=== PATIENT | male | born 1985 | race Caucasian/White ===

== ENCOUNTER 2018-08-20 17:31 | Emergency (ER) | payer SELFPAY ==
[2018-08-20 17:33] VITALS: BP 114/75; PULSE 94; RESP 16; TEMP 36.8; O2SAT 97; BMI 22.4
--- NOTE | 2018-08-20 17:41 | ED.DCSUM_ITS ---
- ER Visit Summary Date of Service: 08/20/18 Chief Complaint: Diarrhea History of Present Illness: The patient is a 32 M presents to the emergency department diarrhea. It is since resolved. The patient states this morning, he woke up and had 6 episodes of loose watery diarrhea. He states he took Imodium and Pepto. He states it is since resolved. He had to call off work and needs an excuse that he is allowed to return tomorrow. He is otherwise healthy. Is no history of inflammatory bowel disease. Physical Examination: Vital signs reviewed General: Well-nourished, well-developed Head: Normocephalic, atraumatic Eyes: Pupils equal and reactive, extraocular muscles intact Neck, supple, no lymphadenopathy Heart: Regular rate and rhythm Respiratory: No distress, clear bilaterally Abdomen: Soft, nontender, nondistended, no peritoneal signs Back: Nontender Extremities: Nontender, no edema, no cords Skin: Normal color no rash Neuro: Alert and oriented, no focal or lateralizing deficits Test Results: [] Emergency Department Course and Treatment: The patient's abdomen is soft and nontender. He has normal vitals. His symptoms have resolved. I do not feel further workup is necessary. Patient was counseled on supportive care. He will be discharged home. Treatment Plan: [] Disposition: Discharge Impression: 1. Diarrhea-resolved This note was generated with [employer] dictation software. It may contain incorrect words, spelling, and punctuation that were not noted in review of the chart prior to signing ED Disposition - Plan for ED Patient: Instructions: ED Diarrhea Viral Referrals: Care Physician,No Primary [Primary Care Provider] -
== END 2018-08-20 18:05 | disposition home or self-care (01) ==
LOC: ED 18:03
PROVIDERS: Emergency Provider Emergency Medicine
DX: R19.7 Diarrhea, unspecified (principal); Z72.0 Tobacco use
CPT/HCPCS: 99282

== ENCOUNTER 2019-11-15 11:56 | Emergency (ER) | payer SELFPAY ==
[2019-11-15 11:58] VITALS: BP 126/91; PULSE 89; RESP 22; TEMP 36.9; O2SAT 97; BMI 22.6
--- NOTE | 2019-11-15 12:19 | CT_ITS ---
STUDY: CT BRAIN WITHOUT CONTRAST REASON FOR EXAM: Male, 34 years old. 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 Individualized dose optimization techniques were used for this CT. COMPARISON: No relevant priors. FINDINGS: Normal soft tissue structures. Normal calvarium. Normal size ventricles and extra-axial spaces for the patient''s age. Normal white matter tracts of the cerebral hemispheres. Normal basal ganglia and thalami. Normal brainstem. Normal cerebellum. There is no intracranial hemorrhage. There are no findings of an acute ischemic infarction. Normal visualized paranasal sinuses. CT/Brain/Head without Contrast IMPRESSION: Normal unenhanced CT scan of the brain. Electronically Signed: Davis Cortes, at 12:41 EDT , Service support ,
[2019-11-15] MEDS: Acetaminophen 500 MG Tablet 1000 MG PO (12:39)
--- NOTE | 2019-11-15 12:58 | ED.DCSUM_ITS ---
- ER Visit Summary Date of Service: 11/15/19 Chief Complaint: Headache History of Present Illness: The patient is a 34 M with no primary care physician. Patient reports he had abrupt onset of an occipital headache approximately 1 hour ago. Is a throbbing pain is 910 at worst and 5-10 currently. Is worsened by nothing relieved by nothing. He denies any nausea or vomiting. Reports he does have blurred vision. States he is never had a headache like this before. He does have a history of migraines, but has not had one since he was 14 years old. Patient denies any fever. No recent injury to his head. Physical Examination: Vitals: Stable. Afebrile. General: Well-nourished and well-developed. Head: Normocephalic atraumatic. Neck: Supple, no lymphadenopathy. No JVD. Nontender. Cardiovascular: Regular rate and rhythm. No murmurs. Respiratory: No respiratory distress. Clear to auscultation bilaterally. Abdominal: Soft, nontender, nondistended, normal bowel sounds. No guarding, rebound, or peritoneal signs. Back: Nontender. Extremities: Nontender, no edema. Skin: Normal color, no rash. Neurologic: Alert and oriented ?3. Cranial nerves II through XII are intact. Normal strength and sensation. Psych: Normal affect. Test Results: Clinical Impression(s) from Imaging Studies Brain CT 11/15/19 12:19 IMPRESSION: Normal unenhanced CT scan of the brain. Electronically Signed: Davis Sophia, at 12:41 EDT , Service support , Emergency Department Course and Treatment: Patient was given a dose of Tylenol. He is resting comfortably. Treatment Plan: Patient will be discharged symptomatic care. Push fluids. Use Tylenol and/or ibuprofen for pain. Follow-up his primary care physician 1 to 2 days if not improving. Return to the emergency department for any worsening symptoms. Disposition: To home in improved and stable condition. Impression: 1. Cephalgia, acute. This note was generated with [employer] software. It may contain incorrect words, spelling, and punctuation that were not noted in review of the chart prior to signing ED Disposition - Plan for ED Patient: Disposition: Home or Assisted Living Instructions: ED Headache Unspecified Referrals: Kanwal Denise [NON-STAFF] - 1-2 Days if not improving
[2019-11-15 13:08] VITALS: BP 111/71; PULSE 91; RESP 17; O2SAT 98
--- NOTE | 2019-11-15 13:09 | ED.RN ---
DISCHARGE INSTRUCTIONS GIVEN TO AND REVIEWED WITH PATIENT, PATIENT DENIES QUESTIONS OR CONCERNS AND VOICES UNDERSTANDING OF DISCHARGE INSTRUCTIONS. PT AMBULATES OUT OF ROOM WITHOUT DIFFICULTY.
== END 2019-11-15 13:10 | disposition home or self-care (01) ==
LOC: ED 12:39
PROVIDERS: Emergency Provider Emergency Medicine
DX: R51 Headache (principal); Z72.0 Tobacco use
CPT/HCPCS: 70450; 99283

== ENCOUNTER 2020-01-08 11:51 | Emergency (ER) | payer MEDICAID, SELFPAY ==
[2020-01-08 11:52] VITALS: BP 135/84; PULSE 88; RESP 17; TEMP 36.4; O2SAT 99; BMI 21.9
--- NOTE | 2020-01-08 12:10 | ED.VIS.GEN ---
History of Present Illness Informant: Patient Onset: Weeks - 1 week Context: Gradual Onset Timing: Continuous Quality: swelling Location: right groin Current Severity: Severe Maximum Severity: Severe Worsened by: palpation and movement Relieved by: nothing Associated Symptoms: denies Narrative: 34-year-old male heroin abuse states he only snorts heroin presents with an abscess on his right groin that is been getting worse for a week he has had some mild spontaneous drainage but it continues to worsen. No fevers. No vomiting or diarrhea. No abdominal pain. No pain or swelling in his scrotum and he has been urinating normally. Prior similar symptoms: No Recent Illness/Hospitalization: No <Nino Casarez - Last Filed: 01/08/20 13:01> <Yanique Pearson - Last Filed: 01/08/20 22:56> Chief Complaint: Abscess Past Medical History Prior records reviewed: Yes Past Medical History: - - Heroin abuse Surgical History: no surgical history Lives: Alone Smoking Status: Current every day smoker Alcohol: Occasional Drugs: Heroin <Nino Casarez - Last Filed: 01/08/20 13:01> <Yanique Pearson - Last Filed: 01/08/20 22:56> - Allergies and Home Meds Allergies/Adverse Reactions: Allergies acetaminophen [From [place]] Adverse Reaction (Verified 01/08/20 11:52) Upset Stomach hydrocodone bitartrate [From [place]] Adverse Reaction (Verified 01/08/20 11:52) Upset Stomach Primary Care Physician: Daniel Jay MD [STAFF PHYSICIAN] - 3-5 Days Review of Systems All systems negative except as indicated General: Denies: Chills, Fever, Sweats Eyes: Denies: Visual changes - bilaterally, Diplopia ENT: Denies: Rhinorrhea, Sore throat Cardiovascular: Denies: Chest pain, Palpitations Respiratory: Denies: Dyspnea, Cough, Dyspnea on exertion Gastrointestinal: Denies: Abdominal pain, Nausea, Vomiting, Diarrhea, Melena, Hematochezia Genitourinary: Denies: Dysuria, Hematuria, Frequency Musculoskeletal: Denies: Back pain, Extremity Pain Skin: Reports: Abscess. Denies: Rash, Wounds Neurological: Denies: Headache, Weakness, Numbness <Nino Casarez - Last Filed: 01/08/20 13:01> Physical Exam Vital Signs/Narrative: Vital Signs Temp Pulse Resp BP Pulse Ox 01/08/20 11:52 97.6 F L 88 17 135/84 H 99 General: Well nourished, Well developed, No Acute Distress Head: Normocephalic, Atraumatic Eyes: Perrl, EOMI ENT: Moist mucous membranes, No rhinorrhea Neck: Supple, Nontender Cardiovascular: Regular rate, Regular rhythm, No murmurs Respiratory: No distress, CTA bilaterally, Chest nontender Abdomen: Soft, Nontender, Nondistended, Normal bowel sounds Back: Nontender, Normal Inspection Extremities: Nontender, No edema Skin: No rash, - - Patient has an abscess in his right lower quadrant of his abdomen it is superficial it is indurated and fluctuant Neurological: Alert, Oriented x3, Cranial nerves II-XII grossly intact, Normal Strength, Normal Sensation Psychological: Normal affect, Normal Mood <Nino Casarez - Last Filed: 01/08/20 13:01> Diagnostic/Tx/Re-eval - Medical Decision Making Patient has a superficial abscess in the right lower quadrant of his abdomen. Under sterile conditions with Betadine prep lidocaine with epinephrine was used locally for anesthesia. It was anesthetized and then opened with a single straight incision with an 11 blade scalpel. Copious purulent drainage was returned. It was irrigated and deloculated. Prescribed him Bactrim and Keflex and Naprosyn I discussed with him I would not prescribe narcotics due to his heroin abuse patient tolerated with difficulty. A packing was placed. I he was advised to follow-up in 2 to 3 days for wound check or return for worsening symptoms. Doses of antibiotics given in the emergency department. <Nino Casarez - Last Filed: 01/08/20 13:01> - Medical Decision Making I have personally performed a [id number] assessment of the patient and have reviewed the PA note. My montemayor findings include: 34-year-old male presenting with right groin abscess. Vital signs are stable. He has a fluctuant abscess to the right groin. I&D was performed. He was started on antibiotics. Advised to follow-up with primary care physician. Advised return to ED for worsening complaints. <Yanique Pearson - Last Filed: 01/08/20 22:56> ED Disposition <Nino Casarez - Last Filed: 01/08/20 13:01> <Yanique Pearson Last Filed: 01/08/20 22:56> - Plan for ED Patient: Disposition: Home or Assisted Living Diagnosis: Abscess, Heroin abuse Instructions: ED Abscess Incision And Drainage Prescriptions: Smz/Tmp Ds [Bactrim Ds] 1 tab PO BID #14 tab Transmission Status: Received by [facility] Cephalexin [Keflex] 500 mg PO Q6 #40 cap Transmission Status: Received by [facility] Naproxen [Naprosyn] 500 mg PO BID #20 tab Transmission Status: Received by [facility] Referrals: Daniel Jay MD [STAFF PHYSICIAN] - 3-5 Days
[2020-01-08] MEDS: Ketorolac 60 MG/2 ML Vial IM (12:40)
[2020-01-08] MEDS: Cephalexin 250 MG Capsule 500 MG PO (12:46)
[2020-01-08] MEDS: Smz/Tmp Ds Tablet 1 TABLET PO (12:47)
[2020-01-08 13:21] VITALS: RESP 16
== END 2020-01-08 13:22 | disposition home or self-care (01) ==
PROVIDERS: Emergency Provider Physician Assistant Medical
DX: L02.214 Cutaneous abscess of groin (principal); F11.10 Opioid abuse, uncomplicated; F17.200 Nicotine dependence, unspecified, uncomplicated
CPT/HCPCS: 10060; 96372; 99283

== ENCOUNTER 2020-02-20 04:41 | Emergency (ER) | payer MEDICAID, SELFPAY ==
[2020-02-20 04:42] VITALS: BP 124/71; PULSE 60; RESP 14; TEMP 36.4; O2SAT 95; BMI 23.1
[2020-02-20 04:45] VITALS: BP 124/73; PULSE 60; RESP 14; TEMP 36.6; O2SAT 98
--- NOTE | 2020-02-20 05:02 | ED.DCSUM_ITS ---
- ER Visit Summary Date of Service: 02/20/20 Chief Complaint: Facial abscess History of Present Illness: The patient is a 34 M with no primary care physician. He reports he has an abscess to the right side of his chin that began 3 days ago. States it began as a pimple that he squeezed too hard. He denies any dental pain. He reports he has a sharp, aching pain there that is 10 out of 10 in severity. Is worsened by closing his mouth and turning his head. He is taken ibuprofen without relief. He denies any constitutional symptoms. No fever, chills, nausea, or vomiting. Patient does have a history of heroin use. He states that he snorts this. He denies any IV drug abuse. His last use was at 4:00 yesterday. Reports that he is in the process of getting on Suboxone at 180. However, he states that he spoke with them tonight and they told him to get this under control prior to starting Suboxone. Physical Examination: Vitals: Stable. Afebrile. General: Well-nourished and well-developed. Head: Normocephalic atraumatic. HEENT: No pain with percussion of his teeth. He does have an approximate 2 cm indurated area to the right side of his lower lip with central fluctuance. There is mild soft tissue swelling to his mandible. There is no evidence of José Miguel angina. He has no edema to the floor of his mouth. Neck: Supple, no lymphadenopathy. No JVD. Nontender. Cardiovascular: Regular rate and rhythm. No murmurs. Respiratory: No respiratory distress. Clear to auscultation bilaterally. Abdominal: Soft, nontender, nondistended, normal bowel sounds. No guarding, rebound, or peritoneal signs. Back: Nontender. Extremities: Nontender, no edema. Skin: Normal color, no rash. Neurologic: Alert and oriented ?3. Cranial nerves II through XII are intact. Normal strength and sensation. Psych: Normal affect. Emergency Department Course and Treatment: I had a prolonged discussion with patient about treatment options for this. He does not want an incision and drainage performed here. We also discussed the use of opiate-based medications and there effect on his sobriety. He reports that he did does not have a problem with pills. The patient has objective evidence of a facial abscess that is clearly going to be painful. He was treated with oxycodone, Bactrim and Keflex. Treatment Plan: Patient will be discharged instructions to follow-up the vitals*clinic in 2 days for repeat exam. He will be discharged with 10 Percocet, Bactrim, and Keflex. He does understand if this is not improving that it will require an incision and drainage. Return to the emergency department for any worsening symptoms. Disposition: To home in improved and stable condition. Impression: 1. Facial abscess. 2. Opiate addiction. This note was generated with [employer] dictation software. It may contain incorrect words, spelling, and punctuation that were not noted in review of the chart prior to signing ED Disposition - Plan for ED Patient: Disposition: Home or Assisted Living Instructions: ED Abscess Antibiotic Treatment Only Prescriptions: Smz/Tmp Ds [Bactrim Ds] 1 tab PO BID #14 tab Prescription Printed Cephalexin [Keflex] 500 mg PO Q6 #28 cap Prescription Printed Oxycodone HCl/Acetaminophen [Percocet 5/325] 1 tab PO Q6H PRN PRN 3 Days #10 tab PRN Reason: Pain Prescription Printed Referrals: Kanwal Denise [NON-STAFF] - 2 Days for wound check
[2020-02-20] MEDS: Smz/Tmp Ds Tablet 1 TABLET PO (05:11)
[2020-02-20] MEDS: Cephalexin 250 MG Capsule 500 MG PO (05:11)
[2020-02-20] MEDS: oxyCODONE 5 MG Tablet 10 MG PO (05:11)
[2020-02-20 05:12] VITALS: RESP 16
== END 2020-02-20 05:16 | disposition home or self-care (01) ==
LOC: ED 05:04
PROVIDERS: Emergency Provider Emergency Medicine
DX: L02.01 Cutaneous abscess of face (principal); F11.20 Opioid dependence, uncomplicated; Z72.0 Tobacco use
CPT/HCPCS: 99283

== ENCOUNTER 2020-04-23 08:59 | Inpatient (IN) | payer MEDICAID, SELFPAY ==
[2020-04-23] VITALS (8 sets, daily range): BP systolic 119–144; BP diastolic 50–85; PULSE 60–90; RESP 15–18; TEMP 36.1–36.9; O2SAT 95–100; BMI 23.6; BMI 23.3; BMI 23.4
--- NOTE | 2020-04-23 09:19 | ED.VIS.GEN ---
History of Present Illness Chief Complaint: Substance Abuse Informant: Patient Onset: Month(s) - Approximately 1 year Narrative: Patient presents asking for help with detox from heroin. He has been snorting heroin for approximately 1 year. He states he is been able to taper himself down from $2000 a month use to $100 a month use. He states he just cannot quite get over the final have to completely stop and would like inpatient detox to help him with this. Last use was at 9 PM last evening. He states he does feel slightly shaky and has not slept overnight. Past Medical History - Allergies and Home Meds Allergies/Adverse Reactions: Allergies acetaminophen [From [place]] Adverse Reaction (Verified 04/23/20 09:00) Upset Stomach hydrocodone bitartrate [From [place]] Adverse Reaction (Verified 04/23/20 09:00) Upset Stomach Primary Care Physician: Care Physician,No Primary [Primary Care Provider] - Past Medical History: None Surgical History: no surgical history Smoking Status: Current every day smoker Drugs: Heroin Review of Systems General: Denies: Chills, Fever Eyes: Denies: Visual changes - bilaterally ENT: Denies: Bilateral ear pain Cardiovascular: Denies: Chest pain Respiratory: Denies: Dyspnea, Cough Gastrointestinal: Denies: Abdominal pain, Vomiting, Diarrhea Genitourinary: Denies: Dysuria Musculoskeletal: Denies: Swelling, Extremity Pain Skin: Denies: Rash Hematologic: Denies: Easy bruising, Easy bleeding Allergy: Denies: Uticaria Physical Exam Vital Signs/Narrative: Vital Signs Temp Pulse Resp BP Pulse Ox 04/23/20 09:00 97.0 F L 87 17 123/50 H 100 Inital Vital Signs reviewed: Yes General: Well nourished, Well developed Head: Normocephalic ENT: Moist mucous membranes Neck: Supple Cardiovascular: Regular rate, Regular rhythm Respiratory: No distress, CTA bilaterally Abdomen: Soft, Nontender Extremities: Nontender Skin: Normal color Neurological: Alert, Oriented x3, Normal Strength, Normal Sensation Psychological: Normal affect Diagnostic/Tx/Re-eval Laboratory Results 04/23/20 04/23/20 04/23/20 09:25 09:25 09:25 WBC 13.1 H RBC 5.44 Hgb 17.1 H Hct 51.5 MCV 94.7 H MCH 31.4 MCHC 33.2 RDW Std Deviation 46.7 H RDW Coeff of Brianna 13.3 Plt Count 346 MPV 8.9 Immature Gran % (Auto) 0.300 Neut % (Auto) 72.5 H Lymph % (Auto) 15.4 L [place] % (Auto) 7.9 Eos % (Auto) 3.4 Baso % (Auto) 0.5 Absolute Neuts (auto) 9.5 H Absolute Lymphs (auto) 2.02 Nucleated RBC % 0 Sodium 138 Potassium 4.1 Chloride 107 Carbon Dioxide 29.0 Anion Gap 2 L BUN 19 H Creatinine 1.14 Estim Creat Clear Calc 101.24 Est GFR (MDRD) Af Amer 93 Est GFR (MDRD) Non-Af 77 BUN/Creatinine Ratio 16.7 Glucose 111 H Calcium 9.2 Total Bilirubin 0.20 AST 11 L ALT 24 Alkaline Phosphatase 96 Total Protein 7.4 Albumin 4.0 Globulin 3.4 Albumin/Globulin Ratio 1.2 Urine Opiates Screen Urine Methadone Screen Ur Barbiturates Screen Ur Phencyclidine Scrn Ur Amphetamines Screen U Methamphetamin-MDMA U Benzodiazepines Scrn Urine Cocaine Screen U Cannabinoids Screen Ur Drug Screen Comment Ethyl Alcohol < 3.0 04/23/20 10:45 WBC RBC Hgb Hct MCV MCH MCHC RDW Std Deviation RDW Coeff of Brianna Plt Count MPV Immature Gran % (Auto) Neut % (Auto) Lymph % (Auto) [place] % (Auto) Eos % (Auto) Baso % (Auto) Absolute Neuts (auto) Absolute Lymphs (auto) Nucleated RBC % Sodium Potassium Chloride Carbon Dioxide Anion Gap BUN Creatinine Estim Creat Clear Calc Est GFR (MDRD) Af Amer Est GFR (MDRD) Non-Af BUN/Creatinine Ratio Glucose Calcium Total Bilirubin AST ALT Alkaline Phosphatase Total Protein Albumin Globulin Albumin/Globulin Ratio Urine Opiates Screen NEGATIVE Urine Methadone Screen NEGATIVE Ur Barbiturates Screen NEGATIVE Ur Phencyclidine Scrn NEGATIVE Ur Amphetamines Screen NEGATIVE U Methamphetamin-MDMA NEGATIVE U Benzodiazepines Scrn NEGATIVE Urine Cocaine Screen NEGATIVE U Cannabinoids Screen NEGATIVE Ur Drug Screen Comment Ethyl Alcohol - Medical Decision Making Rules for the detox unit were reviewed with the patient and he agreed. Labs do reveal a mild leukocytosis. No obvious source of infection. I will speak with hospitalist regarding admission for detox program. ED Disposition - Plan for ED Patient: Disposition: Acute Care [facility] Diagnosis: Desire for detoxification Referrals: Care Physician,No Primary [Primary Care Provider] -
[2020-04-23 09:30] LABS: Absolute Lymphocyte Count 2.02 X10^3/uL (0.83-4.51); Absolute Neutrophil Count 9.5 X10^3/uL (2.0-7.7); Basophil# 0.07 X10^3/uL; Basophil% 0.5 % (0-1); Eosinophil# 0.44 X10^3/uL; Eosinophils% 3.4 % (0-5); Hematocrit 51.5 % (40-54); Hemoglobin 17.1 g/dL (13.0-16.5); Lymphocyte # 2.02 X10^3/ul (4.0); Lymphocyte % 15.4 % (19-41); Mean Corp Hgb Conc 33.2 g/dL (32-36); Mean Corpuscular Hgb 31.4 pg (27.0-32.0); Mean Corpuscular Volume 94.7 fL (80-94); Mean Platelet Vol. 8.9 fl (6.2-12.0); Monocyte# 1.03 X10^3/uL; Monocyte% 7.9 % (0-10); NRBC Flagged by Analyzer 0 % (0-5); Neutrophil # 9.48 X10^3/uL (2.7-7.7); Neutrophil % 72.5 % (47-70); Platelet Count 346 K/mm3 (150-450); RBC Distribution Width CV 13.3 % (11.6-14.6); RBC Distribution Width SD 46.7 fl (35.1-43.9); Red Blood Count 5.44 M/mm3 (4.6-6.2); White Blood Count 13.1 K/mm3 (4.4-11.0)
[2020-04-23] MEDS: LORazepam 2 MG/ML Syringe 0.5 MG IV (09:32)
[2020-04-23 09:46] LABS: ALB/GLOB Ratio 1.2 RATIO (0.9-2.4); AST(SGOT) 11 U/L (15-37); Alanine Aminotransfer ALT/SGPT 24 U/L (16-61); Alkaline Phosphatase 96 U/L (45-117); Anion Gap 2 (5-15); BUN 19 mg/dL (7-18); BUN/Creat Ratio 16.7 RATIO (10-20); Calcium,Total 9.2 mg/dL (8.5-10.1); Chloride 107 mmol/L (98-107); Creatinine, Serum 1.14 mg/dL (0.70-1.30); EST Glomerular Filtration Rate 77 mL/min (>60); Est Glom Filt Rate - Afr Amer 93 mL/min (>60); Estimated Creatinine Clearance 101.24 ml/min; Globulin 3.4 g/dL (2.2-4.2); Glucose 111 mg/dL (74-106); Potassium 4.1 mmol/L (3.5-5.1); Protein, Total 7.4 g/dL (6.4-8.2); Sodium Level 138 mmol/L (136-145)
[2020-04-23 10:03] LABS: Alcohol, Blood (Medical)-Serum < 3.0 mg/dL
[2020-04-23 11:08] LABS: Amphetamine Urine VISTA NEGATIVE (<1000 ng/mL); Barbiturate Urine VISTA NEGATIVE (< 200 ng/mL); Benzodiazepine Urine VISTA NEGATIVE (< 200 ng/mL); Cocaine Urine VISTA NEGATIVE (< 300 ng/mL); Ecstacy Urine VISTA NEGATIVE (< 500 ng/mL); Methadone Urine VISTA NEGATIVE (< 300 ng/mL); PCP Urine VISTA NEGATIVE (< 25 ng/mL); THC Urine VISTA NEGATIVE (< 50 ng/mL); Vista UDS pH Range 6
--- NOTE | 2020-04-23 12:36 | HP.PCM_ITS ---
Problem List (1) Desire for detoxification Status: Acute (2) No significant pertinent medical history Status: Acute History of Present Illness Date of Admission: 04/23/20 Chief Complaint: seeking help for opiate withdrawal The patient is a 34 year old M seeking treatment for heroin use. Patient has been snorting heroin for years and has recently cut down and attempts to quit but cannot maintain sobriety. He has not sought out any organizations to quit other than just trying to do it on his own. Patient presented to the emergency room today seeking such treatment. Patient's last use was at 9 PM on the . Since then, he has been having some twitching, and some headache and slow mental processing. [] Past Medical History Allergies acetaminophen [From [place]] Adverse Reaction (Verified 04/23/20 09:00) Upset Stomach hydrocodone bitartrate [From [place]] Adverse Reaction (Verified 04/23/20 09:00) Upset Stomach Home Medications: Ambulatory Orders Medication Instructions Recorded Cephalexin [Keflex] 500 mg PO Q6 #28 cap 02/20/20 Smz/Tmp Ds [Bactrim Ds] 1 tab PO BID #14 tab 02/20/20 Surgical History: no surgical history Smoking Status: Current every day smoker Drugs: Heroin, Marijuana - Occasional - *Family History Sibling History Items: - - He has a brother that is a heroin dealer. No other addicts in the family. Review of Systems Comment: All review of systems were negative except as mentioned above in the history of present illness and the other review of systems. No sick contacts, no exposure to anyone with COVID-19. Rhinitis. No lacrimation. VTE Information - Inpt Only VTE Present on Admission: No VTE Mechan Device Prophylaxis: None VTE Pharm Prophylaxis ordered?: No Reason prophylaxis not ordered:: Treatment Not Indicated Patient Problems: Active and Suspected Problems Desire for detoxification (Acute) - Physical Exam Vitals/I&O's: Vital Signs Temp Pulse Resp BP Pulse Ox 36.5 C L 69 16 144/85 H 100 04/23/20 12:14 04/23/20 12:14 04/23/20 12:14 04/23/20 12:14 04/23/20 12:14 Oxygen Delivery Method Room Air Weight: 81.3 kg Body Mass Index (BMI) 23.6 General: Alert, Cooperative, No apparent distress HEENT: Atraumatic, Normocephalic Oral: Moist Mucosa, No Gingival or Mucosal Lesions/ Ulcerations Neck: No Nodes, Thyroid Normal Size and Texture Lungs: Clear to auscultation, Normal air movement, No rhonchi, No wheeze, No rales, Diminished Cardiovascular: Regular rate, Regular Rhythm, Normal S1, Normal S2, No murmurs Abdomen: Bowel Sounds Present, Soft, Non Tender, Non-Distended Extremities: No edema, No Calf Tenderness Skin: No rashes, No breakdown Psych/Mental Status: Normal Affect, Appropriate Laboratory Results 04/23/20 09:25: WBC 13.1 H, RBC 5.44, Hgb 17.1 H, Hct 51.5, MCV 94.7 H, MCH 31.4, MCHC 33.2, RDW Std Deviation 46.7 H, RDW Coeff of Brianna 13.3, Plt Count 346, MPV 8.9, Immature Gran % (Auto) 0.300, Neut % (Auto) 72.5 H, Lymph % (Auto) 15.4 L, [place] % (Auto) 7.9, Eos % (Auto) 3.4, Baso % (Auto) 0.5, Absolute Neuts (auto) 9.5 H, Absolute Lymphs (auto) 2.02, Nucleated RBC % 0 04/23/20 09:25: Sodium 138, Potassium 4.1, Chloride 107, Carbon Dioxide 29.0, Anion Gap 2 L, BUN 19 H, Creatinine 1.14, Estim Creat Clear Calc 101.24, Est GFR (MDRD) Af Amer 93, Est GFR (MDRD) Non-Af 77, BUN/Creatinine Ratio 16.7, Glucose 111 H, Calcium 9.2, Total Bilirubin 0.20, AST 11 L, ALT 24, Alkaline Phosphatase 96, Total Protein 7.4, Albumin 4.0, Globulin 3.4, Albumin/Globulin Ratio 1.2 04/23/20 09:25: Ethyl Alcohol < 3.0 04/23/20 10:45: Urine Opiates Screen NEGATIVE, Urine Methadone Screen NEGATIVE, Ur Barbiturates Screen NEGATIVE, Ur Phencyclidine Scrn NEGATIVE, Ur Amphetamines Screen NEGATIVE, U Methamphetamin-MDMA NEGATIVE, U Benzodiazepines Scrn NEGATIVE, Urine Cocaine Screen NEGATIVE, U Cannabinoids Screen NEGATIVE, Ur Drug Screen Comment Assessment/Plan All Active Problems Desire for detoxification (Acute) No significant pertinent medical history (Acute) 1. acute heroin withdrawal * CINA score 5 * initiate buprenorphine taper * additional medications for other somatic complaints * CM to assist with outpt program. patient has not sought out any programs. 2. VTE prophylaxis: Low risk and not indicated. Inpatient E&M: [id number] Init Hosp L2
[2020-04-23] MEDS: Ibuprofen 600 MG Tablet PO (14:41)
[2020-04-23] MEDS: Methocarbamol 750 MG Tablet 1500 MG PO ×2 (14:42→21:32)
[2020-04-23] MEDS: Buprenorphine HCl 2 MG TAB.SUBL SL (18:43)
[2020-04-23] MEDS: traZODone 100 MG Tablet PO (23:06)
--- NOTE | 2020-04-23 23:08 | NURSING ---
Asking for something for sleep. He states that's why he started using heroin because he couldn't sleep. Trazodone given.
[2020-04-24 01:41] VITALS: BP 124/69; PULSE 79; RESP 18; TEMP 36.4; O2SAT 98
[2020-04-24] MEDS: Buprenorphine HCl 2 MG TAB.SUBL SL ×3 (02:51→17:46)
[2020-04-24 05:51] VITALS: BP 117/57; PULSE 66; RESP 18; TEMP 36.4; O2SAT 97
--- NOTE | 2020-04-24 08:54 | PN_ITS ---
Patient Problems: Active and Suspected Problems Desire for detoxification (Acute) No significant pertinent medical history (Acute) Reason for Visit: Acute opioid withdrawal Subjective: Patient is a 34-year-old gentleman with history of opiate dependence admitted with acute opioid withdrawal Objective: GENERAL: cooperative HEENT: Atraumatic; EYES; Anicteric, Normal Conjunctiva NECK; supple, normal thyroid, RESPIRATORY: Diminished to auscultation CARDIOVASCULAR: Regular S1 S2, GI: soft, normoactive bowel sounds, : No Renal angle tenderness; EXTREMITIES: No edema, no clubbing, MUSCULOSKELETAL: no muscle waisting NEURO: Awake; no lateralizing signs. SKIN: No Rash PSYCH; Flat affect Vitals/I&O's: Vital Signs Temp Pulse Resp BP Pulse Ox 97.6 F L 66 18 117/57 L 97 04/24/20 05:51 04/24/20 05:51 04/24/20 05:51 04/24/20 05:51 04/24/20 05:51 Oxygen Delivery Method Room Air Weight: 80.399 kg Body Mass Index (BMI) 23.3 Intake and Output for Last 24 Hours 04/22/20 04/23/20 04/24/20 23:59 23:59 23:59 Intake Total 400 / 400 200 / 200 Balance 400 / 400 200 / 200 Laboratory Results 04/23/20 09:25: WBC 13.1 H, RBC 5.44, Hgb 17.1 H, Hct 51.5, MCV 94.7 H, MCH 31.4, MCHC 33.2, RDW Std Deviation 46.7 H, RDW Coeff of Brianna 13.3, Plt Count 346, MPV 8.9, Immature Gran % (Auto) 0.300, Neut % (Auto) 72.5 H, Lymph % (Auto) 15.4 L, Armstrong % (Auto) 7.9, Eos % (Auto) 3.4, Baso % (Auto) 0.5, Absolute Neuts (auto) 9.5 H, Absolute Lymphs (auto) 2.02, Nucleated RBC % 0 04/23/20 09:25: Sodium 138, Potassium 4.1, Chloride 107, Carbon Dioxide 29.0, Anion Gap 2 L, BUN 19 H, Creatinine 1.14, Estim Creat Clear Calc 101.24, Est GFR (MDRD) Af Amer 93, Est GFR (MDRD) Non-Af 77, BUN/Creatinine Ratio 16.7, Glucose 111 H, Calcium 9.2, Total Bilirubin 0.20, AST 11 L, ALT 24, Alkaline Phosphatase 96, Total Protein 7.4, Albumin 4.0, Globulin 3.4, Albumin/Globulin Ratio 1.2 04/23/20 09:25: Ethyl Alcohol < 3.0 04/23/20 10:45: Urine Opiates Screen NEGATIVE, Urine Methadone Screen NEGATIVE, Ur Barbiturates Screen NEGATIVE, Ur Phencyclidine Scrn NEGATIVE, Ur Amphetamines Screen NEGATIVE, U Methamphetamin-MDMA NEGATIVE, U Benzodiazepines Scrn NEGATIVE, Urine Cocaine Screen NEGATIVE, U Cannabinoids Screen NEGATIVE, Ur Drug Screen Comment Current Medications Acetaminophen (Acetaminophen 500 Mg Tablet) 500 mg PO Q4H PRN PRN PRN Reason: Temp > 100.4 F Al Hydroxide/Mg Hydroxide (Mag Hydrox/Al Hydrox/Simeth 30 Ml Udc) 30 ml PO Q6H PRN PRN PRN Reason: dyspesia Bisacodyl (Bisacodyl 10 Mg Suppository) 10 mg RECTAL DAILY PRN PRN Reason: Constipation Buprenorphine HCl (Buprenorphine Hcl 2 Mg Tab.Subl) 4 mg SL Q8H STIVEN; Taper Stop: 04/26/20 18:59 Last Admin: 04/24/20 02:51 Dose: 4 mg Documented by: Clonidine (Clonidine Hcl 0.1 Mg Tablet) 0.1 mg PO Q8H PRN PRN PRN Reason: RESTLESSNESS Dicyclomine HCl (Dicyclomine 10 Mg Capsule) 20 mg PO Q6H PRN PRN PRN Reason: Abdominal Discomfort Gabapentin (Gabapentin 300 Mg Capsule) 300 mg PO Q8H PRN PRN PRN Reason: moderate to severe anxiety Hydroxyzine Pamoate (Hydroxyzine Anuradha 25 Mg Capsule) 50 mg PO Q6H PRN PRN PRN Reason: mild anxiety Ibuprofen (Ibuprofen 600 Mg Tablet) 600 mg PO Q8H PRN PRN PRN Reason: Pain Score 1-10 Last Admin: 04/23/20 14:41 Dose: 600 mg Documented by: Influenza Virus Vaccine Quadrival (Influenza Vaccine (6mos+)/Pf 0.5 Ml Syringe) 0.5 ml IM .ONCE ONE Stop: 04/24/20 10:01 Loperamide HCl (Loperamide 2 Mg Capsule) 2 mg PO Q4H PRN PRN PRN Reason: LOOSE STOOLS Methocarbamol (Methocarbamol 750 Mg Tablet) 1,500 mg PO Q6H PRN PRN PRN Reason: MUSCLE SPASM Last Admin: 04/23/20 21:32 Dose: 1,500 mg Documented by: Nicotine (Nicotine 21 Mg Patch) 21 mg TD DAILY STIVEN Ondansetron HCl (Ondansetron 8 Mg Tablet) 8 mg PO Q8H PRN PRN PRN Reason: NAUSEA Senna (Senna Tablet) 2 tablet PO QHS PRN PRN Reason: Constipation Sodium Chloride (0.9% Saline Lock 10 Ml Syringe) 10 - 40 ml IV UD PRN PRN Reason: SALINE FLUSH Trazodone HCl (Trazodone 100 Mg Tablet) 100 mg PO QHS PRN PRN PRN Reason: INSOMNIA Last Admin: 04/23/20 23:06 Dose: 100 mg Documented by: STROKE Vital Signs/Narrative: Vital Signs Temp Pulse Resp BP Pulse Ox 04/24/20 05:51 97.6 F L 66 18 117/57 L 97 Medical Necessity - Tobacco Use Smoking Status: Current every day smoker Tobacco Use: Cigarettes, Chew Assessment/Plan All Active Problems Desire for detoxification (Acute) No significant pertinent medical history (Acute) Patient is a 34-year-old gentleman with history of opiate dependence admitted with acute opioid withdrawal 1. Acute opioid withdrawal ?Patient has been admitted to regular nursing floor for medical stabilization using Subutex 2. Opioid dependence ?Counseled on cessation 3. Tobacco dependence - Counseled on cessation, offered nicotine patch for tobacco cravings 4. DVT prophylaxis; low risk, Did encourage early ambulation Inpatient E&M: 90353 Subs Hosp L2
[2020-04-24 09:45] VITALS: BP 122/70; PULSE 78; RESP 18; TEMP 36.6; O2SAT 98
--- NOTE | 2020-04-24 10:33 | ADDICTION ---
This insurance underwriter met with patient, in his room, to conduct ASAM, MSE, DUDIT assessments and to plan for discharge. Patient was alert and oriented x4 and actively engaged with this insurance underwriter. Patient reports that he is willing to engage in intensive outpatient services until he moves to [place] on 05/12/2020. This insurance underwriter will coordinate assessment while pt is at [facility]. Patient reports that he plans to continue to use marijuana noting that it helps me. All documentation completed, faxed to [facility] and placed in pt chart.
[2020-04-24 14:53] VITALS: BP 114/81; PULSE 102; RESP 18; TEMP 36.6; O2SAT 100
--- NOTE | 2020-04-24 16:17 | CHAPLAIN ---
Type of Pastoral Visit _x__ Initial Visit ___ Follow-up Visit ___ On-call Visit ___ General Patient Visit ___ Spiritual Assessment ___ Family Conference ___ Bereavement ___ Rapid Response ___ Code Blue ___ Other (describe below) Pastoral Care Referral From _x__ Patient ___ Family ___ Nurse ___ Physician ___ Liquefied Natural Gas Operator ___ Architectural Job Captain ___ Other (describe below) Sacrament/Intervention _x__ Active listening ___ Anointing ___ Yazidism ___ Bereavement ___ Communion _x__ Adali exploration ___ _x__ Life review _x__ Prayer ___ Reconciliation ___ Sacrament of Sick _x__ Supportive presence ___ Wedding ___ Other (describe below) Pastoral Comments patient is extremely talkative about his life, situation, attempt to get into recovery, his plan for recovery, his support system, his family and friendships, 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
[2020-04-24 17:44] VITALS: BP 126/80; PULSE 83; RESP 18; TEMP 36.6; O2SAT 100
[2020-04-24] MEDS: Senna Tablet 2 TABLET PO (19:50)
[2020-04-24 22:18] VITALS: BP 131/82; PULSE 61; RESP 16; TEMP 36.3; O2SAT 100
[2020-04-24] MEDS: traZODone 100 MG Tablet PO (22:23)
[2020-04-25 03:09] VITALS: BP 124/66; PULSE 57; RESP 16; TEMP 36.8; O2SAT 97
[2020-04-25] MEDS: Buprenorphine HCl 2 MG TAB.SUBL SL ×3 (03:12→19:17)
--- NOTE | 2020-04-25 07:29 | PCM.PN.HOSP ---
Patient Problems: Active and Suspected Problems Desire for detoxification (Acute) No significant pertinent medical history (Acute) Reason for Visit: acute opioid withdrawal Subjective: Patient is a 34-year-old gentleman with history of opiate dependence admitted with acute opioid withdrawal Patient seen symptoms appear to be well controlled with current regimen. If patient continues on current trajectory plan is for patient to be discharged home on 04/26/2020. Objective: GENERAL: cooperative HEENT: Atraumatic; EYES; Anicteric, Normal Conjunctiva NECK; supple, normal thyroid, RESPIRATORY: Diminished to auscultation CARDIOVASCULAR: Regular S1 S2, GI: soft, normoactive bowel sounds, : No Renal angle tenderness; EXTREMITIES: No edema, no clubbing, MUSCULOSKELETAL: no muscle waisting NEURO: Awake; no lateralizing signs. SKIN: No Rash PSYCH; Flat affect Vitals/I&O's: Vital Signs Temp Pulse Resp BP Pulse Ox 98.3 F 57 L 16 124/66 H 97 04/25/20 03:09 04/25/20 03:09 04/25/20 03:09 04/25/20 03:09 04/25/20 03:09 Oxygen Delivery Method Room Air Weight: 80.399 kg Body Mass Index (BMI) 23.3 Intake and Output for Last 24 Hours 04/23/20 04/24/20 04/25/20 23:59 23:59 23:59 Intake Total 400 / 400 1800 / 1800 Balance 400 / 400 1800 / 1800 Current Medications Acetaminophen (Acetaminophen 500 Mg Tablet) 500 mg PO Q4H PRN PRN PRN Reason: Temp > 100.4 F Al Hydroxide/Mg Hydroxide (Mag Hydrox/Al Hydrox/Simeth 30 Ml Udc) 30 ml PO Q6H PRN PRN PRN Reason: dyspesia Bisacodyl (Bisacodyl 10 Mg Suppository) 10 mg RECTAL DAILY PRN PRN Reason: Constipation Buprenorphine HCl (Buprenorphine Hcl 2 Mg Tab.Subl) 2 mg SL Q8H STIVEN; Taper Stop: 04/26/20 18:59 Last Admin: 04/25/20 03:12 Dose: 2 mg Documented by: Clonidine (Clonidine Hcl 0.1 Mg Tablet) 0.1 mg PO Q8H PRN PRN PRN Reason: RESTLESSNESS Dicyclomine HCl (Dicyclomine 10 Mg Capsule) 20 mg PO Q6H PRN PRN PRN Reason: Abdominal Discomfort Gabapentin (Gabapentin 300 Mg Capsule) 300 mg PO Q8H PRN PRN PRN Reason: moderate to severe anxiety Hydroxyzine Pamoate (Hydroxyzine Anuradha 25 Mg Capsule) 50 mg PO Q6H PRN PRN PRN Reason: mild anxiety Ibuprofen (Ibuprofen 600 Mg Tablet) 600 mg PO Q8H PRN PRN PRN Reason: Pain Score 1-10 Last Admin: 04/23/20 14:41 Dose: 600 mg Documented by: Loperamide HCl (Loperamide 2 Mg Capsule) 2 mg PO Q4H PRN PRN PRN Reason: LOOSE STOOLS Methocarbamol (Methocarbamol 750 Mg Tablet) 1,500 mg PO Q6H PRN PRN PRN Reason: MUSCLE SPASM Last Admin: 04/23/20 21:32 Dose: 1,500 mg Documented by: Nicotine (Nicotine 21 Mg Patch) 21 mg TD DAILY STIVEN Last Admin: 04/24/20 09:10 Dose: 21 mg Documented by: Ondansetron HCl (Ondansetron 8 Mg Tablet) 8 mg PO Q8H PRN PRN PRN Reason: NAUSEA Senna (Senna Tablet) 2 tablet PO QHS PRN PRN Reason: Constipation Last Admin: 04/24/20 19:50 Dose: 2 tablet Documented by: Sodium Chloride (0.9% Saline Lock 10 Ml Syringe) 10 - 40 ml IV UD PRN PRN Reason: SALINE FLUSH Trazodone HCl (Trazodone 100 Mg Tablet) 100 mg PO QHS PRN PRN PRN Reason: INSOMNIA Last Admin: 04/24/20 22:23 Dose: 100 mg Documented by: Medical Necessity - Tobacco Use Smoking Status: Current every day smoker Tobacco Use: Cigarettes, Chew Assessment/Plan All Active Problems Desire for detoxification (Acute) No significant pertinent medical history (Acute) Patient is a 34-year-old gentleman with history of opiate dependence admitted with acute opioid withdrawal 1. Acute opioid withdrawal ?Patient has been admitted to regular nursing floor for medical stabilization using Subutex - Patient seen symptoms appear to be well controlled with current regimen. If patient continues on current trajectory plan is for patient to be discharged home on 04/26/2020. 2. Opioid dependence ?Counseled on cessation 3. Tobacco dependence - Counseled on cessation, offered nicotine patch for tobacco cravings 4. DVT prophylaxis; low risk, Did encourage early ambulation Inpatient E&M: 39458 Subs Hosp L2
[2020-04-25 08:44] VITALS: BP 107/61; PULSE 64; RESP 18; TEMP 36.4; O2SAT 97
[2020-04-25 08:45] VITALS: PULSE 64
[2020-04-25 14:39] VITALS: BP 117/64; PULSE 67; RESP 16; TEMP 37.3; O2SAT 97
[2020-04-25 21:16] VITALS: BP 132/74; PULSE 64; RESP 16; TEMP 36.8; O2SAT 100
[2020-04-25] MEDS: traZODone 100 MG Tablet PO (21:18)
[2020-04-26] MEDS: Ibuprofen 600 MG Tablet PO (00:52)
[2020-04-26 05:57] VITALS: BP 103/66; PULSE 59; RESP 16; TEMP 36.4; O2SAT 98
[2020-04-26] MEDS: Buprenorphine HCl 2 MG TAB.SUBL SL (05:59)
--- NOTE | 2020-04-26 07:37 | PCM.DC.SUM ---
Discharge Date and Diagnosis - Problem List Patient Problems: Active and Suspected Problems Desire for detoxification (Acute) No significant pertinent medical history (Acute) Date of Admission: 04/23/20 Date of Discharge: 04/26/20 - Primary Discharge Diagnosis Acute Problems: Active Problems Acute opioid withdrawal Hospital Course and Treatment Summary of Care Provided: Patient is a 34-year-old gentleman with history of opiate dependence admitted with acute opioid withdrawal 1. Acute opioid withdrawal ?Patient has been admitted to regular nursing floor for medical stabilization using Subutex - Patient seen symptoms appear to be well controlled with current regimen. If patient continues on current trajectory plan is for patient to be discharged home on 04/26/2020. -04/26/2020. Patient was deemed stable for discharge 2. Opioid dependence ?Counseled on cessation 3. Tobacco dependence - Counseled on cessation, offered nicotine patch for tobacco cravings 4. DVT prophylaxis; low risk, Did encourage early ambulation Patient Problems: Active and Suspected Problems Desire for detoxification (Acute) No significant pertinent medical history (Acute) Objective: GENERAL: cooperative HEENT: Atraumatic; EYES; Anicteric, Normal Conjunctiva NECK; supple, normal thyroid, RESPIRATORY: Diminished to auscultation CARDIOVASCULAR: Regular S1 S2, GI: soft, normoactive bowel sounds, : No Renal angle tenderness; EXTREMITIES: No edema, no clubbing, MUSCULOSKELETAL: no muscle waisting NEURO: Awake; no lateralizing signs. SKIN: No Rash PSYCH; Flat affect - Physical Exam Vitals/I&O's: Vital Signs Temp Pulse Resp BP Pulse Ox 97.5 F L 59 L 16 103/66 98 04/26/20 05:57 04/26/20 05:57 04/26/20 05:57 04/26/20 05:57 04/26/20 05:57 Oxygen Delivery Method Room Air Weight: 80.399 kg Body Mass Index (BMI) 23.3 Intake and Output for Last 24 Hours 04/24/20 04/25/20 04/26/20 23:59 23:59 23:59 Intake Total 1800 / 1800 Balance 1800 / 1800 Current Medications Acetaminophen (Acetaminophen 500 Mg Tablet) 500 mg PO Q4H PRN PRN PRN Reason: Temp > 100.4 F Al Hydroxide/Mg Hydroxide (Mag Hydrox/Al Hydrox/Simeth 30 Ml Udc) 30 ml PO Q6H PRN PRN PRN Reason: dyspesia Bisacodyl (Bisacodyl 10 Mg Suppository) 10 mg RECTAL DAILY PRN PRN Reason: Constipation Buprenorphine HCl (Buprenorphine Hcl 2 Mg Tab.Subl) 2 mg SL Q12H STIVEN; Taper Stop: 04/26/20 18:59 Last Admin: 04/26/20 05:59 Dose: 2 mg Documented by: Clonidine (Clonidine Hcl 0.1 Mg Tablet) 0.1 mg PO Q8H PRN PRN PRN Reason: RESTLESSNESS Dicyclomine HCl (Dicyclomine 10 Mg Capsule) 20 mg PO Q6H PRN PRN PRN Reason: Abdominal Discomfort Gabapentin (Gabapentin 300 Mg Capsule) 300 mg PO Q8H PRN PRN PRN Reason: moderate to severe anxiety Hydroxyzine Pamoate (Hydroxyzine Anuradha 25 Mg Capsule) 50 mg PO Q6H PRN PRN PRN Reason: mild anxiety Ibuprofen (Ibuprofen 600 Mg Tablet) 600 mg PO Q8H PRN PRN PRN Reason: Pain Score 1-10 Last Admin: 04/26/20 00:52 Dose: 600 mg Documented by: Loperamide HCl (Loperamide 2 Mg Capsule) 2 mg PO Q4H PRN PRN PRN Reason: LOOSE STOOLS Methocarbamol (Methocarbamol 750 Mg Tablet) 1,500 mg PO Q6H PRN PRN PRN Reason: MUSCLE SPASM Last Admin: 04/23/20 21:32 Dose: 1,500 mg Documented by: Nicotine (Nicotine 21 Mg Patch) 21 mg TD DAILY STIVEN Last Admin: 04/25/20 08:50 Dose: 21 mg Documented by: Ondansetron HCl (Ondansetron 8 Mg Tablet) 8 mg PO Q8H PRN PRN PRN Reason: NAUSEA Senna (Senna Tablet) 2 tablet PO QHS PRN PRN Reason: Constipation Last Admin: 04/24/20 19:50 Dose: 2 tablet Documented by: Sodium Chloride (0.9% Saline Lock 10 Ml Syringe) 10 - 40 ml IV UD PRN PRN Reason: SALINE FLUSH Trazodone HCl (Trazodone 100 Mg Tablet) 100 mg PO QHS PRN PRN PRN Reason: INSOMNIA Last Admin: 04/25/20 21:18 Dose: 100 mg Documented by: Discharge Diet: No Restrictions Discharge Activity: Return to Normal Activity Primary Care Physician: Care Physician,No Primary [Primary Care Provider] - Disposition: Home Minutes spent on discharge:: 45 Patient Condition:: Stable Medical Necessity - Tobacco Use Smoking Status: Current every day smoker Tobacco Use: Cigarettes, Chew Meaningful Use Info Meaningful Use Diagnoses (Choose all that apply): None applicable Inpatient E&M: 40510 Disch Hosp
--- NOTE | 2020-04-26 07:40 | DCINST_ITS ---
- Discharge Diagnoses Current Active Problems: Current Active and Chronic Problems Desire for detoxification (Acute) No significant pertinent medical history (Acute) You will use the following diet at home:: No restrictions Your food should be the consistency of: Regular Discharge Activity: Return to Normal Activity Allergies/Adverse Reactions: Allergies acetaminophen [From [place]] Adverse Reaction (Verified 04/23/20 13:15) Upset Stomach hydrocodone bitartrate [From [place]] Adverse Reaction (Verified 04/23/20 13:15) Upset Stomach Primary Care Physician: Care Physician,No Primary [Primary Care Provider] - Test Results: Test results from this visit will be discussed in further detail at your follow- up appointment, if applicable. Proposed Discharge Date: 04/26/20
[2020-04-26 08:25] VITALS: BP 125/74; PULSE 64; RESP 18; TEMP 36.7; O2SAT 99
--- NOTE | 2020-04-26 08:49 | ADDICTION ---
This freelance copywriter met with patient in his room to finalize d/c plan. Patient plans to move to [place] on 05/12/2020 and wants to pursue treatment when he is settled in [place]. Patient and this freelance copywriter discussed the pros and cons of completing full assessment and engaging in treatment prior to moving to [place] and patient decided that he would follow up with treatment in [place] instead of pursuing treatment prior to his move. He noted that he has plans to meet with [facility] Peer Supporter, Francisco, and will also go to AA/NA meetings to encourage abstinence. This freelance copywriter verified that he has all relevant contact information for resources in the area including this freelance copywriter's direct line, Rolanda's main number, Peer Support Hotline number and Peer SupporterFrancisco's number. Patient states that he plans to d/c today.
--- NOTE | 2020-04-26 12:25 | CHAPLAIN ---
Type of Pastoral Visit ___ Initial Visit _x__ Follow-up Visit ___ On-call Visit ___ General Patient Visit ___ Spiritual Assessment ___ Family Conference ___ Bereavement ___ Rapid Response ___ Code Blue ___ Other (describe below) Pastoral Care Referral From _x__ Patient ___ Family ___ Nurse ___ Physician ___ Hotel Engineer ___ Fitness Assistant ___ Other (describe below) Sacrament/Intervention _x__ Active listening ___ Anointing ___ Roman Catholic ___ Bereavement ___ Communion _x__ Adali exploration ___ _x__ Life review _x__ Prayer ___ Reconciliation ___ Sacrament of Sick _x__ Supportive presence ___ Wedding ___ Other (describe below) Pastoral Comments patient reviews his plan for recovery with this knockdown worker, his life review, and his hopes for the future; pt is open to spiritual support and prayer; pt encouraged to follow through and was given affirmation for his perseverance through this detox
== END 2020-04-26 13:03 | disposition home or self-care (01) | DRG 773 ==
LOC: ED 11:11 → MS3 12:38
PROVIDERS: Emergency Provider Emergency Medicine; Visit Provider Internal Medicine
DX: F11.23 Opioid dependence with withdrawal (principal); F17.210 Nicotine dependence, cigarettes, uncomplicated
CPT/HCPCS: 80053; 80307; 80320; 85025; 99283; 90686; A4216; G0480

== ENCOUNTER 2020-05-13 18:11 | Observation (INO) | payer MEDICAID, SELFPAY ==
[2020-04-23 12:46] VITALS: BMI 23.3
[2020-05-13 18:12] VITALS: BP 109/62; PULSE 97; RESP 16; TEMP 36.6; O2SAT 100; BMI 24.8
--- NOTE | 2020-05-13 18:35 | ED.DCSUM_ITS ---
- ER Visit Summary Date of Service: 05/13/20 Chief Complaint: Requesting detox for fentanyl and heroin abuse History of Present Illness: The patient is a 34 M known history of drug abuse including snorting fentanyl and heroin. Denies any IV drug abuse. Patient was last detox in mid April. Requesting inpatient detox again. Denies any other complaints. Physical Examination: Well-appearing male. Vital signs stable afebrile. No acute distress. He does not look septic or toxic. HEENT exam unremarkable. Neck nontender no lymphadenopathy. Lungs clear to auscultation bilaterally. Heart regular rhythm no murmur. Abdomen soft nontender. Extremities moves all 4. Calves nontender no edema. Neurologically is awake alert with no focal motor deficits. Test Results: None Emergency Department Course and Treatment: Patient requesting detox. I did speak to the hospitalist who will admit him again. Treatment Plan: Admission for detox Disposition: Admission Impression: Requesting detox History of heroin and fentanyl abuse This note was generated with [employer] dictation software. It may contain incorrect words, spelling, and punctuation that were not noted in review of the chart prior to signing ED Disposition - Plan for ED Patient: Referrals: Care Physician,No Primary [Primary Care Provider] -
[2020-05-13 19:28] VITALS: BP 109/62; PULSE 97; RESP 16; TEMP 36.6; O2SAT 100
--- NOTE | 2020-05-13 19:45 | CM.ED ---
SOCIAL WORK Reason for Consult: Substance Abuse Patient admitted to [facility]. Met with patient in room. Patient wanting detox from heroin and fentanyl. Patient states plan was to move to [place] tomorrow, but due to relapse wishes to complete detox before move. Patient states was admitted to [facility] in April. Call to [facility] Treatment Navigator, Radha. Radha reports will be in tomorrow to complete assessment. Plan: Admit to [facility] Michaela Naik, MANAGED CARE MANAGER, HOSIERY REPAIRER
[2020-05-13 20:09] VITALS: BMI 23.3
[2020-05-13 20:10] VITALS: BP 114/76; PULSE 102; RESP 20; TEMP 36.9; O2SAT 100
--- NOTE | 2020-05-13 20:36 | HP.PCM_ITS ---
History of Present Illness Date of Admission: 05/13/20 Mr. Santa is a 34 year old M with no past pertinent past medical history other than drug abuse who presented to the emergency [facility] on 05/13/2020 for opiate detox. He had a recent admission here from 04/23/2020 until 04/26/2020 for detox as well. He states that he did have plans to follow with [facility] and then moved to [place] but those plans were disrupted and he became associated again with the wrong crowd and began using heroin and fentanyl again. He states he is never used IV drugs only snorts. He states that this time he would like detoxed and the plan is for him to move to [place] the day he is discharged to remove him self from the environment that has put him at risk for repeat use. He states that his older brother uses IV drugs and younger brother he abuses opiates as well. His last use was late last evening. He currently is having minimal withdrawal symptoms. Vital signs show normal temperature, heart rate in the upper 90s, blood pressure within normal limits, respirations within normal limits, and he satting 99% to 100% on room air. He does admit to tobacco abuse and would like a nicotine patch. He will be admitted to [facility] for opiate detox. Past Medical History Allergies acetaminophen [From [place]] Adverse Reaction (Verified 05/13/20 18:12) Upset Stomach hydrocodone bitartrate [From [place]] Adverse Reaction (Verified 05/13/20 18:12) Upset Stomach Home Medications: Ambulatory Orders Medication Instructions Recorded NK 05/13/20 Surgical History: no surgical history Lives: With Family Smoking Status: Current every day smoker Tobacco Use: Cigarettes Alcohol: None Drugs: Heroin, - - Fentanyl - *Family History Sibling History Items: - - He has a brother that is a heroin dealer. No other addicts in the family. Review of Systems Constitutional: Denies: Anorexia, Chills, Fever, Night Sweats, Malaise, Weakness, Weight Change, Fatigue Cardiovascular: Denies: Chest Pain, Claudication, Chest Pressure, Chest Tightness, Edema, Heaviness, Light Headedness, Orthopnea, Palpitations, Paroxysmal Noc. Dyspnea Respiratory: Denies: Cough, Hemoptysis, Pleuritic Pain, Shortness of Breath, Shortness of breath at rest, Shortness of breath upon exertion, Sputum production, Wheezing Gastrointestinal: Denies: Abdominal Pain, Constipation, Diarrhea, Dyspepsia, Hematemesis, Hematochezia, Nausea, Melena, Vomiting Musculoskeletal: Denies: Arm Pain, Back Pain, Joint Pain, Joint stiffness, Joint swelling, Joint Tenderness, Muscle pain, Shoulder Pain Neurological: Denies: Confusion, Incoordination, Numbness, Tingling, Tremor, Seizures Psychiatric: Denies: Anxiety, Depression Endocrine: Denies: Change in Body Habitus, Heat/ Cold Intolerance, Polydipsia, Polyuria Hematologic/ Lymphatic: Denies: Adenopathy, Anemia, Easy Bruising VTE Information - Inpt Only VTE Present on Admission: No VTE Mechan Device Prophylaxis: None VTE Pharm Prophylaxis ordered?: No Reason prophylaxis not ordered:: Treatment Not Indicated - Early ambulation - Physical Exam Vitals/I&O's: Vital Signs Temp Pulse Resp BP Pulse Ox 98.4 F 102 H 20 H 114/76 100 05/13/20 20:10 05/13/20 20:10 05/13/20 20:10 05/13/20 20:10 05/13/20 20:10 Oxygen Delivery Method Room Air Weight: 80.2 kg Body Mass Index (BMI) 23.3 General: Alert, Oriented x3, Cooperative, No apparent distress, Well developed, Well nourished, - - Younger white male, sitting up in bed, appears comfortable, no acute signs of withdrawal at this time HEENT: Atraumatic, Normocephalic Oral: Moist Mucosa, No Gingival or Mucosal Lesions/ Ulcerations, - - Fair dentition Neck: Supple, Trachea Midline, Thyroid Normal Size and Texture Lungs: Clear to auscultation, No rhonchi, No wheeze, No rales, Diminished - Diffusely Cardiovascular: Regular rate, Regular Rhythm, Normal S1, Normal S2, No murmurs, No Ectopic Activity, No rub noted, No Gallop Abdomen: Bowel Sounds Present, Soft, Non Tender, Non-Distended Extremities: No clubbing, No cyanosis, No edema, Capillary Refill Less than 3 Seconds, Peripheral Pulses Normal, - - Marked nicotine stains on his right index and second digit Skin: No rashes, No breakdown Musculoskeletal: No Tenderness to Palpation of Joints or Extremities, No Muscle Wasting Neurological: Cranial nerves II-XII grossly intact, Neuro grossly intact Psych/Mental Status: Normal Affect, Appropriate, - - Very pleasant Assessment/Plan All Active Problems Acute opioid withdrawal (Acute) Desire for detoxification (Acute) No significant pertinent medical history (Acute) Acute opiate withdrawal -Suboxone taper -Supportive medication -180 involvement -Patient plans to move to [place] status post discharge to remove himself from this environment Nicotine abuse -Recommend cessation -Nicotine patch 21 mcg DVT prophylaxis -Ambulation CODE STATUS -Full code Inpatient E&M: 71389 Init Hosp L2
[2020-05-13] MEDS: Buprenorphine HCl 2 MG TAB.SUBL SL (22:19)
[2020-05-13] MEDS: cloNIDine HCl 0.1 MG Tablet PO (22:20)
[2020-05-13] MEDS: Dicyclomine 10 MG Capsule 20 MG PO (22:20)
[2020-05-13] MEDS: Methocarbamol 750 MG Tablet 1500 MG PO (22:21)
[2020-05-13] MEDS: hydrOXYzine PAM 25 MG Capsule 50 MG PO (22:21)
[2020-05-13] MEDS: traZODone 100 MG Tablet PO (22:21)
[2020-05-13 22:38] VITALS: RESP 20; O2SAT 96
[2020-05-13 23:42] LABS: Amphetamine Urine VISTA NEGATIVE (<1000 ng/mL); Barbiturate Urine VISTA NEGATIVE (< 200 ng/mL); Benzodiazepine Urine VISTA NEGATIVE (< 200 ng/mL); Cocaine Urine VISTA NEGATIVE (< 300 ng/mL); Ecstacy Urine VISTA NEGATIVE (< 500 ng/mL); Methadone Urine VISTA NEGATIVE (< 300 ng/mL); PCP Urine VISTA NEGATIVE (< 25 ng/mL); THC Urine VISTA POSITIVE (< 50 ng/mL); Vista UDS pH Range 6
[2020-05-14 01:58] VITALS: BP 112/76; PULSE 69; RESP 18; TEMP 36.8; O2SAT 98
[2020-05-14 06:32] LABS: Absolute Lymphocyte Count 2.84 X10^3/uL (0.83-4.51); Absolute Neutrophil Count 1.5 X10^3/uL (2.0-7.7); Basophil# 0.04 X10^3/uL; Basophil% 0.7 % (0-1); Eosinophil# 0.37 X10^3/uL; Eosinophils% 6.4 % (0-5); Hematocrit 47.6 % (40-54); Hemoglobin 15.2 g/dL (13.0-16.5); Lymphocyte # 2.84 X10^3/ul (4.0); Lymphocyte % 48.8 % (19-41); Mean Corp Hgb Conc 31.9 g/dL (32-36); Mean Corpuscular Hgb 30.1 pg (27.0-32.0); Mean Corpuscular Volume 94.3 fL (80-94); Mean Platelet Vol. 9.2 fl (6.2-12.0); Monocyte# 1.01 X10^3/uL; Monocyte% 17.4 % (0-10); NRBC Flagged by Analyzer 0 % (0-5); Neutrophil # 1.54 X10^3/uL (2.7-7.7); Neutrophil % 26.4 % (47-70); Platelet Count 283 K/mm3 (150-450); RBC Distribution Width CV 13.2 % (11.6-14.6); RBC Distribution Width SD 46.8 fl (35.1-43.9); Red Blood Count 5.05 M/mm3 (4.6-6.2); White Blood Count 5.8 K/mm3 (4.4-11.0)
[2020-05-14] MEDS: Buprenorphine HCl 2 MG TAB.SUBL SL ×3 (06:37→22:13)
[2020-05-14] MEDS: Methocarbamol 750 MG Tablet 1500 MG PO (06:38)
[2020-05-14] MEDS: hydrOXYzine PAM 25 MG Capsule 50 MG PO (06:38)
[2020-05-14] MEDS: cloNIDine HCl 0.1 MG Tablet PO (06:39)
[2020-05-14] MEDS: Dicyclomine 10 MG Capsule 20 MG PO (06:39)
[2020-05-14 07:28] LABS: Anion Gap 5 (5-15); BUN 13 mg/dL (7-18); BUN/Creat Ratio 12.4 RATIO (10-20); Calcium,Total 8.4 mg/dL (8.5-10.1); Chloride 107 mmol/L (98-107); Creatinine, Serum 1.05 mg/dL (0.70-1.30); EST Glomerular Filtration Rate 85 mL/min (>60); Est Glom Filt Rate - Afr Amer 102 mL/min (>60); Estimated Creatinine Clearance 109.92 ml/min; Glucose 108 mg/dL (74-106); Magnesium 2.4 mg/dL (1.6-2.6); Phosphorus 4.6 mg/dL (2.5-4.9); Potassium 3.8 mmol/L (3.5-5.1); Sodium Level 139 mmol/L (136-145)
[2020-05-14 08:00] VITALS: BP 109/80; PULSE 69; RESP 20; TEMP 36.3; O2SAT 95
--- NOTE | 2020-05-14 09:55 | PN_ITS ---
Subjective: Doing well, no issues overnight Vitals/I&O's: Vital Signs Temp Pulse Resp BP Pulse Ox 97.4 F L 69 20 H 109/80 95 05/14/20 08:00 05/14/20 08:00 05/14/20 08:00 05/14/20 08:00 05/14/20 08:00 Oxygen Delivery Method Room Air Weight: 176 lb 12.972 oz Body Mass Index (BMI) 23.3 Intake and Output for Last 24 Hours 05/12/20 05/13/20 05/14/20 23:59 23:59 23:59 Intake Total 600 / 600 Balance 600 / 600 General: Alert, Oriented x3, Cooperative, No apparent distress HEENT: Atraumatic, PERRLA, EOMI, Normocephalic Oral: Moist Mucosa Neck: Supple, No JVD Lungs: Clear to auscultation, Normal air movement, No rhonchi, No wheeze, No rales Cardiovascular: Regular rate, Regular Rhythm, Normal S1, Normal S2, No murmurs Abdomen: Soft, Non Tender, Non-Distended, No Hepato-splenomegaly Extremities: No edema, Capillary Refill Less than 3 Seconds Skin: No rashes, No breakdown Neurological: Neuro grossly intact, Sensory exam intact to light touch and pain Psych/Mental Status: Normal Affect, Appropriate Laboratory Results 05/13/20 22:27: Urine Opiates Screen NEGATIVE, Urine Methadone Screen NEGATIVE, Ur Barbiturates Screen NEGATIVE, Ur Phencyclidine Scrn NEGATIVE, Ur Amphetamines Screen NEGATIVE, U Methamphetamin-MDMA NEGATIVE, U Benzodiazepines Scrn NEGATIVE, Urine Cocaine Screen NEGATIVE, U Cannabinoids Screen POSITIVE H, Ur Drug Screen Comment 05/14/20 05:51: WBC 5.8, RBC 5.05, Hgb 15.2, Hct 47.6, MCV 94.3 H, MCH 30.1, MCHC 31.9 L, RDW Std Deviation 46.8 H, RDW Coeff of Brianna 13.2, Plt Count 283, MPV 9.2, Immature Gran % (Auto) 0.300, Neut % (Auto) 26.4 L, Lymph % (Auto) 48.8 H, [place] % (Auto) 17.4 H, Eos % (Auto) 6.4 H, Baso % (Auto) 0.7, Absolute Neuts (auto) 1.5 L, Absolute Lymphs (auto) 2.84, Nucleated RBC % 0 05/14/20 05:51: Sodium 139, Potassium 3.8, Chloride 107, Carbon Dioxide 27.0, Anion Gap 5, BUN 13, Creatinine 1.05, Estim Creat Clear Calc 109.92, Est GFR (MDRD) Af Amer 102, Est GFR (MDRD) Non-Af 85, BUN/Creatinine Ratio 12.4, Glucose 108 H, Calcium 8.4 L, Phosphorus 4.6, Magnesium 2.4 Current Medications Albuterol Sulfate (Albuterol 2.5 Mg/3 Ml Vial.Neb.) 2.5 mg INHALATION Q2H PRN PRN PRN Reason: Shortness of Breath/Wheezing Buprenorphine HCl (Buprenorphine Hcl 2 Mg Tab.Subl) 4 mg SL Q8H STIVEN; Taper Stop: 05/16/20 22:14 Last Admin: 05/14/20 06:37 Dose: 4 mg Documented by: Clonidine (Clonidine Hcl 0.1 Mg Tablet) 0.1 mg PO Q8H PRN PRN PRN Reason: RESTLESSNESS Last Admin: 05/14/20 06:39 Dose: 0.1 mg Documented by: Dicyclomine HCl (Dicyclomine 10 Mg Capsule) 20 mg PO Q6H PRN PRN PRN Reason: Abdominal Discomfort Last Admin: 05/14/20 06:39 Dose: 20 mg Documented by: Gabapentin (Gabapentin 300 Mg Capsule) 300 mg PO Q8H PRN PRN PRN Reason: moderate to severe anxiety Hydroxyzine Pamoate (Hydroxyzine Anuradha 25 Mg Capsule) 50 mg PO Q6H PRN PRN PRN Reason: mild anxiety Last Admin: 05/14/20 06:38 Dose: 50 mg Documented by: Loperamide HCl (Loperamide 2 Mg Capsule) 2 mg PO Q4H PRN PRN PRN Reason: LOOSE STOOLS Melatonin (Melatonin 3 Mg Tablet) 3 mg PO QHS PRN PRN PRN Reason: INSOMNIA Methocarbamol (Methocarbamol 750 Mg Tablet) 1,500 mg PO Q6H PRN PRN PRN Reason: MUSCLE SPASM Last Admin: 05/14/20 06:38 Dose: 1,500 mg Documented by: Nicotine (Nicotine 21 Mg Patch) 21 mg TD DAILY STIVEN Last Admin: 05/14/20 09:53 Dose: 21 mg Documented by: Ondansetron HCl (Ondansetron 8 Mg Tablet) 8 mg PO Q8H PRN PRN PRN Reason: NAUSEA Trazodone HCl (Trazodone 100 Mg Tablet) 100 mg PO QHS PRN PRN PRN Reason: INSOMNIA Last Admin: 05/13/20 22:21 Dose: 100 mg Documented by: STROKE Vital Signs/Narrative: Vital Signs Temp Pulse Resp BP Pulse Ox 05/14/20 08:00 97.4 F L 69 20 H 109/80 95 Medical Necessity - Tobacco Use Smoking Status: Current every day smoker Tobacco Use: Cigarettes Assessment/Plan All Active Problems Acute opioid withdrawal (Acute) Desire for detoxification (Acute) No significant pertinent medical history (Acute) 1. Opiate withdrawal/nicotine abuse -Continue with the opiate withdrawal protocol -Continue with nicotine patch -Discussed with him that 180 might be able to help him find a rehab facility down in [place], he is willing to meet with them DVT: Ambulation Inpatient E&M: 45803 Subs Hosp L2
[2020-05-14 13:00] VITALS: BP 109/55; PULSE 58; RESP 20; TEMP 36.6; O2SAT 98
[2020-05-14 17:00] VITALS: BP 113/68; PULSE 63; RESP 20; TEMP 36.6; O2SAT 94
[2020-05-14 20:35] VITALS: PULSE 62
[2020-05-14 21:06] VITALS: BP 101/58; PULSE 68; RESP 12; TEMP 36.7; O2SAT 99
[2020-05-14] MEDS: Famotidine 20 MG Tablet PO (22:13)
[2020-05-14] MEDS: Sodium Chloride 0.65% 1 SPRAY SPRAY.BTL 2 SPRAY NASAL (22:13)
--- NOTE | 2020-05-15 02:07 | PCS.PANDOC ---
PANDEMIC DOCUMENTATION INITIATED: Date: 05/13/20 Time: 1950
[2020-05-15 02:27] VITALS: BP 100/53; PULSE 50; RESP 16; TEMP 36.4; O2SAT 100
[2020-05-15 02:33] VITALS: PULSE 48
[2020-05-15] MEDS: Buprenorphine HCl 2 MG TAB.SUBL SL ×3 (06:09→21:37)
[2020-05-15 08:48] VITALS: BP 113/62; PULSE 51; RESP 18; TEMP 36.7; O2SAT 100
[2020-05-15] MEDS: Sodium Chloride 0.65% 1 SPRAY SPRAY.BTL 2 SPRAY NASAL ×3 (08:51→21:37)
[2020-05-15] MEDS: Famotidine 20 MG Tablet PO ×2 (08:51→21:37)
[2020-05-15 13:18] VITALS: BP 111/59; PULSE 67; RESP 16; TEMP 37; O2SAT 99
--- NOTE | 2020-05-15 13:24 | PN_ITS ---
Subjective: Patient seen and examined. He has no complaints this morning. Review of systems otherwise negative. Vitals/I&O's: Vital Signs Temp Pulse Resp BP Pulse Ox 98.6 F 67 16 111/59 L 99 05/15/20 13:18 05/15/20 13:18 05/15/20 13:18 05/15/20 13:18 05/15/20 13:18 Oxygen Delivery Method Room Air Weight: 176 lb 12.972 oz Body Mass Index (BMI) 23.3 Intake and Output for Last 24 Hours 05/13/20 05/14/20 05/15/20 23:59 23:59 23:59 Intake Total 1999 400 / 400 Balance 1999 400 / 400 General: Alert, Oriented x3, Cooperative, No apparent distress HEENT: Atraumatic, PERRLA, EOMI, Normocephalic Oral: Dry Mucosa Neck: Supple, No JVD, Negative Carotid Bruits Lungs: Clear to auscultation, Normal air movement, No rhonchi, No wheeze, No rales Cardiovascular: Regular rate, Regular Rhythm, Normal S1, Normal S2, No murmurs Abdomen: Bowel Sounds Present, Soft, Non Tender Extremities: No clubbing, No cyanosis, No edema, Capillary Refill Less than 3 Seconds Skin: No rashes, No breakdown Musculoskeletal: No Tenderness to Palpation of Joints or Extremities Lymphatic: No Cervical, Supraclavicular, or Inguinal Adenopathy Neurological: Cranial nerves II-XII grossly intact Psych/Mental Status: Normal Affect, Appropriate, Alert and oriented to time, place, person, mood and affect Current Medications Al Hydroxide/Mg Hydroxide (Mag Hydrox/Al Hydrox/Simeth 30 Ml Udc) 30 ml PO Q4H PRN PRN PRN Reason: DYSPEPSIA Albuterol Sulfate (Albuterol 2.5 Mg/3 Ml Vial.Neb.) 2.5 mg INHALATION Q2H PRN PRN PRN Reason: Shortness of Breath/Wheezing Buprenorphine HCl (Buprenorphine Hcl 2 Mg Tab.Subl) 2 mg SL Q8H STIVEN; Taper Stop: 05/16/20 22:14 Last Admin: 05/15/20 13:19 Dose: 2 mg Documented by: Clonidine (Clonidine Hcl 0.1 Mg Tablet) 0.1 mg PO Q8H PRN PRN PRN Reason: RESTLESSNESS Last Admin: 05/14/20 06:39 Dose: 0.1 mg Documented by: Dicyclomine HCl (Dicyclomine 10 Mg Capsule) 20 mg PO Q6H PRN PRN PRN Reason: Abdominal Discomfort Last Admin: 05/14/20 06:39 Dose: 20 mg Documented by: Famotidine (Famotidine 20 Mg Tablet) 20 mg PO BID [facility] Last Admin: 05/15/20 08:51 Dose: 20 mg Documented by: Gabapentin (Gabapentin 300 Mg Capsule) 300 mg PO Q8H PRN PRN PRN Reason: moderate to severe anxiety Hydroxyzine Pamoate (Hydroxyzine Anuradha 25 Mg Capsule) 50 mg PO Q6H PRN PRN PRN Reason: mild anxiety Last Admin: 05/14/20 06:38 Dose: 50 mg Documented by: Loperamide HCl (Loperamide 2 Mg Capsule) 2 mg PO Q4H PRN PRN PRN Reason: LOOSE STOOLS Melatonin (Melatonin 3 Mg Tablet) 3 mg PO QHS PRN PRN PRN Reason: INSOMNIA Methocarbamol (Methocarbamol 750 Mg Tablet) 1,500 mg PO Q6H PRN PRN PRN Reason: MUSCLE SPASM Last Admin: 05/14/20 06:38 Dose: 1,500 mg Documented by: Nicotine (Nicotine 21 Mg Patch) 21 mg TD DAILY [facility] Last Admin: 05/15/20 08:55 Dose: 21 mg Documented by: Ondansetron HCl (Ondansetron 8 Mg Tablet) 8 mg PO Q8H PRN PRN PRN Reason: NAUSEA Sodium Chloride (0.9% Saline Lock 10 Ml Syringe) 10 - 40 ml IV UD PRN PRN Reason: SALINE FLUSH Sodium Chloride (Sodium Chloride 0.65% 1 [place].Btl) 2 spray NASAL TID PRN PRN PRN Reason: NASAL DRYNESS Last Admin: 05/15/20 08:51 Dose: 2 spray Documented by: Trazodone HCl (Trazodone 100 Mg Tablet) 100 mg PO QHS PRN PRN PRN Reason: INSOMNIA Last Admin: 05/13/20 22:21 Dose: 100 mg Documented by: STROKE Vital Signs/Narrative: Vital Signs Temp Pulse Resp BP Pulse Ox 05/15/20 13:18 98.6 F 67 16 111/59 L 99 Medical Necessity - Tobacco Use Smoking Status: Current every day smoker Tobacco Use: Cigarettes Assessment/Plan All Active Problems Acute opioid withdrawal (Acute) Desire for detoxification (Acute) No significant pertinent medical history (Acute) #Acute opioid withdrawal * On acute opioid withdrawal with buprenorphine. * Monitor CINA score. 180 consulted. # Nicotine dependence: nicotine patch 21mg daily. Counseled to quit DVT prophylaxis: Low risk. Encourage ambulation. Inpatient E&M: 75389 Subs Hosp L2
--- NOTE | 2020-05-15 16:16 | CHAPLAIN ---
Type of Pastoral Visit _x__ Initial Visit ___ Follow-up Visit ___ On-call Visit ___ General Patient Visit ___ Spiritual Assessment ___ Family Conference ___ Bereavement ___ Rapid Response ___ Code Blue ___ Other (describe below) Pastoral Care Referral From _x__ Patient ___ Family ___ Nurse ___ Physician ___ Construction Tech ___ Buckle Frame Shaper ___ Other (describe below) Sacrament/Intervention _x__ Active listening ___ Anointing ___ Gnosticist ___ Bereavement ___ Communion _x__ Adali exploration ___ _x__ Life review _x__ Prayer ___ Reconciliation ___ Sacrament of Sick _x__ Supportive presence ___ Wedding ___ Other (describe below) Pastoral Comments patient was seen by this highway painter helper last month and was very welcoming of this follow up upon his return; pt was extremely talkative and open about his life, his plans, his relapse, his adali background and struggles, his family and friendships, and his hope for the future; pt seeks guidance and spiritual support; pt welcomed prayer and presence; pt is open to future visits from highway painter helper; pt has a good relationship with previous highway painter helper at the [facility] and seeks his support as well
[2020-05-15 17:57] VITALS: BP 115/69; PULSE 66; RESP 16; TEMP 36.7; O2SAT 99
[2020-05-15 21:35] VITALS: BP 115/73; PULSE 64; RESP 18; TEMP 36.9; O2SAT 98
[2020-05-16 03:45] VITALS: BP 111/76; PULSE 80; RESP 18; TEMP 36.4; O2SAT 100
[2020-05-16 09:17] VITALS: BP 110/68; PULSE 53; RESP 16; TEMP 36.8; O2SAT 96
[2020-05-16] MEDS: Sodium Chloride 0.65% 1 SPRAY SPRAY.BTL 2 SPRAY NASAL (09:18)
[2020-05-16] MEDS: Buprenorphine HCl 2 MG TAB.SUBL SL (09:18)
--- NOTE | 2020-05-16 11:20 | PCM.PN.HOSP ---
Subjective: Patient seen and examined. He has no complaints this morning and feels well. Results otherwise negative. Patient tells me that he would prefer to be discharged tomorrow as he can catch her right straight to [place]. He thinks if he is discharged today, he will likely fall of the wagon whilst waiting for his ride to [place] tomorrow and use drugs again. Vitals/I&O's: Vital Signs Temp Pulse Resp BP Pulse Ox 98.2 F 53 L 16 110/68 96 05/16/20 09:17 05/16/20 09:17 05/16/20 09:17 05/16/20 09:17 05/16/20 09:17 Oxygen Delivery Method Room Air Weight: 176 lb 12.972 oz Body Mass Index (BMI) 23.3 Intake and Output for Last 24 Hours 05/14/20 05/15/20 05/16/20 23:59 23:59 23:59 Intake Total 1999 1400 / 1400 Balance 1999 1400 / 1400 General: Alert, Oriented x3, Cooperative, No apparent distress HEENT: Atraumatic, PERRLA, EOMI, Normocephalic Oral: Dry Mucosa Neck: Supple, No JVD, Negative Carotid Bruits Lungs: Clear to auscultation, Normal air movement, No rhonchi, No wheeze, No rales Cardiovascular: Regular rate, Regular Rhythm, Normal S1, Normal S2, No murmurs Abdomen: Bowel Sounds Present, Soft, Non Tender Extremities: No clubbing, No cyanosis, No edema, Capillary Refill Less than 3 Seconds Skin: No rashes, No breakdown Musculoskeletal: No Tenderness to Palpation of Joints or Extremities Lymphatic: No Cervical, Supraclavicular, or Inguinal Adenopathy Neurological: Cranial nerves II-XII grossly intact Psych/Mental Status: Normal Affect, Appropriate, Alert and oriented to time, place, person, mood and affect Current Medications Al Hydroxide/Mg Hydroxide (Mag Hydrox/Al Hydrox/Simeth 30 Ml Udc) 30 ml PO Q4H PRN PRN PRN Reason: DYSPEPSIA Albuterol Sulfate (Albuterol 2.5 Mg/3 Ml Vial.Neb.) 2.5 mg INHALATION Q2H PRN PRN PRN Reason: Shortness of Breath/Wheezing Buprenorphine HCl (Buprenorphine Hcl 2 Mg Tab.Subl) 2 mg SL Q12H STIVEN; Taper Stop: 05/16/20 22:14 Last Admin: 05/16/20 09:18 Dose: 2 mg Documented by: Clonidine (Clonidine Hcl 0.1 Mg Tablet) 0.1 mg PO Q8H PRN PRN PRN Reason: RESTLESSNESS Last Admin: 05/14/20 06:39 Dose: 0.1 mg Documented by: Dicyclomine HCl (Dicyclomine 10 Mg Capsule) 20 mg PO Q6H PRN PRN PRN Reason: Abdominal Discomfort Last Admin: 05/14/20 06:39 Dose: 20 mg Documented by: Famotidine (Famotidine 20 Mg Tablet) 20 mg PO BID COUNTS INCLUDE 234 BEDS AT THE [facility] Last Admin: 05/16/20 09:19 Dose: Not Given Documented by: Gabapentin (Gabapentin 300 Mg Capsule) 300 mg PO Q8H PRN PRN PRN Reason: moderate to severe anxiety Hydroxyzine Pamoate (Hydroxyzine Anuradha 25 Mg Capsule) 50 mg PO Q6H PRN PRN PRN Reason: mild anxiety Last Admin: 05/14/20 06:38 Dose: 50 mg Documented by: Loperamide HCl (Loperamide 2 Mg Capsule) 2 mg PO Q4H PRN PRN PRN Reason: LOOSE STOOLS Melatonin (Melatonin 3 Mg Tablet) 3 mg PO QHS PRN PRN PRN Reason: INSOMNIA Methocarbamol (Methocarbamol 750 Mg Tablet) 1,500 mg PO Q6H PRN PRN PRN Reason: MUSCLE SPASM Last Admin: 05/14/20 06:38 Dose: 1,500 mg Documented by: Nicotine (Nicotine 21 Mg Patch) 21 mg TD DAILY COUNTS INCLUDE 234 BEDS AT THE [facility] Last Admin: 05/16/20 09:23 Dose: 21 mg Documented by: Ondansetron HCl (Ondansetron 8 Mg Tablet) 8 mg PO Q8H PRN PRN PRN Reason: NAUSEA Sodium Chloride (0.9% Saline Lock 10 Ml Syringe) 10 - 40 ml IV UD PRN PRN Reason: SALINE FLUSH Sodium Chloride (Sodium Chloride 0.65% 1 [place].Btl) 2 spray NASAL TID PRN PRN PRN Reason: NASAL DRYNESS Last Admin: 05/16/20 09:18 Dose: 2 spray Documented by: Trazodone HCl (Trazodone 100 Mg Tablet) 100 mg PO QHS PRN PRN PRN Reason: INSOMNIA Last Admin: 05/13/20 22:21 Dose: 100 mg Documented by: STROKE Vital Signs/Narrative: Vital Signs Temp Pulse Resp BP Pulse Ox 05/16/20 09:17 98.2 F 53 L 16 110/68 96 Medical Necessity - Tobacco Use Smoking Status: Current every day smoker Tobacco Use: Cigarettes Assessment/Plan All Active Problems Acute opioid withdrawal (Acute) Desire for detoxification (Acute) No significant pertinent medical history (Acute) #Acute opioid withdrawal On acute opioid withdrawal with buprenorphine. Monitor CINA score. # Nicotine dependence: nicotine patch 21mg daily. Counseled to quit DVT prophylaxis: Low risk. Encourage ambulation. Disposition: for discharge home tomorrow. Inpatient E&M: [id number] Subs Hosp L2
[2020-05-16 15:49] VITALS: BP 105/71; PULSE 59; RESP 16; TEMP 36.4; O2SAT 98
[2020-05-16 21:38] VITALS: BP 109/60; PULSE 56; RESP 18; TEMP 36.8; O2SAT 98
[2020-05-17 03:11] VITALS: BP 100/66; PULSE 54; RESP 17; TEMP 36.8; O2SAT 95
[2020-05-17 08:02] VITALS: BP 127/70; PULSE 60; RESP 18; TEMP 36.8; O2SAT 97
[2020-05-17] MEDS: Sodium Chloride 0.65% 1 SPRAY SPRAY.BTL 2 SPRAY NASAL (08:07)
--- NOTE | 2020-05-17 08:15 | DCINST_ITS ---
You will use the following diet at home:: No restrictions Your food should be the consistency of: Regular Your liquids should be the consistency of: Regular/Thin Discharge Activity: Return to Normal Activity Weight Bearing Status: Weight bearing as tolerated Call your doctor if you observe: Fever of 101 or Higher, Shortness of breath, Dizziness, Fainting spells, Swelling in the ankles Instructions: ED Opioid Withdrawal Additional Instructions: establish care with PCP and rehab/counseling center on arrival in [place], where patient is moving to. Allergies/Adverse Reactions: Allergies acetaminophen [From [place]] Adverse Reaction (Verified 05/13/20 18:12) Upset Stomach hydrocodone bitartrate [From [place]] Adverse Reaction (Verified 05/13/20 18:12) Upset Stomach Medications to take at Discharge NK 05/13/20 Primary Care Physician: Care Physician,No Primary [Primary Care Provider] - Test Results: Test results from this visit will be discussed in further detail at your follow- up appointment, if applicable.
--- NOTE | 2020-05-17 08:16 | PCM.DC.SUM ---
Discharge Date and Diagnosis Date of Admission: 05/13/20 Date of Discharge: 05/17/20 - Primary Discharge Diagnosis Acute Problems: acute opioid withdrawal Hospital Course and Treatment Operations: None Procedures: None Summary of Care Provided: The patient is a 34 year old M with a past medical history significant for opioid dependence was admitted through the ED on 05/13/2020 for acute opiate withdrawal. He had recently been admitted from 04/23/2020 to 04/26/2020 for opiate withdrawal. Patient states he became assisted with the wrong crowd again after leaving the hospital and began using heroin and fentanyl. He snorted the drugs and denied using IV drugs. He came in for acute opioid withdrawal and for detoxification. He was started on opioid withdrawal protocol with buprenorphine. Patient tolerated detox process well and had no complaints. He remained stable and was discharged home on 05/17/2020. Patient planned to move to [place] after discharge and said he would try to follow-up with outpatient counseling services there. Patient seen and examined prior to discharge. He had no complaints and felt well. Review of systems otherwise negative. Labs and vitals reviewed. Medication reviewed and reconciled. O/E: Vital Signs Temp Pulse Resp BP Pulse Ox 98.2 F 60 18 127/70 H 97 05/17/20 08:02 05/17/20 08:02 05/17/20 08:02 05/17/20 08:02 05/17/20 08:02 [] General: Alert, Oriented x3, Cooperative, No apparent distress HEENT: Atraumatic, PERRLA, EOMI, Normocephalic Oral: Dry Mucosa Neck: Supple, No JVD, Negative Carotid Bruits Lungs: Clear to auscultation, Normal air movement, No rhonchi, No wheeze, No rales Cardiovascular: Regular rate, Regular Rhythm, Normal S1, Normal S2, No murmurs Abdomen: Bowel Sounds Present, Soft, Non Tender Extremities: No clubbing, No cyanosis, No edema, Capillary Refill Less than 3 Seconds Skin: No rashes, No breakdown Musculoskeletal: No Tenderness to Palpation of Joints or Extremities Lymphatic: No Cervical, Supraclavicular, or Inguinal Adenopathy Neurological: Cranial nerves II-XII grossly intact Psych/Mental Status: Normal Affect, Appropriate, Alert and oriented to time, place, person, mood and affect Plan is for discharge home today. - Physical Exam Vitals/I&O's: Vital Signs Temp Pulse Resp BP Pulse Ox 98.2 F 60 18 127/70 H 97 05/17/20 08:02 05/17/20 08:02 05/17/20 08:02 05/17/20 08:02 05/17/20 08:02 Oxygen Delivery Method Room Air Weight: 176 lb 12.972 oz Body Mass Index (BMI) 23.3 Intake and Output for Last 24 Hours 05/15/20 05/16/20 05/17/20 23:59 23:59 23:59 Intake Total 1400 / 1400 1340 / 1340 Balance 1400 / 1400 1340 / 1340 Current Medications Al Hydroxide/Mg Hydroxide (Mag Hydrox/Al Hydrox/Simeth 30 Ml Udc) 30 ml PO Q4H PRN PRN PRN Reason: DYSPEPSIA Albuterol Sulfate (Albuterol 2.5 Mg/3 Ml Vial.Neb.) 2.5 mg INHALATION Q2H PRN PRN PRN Reason: Shortness of Breath/Wheezing Clonidine (Clonidine Hcl 0.1 Mg Tablet) 0.1 mg PO Q8H PRN PRN PRN Reason: RESTLESSNESS Last Admin: 05/14/20 06:39 Dose: 0.1 mg Documented by: Dicyclomine HCl (Dicyclomine 10 Mg Capsule) 20 mg PO Q6H PRN PRN PRN Reason: Abdominal Discomfort Last Admin: 05/14/20 06:39 Dose: 20 mg Documented by: Famotidine (Famotidine 20 Mg Tablet) 20 mg PO BID STIVEN Last Admin: 05/17/20 08:09 Dose: Not Given Documented by: Gabapentin (Gabapentin 300 Mg Capsule) 300 mg PO Q8H PRN PRN PRN Reason: moderate to severe anxiety Hydroxyzine Pamoate (Hydroxyzine Anuradha 25 Mg Capsule) 50 mg PO Q6H PRN PRN PRN Reason: mild anxiety Last Admin: 05/14/20 06:38 Dose: 50 mg Documented by: Loperamide HCl (Loperamide 2 Mg Capsule) 2 mg PO Q4H PRN PRN PRN Reason: LOOSE STOOLS Melatonin (Melatonin 3 Mg Tablet) 3 mg PO QHS PRN PRN PRN Reason: INSOMNIA Methocarbamol (Methocarbamol 750 Mg Tablet) 1,500 mg PO Q6H PRN PRN PRN Reason: MUSCLE SPASM Last Admin: 05/14/20 06:38 Dose: 1,500 mg Documented by: Nicotine (Nicotine 21 Mg Patch) 21 mg TD DAILY STIVEN Last Admin: 05/17/20 08:12 Dose: 21 mg Documented by: Ondansetron HCl (Ondansetron 8 Mg Tablet) 8 mg PO Q8H PRN PRN PRN Reason: NAUSEA Sodium Chloride (0.9% Saline Lock 10 Ml Syringe) 10 - 40 ml IV UD PRN PRN Reason: SALINE FLUSH Sodium Chloride (Sodium Chloride 0.65% 1 [place].Btl) 2 spray NASAL TID PRN PRN PRN Reason: NASAL DRYNESS Last Admin: 05/17/20 08:07 Dose: 2 spray Documented by: Trazodone HCl (Trazodone 100 Mg Tablet) 100 mg PO QHS PRN PRN PRN Reason: INSOMNIA Last Admin: 05/13/20 22:21 Dose: 100 mg Documented by: Discharge Diet: No Restrictions Discharge Activity: Return to Normal Activity Weight Bearing Status: Weight bearing as tolerated Call your doctor if you observe: Fever of 101 or Higher, Shortness of breath, Dizziness, Fainting spells, Swelling in the ankles Home Medications: Medications to take at Discharge NK 05/13/20 Primary Care Physician: Care Physician,No Primary [Primary Care Provider] - Patient Instructions: ED Opioid Withdrawal Disposition: Home Minutes spent on discharge:: 35 Patient Condition:: Stable Medical Necessity - Tobacco Use Smoking Status: Current every day smoker Tobacco Use: Cigarettes Meaningful Use Info Meaningful Use Diagnoses (Choose all that apply): None applicable Inpatient E&M: 30515 Disch Hosp
--- NOTE | 2020-05-17 10:20 | PHA.DC.MR ---
Pharmacy Service has performed discharge medication reconciliation for this patient. The patient's discharge medication list was reviewed for discrepancies and discrepancies were resolved. Home Medications NK 05/13/20
== END 2020-05-17 15:00 | disposition home or self-care (01) | DRG 773 ==
LOC: ED 18:48 → MS3 05-14 06:47
PROVIDERS: Admitting Provider Internal Medicine; Emergency Provider Emergency Medicine; Referring Provider Internal Medicine; Visit Provider Student in an Organized Health Care Education/Training Program
DX: F11.23 Opioid dependence with withdrawal (principal); F17.210 Nicotine dependence, cigarettes, uncomplicated
CPT/HCPCS: 36415; 80048; 80307; 83735; 84100; 85025; 99218; 99251; 99281; 99406; G0378; G0463

== ENCOUNTER 2020-09-18 16:47 | Inpatient (IN) | payer MEDICAID, SELFPAY ==
[2020-05-13 20:09] VITALS: BMI 23.3
[2020-09-18 16:48] VITALS: BP 124/77; PULSE 106; RESP 16; TEMP 36.1; O2SAT 96; BMI 23.1
--- NOTE | 2020-09-18 16:58 | EDS_ITS ---
HPI History of Present Illness Chief Complaint: Substance Abuse Informant: patient Onset/Context/Timing Onset: Month(s) Timing: Continuous Current Severity: Mild Maximum Severity: Mild Associated Symptoms Associated Symptoms: Negative for vomiting*, diarrhea*, fever*, rash*, seizure and change in mental status Narrative Narrative: 35-year-old male history of heroin, fentanyl and marijuana abuse. Denies IV use. Patient states his last detox was around 4 months ago. Is requesting detox again today. He denies any recent illness. Prior similar symptoms: Yes Recent Illness/Hospitalization: No PFSH PFSH no medical history Home Medications NK 05/13/20 [History Last Taken Unknown] Allergy/AdvReac Type Severity Reaction Status Date / Time acetaminophen [From [place]] AdvReac Upset Verified 09/18/20 16:47 Stomach hydrocodone bitartrate AdvReac Upset Verified 09/18/20 16:47 [From [place]] Stomach Social History Smoking Status: Current every day smoker ROS ROS ED ROS Narrative Patient denies any recent illness. Denies nausea, vomiting, diarrhea or fever. No chest pain or shortness of breath. Review of Systems ROS Unobtainable: Denies due to encephalopathy Constitutional Constitutional ED: Denies fever(s) or sweats Eyes Eyes: Denies change in vision ENT ENT ED: Denies ear pain or sore throat Cardiovascular Cardiovascular: Denies chest pain, palpitations or racing heartbeat Respiratory/Chest Respiratory/Chest: Denies dyspnea or dyspnea on exertion Gastrointestinal Gastrointestinal: Denies abdominal pain, diarrhea, melena, nausea or vomiting Genitourinary Genitourinary ED: Denies dysuria or urinary frequency Musculoskeletal Musculoskeletal: Denies myalgias Integumentary Denies rash Neurologic Neurologic: Denies headache(s) Psychiatric Psychiatric: Denies depression Endocrine Endocrinology: Denies polyuria Hematologic/Lymphatic Hematologic/Lymphatic: Denies easy bruising Allergic/Immunologic Allergic/Immunologic ED: Denies urticaria EXAM Physical Exam Narrative Exam Narrative: Well-appearing male. No acute distress. Vital signs stable afebrile. HEENT exam unremarkable. Atraumatic. Moist weeks membranes. Neck nontender. No lymphadenopathy. Lungs clear to auscultation bilaterally. Heart regular rate and rhythm no murmur rate about 95. Abdomen soft nontender normal bowel sounds no peritoneal signs. Moving all 4 extremities. No obvious abscesses. Back nontender. Neurologically is awake and alert with no focal motor deficits. Const Vital Signs: 09/18/20 16:48 Temperature 97.0 F L Temperature Source Temporal Pulse Rate 106 H Respiratory Rate 16 Blood Pressure 124/77 H Blood Pressure Mean 92 Pulse Ox 96 Oxygen Delivery Method Room Air Positive well nourished and well developed General Appearance ED: well developed HEENT Reports moist mucous membranes atraumatic; Negative for trauma or tenderness Eyes PERRL and EOMs intact bilaterally Neck no lymphadenopathy, supple and no JVD Thyroid: Negative for tender Lymph Lymphatic: no lymphadenopathy noted Chest Wall inspection of chest normal Resp normal respiratory effort and clear to auscultation bilaterally Cardio regular rate, regular rhythm and no murmurs Rate: Negative for bradycardia GI soft to palpation, non-tender, non-distended and no masses Inspection: Negative for abdominal distention Back/Spine no CVA tenderness Extremity General Extremety ED: Negative for edema or tenderness General Extremity: Negative for edema Neuro oriented x3 Sensorium / Orientation: alert, oriented to person, oriented to place and oriented to time Psych mental status grossly normal Skin Rashes: no rashes MDM MDM MDM Narrative Medical decision making narrative: 35-year-old history of heroin abuse requesting detox. Exam unremarkable. Hospitalist on page for admission. Discharge Plan Triage Chief Complaint: Substance Abuse ED Provider: Miguel Higuera Dx/Rx/DC Orders Clinical Impression: Desire for detoxification Prescriptions: No Action NK RF: 0 Primary Care Provider: Care Physician,No Primary Referrals: Care Physician,No Primary [Primary Care Provider] -
--- NOTE | 2020-09-18 17:20 | PCM.HP.STD ---
Documented by User: Krysta Spencer NP-C 09/18/20 17:38 HPI - General General Date of Admission: 09/18/20 HPI Narrative RADHA HOUGH, is a 35 M who presents for desire for detoxification from opioids. Patient states that he occasionally smokes marijuana, smokes half pack per day of cigarettes and uses 3 to 4 g daily of heroin. Patient reports that he was admitted approximately 4 months ago for the same thing however he had now has a job and they are supportive of him getting clean and staying clean. [facility] Home Medications NK 05/13/20 [History Last Taken Unknown] Allergy/AdvReac Type Severity Reaction Status Date / Time acetaminophen [From [place]] AdvReac Upset Verified 09/18/20 16:47 Stomach hydrocodone bitartrate AdvReac Upset Verified 09/18/20 16:47 [From [place]] Stomach Social History (Updated 09/18/20 @ 17:24 by Krysta Spencer NP-C) Smoking Status: Current every day smoker quit status: considering quitting substance use type: marijuana and heroin ROS Constitutional Constitutional: Denies anorexia, chills, fatigue or fever(s) Cardiovascular Cardiovascular: Denies chest pain, edema or palpitations Respiratory/Chest Respiratory/Chest: Denies cough, hemoptysis or wheezing Gastrointestinal Gastrointestinal: Denies abdominal pain, constipation or diarrhea Genitourinary Genitourinary: Denies dysuria or hematuria Musculoskeletal Musculoskeletal: Denies back pain or extremity pain Integumentary Integumentary: Denies dry skin, rash or wounds Neurologic Neurologic: Denies abnormal gait, abnormal speech or confusion Psychiatric Psychiatric: Denies anxiety or depression Endocrine Endocrinology: Denies change in body appearance, cold intolerance or heat intolerance Hematologic/Lymphatic Hematologic/Lymphatic: Denies anemia, easy bleeding or easy bruising Vital Signs Vital Signs Vital Signs: 09/18/20 16:48 Temperature 97.0 F L Temperature Source Temporal Pulse Rate 106 H Respiratory Rate 16 Blood Pressure 124/77 H Blood Pressure Mean 92 Pulse Ox 96 Oxygen Delivery Method Room Air Physical Exam Const alert and oriented x3 General Appearance: cooperative HEENT normocephalic and head/scalp atraumatic Eyes PERRL and EOMs intact bilaterally Neck supple, no JVD and thyroid normal General: trachea midline Lymph Lymphatic: no lymphadenopathy noted Resp normal respiratory effort, normal air movement and clear to auscultation bilaterally Cardio regular rate, regular rhythm, S1 normal heart sound and S2 normal heart sound GI normal to inspection, nondistended, normoactive bowel sounds, soft to palpation and non-tender Extremity normal capillary refill and no clubbing, cyanosis or edema Skin General Skin Exam: no breakdown and turgor normal Lesions: no lesions Rashes: no rashes Neuro CN's II-XII intact bilaterally Psych thought process normal, cooperative and affect normal Appearance: appropriate Lab / Micro Data Result Diagrams: 09/18/20 17:38 09/18/20 17:38 Assessment & Plan Assessment/Plan (1) Acute opioid withdrawal: (2) Desire for detoxification: (3) No significant pertinent medical history: PLAN: 1. Acute opioid withdrawal 2. Desire for detoxification -Admit to [facility] -Opioid withdrawal protocol ordered including Suboxone and supportive medications -Will consult case management for 180 involvement 3. Nicotine abuse -Encouraged tobacco cessation - NicoDerm patch DVT Prophylaxis-not indicated This patient was seen by GAVIN Tobin under the supervision of Dr. Oneal. Documented by User: Dr. Arpit Oneal MD 09/18/20 17:55 HPI - General General Date of Admission: 09/18/20 [facility] Home Medications NK 05/13/20 [History Last Taken Unknown] Allergy/AdvReac Type Severity Reaction Status Date / Time acetaminophen [From [place]] AdvReac Upset Verified 09/18/20 16:47 Stomach hydrocodone bitartrate AdvReac Upset Verified 09/18/20 16:47 [From [place]] Stomach Social History (Updated 09/18/20 @ 17:24 by GAVIN Tobin) Smoking Status: Current every day smoker quit status: considering quitting substance use type: marijuana and heroin Lab / Micro Data Result Diagrams: 09/18/20 17:38 09/18/20 17:38 Assessment & Plan Assessment/Plan (1) Acute opioid withdrawal: (2) Desire for detoxification: PLAN: Hospitalist note: I am seeing this patient in conjunction with Krysta Spencer. I independently seen and examined the patient. History and physical, laboratory data and imaging studies reviewed and I concur with the above admission and treatment plan. Patient presented to the emergency room requesting admission for acute opioid withdrawal for medical stabilization. Patient has been snorting fentanyl and heroin, around 3 to 4 g of heroin every day. He admitted smoking marijuana occasionally as well. He stated that he has been snorting both heroin and fentanyl but no IV use. He complained of muscle aches and pains that started few hours ago. No other significant withdrawal complaints at this time. Patient was admitted to this hospital 4 months ago for detox, did not follow-up with 180 program and he relapsed. His last use was this morning. In the emergency department, his vital signs were stable. Routine blood work was ordered and it is pending at this time. Patient is being admitted for acute opioid withdrawal for medical stabilization. - Physical Exam General: Alert, Oriented x3, Cooperative, No apparent distress. HEENT: Atraumatic, PERRLA, EOMI. Neck: Supple, No JVD, Negative Carotid Bruits, Trachea Midline, Thyroid Normal. Lungs: Clear to auscultation, Normal air movement, No rhonchi, No wheeze, No rales. Cardiovascular: Regular rate, Regular Rhythm, Normal S1, Normal S2, PMI Normal. Abdomen: Bowel Sounds Present, Soft, Non Tender, Non-Distended, No Hepato-splenomegaly. Extremities: No clubbing, No cyanosis, No edema Skin: No rashes, No breakdown Neurological: Cranial nerves are intact, neuro grossly intact Vital Signs are stable. Assessment and plan: #1 acute opioid withdrawal: Patient has been snorting heroin and fentanyl, has been smoking marijuana occasionally. CBC, CMP, drug screen and alcohol level are pending. Plan: Admit to MedSurg floor, initiate opioid withdrawal protocol with tapering Subutex, as needed Catapres, Bentyl, Neurontin, Vistaril, methocarbamol, Zofran and trazodone, consult 180 program. #2 other chronic medical problems: Stable, continue current medications as above. This note was generated with [employer] software. It may contain incorrect words, spelling, and punctuation that were not noted in checking the note before signing. Visit Charges Inpatient E&M: 29054 Init Hosp L2
--- NOTE | 2020-09-18 17:41 | CM.ED ---
SOCIAL WORK Referral Source: Self-Referral Reason for Consult: Substance abuse- requesting detox from heroin Met with patient in room. Introduced role and reason for referral. Patient reports has been through detox program here a few months ago. Patient states moved and is now back in [place]. Patient states relapsed on heroin. Patient voiced wishes to get clean. Call to [facility] Treatment Navigator to update on admission. Plan: Admit to CARMENZA Naik, SENIOR ENVIRONMENTAL PRACTICE LEADER, [facility]
[2020-09-18 18:08] LABS: Absolute Lymphocyte Count 1.65 X10^3/uL (0.83-4.51); Basophil# 0.04 X10^3/uL; Basophil% 0.4 % (0-1); Eosinophil# 0.25 X10^3/uL; Eosinophils% 2.5 % (0-5); Hematocrit 47.5 % (40-54); Hemoglobin 15.8 g/dL (13.0-16.5); Lymphocyte # 1.65 X10^3/ul (0.83-4.51); Lymphocyte % 16.6 % (19-41); Mean Corp Hgb Conc 33.3 g/dL (32-36); Mean Corpuscular Hgb 31.2 pg (27.0-32.0); Mean Corpuscular Volume 93.9 fL (80-94); Mean Platelet Vol. 9.6 fl (6.2-12.0); Monocyte# 0.95 X10^3/uL; Monocyte% 9.6 % (0-10); NRBC Flagged by Analyzer 0 % (0-5); Neutrophil # 6.98 X10^3/uL (2.7-7.7); Neutrophil % 70.4 % (47-70); Platelet Count 347 K/mm3 (150-450); RBC Distribution Width CV 12.8 % (11.6-14.6); RBC Distribution Width SD 44.2 fl (35.1-43.9); Red Blood Count 5.06 M/mm3 (4.6-6.2); White Blood Count 9.9 K/mm3 (4.4-11.0)
[2020-09-18 18:16] LABS: ALB/GLOB Ratio 1.2 RATIO (0.9-2.4); AST(SGOT) 9 U/L (15-37); Alanine Aminotransfer ALT/SGPT 15 U/L (16-61); Albumin, Serum 3.9 g/dL (3.2-5.0); Alkaline Phosphatase 74 U/L (45-117); Anion Gap 5 (5-15); BUN 13 mg/dL (7-18); Calcium,Total 8.9 mg/dL (8.5-10.1); Chloride 107 mmol/L (98-107); Creatinine, Serum 1.18 mg/dL (0.70-1.30); EST Glomerular Filtration Rate 74 mL/min (>60); Est Glom Filt Rate - Afr Amer 89 mL/min (>60); Estimated Creatinine Clearance 96.62 ml/min; Globulin 3.2 g/dL (2.2-4.2); Glucose 88 mg/dL (74-106); Potassium 4.1 mmol/L (3.5-5.1); Protein, Total 7.1 g/dL (6.4-8.2); Sodium Level 139 mmol/L (136-145)
[2020-09-18 19:02] LABS: Amphetamine Urine VISTA NEGATIVE (<1000 ng/mL); Barbiturate Urine VISTA NEGATIVE (< 200 ng/mL); Benzodiazepine Urine VISTA NEGATIVE (< 200 ng/mL); Cocaine Urine VISTA NEGATIVE (< 300 ng/mL); Ecstacy Urine VISTA NEGATIVE (< 500 ng/mL); Methadone Urine VISTA NEGATIVE (< 300 ng/mL); PCP Urine VISTA NEGATIVE (< 25 ng/mL); THC Urine VISTA POSITIVE (< 50 ng/mL); Vista UDS pH Range 5
[2020-09-18 19:40] VITALS: BP 121/74; PULSE 98; RESP 16; TEMP 36.7; O2SAT 99
[2020-09-18 19:57] VITALS: BP 113/58; PULSE 67; RESP 18; TEMP 37.2; O2SAT 100
[2020-09-18 20:00] VITALS: BMI 22.8
[2020-09-18] MEDS: Methocarbamol 750 MG Tablet 1500 MG PO (20:26)
[2020-09-18] MEDS: Gabapentin 300 MG Capsule PO (20:37)
[2020-09-18] MEDS: Buprenorphine HCl 2 MG TAB.SUBL SL (20:38)
[2020-09-19 00:45] VITALS: BP 122/67; PULSE 58; RESP 18; TEMP 36.8; O2SAT 97
[2020-09-19 04:41] VITALS: BP 118/62; PULSE 60; RESP 18; TEMP 36.8; O2SAT 100
[2020-09-19] MEDS: Buprenorphine HCl 2 MG TAB.SUBL SL ×3 (04:52→20:33)
--- NOTE | 2020-09-19 09:29 | ADDICTION ---
This physician underwriter met with PT to conduct ASAM, MSE, DUDIT assessments and to plan for d/c. PT A+Ox4 and participated appropriately. All assessments completed, faxed to [facility] and placed in PT's chart. PT was provided resources for f/u but declined coordination based on not knowing his schedule. No transportation needs identified.
[2020-09-19 09:36] VITALS: BP 138/60; PULSE 61; RESP 18; TEMP 36.4; O2SAT 99
[2020-09-19 15:35] VITALS: BP 106/54; PULSE 56; RESP 18; TEMP 36.8; O2SAT 98
--- NOTE | 2020-09-19 16:46 | PCM.PN.HOSP ---
Subjective Subjective Feels well. This is now his 3rd attempt at becoming sober. Fell back into using when his brother OD'd. Objective Data Objective Data Vital Signs: Vital Signs Temp Pulse Resp BP Pulse Ox 36.8 C 56 L 18 106/54 L 98 09/19/20 15:35 09/19/20 15:35 09/19/20 15:35 09/19/20 15:35 09/19/20 15:35 Oxygen Delivery Method Room Air Weight: 78.2 kg Body Mass Index (BMI) 22.8 Intake & Output: Intake and Output for Last 24 Hours 09/17/20 09/18/20 09/19/20 23:59 23:59 23:59 Intake Total 1380 / 1380 Balance 1380 / 1380 Lab / Micro Data Result Diagrams: 09/18/20 17:38 09/18/20 17:38 Labs: Laboratory Results - last 24 hr 09/18/20 09/18/20 09/18/20 17:38 17:38 17:38 WBC 9.9 RBC 5.06 Hgb 15.8 Hct 47.5 MCV 93.9 MCH 31.2 MCHC 33.3 RDW Std Deviation 44.2 H RDW Coeff of Brianna 12.8 Plt Count 347 MPV 9.6 Immature Gran % (Auto) 0.500 Neut % (Auto) 70.4 H Lymph % (Auto) 16.6 L [place] % (Auto) 9.6 Eos % (Auto) 2.5 Baso % (Auto) 0.4 Absolute Neuts (auto) 7.0 Absolute Lymphs (auto) 1.65 Nucleated RBC % 0 Sodium 139 Potassium 4.1 Chloride 107 Carbon Dioxide 27.0 Anion Gap 5 BUN 13 Creatinine 1.18 Estim Creat Clear Calc 96.62 Est GFR (MDRD) Af Amer 89 Est GFR (MDRD) Non-Af 74 BUN/Creatinine Ratio 11.0 Glucose 88 Calcium 8.9 Total Bilirubin 0.60 AST 9 L ALT 15 L Alkaline Phosphatase 74 Total Protein 7.1 Albumin 3.9 Globulin 3.2 Albumin/Globulin Ratio 1.2 Urine Opiates Screen Urine Methadone Screen Ur Barbiturates Screen Ur Phencyclidine Scrn Ur Amphetamines Screen U Methamphetamin-MDMA U Benzodiazepines Scrn Urine Cocaine Screen U Cannabinoids Screen Ur Drug Screen Comment Ethyl Alcohol Cancelled 09/18/20 09/18/20 18:05 19:25 WBC RBC Hgb Hct MCV MCH MCHC RDW Std Deviation RDW Coeff of Brianna Plt Count MPV Immature Gran % (Auto) Neut % (Auto) Lymph % (Auto) [place] % (Auto) Eos % (Auto) Baso % (Auto) Absolute Neuts (auto) Absolute Lymphs (auto) Nucleated RBC % Sodium Potassium Chloride Carbon Dioxide Anion Gap BUN Creatinine Estim Creat Clear Calc Est GFR (MDRD) Af Amer Est GFR (MDRD) Non-Af BUN/Creatinine Ratio Glucose Calcium Total Bilirubin AST ALT Alkaline Phosphatase Total Protein Albumin Globulin Albumin/Globulin Ratio Urine Opiates Screen POSITIVE H Urine Methadone Screen NEGATIVE Ur Barbiturates Screen NEGATIVE Ur Phencyclidine Scrn NEGATIVE Ur Amphetamines Screen NEGATIVE U Methamphetamin-MDMA NEGATIVE U Benzodiazepines Scrn NEGATIVE Urine Cocaine Screen NEGATIVE U Cannabinoids Screen POSITIVE H Ur Drug Screen Comment Ethyl Alcohol 3.0 Physical Exam Const alert and oriented x3 Neuro Sensorium / Orientation: awake and alert Psych affect normal Assessment & Plan Assessment/Plan (1) Acute opioid withdrawal: (2) Desire for detoxification: PLAN: #1 acute opioid withdrawal: Patient has been snorting heroin and fentanyl, has been smoking marijuana occasionally. CBC, CMP, drug screen and alcohol level are pending. Plan: Admit to MedSurg floor, initiate opioid withdrawal protocol with tapering Subutex, as needed Catapres, Bentyl, Neurontin, Vistaril, methocarbamol, Zofran and trazodone, consult 180 program. #2 other chronic medical problems: Stable, continue current medications as above. Greater than 25 minutes of which greater than 50% of the time was counseling the patient about inpatient mgmt and close follow up as outpt. Visit Charges Inpatient E&M: 48299 Subs Hosp L2
[2020-09-19 21:25] VITALS: BP 115/62; PULSE 62; RESP 16; TEMP 36.8; O2SAT 98
[2020-09-20 03:25] VITALS: BP 118/58; PULSE 56; RESP 16; TEMP 36.4; O2SAT 98
[2020-09-20] MEDS: Buprenorphine HCl 2 MG TAB.SUBL SL ×3 (03:35→20:35)
[2020-09-20 09:25] VITALS: BP 132/66; PULSE 58; RESP 14; TEMP 36.6; O2SAT 97
[2020-09-20] MEDS: Sodium Chloride 0.65% 1 SPRAY SPRAY.BTL 2 SPRAY NASAL (12:58)
--- NOTE | 2020-09-20 15:40 | PCM.PN.HOSP ---
Subjective Subjective Feels better. No new complaints. Objective Data Objective Data Vital Signs: Vital Signs Temp Pulse Resp BP Pulse Ox 36.6 C 58 L 14 132/66 H 97 09/20/20 09:25 09/20/20 09:25 09/20/20 09:25 09/20/20 09:25 09/20/20 09:25 Oxygen Delivery Method Room Air Weight: 78.2 kg Body Mass Index (BMI) 22.8 Intake & Output: Intake and Output for Last 24 Hours 09/18/20 09/19/20 09/20/20 23:59 23:59 23:59 Intake Total 1739 960 / 960 Balance 1739 960 / 960 Lab / Micro Data Result Diagrams: 09/18/20 17:38 09/18/20 17:38 Physical Exam Const alert General Appearance: cooperative Exam Limitations: no limitations HEENT normocephalic and head/scalp atraumatic Eyes PERRL and EOMs intact bilaterally Neck supple, no JVD and thyroid normal General: trachea midline Lymph Lymphatic: no lymphadenopathy noted Resp normal respiratory effort, normal air movement and clear to auscultation bilaterally Cardio regular rate, regular rhythm, S1 normal heart sound and S2 normal heart sound GI normal to inspection, nondistended, normoactive bowel sounds, non-tender and non-distended Extremity normal capillary refill and no clubbing, cyanosis or edema Skin General Skin Exam: no breakdown and turgor normal Lesions: no lesions Rashes: no rashes Neuro CN's II-XII intact bilaterally Sensorium / Orientation: awake and alert Psych affect normal Appearance: appropriate Assessment & Plan Assessment/Plan (1) Acute opioid withdrawal: (2) Desire for detoxification: PLAN: #1 acute opioid withdrawal: Patient has been snorting heroin and fentanyl, has been smoking marijuana occasionally. CBC, CMP, drug screen and alcohol level are pending. Plan: Admit to MedSurg floor, initiate opioid withdrawal protocol with tapering Subutex, as needed Catapres, Bentyl, Neurontin, Vistaril, methocarbamol, Zofran and trazodone, consult 180 program. #2 other chronic medical problems: Stable, continue current medications as above. Anticipate DC 09/21. Visit Charges Inpatient E&M: 38060 [facility] Hosp L1
[2020-09-20 16:10] VITALS: BP 119/74; PULSE 60; RESP 14; TEMP 36.9; O2SAT 98
[2020-09-20 22:10] VITALS: BP 120/73; PULSE 61; RESP 16; TEMP 36.9; O2SAT 98
[2020-09-21 04:10] VITALS: BP 105/58; PULSE 55; RESP 16; TEMP 36.2; O2SAT 97
--- NOTE | 2020-09-21 08:18 | PCM.DC ---
Discharge Instructions Diet Discharge Diet: No restrictions Activity Discharge Activity: Return to Normal Activity Follow Up Care Please Follow Up With: [facility] When: today Test Results: Test results from this visit will be discussed in further detail at your follow-up appointment, if applicable. Discharge Plan Admission Admit Date/Time: 09/18/20 17:08 Attending Provider: Anjum Hoffman Primary Care Provider: Care Physician,No Primary Discharge Orders/Prescriptions Prescriptions: No Action NK RF: 0 Referrals / Follow Up: Care Physician,No Primary [Primary Care Provider] - Disposition Disposition (needs filled in before D/C Order can be placed): Home, self care
--- NOTE | 2020-09-21 08:21 | PCM.DC.SUM ---
Providers Date of Admission: 09/18/20 Primary Care Physician: Nirmala Primary Care Phys Reason For Visit: ACUTE OPOID WITHDRAWAL Diagnosis Discharge Diagnosis (1) Acute opioid withdrawal: Status: Acute Code(s): F11.23 - Opioid dependence with withdrawal (2) Desire for detoxification: Status: Acute Medications at Discharge Home Medications NK 05/13/20 Hospital Course Operations None Procedures None Summary of Care Provided Hospital Course: Presents for acute opiate withdrawal. Patient was on buprenorphine as well as other agents help with other somatic complaints during the course of his hospitalization. His hospitalization was uncomplicated. Patient expresses strong motivation to stay sober as he has been sober in the past. Patient will be following up with the [facility]. Physical Exam Const alert and no apparent distress Psych affect normal ABG / Lab / Microbiology Data Result Diagrams: 09/18/20 17:38 09/18/20 17:38 D/C Instructions Discharge Diet: No restrictions Discharge Activity: Return to Normal Activity Please Follow Up With: [facility] When: today Meaningful Use Info Meaningful Use Diagnoses (Choose all that apply): None applicable Discharge Plan Admission Admit Date/Time: 09/18/20 17:08 Attending Provider: Anjum Hoffman Primary Care Provider: Care Physician,Nirmala Primary Discharge Orders/Prescriptions Prescriptions: No Action NK RF: 0 Referrals / Follow Up: Care Physician,No Primary [Primary Care Provider] - Disposition Disposition (needs filled in before D/C Order can be placed): Home, self care Visit Charges Inpatient E&M: 99673 Disch Hosp
[2020-09-21 08:30] VITALS: BP 110/71; PULSE 51; RESP 14; TEMP 36.7; O2SAT 100
[2020-09-21] MEDS: Buprenorphine HCl 2 MG TAB.SUBL SL (08:35)
== END 2020-09-21 09:12 | disposition home or self-care (01) | DRG 773 ==
LOC: ED 17:10 → PCU 17:17
PROVIDERS: Admitting Provider Hospitalist; Emergency Provider Emergency Medicine
DX: F11.23 Opioid dependence with withdrawal (principal); F17.210 Nicotine dependence, cigarettes, uncomplicated
CPT/HCPCS: 36415; 80053; 80307; 82077; 85025; 99281

== ENCOUNTER 2020-11-01 03:04 | Inpatient (IN) | payer MEDICAID, SELFPAY ==
--- NOTE | 2020-11-01 04:45 | EX.ED.DYSGE1 ---
HPI History of Present Illness Informant: patient Narrative Narrative: 35-year-old male presents to the emergency department with his brother and they would both like detox from heroin. He states he last used around 10 hours prior to arrival. He states he last detox about 1-1/2 months ago. He did not follow-up with the program. He states that he relapsed very quickly after discharge because his brother who is also an addict lives with him. He states that his addiction is affecting his work and he needs to get clean. [facility] Medical History (Updated 11/01/20 @ 04:[address] Berlin Ramirez DO) Smoker Substance abuse Home Medications NK 05/13/20 [History Last Taken Unknown] Allergy/AdvReac Type Severity Reaction Status Date / Time acetaminophen [From [place]] AdvReac Upset Verified 09/18/20 16:47 Stomach hydrocodone bitartrate AdvReac Upset Verified 09/18/20 16:47 [From [place]] Stomach Surgical History (Updated 11/01/20 @ 04:[address] Berlin Ramirez DO) H/O eye surgery History of hernia surgery Social History Smoking Status: Current every day smoker quit status: considering quitting substance use type: marijuana and heroin ROS ROS ED Constitutional Constitutional ED: Denies chills or weight loss Eyes Eyes: Denies change in vision or diplopia ENT ENT ED: Denies ear pain, rhinorrhea or sore throat Cardiovascular Cardiovascular: Denies chest pain, orthopnea, palpitations or racing heartbeat Respiratory/Chest Respiratory/Chest: Denies cough, dyspnea or orthopnea Gastrointestinal Gastrointestinal: Denies abdominal pain, diarrhea, nausea or vomiting Genitourinary Genitourinary ED: Denies dysuria, hematuria or urinary frequency Musculoskeletal Musculoskeletal: Reports myalgias; Denies arthralgias Integumentary Denies abscess or rash Neurologic Neurologic: Denies headache(s) or weakness Psychiatric Psychiatric: Denies anxiety, depression, suicidal ideation or suicidal thoughts Endocrine Endocrinology: Denies polydipsia, polyphagia or polyuria Allergic/Immunologic Allergic/Immunologic ED: Denies mouth swelling, tongue swelling or urticaria EXAM Physical Exam Const Positive well nourished and well developed General Appearance ED: well developed HEENT Reports normocephalic, head/scalp atraumatic and moist mucous membranes Eyes PERRL and EOMs intact bilaterally Neck no lymphadenopathy, supple and no JVD Resp normal respiratory effort and clear to auscultation bilaterally Cardio regular rate, regular rhythm and no murmurs GI normal to inspection, nondistended, normoactive bowel sounds and non-tender Palpation: soft Back/Spine no CVA tenderness and normal ROM Extremity normal to inspection General Extremety ED: Negative for edema General Extremity: Negative for edema Neuro oriented x3 and CN's II-XII intact bilaterally Sensorium / Orientation: alert Motor Exam: strength 5/5 throughout Psych mental status grossly normal Mood & Affect: Negative for depressed or tearful Skin no rashes or lesions noted and no wounds MDM MDM MDM Narrative Medical decision making narrative: Screening labs were obtained. If the patient is amendable to the rules of the program I will speak with the hospitalist for admission. Lab Data Attestation: I reviewed the patient's lab results. Discharge Plan Dx/Rx/DC Orders Clinical Impression: Acute opioid withdrawal, Desire for detoxification Disposition Disposition: Acute Care Hospital [facility]
[2020-11-01 05:04] LABS: Anion Gap 5 (5-15); BUN 13 mg/dL (7-18); BUN/Creat Ratio 12.4 RATIO (10-20); Calcium,Total 8.8 mg/dL (8.5-10.1); Chloride 106 mmol/L (98-107); Creatinine, Serum 1.05 mg/dL (0.70-1.30); EST Glomerular Filtration Rate 84 mL/min (>60); Est Glom Filt Rate - Afr Amer 102 mL/min (>60); Glucose 79 mg/dL (74-106); Potassium 3.4 mmol/L (3.5-5.1); Sodium Level 142 mmol/L (136-145)
[2020-11-01 05:05] LABS: ALB/GLOB Ratio 1.2 RATIO (0.9-2.4); AST(SGOT) 13 U/L (15-37); Alanine Aminotransfer ALT/SGPT 20 U/L (16-61); Albumin, Serum 3.7 g/dL (3.2-5.0); Alcohol, Blood (Medical)-Serum < 3.0 mg/dL; Alkaline Phosphatase 78 U/L (45-117); Globulin 3.2 g/dL (2.2-4.2); Protein, Total 6.9 g/dL (6.4-8.2)
[2020-11-01 05:06] LABS: Amphetamine Urine VISTA NEGATIVE (<1000 ng/mL); Barbiturate Urine VISTA NEGATIVE (< 200 ng/mL); Benzodiazepine Urine VISTA NEGATIVE (< 200 ng/mL); Cocaine Urine VISTA NEGATIVE (< 300 ng/mL); Ecstacy Urine VISTA NEGATIVE (< 500 ng/mL); Methadone Urine VISTA NEGATIVE (< 300 ng/mL); PCP Urine VISTA NEGATIVE (< 25 ng/mL); THC Urine VISTA POSITIVE (< 50 ng/mL)
[2020-11-01 05:08] LABS: Basophil% 3.6 % (0-1); Eosinophils% 0.5 % (0-5); Hematocrit 48.1 % (40-54); Hemoglobin 15.9 g/dL (13.0-16.5); Lymphocyte % 30.3 % (19-41); Mean Corp Hgb Conc 33.1 g/dL (32-36); Mean Corpuscular Hgb 31.1 pg (27.0-32.0); Mean Corpuscular Volume 93.9 fL (80-94); Mean Platelet Vol. 9.1 fl (6.2-12.0); Monocyte% 12.1 % (0-10); Neutrophil % 53.1 % (47-70); Platelet Count 349 K/mm3 (150-450); RBC Distribution Width CV 13.2 % (11.6-14.6); RBC Distribution Width SD 45.9 fl (35.1-43.9); Red Blood Count 5.12 M/mm3 (4.6-6.2); White Blood Count 11.7 K/mm3 (4.4-11.0)
[2020-11-01 05:09] LABS: Absolute Lymphocyte Count 3.55 X10^3/uL (0.83-4.51); Absolute Neutrophil Count 6.2 X10^3/uL (2.0-7.7); Lymphocyte # 3.55 X10^3/ul (0.83-4.51)
[2020-11-01 05:15] LABS: Vista UDS pH Range 5
--- NOTE | 2020-11-01 05:42 | HP.PCM.HOS_ITS ---
HPI - General General Date of Admission: 11/01/20 Date of Service: 11/01/20 Chief Complaint: opiate withdrawal HPI Narrative RADHA HOUGH, is a 35 M who presents presents seeking treatment for opiate withdrawal. Patient was here in September and was involved in the opiate withdrawal program at that time and then followed up in the intensive outpatient's. Patient starting using about a week ago when he was trying to get his brother sober as well. Currently, the patient is undergoing abdominal cramps, restless legs and agitation. He is here in the hospital today with his brother who are both seeking treatment for opiate withdrawal. [facility] Medical History Smoker Substance abuse Home Medications NK 05/13/20 [History Last Taken Unknown] Allergy/AdvReac Type Severity Reaction Status Date / Time acetaminophen [From [place]] AdvReac Upset Verified 09/18/20 16:47 Stomach hydrocodone bitartrate AdvReac Upset Verified 09/18/20 16:47 [From [place]] Stomach Family History (Updated 11/01/20 @ 05:[address] Anjum Hoffman DO) Other Opiate addiction Surgical History H/O eye surgery History of hernia surgery Social History Smoking Status: Current every day smoker quit status: considering quitting substance use type: marijuana and heroin ROS ROS Narrative Patient denies any sick contacts. Denies any contact with anyone with COVID-19. Denies any fever or chills. All review of systems were negative except as men tioned above in the history of present illness and the other review of systems. Vital Signs Vital Signs Vital Signs: Weight Body Mass Index (BMI) 22.8 Physical Exam Const alert Constitutional Narrative: Up pacing in his room. Pleasant. Afebrile. General Appearance: cooperative HEENT normocephalic Resp normal respiratory effort, no use of accessory muscles and clear to auscultation bilaterally Cardio regular rate, regular rhythm, S1 normal heart sound and S2 normal heart sound GI normal to inspection, nondistended, normoactive bowel sounds, non-tender and non-distended Extremity normal to inspection Neuro Sensorium / Orientation: awake and alert Results Lab / Micro Data Attestation: I reviewed the patient's lab results. Result Diagrams: 11/01/20 03:45 11/01/20 03:45 Labs: Laboratory Results - last 24 hr 11/01/20 11/01/20 11/01/20 03:45 03:45 03:45 WBC 11.7 H RBC 5.12 Hgb 15.9 Hct 48.1 MCV 93.9 MCH 31.1 MCHC 33.1 RDW Std Deviation 45.9 H RDW Coeff of Brianna 13.2 Plt Count 349 MPV 9.1 Immature Gran % (Auto) 0.400 Neut % (Auto) 53.1 Lymph % (Auto) 30.3 [place] % (Auto) 12.1 H Eos % (Auto) 0.5 Baso % (Auto) 3.6 H Absolute Neuts (auto) 6.2 Absolute Lymphs (auto) 3.55 Sodium 142 Potassium 3.4 L Chloride 106 Carbon Dioxide 31.0 Anion Gap 5 BUN 13 Creatinine 1.05 Est GFR (MDRD) Af Amer 102 Est GFR (MDRD) Non-Af 84 BUN/Creatinine Ratio 12.4 Glucose 79 Calcium 8.8 Total Bilirubin 0.30 AST 13 L ALT 20 Alkaline Phosphatase 78 Total Protein 6.9 Albumin 3.7 Globulin 3.2 Albumin/Globulin Ratio 1.2 Urine Opiates Screen POSITIVE H Urine Methadone Screen NEGATIVE Ur Barbiturates Screen NEGATIVE Ur Phencyclidine Scrn NEGATIVE Ur Amphetamines Screen NEGATIVE U Methamphetamin-MDMA NEGATIVE U Benzodiazepines Scrn NEGATIVE Urine Cocaine Screen NEGATIVE U Cannabinoids Screen POSITIVE H Ur Drug Screen Comment Ethyl Alcohol 11/01/20 03:45 WBC RBC Hgb Hct MCV MCH MCHC RDW Std Deviation RDW Coeff of Brianna Plt Count MPV Immature Gran % (Auto) Neut % (Auto) Lymph % (Auto) Upton % (Auto) Eos % (Auto) Baso % (Auto) Absolute Neuts (auto) Absolute Lymphs (auto) Sodium Potassium Chloride Carbon Dioxide Anion Gap BUN Creatinine Est GFR (MDRD) Af Amer Est GFR (MDRD) Non-Af BUN/Creatinine Ratio Glucose Calcium Total Bilirubin AST ALT Alkaline Phosphatase Total Protein Albumin Globulin Albumin/Globulin Ratio Urine Opiates Screen Urine Methadone Screen Ur Barbiturates Screen Ur Phencyclidine Scrn Ur Amphetamines Screen U Methamphetamin-MDMA U Benzodiazepines Scrn Urine Cocaine Screen U Cannabinoids Screen Ur Drug Screen Comment Ethyl Alcohol < 3.0 Assessment & Plan Assessment/Plan (1) Acute opioid withdrawal: PLAN: 1. Acute opiate withdrawal * Patient be on a buprenorphine taper plus additional agents to help with other somatic complaints associated with his withdrawal. * Addiction medicine to facilitate patient going back into another outpatient program to help maintain sobriety. * Patient is here with his brother and hopefully that will help them both to stay sober getting treated at the same time. 2. Nicotine abuse * Nicotine patch 3. VTE prophylaxis: Not indicated as patient is low risk. Charges/Coding Visit Charges Inpatient E&M: 02313 Init Hosp L2
[2020-11-01 05:58] VITALS: BP 106/90; PULSE 60; RESP 16; TEMP 36.7; O2SAT 100; BMI 23.4
[2020-11-01] MEDS: Potassium Chloride Oral Tablet 20 MEQ 40 MEQ PO (06:21)
[2020-11-01] MEDS: Buprenorphine HCl 2 MG TAB.SUBL SL ×3 (06:40→22:02)
[2020-11-01] MEDS: Ibuprofen 600 MG Tablet PO (08:16)
[2020-11-01] MEDS: cloNIDine HCl 0.1 MG Tablet PO ×2 (08:16→15:35)
[2020-11-01] MEDS: Gabapentin 300 MG Capsule PO ×2 (08:16→15:35)
[2020-11-01 10:23] VITALS: BP 123/72; PULSE 91; RESP 18; TEMP 37.2; O2SAT 99
--- NOTE | 2020-11-01 11:06 | ADDICTION ---
This creative services writer met with PT to conduct ASAM, MSE, DUDIT assessments and to plan for d/c. PT A+Ox4 and particiapted appropriately. All assessments completed, faxed to [facility] and placed in PT's chart. PT plans to f/u with [facility] for assessment and treatment and was provided walk-in assessment times. No transportation needs identified. PT to d/c to home.
[2020-11-01 15:30] VITALS: BP 116/65; PULSE 60; RESP 18; TEMP 36.7; O2SAT 97
[2020-11-01] MEDS: Acetaminophen 500 MG Tablet PO (15:34)
--- NOTE | 2020-11-01 16:36 | CHAPLAIN ---
Type of Pastoral Visit _x__ Initial Visit ___ Follow-up Visit ___ On-call Visit ___ General Patient Visit ___ Spiritual Assessment ___ Family Conference ___ Bereavement ___ Rapid Response ___ Code Blue ___ Other (describe below) Pastoral Care Referral From _x__ Patient ___ Family ___ Nurse ___ Physician ___ [employer] Executive Producer ___ Slip Feeder ___ Other (describe below) Sacrament/Intervention _x__ Active listening ___ Anointing ___ Moravian ___ Bereavement ___ Communion _x__ Adali exploration ___ _x__ Life review _x__ Prayer ___ Reconciliation ___ Sacrament of Sick _x__ Supportive presence ___ Wedding ___ Other (describe below) Pastoral Comments this patient has been seen before in previous admissions by this research food technologist for [facility] program; pt welcomes the visit and is talkative; pt is focused on his brother who is also admitted to [facility]; this research food technologist makes attempts to steer the conversation toward what pt needs and wants for himself; pt acknowledges that he is praying more for help from God; pt goal is for his brother and for himself to both be clean at the same time; pt is asked to seek what he himself needs to stay clean
[2020-11-01 22:00] VITALS: BP 114/59; PULSE 55; RESP 16; TEMP 36.4; O2SAT 98
[2020-11-02 02:12] VITALS: BP 116/55; PULSE 58; RESP 16; TEMP 36.4; O2SAT 98
[2020-11-02 07:18] VITALS: BP 121/59; PULSE 51; RESP 16; TEMP 36.9; O2SAT 98
[2020-11-02] MEDS: Buprenorphine HCl 2 MG TAB.SUBL SL ×2 (07:20→14:05)
--- NOTE | 2020-11-02 10:41 | PN.HOSP_ITS ---
Documented by User: Danny CANALES 11/02/20 10:50 Subjective Subjective Patient is a 35-year-old male comfortably resting in bed, alert and oriented x3. Patient reports symptomatic improvement from yesterday in regards to his abdominal pain, leg pain and cramping. Denies chest pain, shortness of breath, palpitations, sputum production, hemoptysis, fever, chills, N/V/D. Objective Data Objective Data Vital Signs: Vital Signs Temp Pulse Resp BP Pulse Ox 98.5 F 51 L 16 121/59 H 98 11/02/20 07:18 11/02/20 07:18 11/02/20 07:18 11/02/20 07:18 11/02/20 07:18 Oxygen Delivery Method Room Air Weight: 177 lb 11.081 oz Body Mass Index (BMI) 23.4 Intake & Output: Intake and Output for Last 24 Hours 10/31/20 11/01/20 11/02/20 23:59 23:59 23:59 Intake Total 500 / 500 500 / 500 Balance 500 / 500 500 / 500 Lab / Micro Data Result Diagrams: 11/01/20 03:45 11/01/20 03:45 Physical Exam Const alert, oriented x3 and no apparent distress HEENT head/scalp atraumatic and moist oral mucous membranes Head and Scalp: normocephalic Eyes EOMs intact bilaterally and conjunctivae normal Neck no lymphadenopathy, supple and no JVD Resp normal respiratory effort, no retractions, no use of accessory muscles and clear to auscultation bilaterally Cardio regular rate, regular rhythm, no murmurs and no JVD GI normal to inspection, nondistended, normoactive bowel sounds, soft to palpation and non-tender Extremity normal to inspection and no clubbing, cyanosis or edema Peripheral Pulses: Yes pulses 2+ throughout Skin no rashes or lesions noted, no wounds and no jaundice Neuro CN's II-XII intact bilaterally Psych affect normal Assessment & Plan Assessment/Plan (1) Acute opioid withdrawal: (2) Desire for detoxification: (3) Smoker: PLAN: 1) acute opiate withdrawal Patient to follow-up with [facility] on discharge for outpatient management. Patient reports subjective improvement from yesterday in regards to his abdominal pain and leg pain. Plan; continue buprenorphine taper, gabapentin as needed, Bentyl as needed, Tylenol as needed, Vistaril as needed, methocarbamol as needed, trazodone as needed, Zofran as needed, Imodium as needed, clonidine as needed. 2) nicotine abuse NicoDerm patch ordered, cessation encouraged. DVT prophylaxis - Not indicated, low risk. Patient seen by Danny Morgan PA-C, under the supervision of Dr. Norman Documented by User: Dr. Alex Norman MD 11/02/20 15:31 Objective Data Lab / Micro Data Result Diagrams: 11/01/20 03:45 11/01/20 03:45 Charges/Coding Addendum Addendum: Dr. Norman: I personally reviewed the chart and examined the patient, and agree with the above findings. 35-year-old male presented to the hospital with opiate withdrawal. He states that this is his third time through our detox program, the last time he was here was in September and he relapsed when he was trying to help his brother get sober who he states is also here undergoing detox. Plan will be for discharge to [facility] as an outpatient. Visit Charges Inpatient E&M: 14771 Subs Hosp L2
[2020-11-02 14:30] VITALS: BP 116/69; PULSE 72; RESP 18; TEMP 36.7; O2SAT 100
--- NOTE | 2020-11-02 17:59 | NURSING ---
pt signed AMA form and is leaving against medical advice security called and asked for them to escort pt out VERONICA, pantograph operator notifying security after they did not answer their cell phone
== END 2020-11-02 18:12 | disposition left against medical advice (07) | DRG 770 ==
LOC: ED 04:47 → MS3 05:50
PROVIDERS: Emergency Provider Emergency Medicine; Visit Provider Family Medicine
DX: F11.23 Opioid dependence with withdrawal (principal); F17.200 Nicotine dependence, unspecified, uncomplicated
CPT/HCPCS: 36415; 80053; 80307; 82077; 85025; 99284; 99406

== ENCOUNTER 2020-11-24 05:03 | Emergency (ER) | payer MEDICAID, SELFPAY ==
[2020-11-24 05:03] VITALS: BP 141/85; PULSE 77; RESP 18; TEMP 36.1; O2SAT 99; BMI 28.5
--- NOTE | 2020-11-24 05:06 | EDS_ITS ---
HPI History of Present Illness Chief Complaint: Lower Extremity Injury Informant: patient Occured/Mechanism Comment: Plantar inversion mechanism injury going down steps Onset/Context/Timing Context: Sudden Onset Timing: Continuous Quality of Pain: Aching and Throbbing Current Severity: Mild Maximum Severity: Moderate Worsened by: Weight bearing Relieved by: Nothing Associated Symptoms Associated Symptoms: Negative for Parasthesia, Weakness and Loss of Funtion Narrative Narrative: Patient is a 35-year-old male who was working on his wet steps. He slipped. He states he felt a pop. He complains of pain laterally. He denies prior fracture. He denies paresthesia, anesthesia motors. He has no other complaints. Tetanus Immunization: 5-10 years Prior similar symptoms: No Recent Illness/Hospitalization: No PFSH PFSH Medical History Smoker Substance abuse Home Medications naproxen 500 mg PO BID #14 tab 11/24/20 [Rx Last Taken Unknown] Allergy/AdvReac Type Severity Reaction Status Date / Time acetaminophen [From [place]] AdvReac Upset Verified 11/24/20 05:06 Stomach hydrocodone bitartrate AdvReac Upset Verified 11/24/20 05:06 [From [place]] Stomach Family History Other Opiate addiction Surgical History H/O eye surgery History of hernia surgery Social History (Updated 11/24/20 @ 05:[address] Nathaniel Claudio MD) household members: none Smoking Status: Former smoker quit status: considering quitting alcohol intake: current alcohol intake frequency: holidays/special occasions only substance use type: marijuana and heroin ROS ROS ED Constitutional Constitutional ED: Denies chills, fever(s) or subjective Musculoskeletal Musculoskeletal: Reports other Details: Left ankle pain ; Denies arthralgias, back pain, myalgias or neck pain Integumentary Denies Abrasions Neurologic Neurologic: Denies paresthesias or weakness Hematologic/Lymphatic Hematologic/Lymphatic: Denies easy bleeding or easy bruising EXAM Physical Exam Const Vital Signs: 11/24/20 05:03 Temperature 97.0 F L Temperature Source Temporal Pulse Rate 77 Respiratory Rate 18 Blood Pressure 141/85 H Blood Pressure Mean 103 Pulse Ox 99 Oxygen Delivery Method Room Air Positive well nourished and well developed General Appearance ED: well developed HEENT normocephalic and atraumatic Eyes PERRL Eyes Narrative: Extract muscle intact. Sclerae anicteric. Neck full ROM Resp normal respiratory effort and clear to auscultation bilaterally Cardio regular rate, regular rhythm, S1 normal heart sound and no murmurs Extremity normal to inspection and full ROM Extremity Narrative: There is swelling with pain no patient posterior aspect of the left lateral malleolus. There is no pain the patient of the base of the fifth metatarsal. There is no lax with drawer testing. DP pulse and PT pulse are palpable. General Extremety ED: Yes weight-bearing difficulty; Negative for cyanosis or edema General Extremity: weight-bearing difficulty; Negative for cyanosis or edema Neuro oriented x3, CN's II-XII intact bilaterally and no sensory deficits noted Sensorium / Orientation: alert Motor Exam: strength 5/5 throughout Psych mental status grossly normal Skin Lesions: no lesions Rashes: no rashes MDM MDM MDM Narrative Medical decision making narrative: X-ray was obtained to determine if this represents a fracture versus sprain Radiography X-Ray: Read by ED Physician (Three-view x-ray of the ankle reveal soft tissue swelling over the lateral malleolus. There is no fracture, subluxation or dislocation. There is no asymmetry of the mortise. This was interpreted by me at 0537) Discharge Plan Triage Chief Complaint: Lower Extremity Injury ED Provider: Nathaniel Claudio Dx/Rx/DC Orders Clinical Impression: Left ankle sprain Instructions: ED Ankle Sprain (Adult) Prescriptions: New naproxen 500 MG tablet 500 mg PO BID Qty: 14 RF: 0 Primary Care Provider: Care Physician,No Primary Referrals: Care Physician,No Primary [Primary Care Provider] - Doctor,Your [STAFF PHYSICIAN] - 10-14 Days if not better Activity Restrictions/Additional Instructions: 1. Wear air splint/cast while awake 2. May remove air splint/cast when you go to bed 3. Apply ice 8 times a day for the next 5 to 7 days 4. Draw the alphabet with your foot 4-6 times a day Disposition Disposition: Home, Self Care
--- NOTE | 2020-11-24 05:17 | RAD_ITS ---
STUDY: X-RAY - LEFT ANKLE REASON FOR EXAM: Male, 35 years old. Injury/Pain TECHNIQUE: 3 view(s) of the ankle. COMPARISON: None. FINDINGS: Normal visualized distal tibia and fibula. Normal medial and lateral malleoli. Normal tibiotalar articulation and ankle mortise. Normal visualized talus and calcaneus. The visualized subtalar, talonavicular, calcaneocuboid and tarsal articulations are normal. Soft tissue swelling more so along the lateral malleolus. No radiopaque foreign body identified. RAD/Ankle min 3 Views IMPRESSION: Soft tissue swelling more so along the lateral malleolus. No acute fracture identified. Electronically Signed: Ashish Chester MD at 6:02 EDT Tel , Service support ,
[2020-11-24 05:47] VITALS: BP 132/68; PULSE 74; RESP 18; O2SAT 97
== END 2020-11-24 05:48 | disposition home or self-care (01) ==
PROVIDERS: Emergency Provider Emergency Medicine
DX: S93.402A Sprain of unspecified ligament of left ankle, initial encounter (principal); Z87.891 Personal history of nicotine dependence; X50.1XXA Overexertion from prolonged static or awkward postures, initial encounter; Y93.01 Activity, walking, marching and hiking; Y92.009 Unspecified place in unspecified non-institutional (private) residence as the place of occurrence of the external cause; Y99.8 Other external cause status
CPT/HCPCS: 73610; 99283

== ENCOUNTER 2021-01-28 16:39 | Emergency (ER) | payer MEDICAID, SELFPAY ==
[2021-01-28 16:40] VITALS: BP 117/72; PULSE 66; RESP 16; TEMP 36.7; O2SAT 100; BMI 24.4
--- NOTE | 2021-01-28 17:44 | RAD_ITS ---
STUDY: X-RAY CHEST REASON FOR EXAM: Male, 35 years old. chest pain difficulty taking deep breaths TECHNIQUE: Frontal portable view of the chest COMPARISON: 14 March 2017 FINDINGS: The lungs are clear and expanded. There is no demonstrated pleural abnormality. Normal size heart. Normal mediastinum and wily. Normal visualized pulmonary arteries. Normal visualized aortic arch and descending thoracic aorta. Normal visualized thoracic spine. Normal visualized ribs, clavicles, and shoulders. There is no demonstrated abnormality of the visualized soft tissue structures of the upper abdomen. RAD/Chest 1 View (Portable) IMPRESSION: Normal x-ray examination of the chest. Electronically Signed: Esequiel Chappell MD at 19:46 EDT Tel , Service support ,
--- NOTE | 2021-01-28 17:44 | EKG12_ITS ---
Test Reason : CP Blood Pressure : / mmHG Vent. Rate : 057 BPM Atrial Rate : 057 BPM P-R Int : 148 ms QRS Dur : 088 ms QT Int : 402 ms P-R-T Axes : 026 063 048 degrees QTc Int : 391 ms Sinus bradycardia Otherwise normal ECG Confirmed by YONIS HAYNES, SERG ([id number]), index editor JAMAAL FOX ([id number]) on 02/05/2021 1:45:15 PM Referred By: PAULA/DESEAN Confirmed By:SERG SOMERS MD
--- NOTE | 2021-01-28 17:52 | EDS_ITS ---
HPI History of Present Illness Chief Complaint: Chest Pain Informant: patient Onset/Context/Timing Onset: Yesterday Activity at onset: gradual Timing: Intermittent Quality: Positive for Aching Location: Right Parasternal and Left Parasternal Current Severity: Gone Maximum Severity: Mild Worsened By: Breathing Relieved By: Remaining Still Associated Symptoms: Negative for Nausea, Vomiting, Diaphoresis, Dyspnea, Cough, Fever, Lightheadedness, Acid Reflux and Palpitations Narrative Prior Similar Symptoms: No Recent Illness/Hospitalization: No CVD Risk Factors: Positive for Smoking; Negative for Hypertension, Diabetes, Hypercholesterolemia and Family History 1' </=55 PE Risk Factors: Negative for Recent Travel/Surgery, Recent Immobilization, Prior DVT or PE, Cancer and OCP + Smoking + >/=35 TAD Risk Factors: Negative for Marfan's Syndrome, Hypertension and Family History PFSH PFSH Medical History Smoker Substance abuse Home Medications NK 01/28/21 [History Last Taken Unknown] Allergy/AdvReac Type Severity Reaction Status Date / Time acetaminophen [From [place]] AdvReac Upset Verified 01/28/21 16:40 Stomach hydrocodone bitartrate AdvReac Upset Verified 01/28/21 16:40 [From [place]] Stomach Family History Other Opiate addiction Surgical History H/O eye surgery History of hernia surgery Social History household members: none Smoking Status: Former smoker quit status: considering quitting alcohol intake: current alcohol intake frequency: holidays/special occasions only substance use type: marijuana and heroin ROS ROS ED Review of Systems ROS Unobtainable: Denies due to encephalopathy Constitutional Constitutional ED: Denies chills, fever(s) or subjective Eyes Eyes: Denies none or change in vision ENT ENT ED: Denies ear pain, rhinorrhea or sore throat Cardiovascular Cardiovascular: Reports as per HPI and chest pain; Denies palpitations or racing heartbeat Respiratory/Chest Respiratory/Chest: Denies cough or dyspnea Gastrointestinal Gastrointestinal: Denies abdominal pain, diarrhea, nausea or vomiting Genitourinary Genitourinary ED: Denies dysuria or hematuria Musculoskeletal Musculoskeletal: Denies myalgias Integumentary Denies rash Neurologic Neurologic: Denies headache(s) Psychiatric Psychiatric: Denies depression Endocrine Endocrinology: Denies polyuria Hematologic/Lymphatic Hematologic/Lymphatic: Denies easy bruising Allergic/Immunologic Allergic/Immunologic ED: Denies urticaria EXAM Physical Exam Narrative Exam Narrative: 35-year-old male no acute distress. Vital signs stable afebrile. Pulse ox 100% on room air no signs hypoxia. Exam normal. No repro ducible chest wall pain. Lungs clear to auscultation. Heart regular rate and rhythm. Abdomen soft nontender. Moving all 4 extremities. Calves are nontender without edema or cords. Const Vital Signs: 01/28/21 16:40 01/28/21 17:58 01/28/21 18:00 Temperature 98.0 F Temperature Source Temporal Pulse Rate 66 50 L Respiratory Rate 16 14 Respiratory Effort Normal Blood Pressure 117/72 Blood Pressure Mean 87 Pulse Ox 100 99 Oxygen Delivery Method Room Air Room Air 01/28/21 18:01 01/28/21 18:03 Temperature Temperature Source Pulse Rate Respiratory Rate Respiratory Effort Blood Pressure 113/64 Blood Pressure Mean 80 Pulse Ox Oxygen Delivery Method Room Air Positive well nourished and well developed; Negative for obese, cachectic, contractures or unkempt General Appearance ED: well developed and NAD; Negative for unkempt, cachectic, contractures or pallor Nutritional Appearance: Negative for cachectic or obese HEENT Reports moist mucous membranes normocephalic and atraumatic; Negative for trauma or tenderness Eyes PERRL and EOMs intact bilaterally Neck no lymphadenopathy, supple and no JVD General: tenderness Chest Wall inspection of chest normal and palpation of chest normal Chest: Negative for tenderness Resp normal respiratory effort and clear to auscultation bilaterally Effort and Inspection: respiratory distress Auscultation: Negative for rales, rhonchi or wheezes Cardio regular rate, regular rhythm, S1 normal heart sound, S2 normal heart sound and no murmurs Rate: Negative for tachycardic GI normal to inspection, nondistended, normoactive bowel sounds, soft to palpation, non-tender and non-distended Back/Spine no CVA tenderness and no thoracic nor lumbar tenderness General Back: Negative for CVA tenderness Extremity normal to inspection General Extremety ED: Negative for edema, pulses abnormal or tenderness General Extremity: Negative for edema or pulses abnormal Neuro oriented x3, CN's II-XII intact bilaterally and no sensory deficits noted Sensorium / Orientation: awake, alert, oriented to person, oriented to place and oriented to time Motor Exam: strength 5/5 throughout Psych mental status grossly normal Appearance: Negative for unkempt Skin no rashes or lesions noted and no wounds General Skin Exam: Negative for jaundice or pallor Heart Score History: Slightly/Non-Suspicious ECG: Normal Age: </= 45 years Risk Factors: 1 or 2 Risk Factors Troponin: </= Normal Limit Score: 1 MDM MDM MDM Narrative Medical decision making narrative: 35-year-old male with atypical nonreproducible chest pain will be worked up from a cardiac etiology. D-dimer also being obtained because it is pleuritic even though he has no risk factors for PE. Exam otherwise is benign. Repeat exam patient is doing well at 7:21 PM. We went over all his test results. He will be discharged home. Lab Data Attestation: I reviewed the patient's lab results. Lab results narrative: CBC White count 8. Hemoglobin 14. D-dimer is negative at 0.4. Electrolytes unremarkable gap of 3 normal creatinine of 1 glucose 89 troponin of 5. Labs: Laboratory Results - last 24 hr 01/28/21 01/28/21 01/28/21 18:00 18:00 18:00 WBC 8.9 RBC 4.55 L Hgb 14.4 Hct 44.7 MCV 98.2 H MCH 31.6 MCHC 32.2 RDW Std Deviation 48.8 H RDW Coeff of Brianna 13.4 Plt Count 300 MPV 9.3 Immature Gran % (Auto) 0.200 Neut % (Auto) 68.9 Lymph % (Auto) 18.0 L [place] % (Auto) 10.4 H Eos % (Auto) 2.2 Baso % (Auto) 0.3 Absolute Neuts (auto) 6.2 Absolute Lymphs (auto) 1.61 Nucleated RBC % 0 D-Dimer Quant (PE/DVT) 0.40 Sodium 138 Potassium 3.9 Chloride 106 Carbon Dioxide 29.0 Anion Gap 3 L BUN 14 Creatinine 1.00 Estim Creat Clear Calc 114.30 Est GFR (MDRD) Af Amer 108 Est GFR (MDRD) Non-Af 89 BUN/Creatinine Ratio 14.0 Glucose 89 Calcium 8.8 Troponin I High Sens 5 Radiography Chest X-Ray - ED: 1 View, Read by ED Physician, Normal, Heart, Lungs, Mediastinum, Bony Structures, No Acute Disease and Chronic Changes Diagnostic Testing: Single view portable chest x-ray shows no acute abnormality interpreted by myself. Rhythm Strip Rhythm Strip: Sinus Rhythm Rate: 57 Ectopy: None EKG Initial EKG: Interpretation: Sinus Rhythm, No Acute Injury Pattern and Sinus Daryl ycardia Comments: Sinus bradycardia rate of 57 no acute signs of NM nor ischemia. No old EKG available for comparison. Discharge Plan Triage Chief Complaint: Chest Pain ED Provider: Miguel Higuera Dx/Rx/DC Orders Clinical Impression: Chest pain Instructions: ED Chest Pain, Uncertain Cause Prescriptions: No Action NK RF: 0 Primary Care Provider: Care Physician,No Primary Referrals: Yaniv Carter MD [NON-STAFF] - As Needed Care Physician,No Primary [Primary Care Provider] - Activity Restrictions/Additional Instructions: Your test today were normal including blood work, chest x-ray and EKG. Follow- up with primary care physician. Return emergency department if you are feeling worse. Disposition Disposition: Home, Self Care
[2021-01-28] MEDS: Aspirin 81 MG TAB.CHEW 324 MG PO (17:54)
[2021-01-28 17:58] VITALS: PULSE 50; RESP 14; O2SAT 99
[2021-01-28 18:01] VITALS: BP 113/64
[2021-01-28 18:11] LABS: Absolute Lymphocyte Count 1.61 X10^3/uL (0.83-4.51); Absolute Neutrophil Count 6.2 X10^3/uL (2.0-7.7); Basophil# 0.03 X10^3/uL; Basophil% 0.3 % (0-1); Eosinophils% 2.2 % (0-5); Hematocrit 44.7 % (40-54); Hemoglobin 14.4 g/dL (13.0-16.5); Lymphocyte # 1.61 X10^3/ul (0.83-4.51); Mean Corp Hgb Conc 32.2 g/dL (32-36); Mean Corpuscular Hgb 31.6 pg (27.0-32.0); Mean Corpuscular Volume 98.2 fL (80-94); Mean Platelet Vol. 9.3 fl (6.2-12.0); Monocyte# 0.93 X10^3/uL; Monocyte% 10.4 % (0-10); NRBC Flagged by Analyzer 0 % (0-5); Neutrophil # 6.15 X10^3/uL (2.7-7.7); Neutrophil % 68.9 % (47-70); Platelet Count 300 K/mm3 (150-450); RBC Distribution Width CV 13.4 % (11.6-14.6); RBC Distribution Width SD 48.8 fl (35.1-43.9); Red Blood Count 4.55 M/mm3 (4.6-6.2); White Blood Count 8.9 K/mm3 (4.4-11.0)
[2021-01-28 18:28] LABS: Anion Gap 3 (5-15); BUN 14 mg/dL (7-18); Calcium,Total 8.8 mg/dL (8.5-10.1); Chloride 106 mmol/L (98-107); EST Glomerular Filtration Rate 89 mL/min (>60); Est Glom Filt Rate - Afr Amer 108 mL/min (>60); Glucose 89 mg/dL (74-106); Potassium 3.9 mmol/L (3.5-5.1); Sodium Level 138 mmol/L (136-145); Troponin-I HS 5 pg/mL (3.0-78.0)
[2021-01-28 19:35] VITALS: BP 113/70; PULSE 53; RESP 18; O2SAT 100
== END 2021-01-28 19:36 | disposition home or self-care (01) ==
PROVIDERS: Emergency Provider Emergency Medicine
DX: R07.9 Chest pain, unspecified (principal); Z87.891 Personal history of nicotine dependence
CPT/HCPCS: 71045; 80048; 84484; 85025; 85379; 93005; 99284; A4216

== ENCOUNTER 2021-02-15 00:29 | Emergency (ER) | payer MEDICAID, SELFPAY ==
[2021-02-15 00:30] VITALS: BP 126/73; PULSE 69; RESP 15; TEMP 36.3; O2SAT 98; BMI 24.0
--- NOTE | 2021-02-15 00:58 | RAD_ITS ---
STUDY: X-RAY - RIGHT HAND REASON FOR EXAM: Male, 35 years old. injury TECHNIQUE: 3 view(s) of the hand. COMPARISON: None. FINDINGS: Normal radiocarpal articulation. Normal distal radioulnar joint. Normal visualized carpal bones. Normal carpal articulations Normal carpometacarpal articulation of the thumb. Normal second through fifth carpometacarpal joints. Normal metacarpi. Normal metacarpophalangeal joint of the thumb. Normal interphalangeal joint of the thumb. Normal proximal and distal phalanges of the thumb. Normal metacarpophalangeal joints of the second through fifth fingers. Normal proximal and distal interphalangeal joints of the second through fifth fingers. Normal phalanges of the second through fifth fingers. The soft tissue structures are unremarkable. RAD/Hand Min 3 Views IMPRESSION: Normal x-ray examination of the hand. Electronically Signed: Nae Teran MD at 1:15 EDT , Service support ,
--- NOTE | 2021-02-15 00:59 | EX.ED.UPPERE ---
HPI History of Present Illness Chief Complaint: Upper Extremity Injury Detail of Chief Complaint: Injury to right hand that occurred yesterday Informant: patient Narrative Narrative: Patient presents to the emergency department with an injury to the right hand occurred yesterday. Patient states that he accidentally bumped it against the door jam. Patient initially did not think much of it and continue to work. Today he was at work and noted that he had increased pain and swelling and comes in for evaluation. Patient is right-hand dominant. Patient is up-to-date on tetanus. [facility] Medical History Smoker Substance abuse Home Medications cephalexin 500 mg PO Q6 #40 capsule 02/15/21 [Rx Last Taken Unknown] Allergy/AdvReac Type Severity Reaction Status Date / Time acetaminophen [From [place]] AdvReac Upset Verified 02/15/21 00:30 Stomach hydrocodone bitartrate AdvReac Upset Verified 02/15/21 00:30 [From [place]] Stomach Family History Other Opiate addiction Surgical History H/O eye surgery History of hernia surgery Social History household members: none Smoking Status: Former smoker quit status: considering quitting alcohol intake: current alcohol intake frequency: holidays/special occasions only substance use type: marijuana and heroin ROS ROS ED Constitutional Constitutional ED: Reports systems reviewed and no addt'l complaints, except as documented; Denies body ache(s), change in weight or chills Eyes Eyes: Denies acute decrease in peripheral vision, change in vision, double vision or loss of vision ENT ENT ED: Reports none; Denies ear pain, lip swelling, loss taste/smell, neck pain, otalgia or sore throat Cardiovascular Cardiovascular: Reports none; Denies abdominal pain, chest pain with activity, leg edema, lightheadedness, palpitations, rapid heart rate or syncope Respiratory/Chest Respiratory/Chest: Reports none; Denies change in mental status, dry cough, dyspnea, hemoptysis, shortness of breath at rest or shortness of breath with exertion Gastrointestinal Gastrointestinal: Reports none; Denies abdominal pain, change in stool character, diarrhea, hematemesis, hematochezia, melena, rectal bleeding or vomiting Genitourinary Genitourinary ED: Reports none; Denies abdominal discomfort, anuria, dysuria, genital pain or polyuria Musculoskeletal Musculoskeletal: Reports none and other Details: Right hand pain/injury ; Denies arthralgias, back pain, difficulty walking, extremity pain, muscle weakness or myalgias Integumentary Reports none; Denies abscess or rash Neurologic Neurologic: Reports none; Denies abnormal gait, confusion, focal weakness, frequent falls, headache(s), loss of vision, numbness, paresthesias, radicular pain, vertigo or weakness Psychiatric Psychiatric: Reports systems reviewed and no addt'l complaints, except as documented and none; Denies behavioral changes, confusion, difficulty concentrating, hallucinations, suicidal ideation, tactile hallucinations or visual hallucinations Endocrine Endocrinology: Denies none, cold intolerance, excessive sweating, fatigue or heat intolerance Hematologic/Lymphatic Hematologic/Lymphatic: Reports none; Denies anemia, easy bleeding or easy bruising Allergic/Immunologic Allergic/Immunologic ED: Denies as per HPI, none, lip swelling, mouth swelling, throat swelling, tongue swelling or hives EXAM Physical Exam Const Vital Signs: 02/15/21 00:30 Temperature 97.4 F L Temperature Source Temporal Pulse Rate 69 Respiratory Rate 15 Blood Pressure 126/73 H Blood Pressure Mean 90 Pulse Ox 98 Oxygen Delivery Method Room Air Positive well nourished and well developed General Appearance ED: well developed and NAD HEENT Reports TM's clear and moist mucous membranes normocephalic and atraumatic; Negative for trauma or tenderness Tympanic Membrane ED: Yes TM's clear Eyes PERRL and EOMs intact bilaterally General Eye ED: Negative for pale conjunctiva or scleral icterus Neck no lymphadenopathy, supple and no JVD General: Negative for tenderness Chest Wall inspection of chest normal and palpation of chest normal Chest: Negative for tenderness Resp normal respiratory effort and clear to auscultation bilaterally Effort and Inspection: Negative for respiratory distress or pain with movement Auscultation: Negative for rhonchi, wheezes or diminished lung sounds Cardio regular rate, regular rhythm, S1 normal heart sound, S2 normal heart sound and no murmurs Peripheral Pulses: pulses 2+ throughout GI normal to inspection, nondistended, normoactive bowel sounds, soft to palpation, non-tender, non-distended and no masses Back/Spine no CVA tenderness and no thoracic nor lumbar tenderness Extremity Extremity Narrative: Evaluation of the right hand reveal some diffuse soft tissue swelling over the dorsum of the hand with tenderness over the third and fourth MCP joints. There is a small superficial abrasion over the third MCP joint. Patient has normal range of motion flexion extension of all digits. He is neurovascular intact distally. Patient does have some faint erythema to the dorsum of the hand concerning for early cellulitis. General Extremety ED: Negative for edema General Extremity: Negative for edema Neuro oriented x3, CN's II-XII intact bilaterally, no sensory deficits noted and gait normal Sensorium / Orientation: awake, alert, oriented to person, oriented to place and oriented to time Motor Exam: strength 5/5 throughout and strength abnormal Psych mental status grossly normal Skin no rashes or lesions noted and no wounds MDM MDM MDM Narrative Medical decision making narrative: I suspect patient may be developing an early cellulitis. He was started on Keflex 500 mg p.o. He is given an Nathaniel wrap. He is given work restrictions with the right hand. Radiography Diagnostic Testing: Three-view x-rays of right hand obtained interpreted by myself as no acute fractures or dislocations. Radiology in agreement. Discharge Plan Triage Chief Complaint: Upper Extremity Injury ED Provider: Rosalee Ricks Dx/Rx/DC Orders Clinical Impression: Contusion of hand, right, Cellulitis of hand, right Instructions: ED Cellulitis, ED Hand Contusion Prescriptions: New cephalexin [cephalexin] 500 MG capsule 500 mg PO Q6 Qty: 40 RF: 0 Primary Care Provider: Care Physician,No Primary Referrals: Cielo Amato MD [STAFF PHYSICIAN] - 3-5 Days Care Physician,No Primary [Primary Care Provider] - Disposition Disposition: Home, Self Care
[2021-02-15] MEDS: Cephalexin 250 MG Capsule 500 MG PO (02:02)
== END 2021-02-15 02:02 | disposition home or self-care (01) ==
PROVIDERS: Emergency Provider Emergency Medicine
DX: S60.221A Contusion of right hand, initial encounter (principal); L03.113 Cellulitis of right upper limb; Z87.891 Personal history of nicotine dependence; W22.09XA Striking against other stationary object, initial encounter; Y93.89 Activity, other specified; Y92.89 Other specified places as the place of occurrence of the external cause; Y99.8 Other external cause status
CPT/HCPCS: 73130; 99281; 99283

== ENCOUNTER 2021-03-26 05:21 | Inpatient (IN) | payer MEDICAID, SELFPAY ==
[2021-03-26 05:25] VITALS: BP 139/75; PULSE 74; RESP 19; O2SAT 96
[2021-03-26 05:27] VITALS: BP 134/96; TEMP 36.8; BMI 24.8
--- NOTE | 2021-03-26 05:32 | EDS_ITS ---
HPI History of Present Illness Chief Complaint: Substance Abuse Detail of Chief Complaint: Requesting detox from opiates Informant: patient Narrative Narrative: Patient presents to the emergency department requesting detox from opiates. Patient last used heroin around 7 PM last evening. Patient uses daily. Patient last went through a detox program in September of this year. Patient denies alcohol use. He does admit to marijuana use. He complains of some mild nausea and feeling shaky and agitated. Patient denies recent illness. Denies feeling suicidal or homicidal. [facility] Medical History Smoker Substance abuse Home Medications cephalexin 500 mg PO Q6 #40 capsule 02/15/21 [Rx Last Taken Unknown] Allergy/AdvReac Type Severity Reaction Status Date / Time acetaminophen [From [place]] AdvReac Upset Verified 02/15/21 00:30 Stomach hydrocodone bitartrate AdvReac Upset Verified 02/15/21 00:30 [From [place]] Stomach Family History Other Opiate addiction Surgical History H/O eye surgery History of hernia surgery Social History household members: none Smoking Status: Former smoker quit status: considering quitting alcohol intake: current alcohol intake frequency: holidays/special occasions only substance use type: marijuana and heroin ROS ROS ED Constitutional Constitutional ED: Reports systems reviewed and no addt'l complaints, except as documented; Denies body ache(s), change in weight or chills Eyes Eyes: Denies acute decrease in peripheral vision, change in vision, double vision or loss of vision ENT ENT ED: Reports none; Denies ear pain, lip swelling, loss taste/smell, neck pain, otalgia or sore throat Cardiovascular Cardiovascular: Reports none; Denies abdominal pain, chest pain with activity, leg edema, lightheadedness, palpitations, rapid heart rate or syncope Respiratory/Chest Respiratory/Chest: Reports none; Denies change in mental status, dry cough, dyspnea, hemoptysis, shortness of breath at rest or shortness of breath with exertion Gastrointestinal Gastrointestinal: Reports none and nausea; Denies abdominal pain, change in stool character, diarrhea, hematemesis, hematochezia, melena, rectal bleeding or vomiting Genitourinary Genitourinary ED: Reports none; Denies abdominal discomfort, anuria, dysuria, genital pain or polyuria Musculoskeletal Musculoskeletal: Reports none; Denies arthralgias, back pain, difficulty walking, extremity pain, muscle weakness or myalgias Integumentary Reports none; Denies abscess or rash Neurologic Neurologic: Reports none and other Details: Shaky and jittery ; Denies abnormal gait, confusion, focal weakness, frequent falls, headache(s), loss of vision, numbness, paresthesias, radicular pain, vertigo or weakness Psychiatric Psychiatric: Reports systems reviewed and no addt'l complaints, except as documented and none; Denies behavioral changes, confusion, difficulty concentrating, hallucinations, suicidal ideation, tactile hallucinations or visual hallucinations Endocrine Endocrinology: Denies none, cold intolerance, excessive sweating, fatigue or heat intolerance Hematologic/Lymphatic Hematologic/Lymphatic: Reports none; Denies anemia, easy bleeding or easy bruising Allergic/Immunologic Allergic/Immunologic ED: Denies as per HPI, none, lip swelling, mouth swelling, throat swelling, tongue swelling or hives EXAM Physical Exam Const Vital Signs: 03/26/21 05:25 03/26/21 05:27 Temperature 98.2 F Temperature Source Temporal Pulse Rate 74 Respiratory Rate 19 H Blood Pressure 139/75 H 134/96 H Blood Pressure Mean 96 108 Pulse Ox 96 Oxygen Delivery Method Room Air Positive well nourished and well developed General Appearance ED: well developed and NAD HEENT Reports TM's clear and moist mucous membranes normocephalic and atraumatic; Negative for trauma or tenderness Tympanic Membrane ED: Yes TM's clear Eyes PERRL and EOMs intact bilaterally General Eye ED: Negative for pale conjunctiva or scleral icterus Neck no lymphadenopathy, supple and no JVD General: Negative for tenderness Chest Wall inspection of chest normal and palpation of chest normal Chest: Negative for tenderness Resp normal respiratory effort and clear to auscultation bilaterally Effort and Inspection: Negative for respiratory distress or pain with movement Auscultation: Negative for rhonchi, wheezes or diminished lung sounds Cardio regular rate, regular rhythm, S1 normal heart sound, S2 normal heart sound and no murmurs Peripheral Pulses: pulses 2+ throughout GI normal to inspection, nondistended, normoactive bowel sounds, soft to palpation, non-tender, non-distended and no masses Back/Spine no CVA tenderness and no thoracic nor lumbar tenderness Extremity normal to inspection General Extremety ED: Negative for edema General Extremity: Negative for edema Neuro oriented x3, CN's II-XII intact bilaterally, no sensory deficits noted and gait normal Sensorium / Orientation: awake, alert, oriented to person, oriented to place and oriented to time Motor Exam: strength 5/5 throughout and strength abnormal Psych mental status grossly normal Skin no rashes or lesions noted and no wounds MDM MDM MDM Narrative Medical decision making narrative: IV line established on arrival. Basic labs were essentially unremarkable. Toxicology screen with positive for THC. Patient is not sure if what he had yesterday was heroin or fentanyl which may likely will not show up on drug screen. Case discussed with hospitalist will evaluate patient for admission for opiate withdrawal and detox. Lab Data Attestation: I reviewed the patient's lab results. Labs: Laboratory Results - last 24 hr 03/26/21 03/26/21 03/26/21 05:45 05:45 05:45 WBC 11.2 H RBC 4.67 Hgb 14.9 Hct 44.9 MCV 96.1 H MCH 31.9 MCHC 33.2 RDW Std Deviation 45.7 H RDW Coeff of Brianna 13.0 Plt Count 334 MPV 9.4 Immature Gran % (Auto) 0.500 Neut % (Auto) 64.1 Lymph % (Auto) 20.3 [place] % (Auto) 11.9 H Eos % (Auto) 2.8 Baso % (Auto) 0.4 Absolute Neuts (auto) 7.2 Absolute Lymphs (auto) 2.28 Nucleated RBC % 0 Sodium 142 Potassium 3.5 Chloride 110 H Carbon Dioxide 27.0 Anion Gap 5 BUN 20 H Creatinine 1.11 Estim Creat Clear Calc 102.97 Est GFR (MDRD) Af Amer 96 Est GFR (MDRD) Non-Af 79 BUN/Creatinine Ratio 18.0 Glucose 89 Calcium 8.1 L Total Bilirubin 0.20 AST 16 ALT 29 Alkaline Phosphatase 73 Total Protein 6.6 Albumin 3.4 Globulin 3.2 Albumin/Globulin Ratio 1.1 Urine Opiates Screen Urine Methadone Screen Ur Barbiturates Screen Ur Phencyclidine Scrn Ur Amphetamines Screen U Methamphetamin-MDMA U Benzodiazepines Scrn Urine Cocaine Screen U Cannabinoids Screen Ur Drug Screen Comment Ethyl Alcohol < 3.0 03/26/21 06:15 WBC RBC Hgb Hct MCV MCH MCHC RDW Std Deviation RDW Coeff of Brianna Plt Count MPV Immature Gran % (Auto) Neut % (Auto) Lymph % (Auto) [place] % (Auto) Eos % (Auto) Baso % (Auto) Absolute Neuts (auto) Absolute Lymphs (auto) Nucleated RBC % Sodium Potassium Chloride Carbon Dioxide Anion Gap BUN Creatinine Estim Creat Clear Calc Est GFR (MDRD) Af Amer Est GFR (MDRD) Non-Af BUN/Creatinine Ratio Glucose Calcium Total Bilirubin AST ALT Alkaline Phosphatase Total Protein Albumin Globulin Albumin/Globulin Ratio Urine Opiates Screen NEGATIVE Urine Methadone Screen NEGATIVE Ur Barbiturates Screen NEGATIVE Ur Phencyclidine Scrn NEGATIVE Ur Amphetamines Screen NEGATIVE U Methamphetamin-MDMA NEGATIVE U Benzodiazepines Scrn NEGATIVE Urine Cocaine Screen NEGATIVE U Cannabinoids Screen POSITIVE H Ur Drug Screen Comment Ethyl Alcohol Discharge Plan Triage Chief Complaint: Substance Abuse ED Provider: Rosalee Ricks Dx/Rx/DC Orders Clinical Impression: Acute opioid withdrawal, Desire for detoxification Prescriptions: No Action cephalexin [cephalexin] 500 MG capsule 500 mg PO Q6 Qty: 40 RF: 0 Primary Care Provider: Care Physician,No Primary Referrals: Care Physician,No Primary [Primary Care Provider] - Disposition Disposition: Acute Care [facility]
[2021-03-26] MEDS: 0.9% Normal Saline 1,000 ML 1000 ML IV (05:49)
[2021-03-26 06:15] LABS: Absolute Lymphocyte Count 2.28 X10^3/uL (0.83-4.51); Absolute Neutrophil Count 7.2 X10^3/uL (2.0-7.7); Basophil# 0.05 X10^3/uL; Basophil% 0.4 % (0-1); Eosinophil# 0.32 X10^3/uL; Eosinophils% 2.8 % (0-5); Hematocrit 44.9 % (40-54); Hemoglobin 14.9 g/dL (13.0-16.5); Lymphocyte # 2.28 X10^3/ul (0.83-4.51); Lymphocyte % 20.3 % (19-41); Mean Corp Hgb Conc 33.2 g/dL (32-36); Mean Corpuscular Hgb 31.9 pg (27.0-32.0); Mean Corpuscular Volume 96.1 fL (80-94); Mean Platelet Vol. 9.4 fl (6.2-12.0); Monocyte# 1.34 X10^3/uL; Monocyte% 11.9 % (0-10); NRBC Flagged by Analyzer 0 % (0-5); Neutrophil # 7.18 X10^3/uL (2.7-7.7); Neutrophil % 64.1 % (47-70); Platelet Count 334 K/mm3 (150-450); RBC Distribution Width SD 45.7 fl (35.1-43.9); Red Blood Count 4.67 M/mm3 (4.6-6.2); White Blood Count 11.2 K/mm3 (4.4-11.0)
[2021-03-26 06:35] LABS: ALB/GLOB Ratio 1.1 RATIO (0.9-2.4); AST(SGOT) 16 U/L (15-37); Alanine Aminotransfer ALT/SGPT 29 U/L (16-61); Albumin, Serum 3.4 g/dL (3.2-5.0); Alkaline Phosphatase 73 U/L (45-117); Anion Gap 5 (5-15); BUN 20 mg/dL (7-18); Calcium,Total 8.1 mg/dL (8.5-10.1); Chloride 110 mmol/L (98-107); Creatinine, Serum 1.11 mg/dL (0.70-1.30); EST Glomerular Filtration Rate 79 mL/min (>60); Est Glom Filt Rate - Afr Amer 96 mL/min (>60); Estimated Creatinine Clearance 102.97 ml/min; Globulin 3.2 g/dL (2.2-4.2); Glucose 89 mg/dL (74-106); Potassium 3.5 mmol/L (3.5-5.1); Protein, Total 6.6 g/dL (6.4-8.2); Sodium Level 142 mmol/L (136-145)
[2021-03-26 06:43] LABS: Amphetamine Urine VISTA NEGATIVE (<1000 ng/mL); Barbiturate Urine VISTA NEGATIVE (< 200 ng/mL); Benzodiazepine Urine VISTA NEGATIVE (< 200 ng/mL); Cocaine Urine VISTA NEGATIVE (< 300 ng/mL); Ecstacy Urine VISTA NEGATIVE (< 500 ng/mL); Methadone Urine VISTA NEGATIVE (< 300 ng/mL); PCP Urine VISTA NEGATIVE (< 25 ng/mL); THC Urine VISTA POSITIVE (< 50 ng/mL); Vista UDS pH Range 5
[2021-03-26 06:49] LABS: Alcohol, Blood (Medical)-Serum < 3.0 mg/dL
[2021-03-26] MEDS: 0.9% Normal Saline 1,000 ML 150 ML IV (07:06)
[2021-03-26] MEDS: LORazepam 2 MG/ML Syringe 1 MG IV (07:07)
[2021-03-26 07:55] VITALS: BP 135/90; PULSE 89; RESP 18; TEMP 36.4; O2SAT 97
--- NOTE | 2021-03-26 08:21 | HP.PCM.HOS_ITS ---
HPI - General General Date of Admission: 03/26/21 Date of Service: 03/26/21 Chief Complaint: Opiate addiction HPI Narrative RADHA HOUGH, is a 35 M who presents to the emergency room at [facility] requesting services for detox for heroin. Patient states that he does not inject intravenously, he snorts it. Patient denies any alcohol use or methamphetamine use, he does admit to marijuana usage. Patient was last here in October for detox services, he states he signed out AMA because he was having personal problems at that time. Patient complains of feeling jittery and nervous today, he states he wants to detox in order to keep his job at [employer]. Patient states that he has a boss that understands him and his encouraged him to detox. Labs in the emergency room were remarkable for BUN of 20, patient's white blood cell count was slightly elevated, patient's urine opiate screen was negative, his urine cannabinoids screen was positive. Ethyl alcohol is below 3. Patient will be admitted to [place] [address] for acute opioid withdrawal, orders will be entered using the opiate withdrawal order set, he will be seen by addiction social media marketing specialist. [facility] Medical History Smoker Substance abuse Home Medications cephalexin 500 mg PO Q6 #40 capsule 02/15/21 [Rx Last Taken Unknown] Allergy/AdvReac Type Severity Reaction Status Date / Time acetaminophen [From Coker] AdvReac Upset Verified 02/15/21 00:30 Stomach hydrocodone bitartrate AdvReac Upset Verified 02/15/21 00:30 [From Coker] Stomach Family History Other Opiate addiction Surgical History H/O eye surgery History of hernia surgery Social History household members: none Smoking Status: Former smoker quit status: considering quitting alcohol intake: current alcohol intake frequency: holidays/special occasions only substance use type: marijuana and heroin ROS Constitutional Constitutional: Denies anorexia, change in weight, chills, fatigue, fever(s), ni ght sweats or weakness Eyes Eyes: Denies blurry vision, change in vision, discharge from eye(s) or eye pain Cardiovascular Cardiovascular: Denies chest pain, claudication, edema or palpitations Respiratory/Chest Respiratory/Chest: Denies cough, hemoptysis, shortness of breath at rest or shortness of breath with exertion Gastrointestinal Gastrointestinal: Reports nausea; Denies abdominal pain, constipation, diarrhea, hematemesis, hematochezia, melena or vomiting Genitourinary Genitourinary: Denies dysuria, hematuria, urinary frequency, urinary hesitancy, urinary incontinence or urinary urgency Musculoskeletal Musculoskeletal: Denies back pain, joint pain, joint stiffness, joint swelling, myalgias or neck pain Neurologic Neurologic: Denies abnormal gait, abnormal speech, dizziness, focal weakness, headache(s), loss of vision, numbness, other visual disturbances, paresthesias, syncope or tingling Psychiatric Psychiatric: Reports anxiety and other Details: Patient states he feels nervous and jittery ; Denies cognitive impairment, depression, irritability, mood swings or suicidal ideation Endocrine Endocrinology: Denies change in body appearance, cold intolerance, excessive sweating, heat intolerance, polydipsia or polyuria Hematologic/Lymphatic Hematologic/Lymphatic: Denies none, anemia, easy bleeding, easy bruising or lymphadenopathy Allergic/Immunologic Allergic/Immunologic: Denies rhinitis, urticaria, eczemia or asthma Vital Signs Vital Signs Vital Signs: 03/26/21 05:25 03/26/21 05:27 03/26/21 07:55 Temperature 98.2 F 97.6 F L Temperature Source Temporal Temporal Pulse Rate 74 89 Respiratory Rate 19 H 18 Blood Pressure 139/75 H 134/96 H 135/90 H Blood Pressure Mean 96 108 105 Pulse Ox 96 97 Oxygen Delivery Method Room Air Room Air Weight Weight: 85.5 kg Body Mass Index (BMI) 24.8 Physical Exam Const alert, oriented x3 and no apparent distress Constitutional Narrative: Patient appears slightly nervous General Appearance: cooperative, well kempt and well developed Orientation / Consciousness: awake, oriented to person, oriented to place and oriented to time HEENT normocephalic and moist oral mucous membranes Eyes PERRL, EOMs intact bilaterally and conjunctivae normal Neck nuchal rigidity, supple, no JVD, thyroid normal and no carotid bruits General: trachea midline Resp normal respiratory effort and clear to auscultation bilaterally Auscultation: Negative for rales, rhonchi or wheezes Cardio regular rate, regular rhythm, no murmurs, no rub and no gallops GI normal to inspection, nondistended, normoactive bowel sounds, soft to palpation, non-tender and non-distended Extremity no clubbing, cyanosis or edema Skin no rashes or lesions noted General Skin Exam: no breakdown Neuro oriented x3, CN's II-XII intact bilaterally, no focal motor deficits and no sensory deficits noted Sensorium / Orientation: awake and alert Speech: speech normal Psych thought process normal Mood & Affect: anxious Results Lab / Micro Data Result Diagrams: 03/26/21 05:45 03/26/21 05:45 Labs: Laboratory Results - last 24 hr 03/26/21 05:45: WBC 11.2 H, RBC 4.67, Hgb 14.9, Hct 44.9, MCV 96.1 H, MCH 31.9, MCHC 33.2, RDW Std Deviation 45.7 H, RDW Coeff of Brianna 13.0, Plt Count 334, MPV 9.4, Immature Gran % (Auto) 0.500, Neut % (Auto) 64.1, Lymph % (Auto) 20.3, [place] % (Auto) 11.9 H, Eos % (Auto) 2.8, Baso % (Auto) 0.4, Absolute Neuts (auto) 7.2, Absolute Lymphs (auto) 2.28, Nucleated RBC % 0 03/26/21 05:45: Sodium 142, Potassium 3.5, Chloride 110 H, Carbon Dioxide 27.0, Anion Gap 5, BUN 20 H, Creatinine 1.11, Estim Creat Clear Calc 102.97, Est GFR (MDRD) Af Amer 96, Est GFR (MDRD) Non-Af 79, BUN/Creatinine Ratio 18.0, Glucose 89, Calcium 8.1 L, Total Bilirubin 0.20, AST 16, ALT 29, Alkaline Phosphatase 73, Total Protein 6.6, Albumin 3.4, Globulin 3.2, Albumin/Globulin Ratio 1.1 03/26/21 05:45: Ethyl Alcohol < 3.0 03/26/21 06:15: Urine Opiates Screen NEGATIVE, Urine Methadone Screen NEGATIVE, Ur Barbiturates Screen NEGATIVE, Ur Phencyclidine Scrn NEGATIVE, Ur Amphetamines Screen NEGATIVE, U Methamphetamin-MDMA NEGATIVE, U Benzodiazepines Scrn NEGATIVE, Urine Cocaine Screen NEGATIVE, U Cannabinoids Screen POSITIVE H, Ur Drug Screen Comment Assessment & Plan Assessment/Plan (1) Desire for detoxification: PLAN: 1. Acute opiate withdrawal-again patient will be admitted to [facility] 3, he will be seen by addiction social media marketing specialist, patient is indicated that he wants to do an outpatient detox program after release from the hospital. #2 chronic opioid addiction-patient states he snorts heroin Charges/Coding Visit Charges Inpatient E&M: 85756 Init Hosp L3
--- NOTE | 2021-03-26 08:34 | PCS.PANDOC ---
PANDEMIC DOCUMENTATION INITIATED: Date: 12/25/2020 Time: 190
[2021-03-26 09:56] VITALS: BMI 23.7
--- NOTE | 2021-03-26 10:35 | ADDICTION ---
This marketing underwriter met with PT to conduct ASAM, MSE, AUDIT assessments and to plan for d/c. PT A+Ox4 and participated actively. All assessments completed, faxed to [facility] and placed in PT's chart. PT plans to f/u with individual counselor at [facility] for MAT and follow-up counseling services. PT did not indicate a need for transportation post d/c from [facility].
[2021-03-26] MEDS: Dicyclomine 10 MG Capsule 20 MG PO (11:08)
[2021-03-26] MEDS: Ondansetron 8 MG Tablet PO (11:08)
[2021-03-26] MEDS: Gabapentin 300 MG Capsule PO (11:08)
[2021-03-26] MEDS: Buprenorphine HCl 2 MG TAB.SUBL SL ×2 (11:09→20:12)
[2021-03-26] MEDS: hydrOXYzine PAM 25 MG Capsule 50 MG PO ×2 (14:09→20:12)
[2021-03-26 14:10] VITALS: BP 112/63; PULSE 90; RESP 18; TEMP 36.5; O2SAT 98
[2021-03-26 21:00] VITALS: RESP 16
[2021-03-26 22:00] VITALS: BP 114/74; PULSE 54; RESP 16; TEMP 36.8; O2SAT 99
[2021-03-27] MEDS: traZODone 100 MG Tablet PO ×2 (00:10→22:06)
[2021-03-27] MEDS: Buprenorphine HCl 2 MG TAB.SUBL SL ×3 (02:40→18:27)
[2021-03-27] MEDS: Sodium Chloride 0.65% 1 SPRAY SPRAY.BTL 2 SPRAY NASAL (02:40)
[2021-03-27 02:43] VITALS: BP 104/66; PULSE 57; RESP 16; TEMP 36.4; O2SAT 95
[2021-03-27 08:32] VITALS: BP 99/44; PULSE 64; RESP 16; TEMP 36.7
[2021-03-27] MEDS: Methocarbamol 750 MG Tablet 1500 MG PO (13:41)
[2021-03-27 14:00] VITALS: BP 117/63; PULSE 56; RESP 16; TEMP 36.7; O2SAT 95
--- NOTE | 2021-03-27 17:15 | CHAPLAIN ---
Type of Pastoral Visit _x__ Initial Visit ___ Follow-up Visit ___ On-call Visit ___ General Patient Visit ___ Spiritual Assessment ___ Family Conference ___ Bereavement ___ Rapid Response ___ Code Blue ___ Other (describe below) Pastoral Care Referral From _x__ Patient ___ Family ___ Nurse ___ Physician ___ Compound Coating Machine Offbearer ___ Application Security Consultant ___ Other (describe below) Sacrament/Intervention _x__ Active listening ___ Anointing ___ Orthodoxy ___ Bereavement ___ Communion _x__ Adali exploration ___ _x__ Life review _x__ Prayer ___ Reconciliation ___ Sacrament of Sick _x__ Supportive presence ___ Wedding ___ Other (describe below) Pastoral Comments
[2021-03-27 18:00] VITALS: BP 163/96; PULSE 110; RESP 20; TEMP 36.9; O2SAT 94
--- NOTE | 2021-03-27 19:00 | PN.HOSP_ITS ---
Subjective Subjective Patient was seen and examined today, he is not having any tremor or anxiety at this time, he does not complain of any muscle pain or nausea or vomiting. Objective Data Objective Data Vital Signs: Vital Signs Temp Pulse Resp BP Pulse Ox 98.1 F 56 L 16 117/63 95 03/27/21 14:00 03/27/21 14:00 03/27/21 14:00 03/27/21 14:00 03/27/21 14:00 Oxygen Delivery Method Room Air Weight: 81.647 kg Body Mass Index (BMI) 23.7 Intake & Output: Intake and Output for Last 24 Hours 03/25/21 03/26/21 03/27/21 23:59 23:59 23:59 Intake Total 1764 / 1764 Balance 1764 / 1764 Lab / Micro Data Result Diagrams: 03/26/21 05:45 03/26/21 05:45 Physical Exam Const alert, oriented x3, no apparent distress, average body habitus and healthy appearing General Appearance: cooperative, well kempt and well developed Orientation / Consciousness: awake, oriented to person, oriented to place and oriented to time HEENT normocephalic, head/scalp atraumatic and moist oral mucous membranes Head and Scalp: normocephalic Eyes PERRL, EOMs intact bilaterally and conjunctivae normal Neck nuchal rigidity, supple, no JVD, thyroid normal and no carotid bruits General: trachea midline Resp normal respiratory effort, no retractions, no use of accessory muscles and clear to auscultation bilaterally Auscultation: Negative for rales, rhonchi or wheezes Cardio regular rate, regular rhythm, S1 normal heart sound, S2 normal heart sound, no murmurs, no rub and no gallops GI normal to inspection, nondistended, normoactive bowel sounds, soft to palpation, non-tender and non-distended Extremity no clubbing, cyanosis or edema Skin no rashes or lesions noted General Skin Exam: no breakdown Neuro oriented x3, CN's II-XII intact bilaterally, no focal motor deficits and no sen jaime deficits noted Sensorium / Orientation: awake and alert Speech: speech normal Psych thought process normal and affect normal Assessment & Plan Assessment/Plan (1) Acute opioid withdrawal: (2) Desire for detoxification: PLAN: 1. Acute opiate withdrawal-continue present medications at this time, patient states he wants to do an outpatient detox program when he is discharged from the hospital. #2 chronic opioid addiction Charges/Coding Visit Charges Inpatient E&M: 84602 Subs Hosp L2
[2021-03-27 21:03] VITALS: BP 116/64; PULSE 49; RESP 16; TEMP 36.9; O2SAT 100
[2021-03-28 02:38] VITALS: BP 113/60; PULSE 52; RESP 16; TEMP 36.9; O2SAT 97
[2021-03-28] MEDS: Buprenorphine HCl 2 MG TAB.SUBL SL ×3 (02:43→21:58)
[2021-03-28 08:30] VITALS: BP 126/61; PULSE 61; RESP 16; TEMP 36.7; O2SAT 98
--- NOTE | 2021-03-28 10:12 | ADDICTION ---
This worker met w/PT to discuss d/c planning. PT has an appointment Friday 03/30 @11:30am at [facility].
[2021-03-28 14:31] VITALS: BP 117/64; PULSE 61; RESP 18; TEMP 36.9; O2SAT 96
--- NOTE | 2021-03-28 16:49 | PCM.PN.HOSP ---
Subjective Subjective Feels well. No new complaints. Objective Data Objective Data Vital Signs: Vital Signs Temp Pulse Resp BP Pulse Ox 36.9 C 61 18 117/64 96 03/28/21 14:31 03/28/21 14:31 03/28/21 14:31 03/28/21 14:31 03/28/21 14:31 Oxygen Delivery Method Room Air Weight: 81.647 kg Body Mass Index (BMI) 23.7 Intake & Output: Intake and Output for Last 24 Hours 03/26/21 03/27/21 03/28/21 23:59 23:59 23:59 Intake Total 1765 / 1765 Balance 1765 / 1765 Lab / Micro Data Result Diagrams: 03/26/21 05:45 03/26/21 05:45 Physical Exam Const alert and oriented x3 Constitutional Narrative: Lying in bed. Afebrile. Psych affect normal Assessment & Plan Assessment/Plan (1) Desire for detoxification: PLAN: 1. Acute opiate withdrawal: Patient stable. Continue buprenorphine taper. Continue with additional agents to help with other somatic complaints while the patient is in the hospital. Patient was seen by addiction medicine and patient has follow-up appointment on 03/30 at 11:30 AM at [facility]. 2. Disposition: Dissipate patient be able ready for discharge on the Charges/Coding Visit Charges Inpatient E&M: 40959 Subs Hosp L1
[2021-03-28 21:54] VITALS: BP 129/73; PULSE 63; RESP 16; TEMP 37; O2SAT 99
[2021-03-28] MEDS: traZODone 100 MG Tablet PO (21:57)
[2021-03-29 06:38] VITALS: BP 122/76; PULSE 59; RESP 16; TEMP 36.6; O2SAT 98
[2021-03-29 08:56] VITALS: BP 111/76; PULSE 63; RESP 16; TEMP 36.4; O2SAT 96
--- NOTE | 2021-03-29 10:39 | PCM.DC ---
Discharge Instructions Diet Discharge Diet: No restrictions Activity Discharge Activity: Return to Normal Activity Return to work on:: 03/30/21 Follow Up Care Please Follow Up With: [facility] When: 03/30/2021 at 11:30 Test Results: Test results from this visit will be discussed in further detail at your follow-up appointment, if applicable. Discharge Plan Admission Admit Date/Time: 03/26/21 06:54 Primary Reason for Your Visit: Opiate Withdrawal Attending Provider: Anjum Hoffman Primary Care Provider: Care Physician,Nirmala Primary Discharge Orders/Prescriptions Prescriptions: Discontinued cephalexin [cephalexin] 500 MG capsule 500 mg PO Q6 Qty: 40 RF: 0 Referrals / Follow Up: Care Physician,No Primary [Primary Care Provider] - Disposition Disposition (needs filled in before D/C Order can be placed): Home, Self Care
--- NOTE | 2021-03-29 10:43 | PCM.DC.SUM ---
Providers Date of Admission: 03/26/21 Primary Care Physician: Nirmala Primary Care Phys Reason For Visit: DESIREFOR OPIOID DETOXIFICATION Diagnosis Discharge Diagnosis (1) Desire for detoxification: Status: Acute Hospital Course Operations None Procedures None Summary of Care Provided Minutes Spent on Discharge: 28 Hospital Course: 35-year-old male presents for treatment for acute opiate withdrawal. Patient uses heroin but does not inject it but snorts it. Patient was started on buprenorphine taper as well as other agents to help with other withdrawal associated complaints. His course was uncomplicated. Patient's plan is to follow-up with [facility] on 03/30. Physical Exam Const alert Resp normal respiratory effort, no retractions, no use of accessory muscles and clear to auscultation bilaterally Cardio regular rate, regular rhythm, S1 normal heart sound and S2 normal heart sound GI normal to inspection, nondistended, normoactive bowel sounds Neuro Sensorium / Orientation: awake Weight / BMI Weight Weight: 81.647 kg Body Mass Index (BMI) 23.7 ABG / Lab / Microbiology Data Result Diagrams: 03/26/21 05:45 03/26/21 05:45 D/C Instructions Discharge Diet: No restrictions Return to work on: 03/30/21 Please Follow Up With: [facility] When: 03/30/2021 at 11:30 Meaningful Use Info Meaningful Use Diagnoses (Choose all that apply): None applicable Discharge Plan Admission Admit Date/Time: 03/26/21 06:54 Primary Reason for Your Visit: Opiate Withdrawal Attending Provider: Anjum Hoffman Primary Care Provider: Aravind Santizo,Nirmala Primary Discharge Orders/Prescriptions Prescriptions: Discontinued cephalexin [cephalexin] 500 MG capsule 500 mg PO Q6 Qty: 40 RF: 0 Referrals / Follow Up: Care Physician,No Primary [Primary Care Provider] - Disposition Disposition (needs filled in before D/C Order can be placed): Home, Self Care Charges/Coding Visit Charges Inpatient E&M: 41704 Disch Hosp
== END 2021-03-29 11:07 | disposition home or self-care (01) | DRG 773 ==
LOC: ED 07:09 → MS3 07:15
PROVIDERS: Admitting Provider Hospitalist; Emergency Provider Emergency Medicine
DX: F11.23 Opioid dependence with withdrawal (principal); F17.200 Nicotine dependence, unspecified, uncomplicated
CPT/HCPCS: 80053; 80307; 82077; 85025; 97802; 99283; 99406; J7030; 90686; A4216

== ENCOUNTER 2021-05-13 09:00 | Emergency (ER) | payer MEDICAID, SELFPAY ==
[2021-05-13 09:04] VITALS: BP 132/85; PULSE 89; RESP 16; TEMP 36.1; O2SAT 100; BMI 22.4
--- NOTE | 2021-05-13 09:38 | EX.ED.SAOD ---
HPI History of Present Illness Chief Complaint: Substance Abuse Informant: patient Onset/Context/Timing Onset: Today Context: Sudden Onset Timing: Continuous Quality: Loss of consciousness Location: Generalized Relieved by: Narcan Associated Symptoms Associated Symptoms: Positive for change in mental status; Negative for vomiting*, fever*, rash*, seizure, tremor, palpatations, suicidal ideation and homicidal ideation Prehospital Treatment: Naloxone Narrative Narrative: Patient presents after relapsing on heroin. Patient states he used heroin today. Patient states he has a history of heroin abuse but has been clean for the past 2-1/2 months. Patient states his father was admitted to the hospital yesterday for COVID-19 and the stress of that caused him to relapse. EMS administered Narcan and he became more awake and alert. Patient is unsure how much he used today. Patient states he snorts heroin. Patient denies any IV drug use. [facility] Medical History No significant pertinent medical history Smoker Substance abuse Allergy/AdvReac Type Severity Reaction Status Date / Time acetaminophen [From [place]] AdvReac Upset Verified 02/15/21 00:30 Stomach hydrocodone bitartrate AdvReac Upset Verified 02/15/21 00:30 [From [place]] Stomach Family History Other Opiate addiction Surgical History H/O eye surgery History of hernia surgery Social History household members: none Smoking Status: Former smoker quit status: considering quitting alcohol intake: current alcohol intake frequency: holidays/special occasions only substance use type: marijuana and heroin ROS ROS ED Constitutional Constitutional ED: Denies chills or fever(s) Eyes Eyes: Denies blurry vision or change in vision ENT ENT ED: Denies rhinorrhea or sore throat Cardiovascular Cardiovascular: Denies chest pain or palpitations Respiratory/Chest Respiratory/Chest: Denies cough or dyspnea Gastrointestinal Gastrointestinal: Denies nausea or vomiting Genitourinary Genitourinary ED: Denies dysuria or hematuria Musculoskeletal Musculoskeletal: Reports neck pain; Denies back pain Integumentary Denies abscess or rash Neurologic Neurologic: Denies headache(s) or weakness Allergic/Immunologic Allergic/Immunologic ED: Denies mouth swelling or urticaria EXAM Physical Exam Const Vital Signs: 05/13/21 09:04 05/13/21 10:02 Temperature 97.0 F L Temperature Source Temporal Pulse Rate 89 80 Respiratory Rate 16 13 Blood Pressure 132/85 H 112/75 Blood Pressure Mean 100 87 Pulse Ox 100 99 Oxygen Delivery Method Room Air Room Air Positive well nourished and well developed General Appearance ED: well developed HEENT Reports moist mucous membranes Neck supple and no JVD Resp normal respiratory effort and clear to auscultation bilaterally Cardio regular rate, regular rhythm and no murmurs GI normal to inspection, nondistended, normoactive bowel sounds and non-tender Palpation: soft Extremity normal to inspection General Extremety ED: Negative for edema or tenderness General Extremity: Negative for edema Neuro oriented x3, CN's II-XII intact bilaterally and no sensory deficits noted Sensorium / Orientation: alert Motor Exam: strength 5/5 throughout Psych mental status grossly normal Skin no rashes or lesions noted MDM MDM MDM Narrative Medical decision making narrative: CBC shows a leukocytosis of 24.7. This is most likely from the overdose. Comprehensive metabolic profile was obtained and was essentially within normal limits. Patient was observed in the emergency department for 2 hours. Patient is feeling better on reevaluation. Patient had no further signs of opiate overdose. Patient was instructed to follow-up with his current outpatient substance abuse rehabilitation program. Patient was instructed to return if worse in any way. Patient understands and is agreeable with the plan. All questions were answered. Lab Data Attestation: I reviewed the patient's lab results. Labs: Laboratory Results - last 24 hr 05/13/21 05/13/21 10:05 10:05 WBC 24.7 H RBC 4.47 L Hgb 14.0 Hct 41.7 MCV 93.3 MCH 31.3 MCHC 33.6 RDW Std Deviation 45.7 H RDW Coeff of Brianna 13.3 Plt Count 326 MPV 8.8 Immature Gran % (Auto) 0.800 Neut % (Auto) 84.7 H Lymph % (Auto) 6.0 L [place] % (Auto) 7.4 Eos % (Auto) 0.8 Baso % (Auto) 0.3 Absolute Neuts (auto) 20.9 H Absolute Lymphs (auto) 1.49 Nucleated RBC % 0 Differential Comment SCANNED Diff Path Review May foll Platelet Estimate ADEQUATE RBC Morphology NORM C+C Sodium 141 Potassium 4.3 Chloride 109 H Carbon Dioxide 27.0 Anion Gap 5 BUN 24 H Creatinine 1.22 Estim Creat Clear Calc 93.08 Est GFR (MDRD) Af Amer 86 Est GFR (MDRD) Non-Af 71 BUN/Creatinine Ratio 19.7 Glucose 114 H Calcium 8.2 L Total Bilirubin 0.30 AST 16 ALT 25 Alkaline Phosphatase 72 Total Protein 6.2 L Albumin 3.2 Globulin 3.0 Albumin/Globulin Ratio 1.1 Discharge Plan Triage Chief Complaint: Substance Abuse ED Provider: Anjum Méndez Dx/Rx/DC Orders Clinical Impression: Opiate overdose Instructions: ED Opiate Abuse Primary Care Provider: Care Physician,No Primary Referrals: Care Physician,No Primary [Primary Care Provider] - 3-5 Days [facility] [STAFF PHYSICIAN] - 3-5 Days Disposition Disposition: Home, Self Care
[2021-05-13 10:02] VITALS: BP 112/75; PULSE 80; RESP 13; O2SAT 99
[2021-05-13 10:17] LABS: Absolute Lymphocyte Count 1.49 X10^3/uL (0.83-4.51); Absolute Neutrophil Count 20.9 X10^3/uL (2.0-7.7); Basophil# 0.08 X10^3/uL; Basophil% 0.3 % (0-1); Eosinophils% 0.8 % (0-5); Hematocrit 41.7 % (40-54); Lymphocyte # 1.49 X10^3/ul (0.83-4.51); Mean Corp Hgb Conc 33.6 g/dL (32-36); Mean Corpuscular Hgb 31.3 pg (27.0-32.0); Mean Corpuscular Volume 93.3 fL (80-94); Mean Platelet Vol. 8.8 fl (6.2-12.0); Monocyte# 1.84 X10^3/uL; Monocyte% 7.4 % (0-10); NRBC Flagged by Analyzer 0 % (0-5); Neutrophil # 20.92 X10^3/uL (2.7-7.7); Neutrophil % 84.7 % (47-70); POSITIVE DIFFERENTIAL YES; Platelet Count 326 K/mm3 (150-450); RBC Distribution Width CV 13.3 % (11.6-14.6); RBC Distribution Width SD 45.7 fl (35.1-43.9); Red Blood Count 4.47 M/mm3 (4.6-6.2); White Blood Count 24.7 K/mm3 (4.4-11.0)
[2021-05-13 10:20] LABS: Differential Indicated SCAN CRITERIA MET
[2021-05-13 10:42] LABS: ALB/GLOB Ratio 1.1 RATIO (0.9-2.4); AST(SGOT) 16 U/L (15-37); Alanine Aminotransfer ALT/SGPT 25 U/L (16-61); Albumin, Serum 3.2 g/dL (3.2-5.0); Alkaline Phosphatase 72 U/L (45-117); Anion Gap 5 (5-15); BUN 24 mg/dL (7-18); BUN/Creat Ratio 19.7 RATIO (10-20); Calcium,Total 8.2 mg/dL (8.5-10.1); Chloride 109 mmol/L (98-107); Creatinine, Serum 1.22 mg/dL (0.70-1.30); EST Glomerular Filtration Rate 71 mL/min (>60); Est Glom Filt Rate - Afr Amer 86 mL/min (>60); Estimated Creatinine Clearance 93.08 ml/min; Glucose 114 mg/dL (74-106); Potassium 4.3 mmol/L (3.5-5.1); Protein, Total 6.2 g/dL (6.4-8.2); Sodium Level 141 mmol/L (136-145)
[2021-05-13 10:43] LABS: Differential Comment SCANNED; Platelet Estimate ADEQUATE (ADEQ); Red Cell Morphology NORM C+C NORMAL (NORM C&C)
[2021-05-13 11:26] VITALS: BP 129/88; PULSE 84; RESP 15; O2SAT 97
[2021-05-14 14:00] LABS: Pathologist Review Reviewed
== END 2021-05-13 11:29 | disposition home or self-care (01) ==
PROVIDERS: Emergency Provider Emergency Medicine; Visit Provider Emergency Medicine
DX: T40.2X1A Poisoning by other opioids, accidental (unintentional), initial encounter (principal); F12.10 Cannabis abuse, uncomplicated; Z87.891 Personal history of nicotine dependence
CPT/HCPCS: 80053; 85025; 99285; A4216

== ENCOUNTER 2021-05-28 08:40 | Inpatient (IN) | payer MEDICAID, SELFPAY ==
[2021-05-28] VITALS (7 sets, daily range): BP systolic 123–148; BP diastolic 57–82; PULSE 62–95; RESP 15–18; TEMP 35.9–37; O2SAT 94–100; BMI 21.7; BMI 22.8
--- NOTE | 2021-05-28 08:52 | EDS_ITS ---
HPI History of Present Illness Chief Complaint: Substance Abuse Informant: patient Onset/Context/Timing Onset: Weeks Narrative Narrative: Patient presents requesting detox from heroin. Patient has been through a detox program here in the past. He states after his last admission in March he did well for a couple months. His father was admitted to the hospital and from COVID earlier this month that caused him to relapse. He has been snorting heroin daily for the last 2 weeks. Patient denies any other drug use. He will drink alcohol socially. Last alcohol consumption was May 12. [facility] Medical History Smoker Substance abuse Home Medications NK 05/28/21 [History Last Taken Unknown] Allergy/AdvReac Type Severity Reaction Status Date / Time acetaminophen [From [place]] AdvReac Upset Verified 05/28/21 08:42 Stomach hydrocodone bitartrate AdvReac Upset Verified 05/28/21 08:42 [From [place]] Stomach Family History Other Opiate addiction Surgical History H/O eye surgery History of hernia surgery Social History household members: none Smoking Status: Former smoker quit status: considering quitting alcohol intake: current alcohol intake frequency: holidays/special occasions only substance use type: marijuana and heroin ROS ROS ED Constitutional Constitutional ED: Denies chills or fever(s) Eyes Eyes: Denies change in vision ENT ENT ED: Denies sore throat Cardiovascular Cardiovascular: Denies chest pain Respiratory/Chest Respiratory/Chest: Denies cough or dyspnea Gastrointestinal Gastrointestinal: Denies abdominal pain, diarrhea, nausea or vomiting Genitourinary Genitourinary ED: Denies dysuria Musculoskeletal Musculoskeletal: Denies back pain Integumentary Denies rash Neurologic Neurologic: Denies headache(s) or weakness Psychiatric Psychiatric: Reports anxiety; Denies depression Allergic/Immunologic Allergic/Immunologic ED: Denies urticaria EXAM Physical Exam Const Vital Signs: 05/28/21 08:41 05/28/21 09:47 Temperature 96.6 F L Temperature Source Temporal Pulse Rate 71 84 Respiratory Rate 18 17 Blood Pressure 148/82 H 138/77 H Blood Pressure Mean 104 97 Pulse Ox 94 98 Oxygen Delivery Method Room Air Room Air Positive well nourished and well developed General Appearance ED: well developed HEENT Reports normocephalic and head/scalp atraumatic Eyes PERRL and EOMs intact bilaterally Neck supple Chest Wall inspection of chest normal and palpation of chest normal Resp normal respiratory effort and clear to auscultation bilaterally Cardio regular rate and regular rhythm GI normal to inspection, nondistended, normoactive bowel sounds Palpation: soft Back/Spine no CVA tenderness Extremity normal to inspection Neuro oriented x3 and no sensory deficits noted Sensorium / Orientation: alert Motor Exam: strength 5/5 throughout Psych mental status grossly normal Skin no rashes or lesions noted MDM MDM MDM Narrative Medical decision making narrative: Lab work for addiction medicine obtained Lab Data Attestation: I reviewed the patient's lab results. Labs: Laboratory Results - last 24 hr 05/28/21 05/28/21 05/28/21 08:54 08:54 09:10 WBC 11.2 H RBC 4.76 Hgb 15.1 Hct 44.2 MCV 92.9 MCH 31.7 MCHC 34.2 RDW Std Deviation 46.5 H RDW Coeff of Brianna 13.6 Plt Count 366 MPV 9.1 Immature Gran % (Auto) 0.400 Neut % (Auto) 70.4 H Lymph % (Auto) 15.4 L [place] % (Auto) 10.1 H Eos % (Auto) 2.9 Baso % (Auto) 0.8 Absolute Neuts (auto) 7.9 H Absolute Lymphs (auto) 1.73 Nucleated RBC % 0 Sodium Potassium Chloride Carbon Dioxide Anion Gap BUN Creatinine Estim Creat Clear Calc Est GFR (MDRD) Af Amer Est GFR (MDRD) Non-Af BUN/Creatinine Ratio Glucose Calcium Total Bilirubin AST ALT Alkaline Phosphatase Total Protein Albumin Globulin Albumin/Globulin Ratio Urine Color Yellow Urine Clarity Sl. Cloudy Urine pH 7.0 Ur Specific [place] 1.010 Urine Protein Negative Urine Glucose (UA) Normal Urine Ketones Negative Urine Occult Blood Negative Urine Nitrite Negative Urine Bilirubin Negative Urine Urobilinogen Normal Ur Leukocyte Esterase 25 H Urine RBC 0 SEEN Urine WBC 0 SEEN Ur Squamous Epith Cells 0 SEEN Amorphous Sediment 3+ Urine Bacteria 2+ Urine Mucus 0 SEEN Urine Opiates Screen NEGATIVE Urine Methadone Screen NEGATIVE Ur Barbiturates Screen NEGATIVE Ur Phencyclidine Scrn NEGATIVE Ur Amphetamines Screen NEGATIVE U Methamphetamin-MDMA NEGATIVE U Benzodiazepines Scrn NEGATIVE Urine Cocaine Screen NEGATIVE U Cannabinoids Screen NEGATIVE Ur Drug Screen Comment Ethyl Alcohol 05/28/21 05/28/21 09:10 09:10 WBC RBC Hgb Hct MCV MCH MCHC RDW Std Deviation RDW Coeff of Brianna Plt Count MPV Immature Gran % (Auto) Neut % (Auto) Lymph % (Auto) [place] % (Auto) Eos % (Auto) Baso % (Auto) Absolute Neuts (auto) Absolute Lymphs (auto) Nucleated RBC % Sodium 140 Potassium 4.1 Chloride 106 Carbon Dioxide 29.0 Anion Gap 5 BUN 18 Creatinine 0.96 Estim Creat Clear Calc 111.53 Est GFR (MDRD) Af Amer 112 Est GFR (MDRD) Non-Af 93 BUN/Creatinine Ratio 18.7 Glucose 121 H Calcium 9.0 Total Bilirubin 0.30 AST 11 L ALT 24 Alkaline Phosphatase 65 Total Protein 7.0 Albumin 3.6 Globulin 3.4 Albumin/Globulin Ratio 1.1 Urine Color Urine Clarity Urine pH Ur Specific [place] Urine Protein Urine Glucose (UA) Urine Ketones Urine Occult Blood Urine Nitrite Urine Bilirubin Urine Urobilinogen Ur Leukocyte Esterase Urine RBC Urine WBC Ur Squamous Epith Cells Amorphous Sediment Urine Bacteria Urine Mucus Urine Opiates Screen Urine Methadone Screen Ur Barbiturates Screen Ur Phencyclidine Scrn Ur Amphetamines Screen U Methamphetamin-MDMA U Benzodiazepines Scrn Urine Cocaine Screen U Cannabinoids Screen Ur Drug Screen Comment Ethyl Alcohol < 3.0 Treatment and Re-Evaluation Comments:: Lab work unremarkable at this time. Talk screen negative and EtOH negative. Patient be discussed with hospitalist regarding admission for detox. Discharge Plan Triage Chief Complaint: Substance Abuse ED Provider: Clemencia Terry Dx/Rx/DC Orders Clinical Impression: Desire for detoxification Prescriptions: No Action NK RF: 0 Primary Care Provider: Care Physician,No Primary Referrals: Care Physician,No Primary [Primary Care Provider] - Disposition Disposition: Acute Care [facility]
[2021-05-28 09:01] LABS: Mucous, Urine 0 SEEN /hpf (<or=2+); Red Blood Cells-Urine 0 SEEN /hpf (0-5); Squamous Epithelial Cells - UA 0 SEEN /hpf (0-5); White Blood Cells 0 SEEN /hpf (0-5)
[2021-05-28 09:05] LABS: Color, Urine Yellow (Yellow); Glucose, Dipstick Normal (Normal); Ketone-Dipstick Negative (Negative); Leukocyte Esterase-Dipstick 25 /ul (Negative); Nitrite-Dipstick Negative (Negative); Occult Blood-Urine Negative /ul (Negative); Protein-Dipstick Negative (Negative); Urine Bilirubin Dipstick Negative (Negative); Urine Clarity Sl. Cloudy (Clear); Urine Urobilinogen Normal (Normal)
[2021-05-28 09:18] LABS: Amorphous Sediment 3+; Bacteria 2+ /hpf (None Seen)
[2021-05-28 09:19] LABS: Absolute Lymphocyte Count 1.73 X10^3/uL (0.83-4.51); Absolute Neutrophil Count 7.9 X10^3/uL (2.0-7.7); Basophil# 0.09 X10^3/uL; Basophil% 0.8 % (0-1); Eosinophil# 0.33 X10^3/uL; Eosinophils% 2.9 % (0-5); Hematocrit 44.2 % (40-54); Hemoglobin 15.1 g/dL (13.0-16.5); Lymphocyte # 1.73 X10^3/ul (0.83-4.51); Lymphocyte % 15.4 % (19-41); Mean Corp Hgb Conc 34.2 g/dL (32-36); Mean Corpuscular Hgb 31.7 pg (27.0-32.0); Mean Corpuscular Volume 92.9 fL (80-94); Mean Platelet Vol. 9.1 fl (6.2-12.0); Monocyte# 1.13 X10^3/uL; Monocyte% 10.1 % (0-10); NRBC Flagged by Analyzer 0 % (0-5); Neutrophil # 7.88 X10^3/uL (2.7-7.7); Neutrophil % 70.4 % (47-70); Platelet Count 366 K/mm3 (150-450); RBC Distribution Width CV 13.6 % (11.6-14.6); RBC Distribution Width SD 46.5 fl (35.1-43.9); Red Blood Count 4.76 M/mm3 (4.6-6.2); White Blood Count 11.2 K/mm3 (4.4-11.0)
[2021-05-28 09:33] LABS: Amphetamine Urine VISTA NEGATIVE (<1000 ng/mL); Barbiturate Urine VISTA NEGATIVE (< 200 ng/mL); Benzodiazepine Urine VISTA NEGATIVE (< 200 ng/mL); Cocaine Urine VISTA NEGATIVE (< 300 ng/mL); Ecstacy Urine VISTA NEGATIVE (< 500 ng/mL); Methadone Urine VISTA NEGATIVE (< 300 ng/mL); PCP Urine VISTA NEGATIVE (< 25 ng/mL); THC Urine VISTA NEGATIVE (< 50 ng/mL); Vista UDS pH Range 5
[2021-05-28 09:35] LABS: ALB/GLOB Ratio 1.1 RATIO (0.9-2.4); AST(SGOT) 11 U/L (15-37); Alanine Aminotransfer ALT/SGPT 24 U/L (16-61); Albumin, Serum 3.6 g/dL (3.2-5.0); Alkaline Phosphatase 65 U/L (45-117); Anion Gap 5 (5-15); BUN 18 mg/dL (7-18); BUN/Creat Ratio 18.7 RATIO (10-20); Chloride 106 mmol/L (98-107); Creatinine, Serum 0.96 mg/dL (0.70-1.30); EST Glomerular Filtration Rate 93 mL/min (>60); Est Glom Filt Rate - Afr Amer 112 mL/min (>60); Estimated Creatinine Clearance 111.53 ml/min; Globulin 3.4 g/dL (2.2-4.2); Glucose 121 mg/dL (74-106); Potassium 4.1 mmol/L (3.5-5.1); Sodium Level 140 mmol/L (136-145)
[2021-05-28 09:56] LABS: Alcohol, Blood (Medical)-Serum < 3.0 mg/dL
[2021-05-28] MEDS: LORazepam 1 MG Tablet PO (10:24)
--- NOTE | 2021-05-28 10:32 | HP.PCM.HOS_ITS ---
HPI - General General Date of Admission: 05/28/21 HPI Narrative RADHA HOUGH, is a 35 M who presents requesting opiate detox. He has been here in October and then again in March. He has been doing well except his father recently of COVID which she states what is what sent him over the edge and started using again. He has been using heroin for the last several weeks, denies any significant alcohol use. He snorts heroin and denies any IV drug use. [facility] Medical History (Updated 05/28/21 @ 11:42 by Azucena Ballard) Arthritis Chronic pain Migraines Smoker Substance abuse Home Medications NK 05/28/21 [History Last Taken Unknown] Allergy/AdvReac Type Severity Reaction Status Date / Time acetaminophen [From [place]] AdvReac Upset Verified 05/28/21 08:42 Stomach hydrocodone bitartrate AdvReac Upset Verified 05/28/21 08:42 [From [place]] Stomach Family History Other Opiate addiction Surgical History H/O eye surgery History of hernia surgery Social History household members: none Smoking Status: Current every day smoker tobacco type: cigarettes quit status: considering quitting alcohol intake: current alcohol intake frequency: holidays/special occasions only substance use type: marijuana and heroin ROS Constitutional Constitutional: Denies chills, fatigue, fever(s) or malaise Eyes Eyes: Denies blurry vision ENT HEENT: Denies headache(s) or nasal discharge Cardiovascular Cardiovascular: Denies chest pain, dyspnea on exertion or syncope Respiratory/Chest Respiratory/Chest: Denies cough, shortness of breath at rest or shortness of breath with exertion Gastrointestinal Gastrointestinal: Denies constipation, diarrhea, nausea or vomiting Genitourinary Genitourinary: Denies dysuria Neurologic Neurologic: Denies focal weakness, numbness or tremor(s) Psychiatric Psychiatric: Reports anxiety; Denies depression Vital Signs Vital Signs Vital Signs: 05/28/21 08:41 05/28/21 09:47 Temperature 96.6 F L Temperature Source Temporal Pulse Rate 71 84 Respiratory Rate 18 17 Blood Pressure 148/82 H 138/77 H Blood Pressure Mean 104 97 Pulse Ox 94 98 Oxygen Delivery Method Room Air Room Air Weight Weight: 165 lb Body Mass Index (BMI) 21.7 Physical Exam Const alert, oriented x3 and no apparent distress General Appearance: cooperative HEENT normocephalic and moist oral mucous membranes Eyes PERRL, EOMs intact bilaterally and conjunctivae normal Neck supple and no JVD Resp normal respiratory effort, no retractions, no use of accessory muscles and clear to auscultation bilaterally Auscultation: Negative for crackles, rales, rhonchi or wheezes Cardio regular rate, regular rhythm, S1 normal heart sound, S2 normal heart sound and no murmurs GI soft to palpation, non-tender and non-distended; Negative for hepatosplenomegaly Extremity no clubbing, cyanosis or edema Skin no rashes or lesions noted Neuro no focal motor deficits and no sensory deficits noted Psych affect normal Appearance: appropriate Results Lab / Micro Data Result Diagrams: 05/28/21 09:10 05/28/21 09:10 Labs: Laboratory Results - last 24 hr 05/28/21 08:54: Urine Opiates Screen NEGATIVE, Urine Methadone Screen NEGATIVE, Ur Barbiturates Screen NEGATIVE, Ur Phencyclidine Scrn NEGATIVE, Ur Amphetamines Screen NEGATIVE, U Methamphetamin-MDMA NEGATIVE, U Benzodiazepines Scrn NE GATIVE, Urine Cocaine Screen NEGATIVE, U Cannabinoids Screen NEGATIVE, Ur Drug Screen Comment 05/28/21 08:54: Urine Color Yellow, Urine Clarity Sl. Cloudy, Urine pH 7.0, Ur S pecific [place] 1.010, Urine Protein Negative, Urine Glucose (UA) Normal, Urine Ketones Negative, Urine Occult Blood Negative, Urine Nitrite Negative, Urine Bilirubin Negative, Urine Urobilinogen Normal, Ur Leukocyte Esterase 25 H, Urine RBC 0 SEEN, Urine WBC 0 SEEN, Ur Squamous Epith Cells 0 SEEN, Amorphous Sediment 3+, Urine Bacteria 2+, Urine Mucus 0 SEEN 05/28/21 09:10: WBC 11.2 H, RBC 4.76, Hgb 15.1, Hct 44.2, MCV 92.9, MCH 31.7, MCHC 34.2, RDW Std Deviation 46.5 H, RDW Coeff of Brianna 13.6, Plt Count 366, MPV 9.1, Immature Gran % (Auto) 0.400, Neut % (Auto) 70.4 H, Lymph % (Auto) 15.4 L, [place] % (Auto) 10.1 H, Eos % (Auto) 2.9, Baso % (Auto) 0.8, Absolute Neuts (auto) 7.9 H, Absolute Lymphs (auto) 1.73, Nucleated RBC % 0 05/28/21 09:10: Sodium 140, Potassium 4.1, Chloride 106, Carbon Dioxide 29.0, Anion Gap 5, BUN 18, Creatinine 0.96, Estim Creat Clear Calc 111.53, Est GFR (MDRD) Af Amer 112, Est GFR (MDRD) Non-Af 93, BUN/Creatinine Ratio 18.7, Glucose 121 H, Calcium 9.0, Total Bilirubin 0.30, AST 11 L, ALT 24, Alkaline Phosphatase 65, Total Protein 7.0, Albumin 3.6, Globulin 3.4, Albumin/Globulin Ratio 1.1 05/28/21 09:10: Ethyl Alcohol < 3.0 Assessment & Plan Assessment/Plan (1) Desire for detoxification: PLAN: 1. Opiate withdrawal/nicotine abuse -Continue with the opiate withdrawal protocol -Continue with nicotine patch -We will have him meet with 180 to set up outpatient management DVT: Ambulation Charges/Coding Visit Charges Inpatient E&M: 97043 Init Hosp L2
--- NOTE | 2021-05-28 12:06 | PCS.PANDOC ---
PANDEMIC DOCUMENTATION INITIATED: Date: 12/25/2020 Time: 1900 emergency staffing/ emergency documentation/ pandemic documentation
--- NOTE | 2021-05-28 12:28 | CM.ED ---
MALLORY Note MALLORY met with patient. Patient reports he has been in the [facility] program previously and is familiar with the rules regarding the program which include no phone and no visitors and is in agreement with the rules. Patient said that his drug of choice was heroin using 2 pt-1/2 gram a day. Last use was Yesterday (05/27) 1-3pm. He is linked with [facility]. MALLORY called Addiction Therapist Ashish Russ and provided her with the update that patient came to the ED for admission to [facility] program. Plan: CARMENZA PATEL
[2021-05-28] MEDS: hydrOXYzine PAM 25 MG Capsule 50 MG PO (12:47)
[2021-05-28] MEDS: Buprenorphine HCl 2 MG TAB.SUBL SL ×2 (12:48→20:43)
[2021-05-28] MEDS: Dicyclomine 10 MG Capsule 20 MG PO (12:48)
--- NOTE | 2021-05-28 13:36 | ADDICTION ---
This insurance underwriter sales met with PT to conduct ASAM, MSE, AUDIT, DUDIT assessments and to plan for d/c. PT A+Ox4 and participated actively. All assessments completed and placed in PT's chart. PT plans to f/u with individual counselor at [facility] for follow-up counseling services. This is PT's 6th time in detox in 13 months. He was in on 05/13/21 for an overdose. Pt was informed if he returns to detox, he will need to commit to a residential program in the ER prior to ramp admission. PT did not indicate a need for transportation post d/c from [facility].
[2021-05-29 04:15] VITALS: BP 116/65; PULSE 62; RESP 16; TEMP 36.7; O2SAT 94; O2SAT 95
[2021-05-29] MEDS: Buprenorphine HCl 2 MG TAB.SUBL SL ×3 (04:24→19:51)
[2021-05-29 08:50] VITALS: BP 123/55; PULSE 78; RESP 16; TEMP 37.1; O2SAT 97
--- NOTE | 2021-05-29 09:33 | PCM.PN.HOSP ---
Subjective Subjective Doing well, no issues overnight. Cina score of 4 Objective Data Objective Data Vital Signs: Vital Signs Temp Pulse Resp BP Pulse Ox 98.7 F 78 16 123/55 H 97 05/29/21 08:50 05/29/21 08:50 05/29/21 08:50 05/29/21 08:50 05/29/21 08:50 Oxygen Delivery Method Room Air Weight: 173 lb 9.6 oz Body Mass Index (BMI) 22.8 Intake & Output: Intake and Output for Last 24 Hours 05/28/21 05/29/21 05/30/21 03:59 03:59 03:59 Intake Total 240 / 240 Balance 240 / 240 Lab / Micro Data Result Diagrams: 05/28/21 09:10 05/28/21 09:10 Labs: Laboratory Results - last 24 hr 05/28/21 08:54: Urine Opiates Screen NEGATIVE, Urine Methadone Screen NEGATIVE, Ur Barbiturates Screen NEGATIVE, Ur Phencyclidine Scrn NEGATIVE, Ur Amphetamines Screen NEGATIVE, U Methamphetamin-MDMA NEGATIVE, U Benzodiazepines Scrn NEGATIVE, Urine Cocaine Screen NEGATIVE, U Cannabinoids Screen NEGATIVE 05/28/21 09:10: Sodium 140, Potassium 4.1, Chloride 106, Carbon Dioxide 29.0, Anion Gap 5, BUN 18, Creatinine 0.96, Estim Creat Clear Calc 111.53, Est GFR (MDRD) Af Amer 112, Est GFR (MDRD) Non-Af 93, BUN/Creatinine Ratio 18.7, Glucose 121 H, Calcium 9.0, Total Bilirubin 0.30, AST 11 L, ALT 24, Alkaline Phosphatase 65, Total Protein 7.0, Albumin 3.6, Globulin 3.4, Albumin/Globulin Ratio 1.1 05/28/21 09:10: Ethyl Alcohol < 3.0 Physical Exam Const alert, oriented x3 and no apparent distress General Appearance: cooperative HEENT normocephalic and moist oral mucous membranes Eyes PERRL, EOMs intact bilaterally and conjunctivae normal Neck supple and no JVD Resp normal respiratory effort, no retractions, no use of accessory muscles and clear to auscultation bilaterally Auscultation: Negative for crackles, rales, rhonchi or wheezes Cardio regular rate, regular rhythm, S1 normal heart sound, S2 normal heart sound and no murmurs GI soft to palpation, non-tender and non-distended; Negative for hepatosplenomegaly Extremity no clubbing, cyanosis or edema Skin no rashes or lesions noted Neuro no focal motor deficits and no sensory deficits noted Psych affect normal Appearance: appropriate Assessment & Plan Assessment/Plan (1) Desire for detoxification: PLAN: 1. Opiate withdrawal/nicotine abuse -Continue with the opiate withdrawal protocol -Continue with nicotine patch -We will have him meet with 180 to set up outpatient management ? He does not want to do residential treatment at this time DVT: Ambulation Charges/Coding Visit Charges Inpatient E&M: 39959 Subs Hosp L2
[2021-05-29 12:27] VITALS: BP 120/65; PULSE 80; RESP 14; TEMP 36.7; O2SAT 100
[2021-05-29 16:48] VITALS: BP 125/70; PULSE 64; RESP 14; TEMP 36.8; O2SAT 97
[2021-05-29 19:44] VITALS: BP 140/78; PULSE 70; RESP 16; TEMP 37; O2SAT 100
[2021-05-29] MEDS: traZODone 100 MG Tablet PO (19:51)
[2021-05-30 03:01] VITALS: BP 115/60; PULSE 62; RESP 16; TEMP 37; O2SAT 97
[2021-05-30] MEDS: Buprenorphine HCl 2 MG TAB.SUBL SL (03:03)
[2021-05-30 08:08] VITALS: BP 104/64; PULSE 67; RESP 14; TEMP 36.6; O2SAT 98
--- NOTE | 2021-05-30 09:04 | PCM.PN.HOSP ---
Subjective Subjective No issues overnight, Cina score 0 today Objective Data Objective Data Vital Signs: Vital Signs Temp Pulse Resp BP Pulse Ox 98 F 67 14 104/64 98 05/30/21 08:08 05/30/21 08:08 05/30/21 08:08 05/30/21 08:08 05/30/21 08:08 Oxygen Delivery Method Room Air Weight: 173 lb 9.6 oz Body Mass Index (BMI) 22.8 Intake & Output: Intake and Output for Last 24 Hours 05/29/21 05/30/21 05/31/21 03:59 03:59 03:59 Intake Total 240 / 240 Balance 240 / 240 Lab / Micro Data Result Diagrams: 05/28/21 09:10 05/28/21 09:10 Physical Exam Const alert, oriented x3 and no apparent distress General Appearance: cooperative HEENT normocephalic and moist oral mucous membranes Eyes PERRL, EOMs intact bilaterally and conjunctivae normal Neck supple and no JVD Resp normal respiratory effort, no retractions, no use of accessory muscles and clear to auscultation bilaterally Auscultation: Negative for crackles, rales, rhonchi or wheezes Cardio regular rate, regular rhythm, S1 normal heart sound, S2 normal heart sound and no murmurs GI soft to palpation, non-tender and non-distended; Negative for hepatosplenomegaly Extremity no clubbing, cyanosis or edema Skin no rashes or lesions noted Neuro no focal motor deficits and no sensory deficits noted Psych affect normal Appearance: appropriate Assessment & Plan Assessment/Plan (1) Desire for detoxification: PLAN: 1. Opiate withdrawal/nicotine abuse -Continue with the opiate withdrawal protocol -Continue with nicotine patch -We will have him meet with 180 to set up outpatient management ? He does not want to do residential treatment at this time DVT: Ambulation Charges/Coding Visit Charges Inpatient E&M: 85660 Subs Hosp L2
--- NOTE | 2021-05-30 12:04 | PCM.DC ---
Discharge Instructions Diet Discharge Diet: No restrictions Activity Discharge Activity: Return to Normal Activity Dressing / Incision Call your doctor if you observe: Fever of 101 or Higher, Shortness of breath, Dizziness, Fainting spells, Swelling in the ankles, Chest pain and Increased palpitations (irregular heartbeat) Follow Up Care Test Results: Test results from this visit will be discussed in further detail at your follow-up appointment, if applicable. Discharge Plan Admission Admit Date/Time: 05/28/21 10:29 Attending Provider: Alex Norman Primary Care Provider: Care Physician,Nirmala Primary Discharge Orders/Prescriptions Prescriptions: No Action NK RF: 0 Referrals / Follow Up: Care Physician,No Primary [Primary Care Provider] - Disposition Disposition (needs filled in before D/C Order can be placed): Home, Self Care
--- NOTE | 2021-05-30 12:06 | PCM.DC.SUM ---
Providers Date of Admission: 05/28/21 Primary Care Physician: Nirmala Primary Care Phys Reason For Visit: OPIATE DETOX Diagnosis Discharge Diagnosis (1) Desire for detoxification: Status: Acute Medications at Discharge Home Medications NK 05/28/21 Hospital Course Summary of Care Provided Minutes Spent on Discharge: 35 Hospital Course: Per HPI: RADHA HOUGH, is a 35 M who presents requesting opiate detox. He has been here in October and then again in March. He has been doing well except his father recently of COVID which she states what is what sent him over the edge and started using again. He has been using heroin for the last several weeks, denies any significant alcohol use. He snorts heroin and denies any IV drug use. Hospital Course: 1. Opiate withdrawal/nicotine abuse -Continue with the opiate withdrawal protocol -Continue with nicotine patch -We will have him meet with 180 to set up outpatient management ? He does not want to do residential treatment at this time 05/30/2021: He is receiving his second last dose of Subutex today but he states that he wants to get out of here so he can go to work at 3 PM. His last dose of Subutex would be at a little bit before midnight tonight so technically today is his last day of treatment however since his Cina scores have been 3 or less for the last 24 hours he is likely okay for discharge. His last 3 or 4 scores have been less than 1. I discussed with him the plan for discharge and expressed understanding risk and benefits to go home today. He will need to follow-up with outpatient rehab. Weight / BMI Weight Weight: 173 lb 9.6 oz Body Mass Index (BMI) 22.8 ABG / Lab / Microbiology Data Result Diagrams: 05/28/21 09:10 05/28/21 09:10 D/C Instructions Discharge Diet: No restrictions Call your doctor if you observe: Fever of 101 or Higher, Shortness of breath, Dizziness, Fainting spells, Swelling in the ankles, Chest pain and Increased palpitations (irregular heartbeat) Meaningful Use Info Meaningful Use Diagnoses (Choose all that apply): None applicable Discharge Plan Admission Admit Date/Time: 05/28/21 10:29 Attending Provider: Alex Norman Primary Care Provider: Care Physician,No Primary Discharge Orders/Prescriptions Prescriptions: No Action NK RF: 0 Referrals / Follow Up: Care Physician,No Primary [Primary Care Provider] - Disposition Disposition (needs filled in before D/C Order can be placed): Home, Self Care Charges/Coding Visit Charges Inpatient E&M: 33910 Disch Hosp
== END 2021-05-30 12:38 | disposition home or self-care (01) | DRG 773 ==
LOC: ED 10:15 → MS3 10:46
PROVIDERS: Admitting Provider Family Medicine; Emergency Provider Emergency Medicine; Visit Provider Family Medicine
DX: F11.23 Opioid dependence with withdrawal (principal); F17.210 Nicotine dependence, cigarettes, uncomplicated; M19.90 Unspecified osteoarthritis, unspecified site; G89.29 Other chronic pain
CPT/HCPCS: 36415; 80053; 80307; 81001; 82077; 85025; 97802; 99283

== ENCOUNTER 2021-08-18 05:25 | Observation (INO) | payer MEDICAID, SELFPAY ==
[2021-08-18] VITALS (9 sets, daily range): BP systolic 119–128; BP diastolic 66–84; PULSE 58–75; RESP 12–20; TEMP 36.7–37.4; O2SAT 96–100; BMI 22.7; BMI 22.4
--- NOTE | 2021-08-18 05:36 | EDS_ITS ---
HPI History of Present Illness Chief Complaint: Substance Abuse Detail of Chief Complaint: Requesting detox from fentanyl and heroin Informant: patient Narrative Narrative: Patient presents to the emergency department requesting detox from h eroin and fentanyl. Patient states that he last used 11 PM last night. Currently not having much in the way of withdrawal symptoms. Patient usually uses up to half a gram of either fentanyl or heroin daily. He typically snorts it. He does not inject it. He denies recent illness. Patient thinks he last went through detox about 2 months ago. Patient otherwise has no complaints currently. [facility] Medical History (Updated 08/18/21 @ 05:[address] Rosalee Ricks, DO) Arthritis Chronic pain Migraines Smoker Substance abuse Home Medications NK 05/28/21 [History Last Taken Unknown] Allergy/AdvReac Type Severity Reaction Status Date / Time acetaminophen [From [place]] AdvReac Upset Verified 08/18/21 05:29 Stomach hydrocodone bitartrate AdvReac Upset Verified 08/18/21 05:29 [From [place]] Stomach Family History Other Opiate addiction Surgical History H/O eye surgery History of hernia surgery Social History household members: none Smoking Status: Current every day smoker tobacco type: cigarettes quit status: considering quitting alcohol intake: current alcohol intake frequency: holidays/special occasions only substance use type: marijuana and heroin ROS ROS ED ROS Narrative Requesting detox from opiates Constitutional Constitutional ED: Reports systems reviewed and no addt'l complaints, except as documented; Denies body ache(s), change in weight or chills Eyes Eyes: Denies acute decrease in peripheral vision, change in vision, double vision or loss of vision ENT ENT ED: Reports none; Denies ear pain, lip swelling, loss taste/smell, neck pain, otalgia or sore throat Cardiovascular Cardiovascular: Reports none; Denies abdominal pain, chest pain with activity, leg edema, lightheadedness, palpitations, rapid heart rate or syncope Respiratory/Chest Respiratory/Chest: Reports none; Denies change in mental status, dry cough, dyspnea, hemoptysis, shortness of breath at rest or shortness of breath with exertion Gastrointestinal Gastrointestinal: Reports none; Denies abdominal pain, change in stool character, diarrhea, hematemesis, hematochezia, melena, rectal bleeding or vomiting Genitourinary Genitourinary ED: Reports none; Denies abdominal discomfort, anuria, dysuria, genital pain or polyuria Musculoskeletal Musculoskeletal: Reports none; Denies arthralgias, back pain, difficulty walking, extremity pain, muscle weakness or myalgias Integumentary Reports none; Denies abscess or rash Neurologic Neurologic: Reports none; Denies abnormal gait, confusion, focal weakness, frequent falls, headache(s), loss of vision, numbness, paresthesias, radicular pain, vertigo or weakness Psychiatric Psychiatric: Reports systems reviewed and no addt'l complaints, except as documented and none; Denies behavioral changes, confusion, difficulty concentrating, hallucinations, suicidal ideation, tactile hallucinations or visual hallucinations Endocrine Endocrinology: Denies none, cold intolerance, excessive sweating, fatigue or heat intolerance Hematologic/Lymphatic Hematologic/Lymphatic: Reports none; Denies anemia, easy bleeding or easy bruising Allergic/Immunologic Allergic/Immunologic ED: Denies as per HPI, none, lip swelling, mouth swelling, throat swelling, tongue swelling or hives EXAM Physical Exam Const Vital Signs: 08/18/21 05:26 Temperature 98.4 F Temperature Source Oral Pulse Rate 58 L Respiratory Rate 16 Blood Pressure 124/69 H Blood Pressure Mean 87 Pulse Ox 100 Oxygen Delivery Method Room Air Positive well nourished and well developed General Appearance ED: well developed and NAD HEENT Reports TM's clear and moist mucous membranes normocephalic and atraumatic; Negative for trauma or tenderness Tympanic Membrane ED: Yes TM's clear Eyes PERRL and EOMs intact bilaterally General Eye ED: Negative for pale conjunctiva or scleral icterus Neck no lymphadenopathy, supple and no JVD General: Negative for tenderness Chest Wall inspection of chest normal and palpation of chest normal Chest: Negative for tenderness Resp normal respiratory effort and clear to auscultation bilaterally Effort and Inspection: Negative for respiratory distress or pain with movement Auscultation: Negative for rhonchi, wheezes or diminished lung sounds Cardio regular rate, regular rhythm, S1 normal heart sound, S2 normal heart sound and no murmurs Peripheral Pulses: pulses 2+ throughout GI normal to inspection, nondistended, normoactive bowel sounds, soft to palpation, non-tender, non-distended and no masses Back/Spine no CVA tenderness and no thoracic nor lumbar tenderness Extremity normal to inspection General Extremety ED: Negative for edema General Extremity: Negative for edema Neuro oriented x3, CN's II-XII intact bilaterally, no sensory deficits noted and gait normal Sensorium / Orientation: awake, alert, oriented to person, oriented to place and oriented to time Motor Exam: strength 5/5 throughout and strength abnormal Psych mental status grossly normal Skin no rashes or lesions noted and no wounds MDM MDM MDM Narrative Medical decision making narrative: Patient had some basic labs ordered as well as a tox screen and alcohol screen. Results are pending. Case will be discussed with hospitalist to evaluate patient for admission for opiate detox Discharge Plan Triage Chief Complaint: Substance Abuse ED Provider: Rosalee Ricks Dx/Rx/DC Orders Clinical Impression: Opiate abuse, continuous, Desire for detoxification Prescriptions: No Action NK RF: 0 Primary Care Provider: Care Physician,No Primary Referrals: Care Physician,No Primary [Primary Care Provider] - Disposition Disposition: Acute Care Hospital [facility]
[2021-08-18 05:43] LABS: Absolute Lymphocyte Count 2.19 X10^3/uL (0.83-4.51); Basophil# 0.05 X10^3/uL; Basophil% 0.4 % (0-1); Eosinophil# 0.31 X10^3/uL; Eosinophils% 2.7 % (0-5); Hematocrit 47.4 % (40-54); Hemoglobin 16.2 g/dL (13.0-16.5); Lymphocyte # 2.19 X10^3/ul (0.83-4.51); Mean Corp Hgb Conc 34.2 g/dL (32-36); Mean Corpuscular Hgb 31.5 pg (27.0-32.0); Mean Corpuscular Volume 92.2 fL (80-94); Mean Platelet Vol. 10.1 fl (6.2-12.0); Monocyte% 8.7 % (0-10); NRBC Flagged by Analyzer 0 % (0-5); Neutrophil # 7.95 X10^3/uL (2.7-7.7); Neutrophil % 68.9 % (47-70); Platelet Count 275 K/mm3 (150-450); RBC Distribution Width CV 12.4 % (11.6-14.6); RBC Distribution Width SD 42.5 fl (35.1-43.9); Red Blood Count 5.14 M/mm3 (4.6-6.2); White Blood Count 11.5 K/mm3 (4.4-11.0)
--- NOTE | 2021-08-18 05:51 | PCM.HP.STD ---
HPI - General General Date of Admission: 08/18/21 Date of Service: 08/18/21 Chief Complaint: Acute Opiate withdrawal HPI Narrative The patient is a 35 y/o M w/ PMHx: Migraines, Tobacco use, Opiate abuse (Heroine, Fentanyl both snorted, usually 1/2 gm daily) who presents to the [facility] ED on 08/18/21 w/ noted acute opiate withdrawal onset starting early AM on day of presentation following last dose snorted the evening prior at ~ 11 pm with abdominal pain/cramping, generalized body aches, fatigue, restlessness. Patient interested in attaining clean status and has been through detox 3 previous times last noted 05/2021 and notes he was clean x 2 months but his father and he spiraled down. He had been employed prior to his current resumption of usage. In the ED included T 98.4, heart rate 58, BP 124/69, respiratory rate 16, and a percent on room air, CBC with WC 11.5, hemoglobin 16.2, platelet 275 with left shift, CMP with chloride 108, glucose 149 otherwise not marked appearing, ethyl alcohol pending, UDS pending. [facility], [facility] Medical History (Updated 08/18/21 @ 05:[address] Rosalee Ricks, ) Arthritis Chronic pain Migraines Smoker Substance abuse Home Medications NK 05/28/21 [History Last Taken Unknown] Allergy/AdvReac Type Severity Reaction Status Date / Time acetaminophen [From [place]] AdvReac Upset Verified 08/18/21 05:29 Stomach hydrocodone bitartrate AdvReac Upset Verified 08/18/21 05:29 [From [place]] Stomach Family History (Updated 08/18/21 @ 06:[address] Lorenza Ordaz MD) Mother Lupus Other Opiate addiction other (Patient states he does not know any of his paternal family history.) Surgical History H/O eye surgery History of hernia surgery Social History (Updated 08/18/21 @ 06:[address] Lorenza Ordaz MD) household members: other details: Patient currently living with his mother. Smoking Status: Current every day smoker tobacco type: cigarettes Smoking packs per day: 1 Smoking cigarettes per day: 20.0 Years smoked: 18 Smoking pack-years: 18.00 quit status: considering quitting alcohol intake: current alcohol intake frequency: holidays/special occasions only substance use type: marijuana, heroin and opiates ROS ROS Narrative Admission Review of Systems: CONSTITUTIONAL: No weight loss, fever, chills, + weakness or fatigue. HEENT: Eyes: No visual loss, blurred vision, double vision or yellow sclerae. Ears, Nose, Throat: No hearing loss, sneezing, congestion, runny nose or sore throat. SKIN: No rash or itching, lesions, wounds. CARDIOVASCULAR: No chest pain, chest pressure or chest discomfort, palpitations, edema, orthopnea, syncopal events. RESPIRATORY: No shortness of breath, cough or sputum, wheezing, hemoptysis. GASTROINTESTINAL: + Anorexia, nausea, mild abdominal cramping, No vomiting, diarrhea, melena, BRBPR. GENITOURINARY: No dysuria, frequency, urgency or retention. NEUROLOGICAL: + Restless, fatigued, no headache, dizziness, syncope, paralysis, ataxia, numbness or tingling in the extremities, focal weakness, change in bowel or bladder control, seizure. MUSCULOSKELETAL: + muscle, back pain, joint pain or stiffness. HEMATOLOGIC: No anemia, bleeding or bruising. LYMPHATICS: No enlarged nodes. No history of splenectomy. PSYCHIATRIC: + depression or anxiety. ENDOCRINOLOGIC: + reports of sweating, cold or heat intolerance. No polyuria or polydipsia. ALLERGIES: No history of asthma, hives, eczema or rhinitis. Vital Signs Vital Signs Vital Signs: 08/18/21 05:26 Temperature 98.4 F Temperature Source Oral Pulse Rate 58 L Respiratory Rate 16 Blood Pressure 124/69 H Blood Pressure Mean 87 Pulse Ox 100 Oxygen Delivery Method Room Air Weight Weight: 172 lb 9.951 oz Body Mass Index (BMI) 22.7 Physical Exam Narrative Physical Examination: General: Awake, alert, oriented x 3 and cooperative, seated upright in the ED bed, fatigued, restless. Skin: Normal color, normal turgor, no icterus, no cyanosis. HEENT: AT/NC, EOMI, PERRLA, dry MM, no carotid bruits or JVD noted. Lungs: Diminished, > bases, appropriate effort, no rales, ronchi or wheezing. Heart: Bradycardic with regular rhythm; no gallop, rub audible. Abdomen: Soft, NTTP, ND, hyperactive BS, no HSM. Extremities: No cyanosis, clubbing, or edema. Neurological: Patient awake, alert, oriented x 3, cognitive function intact; pupils equally reactive to light and accommodation, cranial nerves II-XII grossly normal, moving all 4 extremities, no focal deficits, strength preserved, restless, mildly agitated. Psychiatric: Affect appears fatigued, restless, mildly agitated, notes recent of his father, appears flat, potentially depressed, no acute evidence of anxiety feelings. Results Lab / Micro Data Result Diagrams: 08/18/21 05:35 08/18/21 05:35 Labs: Laboratory Results - last 24 hr 08/18/21 05:35: WBC 11.5 H, RBC 5.14, Hgb 16.2, Hct 47.4, MCV 92.2, MCH 31.5, MCHC 34.2, RDW Std Deviation 42.5, RDW Coeff of [place]anna 12.4, Plt Count 275, MPV 10.1, Immature Gran % (Auto) 0.300, Neut % (Auto) 68.9, Lymph % (Auto) 19.0, [place] % (Auto) 8.7, Eos % (Auto) 2.7, Baso % (Auto) 0.4, Absolute Neuts (auto) 8.0 H, Absolute Lymphs (auto) 2.19, Nucleated RBC % 0 Assessment & Plan Assessment/Plan (1) Opiate abuse, continuous: (2) Desire for detoxification: PLAN: The patient is a 35 y/o M w/ PMHx: Migraines, Tobacco use, Opiate abuse (Heroine, Fentanyl both snorted, usually 1/2 gm daily) who presents to the [facility] ED on 08/18/21 w/ noted acute opiate withdrawal onset starting early AM on day of presentation following last dose snorted the evening prior at ~ 11 pm. #1. Acute Opiate Withdrawal: Will admit to [facility], routine labs including CBC, CMP, urine for drug screen obtained in the ED, will initiate and continue on protocol with tapering course of Subutex, as needed tylenol, ibuprofen, bowel regimen, gabapentin, Bentyl, Vistaril, methocarbamol, clonidine, PRN nightly trazodone for insomnia, IV fluids, IV antiemetics. Once patient clinically improved and completion of taper nearing will plan consultation with case management for transition to next level of rehabilitation care. #2. Polysubstance Abuse: Patient denies any IV drug abuse however given polysubstance use to be cautious will obtain HIV and hepatitis panel. Patient if positive hepatitis C would need to be clean for at least 6 months with documented treatment. #3. Hyperglycemia: Suspect stress response with acute presentation however glucose upon presentation 149 therefore will obtain A1c to be cautious. #4. Tobacco Abuse: Encouraged cessation, inpatient consultation per RT, NR if desired. #5. DVT prophylaxis: Low risk, encourage ambulation. Charges/Coding Visit Charges Inpatient E&M: 94409 Init Hosp L2
[2021-08-18 05:59] LABS: AST(SGOT) 13 U/L (15-37); Alanine Aminotransfer ALT/SGPT 23 U/L (16-61); Albumin, Serum 3.6 g/dL (3.2-5.0); Alkaline Phosphatase 81 U/L (45-117); Anion Gap 1 (5-15); BUN 16 mg/dL (7-18); BUN/Creat Ratio 15.5 RATIO (10-20); Calcium,Total 8.5 mg/dL (8.5-10.1); Chloride 108 mmol/L (98-107); Creatinine, Serum 1.03 mg/dL (0.70-1.30); EST Glomerular Filtration Rate 86 mL/min (>60); Est Glom Filt Rate - Afr Amer 104 mL/min (>60); Estimated Creatinine Clearance 108.75 ml/min; Globulin 3.5 g/dL (2.2-4.2); Glucose 149 mg/dL (74-106); Potassium 4.2 mmol/L (3.5-5.1); Protein, Total 7.1 g/dL (6.4-8.2); Sodium Level 139 mmol/L (136-145)
[2021-08-18 06:34] LABS: Amphetamine Urine VISTA NEGATIVE (<1000 ng/mL); Barbiturate Urine VISTA NEGATIVE (< 200 ng/mL); Benzodiazepine Urine VISTA NEGATIVE (< 200 ng/mL); Cocaine Urine VISTA NEGATIVE (< 300 ng/mL); Ecstacy Urine VISTA NEGATIVE (< 500 ng/mL); Methadone Urine VISTA NEGATIVE (< 300 ng/mL); PCP Urine VISTA NEGATIVE (< 25 ng/mL); THC Urine VISTA POSITIVE (< 50 ng/mL); Vista UDS pH Range 6
[2021-08-18 07:57] LABS: HIV - WCH Non-Reactive (Nonreactive)
[2021-08-18 09:13] LABS: Hemoglobin A1c 5.9 % (3.8-5.6)
[2021-08-18] MEDS: hydrOXYzine PAM 25 MG Capsule 50 MG PO (09:31)
[2021-08-18] MEDS: Buprenorphine HCl 2 MG TAB.SUBL SL ×2 (09:32→18:12)
[2021-08-18] MEDS: Senna Tablet 2 TABLET PO (10:54)
--- NOTE | 2021-08-18 12:47 | ADDICTION ---
Addendum entered by Sarah Headley 08/18/21 13:13: Client was to agree to residential in ER prior to admission. He did agree once seen by this worker. He was informed that follow-up will occur post d/c. He will need to have 90 days of recovery prior to next detox admission. Original Note: This writer editor met with PT to conduct ASAM, MSE, DUDIT assessments and to plan for d/c. PT A+Ox4 and participated actively. All assessments completed and placed in PT's chart. PT plans to f/u with [facility] for follow-up treatment services. PT did indicate a need for transportation post d/c from [facility]. [facility] will provide a transport.
[2021-08-18] MEDS: Ibuprofen 600 MG Tablet PO (15:00)
[2021-08-18] MEDS: Gabapentin 300 MG Capsule PO (15:16)
--- NOTE | 2021-08-18 15:16 | PN.HOSP_ITS ---
Hospitalist Note Patient was seen and examined today, he complains of feeling nervous and unwell, patient states he knows he has to do inpatient rehab after discharge from the hospital since he was readmitted here for detox services after having been discharged in May of this year after detox services.. Patient medically stable at this time, addiction social problems specialist will see patient today.
[2021-08-19] MEDS: Buprenorphine HCl 2 MG TAB.SUBL SL ×2 (01:53→09:39)
[2021-08-19 01:58] VITALS: BP 126/74; PULSE 63; RESP 16; TEMP 36.8; O2SAT 99
[2021-08-19] MEDS: Gabapentin 300 MG Capsule PO (02:35)
[2021-08-19 05:53] VITALS: BP 109/70; PULSE 70; RESP 14; TEMP 36.6; O2SAT 97
[2021-08-19 07:33] VITALS: O2SAT 96
--- NOTE | 2021-08-19 10:53 | NURSING ---
PT REQUESTING TO LEAVE THE DETOX PROGRAM. 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 EMOTIONAL SUPPORT PROVIDED. THIS NURSE CALLED ADRIENNE WITH ADDICTION WARD AIDE TO INFORM OF PT REQUEST. ADRIENNE STATES THE PROGRAM THAT THE PT SPEAKS OF IS NOT A FULL RESIDENTIAL PROGRAM. ALSO STATES THAT PT'S [employer]EN ROOM SUPERVISOR WOULD BE OK WITH PT COMPLETING RESIDENTIAL PROGRAM THROUGH 180. ADRIENNE ALSO STATES PT WILL NOT BE ABLE TO BE READMITTED TO THE DETOX PROGRAM THROUGH [facility]. PT INFORMED OF THIS INFORMATION. PT STATES HE WOULD STILL LIKE TO LEAVE AMA FROM THE HOSP. DR MORALES INFORMED.
--- NOTE | 2021-08-19 15:29 | DS.PCM_ITS ---
Providers Date of Admission: 08/18/21 Date of Discharge: 08/19/21 Primary Care Physician: No Primary Care Phys Reason For Visit: ACUTE OPIATE WITHDRAWAL Diagnosis Discharge Diagnosis (1) Opiate abuse, continuous: Status: Acute Code(s): F11.10 - Opioid abuse, uncomplicated (2) Desire for detoxification: Status: Acute Plan: 1. Acute opiate withdrawal #2 opiate abuse #3 noncompliance with medical regimen Medications at Discharge Home Medications NK 05/28/21 Hospital Course Operations None Procedures None Summary of Care Provided Minutes Spent on Discharge: 31 Hospital Course: This 35-year-old white male was seen in the emergency room at [facility] requesting services for detox from heroin and fentanyl, he denies injecting the drug-he states he snorts it. Patient had a previous history of going through detox approximately 2 months prior. Patient had a tox screen performed in the ER, it was positive for cannabinoids, CBC showed a slightly elevated white blood cell count at 11.5, and chemistry profile was unremarkable. Patient was admitted to [place] [address], orders were entered using the opiate detox order set, patient had no untoward events during his hospitalization. He was seen in consultation by addiction social contact worker and initially agreed to go to an inpatient detox program locally. On 08/19/2021, patient was seen and examined: On examination he appeared in good health and spirits. Vital signs as documented. Skin warm and dry and without overt rashes. Neck without JVD, neck was supple, trachea midline, thyroid was normal. Lungs clear bilaterally, normal air movement was noted. Heart exam notable for regular rhythm, normal sounds and absence of murmurs, rubs or gallops. Abdomen unremarkable and without evidence of organomegaly, masses, or abdominal aortic enlargement. Bowel sounds are present, abdomen is not distended. Extremities nonedematous, no cyanosis was noted, no clubbing was noted. Neuro: Cranial nerves II through XII are grossly intact, no focal motor deficits were noted, sensation to light touch and pinprick intact, motor exam 5/5 throughout. Psych: Patient is alert and oriented x3, he does not appear anxious or depressed, he does not appear agitated. On 08/19/2021, patient decided abruptly that he was not going to participate in a local inpatient detox program and requested released from the hospital, patient was discharged AMA, he appeared to be aware of the consequences of this decision, he was told that he would likely not be readmitted back to the hospital here for further services if he signed out AMA-he did so anyway. Weight / BMI Weight Weight: 77.3 kg Body Mass Index (BMI) 22.4 ABG / Lab / Microbiology Data Result Diagrams: 08/18/21 05:35 08/18/21 05:35 Meaningful Use Info Meaningful Use Diagnoses (Choose all that apply): None applicable Discharge Plan Admission Admit Date/Time: 08/18/21 05:57 Attending Provider: Daniel Medel Primary Care Provider: Care Physician,No Primary Discharge Orders/Prescriptions Prescriptions: No Action NK RF: 0 Referrals / Follow Up: Care Physician,No Primary [Primary Care Provider] - Disposition Disposition (needs filled in before D/C Order can be placed): Against Medical Advice Charges/Coding Visit Charges Inpatient E&M: 71936 Disch Hosp
[2021-08-21 12:01] LABS: HEPATITIS B SURFACE AG Negative (Negative); Hepatitis B Core Ab Total Negative (Negative); Hepatitis C Ab <0.1 s/co ratio (0.0-0.9)
[2021-08-21 12:18] LABS: Hep B Surface Antibodies Non Reactive (.)
== END 2021-08-19 10:50 | disposition left against medical advice (07) ==
LOC: ED 05:42 → MS3 06:59
PROVIDERS: Admitting Provider Family Medicine; Emergency Provider Emergency Medicine; Visit Provider Internal Medicine
DX: F11.13 Opioid abuse with withdrawal (principal); F12.90 Cannabis use, unspecified, uncomplicated; F17.210 Nicotine dependence, cigarettes, uncomplicated; Z91.19 Patient's noncompliance with other medical treatment and regimen; M19.90 Unspecified osteoarthritis, unspecified site
CPT/HCPCS: 36415; 80053; 80307; 82077; 83036; 85025; 86703; 86704; 86705; 86706; 86707; 86803; 87340; 87350; 99218; 99283; 99406; G0378

== ENCOUNTER 2024-10-22 05:03 | Emergency (ER) | payer MEDICAID, SELFPAY ==
[2024-10-22 05:04] VITALS: BP 130/82; PULSE 64; RESP 16; TEMP 37; O2SAT 100; BMI 26.0
[2024-10-22] MEDS: Famotidine 200 MG/20 ML MDV 20 MG in 0.9% Normal Saline (Pres. free 8 ML 300 MG IV (05:39)
[2024-10-22] MEDS: DiphenhydrAMINE 50 MG/ML Syringe IV (05:41)
--- OUTSIDE RECORDS SUMMARY | 2024-10-22 05:46 | XMS RPT_ITS | CCD ---
Author Organization [facility] Care Team Providers Care Senior Quality Technician Name Role Phone Care Physician, No Primary Primary Care Provider Unavailable Dr. Clemencia Terry Emergency Provider [phone] Dr. Alex Norman Admit Provider Dr. Alex Norman Attending Provider Dr. Alex Norman Other Provider Allergies Allergy Classification Reported Allergen(s) Allergy Type Date of Onset Reaction(s) Facility (2 sources) Acetaminophen Drug Allergy 2 Upset Stomach [facility] Work Phone: (2 sources) HYDROcodone Drug Allergy 2 Upset Stomach [facility] Work Phone: Problems Problem Classification Problem Date Documented Da te Episodic/Chronic Conditions associated with dizziness or vertigo (2 sources) Benign paroxysmal positional vertigo; Translations: [Benign paroxysmal vertigo, unspecified ear] Episodic Nonspecific chest pain (4 sources) Left sided chest pain; Translations: [Other chest pain] Episodic Poisoning by other medications and drugs (2 sources) Overdose of opiate; Translations: [Poisoning by unspecified narcotics, accidental (unintentional), initial encounter] Episodic Skin and subcutaneous tissue infections (4 sources) Abscess; Translations: [Cutaneous abscess, unspecified] Episodic Sprains and strains (2 sources) Sprain of ankle; Translations: [Sprain of unspecified ligament of left ankle, initial encounter] Episodic Substance-related disorders (8 sources) Opioid withdrawal; Translations: [Opioid dependence with withdrawal] Chronic Superficial injury; contusion (4 sources) Contusion of hand; Translations: [Contusion of left hand, initial encounter] Episodic Unclassified (12 sources) Readiness finding; Translations: [Desire for detoxification] Results Test Name Value Interpretation Reference Range Facility Hepatitis B/C Profile VIIIon 08-21-2021 COMMENT Comment Normal . [facility] Comment on above: Result Comment: Negnisha tive Not infected with HCV, unless recent infection is suspected or other evidence exists to indicate HCV infection. Performed at: - [facility] [id number] Document Analyst: Gustavo Salas PhD, Phone: [phone] Performed By: #### L 3000.0800, L3890.6005 ####[facility] [address] [place], [address] Hep B Jordyn AB Non-Reactive Normal . [facility] Comment on above: Result Comment: Non Reactive: Inconsistent with immunity, less than 10 mIU/mL Reactive: Consistent with immunity, greater than 9.9 mIU/mL Performed By: #### L 3000.0800, L3890.6005 ####[facility] [address] [place], [address] HEP B CORE,TOT Negative Normal Negative [facility] Comment on above: Performed By: #### L 3000.0800, L3890.6005 ####[facility] [address] [place], [address] HEP B SURF AG Negative Normal Negative [facility] Comment on above: Performed By: #### L 3000.0800, L3890.6005 ####[facility] [address] [place], [address] HEP C Antibody <0.1 Normal 0.0-0.9 [facility] Comment on above: Performed By: #### L 3000.0800, L3890.6005 ####[facility] [address] [place], [place], [id number] Absolute lymphocyte counton 08-18-2021 Lymphocytes Auto (Unsp spec) [#/Vol] 2.19 10*3/uL 0.83-4.51 [facility] Work Phone: Alcohol, Blood (Medical)-Ser umon 08-18-2021 SERUM ETOH 3.0 mg/dL Normal [facility] Comment on above: Result Comment: The serum:whole blood ethanol ratio is approximately 1.14 and varies slightly with hematocrit. Medical Alcohol reference interval and critical value in non-tolerant individuals; 50 - 100 Impairment 100 Intoxication 100 - 250 Severe Poisoning 250 - 400 Deep/possible fatal coma Performed By: #### L 501.9100, L500.4050, L100.0100 #### [facility] [address] [place], [address] Basophil percentageon 2021 Basophils/100 WBC (Bld) 0.4 % 0-1 [facility] Work Phone: Bilirubin [Mass/Vol] 0.40 mg/dL 0.20-1.00 [facility] Work Phone: Comment on above: For patients on eltr ombopag therapy, use of Dimension [place] TBIL is not recommended. Chloride [Moles/Vol] 108 mmol/L 98-107 [facility] Work Phone: Eosinophils/100 WBC (Bld) 2.7 % 0-5 [facility] Work Phone: Glucose [Mass/Vol] 149 mg/dL 74-106 [facility] Work Phone: Comment on above: Fasting Glucose resu lt greater than or equal to 126 mg/dL suggests DIABETES MELLITUS per A.D.A. criteria. Neutrophils (Bld) [#/Vol] 8.0 10*3/uL 2.0-7.7 [facility] Work Phone: Neutrophils/100 WBC (Bld) 68.9 % 47-70 [facility] Work Phone: Potassium [Moles/Vol] 4.2 mmol/L 3.5-5.1 [facility] Work Phone: Protein [Mass/Vol] 7.1 g/dL 6.4-8.2 [facility] Work Phone: Sodium [Moles/Vol] 139 mmol/L 136-145 [facility] Work Phone: WBC (Bld) [#/Vol] 11.5 10*3/uL 4.4-11.0 [facility] Work Phone: Blood erythrocytes count (nu mber/volume)on 08-18-2021 RBC (Bld) [#/Vol] 5.14 10*6/uL 4.6-6.2 [facility] Work Phone: Blood hemoglobin measurement (mass/volume)on 08-18-2021 Hemoglobin (Bld) [Mass/Vol] 16.2 g/dL 13.0-16.5 [facility] Work Phone: Blood lymphocytes/100 leukoc yteson 08-18-2021 Lymphocytes/100 WBC (Bld) 19.0 % 19-41 [facility] Work Phone: Blood monocytes/100 leukocyt eson 08-18-2021 Monocytes/100 WBC (Bld) 8.7 % 0-10 [facility] Work Phone: Blood platelet mean volumeon 08-18-2021 Platelet mean volume (Bld) [Entitic vol] 10.1 fL 6.2-12.0 [facility] Work Phone: CBC W/Diff, Automatedon Absolute Lymph 2.19 X10 3/uL Normal 0.83-4.51 [facility] Comment on above: Performed By: #### L 501.7300, L500.4050, L100.0100 #### [facility] [address] [place], [place], [id number] Absolute Neut 8.0 X10 3/uL High 2.0-7.7 [facility] Comment on above: Performed By: #### L 501.9100, L500.4050, L100.0100 #### [facility] [address] [place], [address] Basophils/100 WBC (Bld) 0.4 % Normal 0-1 [facility] Comment on above: Performed By: #### L 501.9100, L500.4050, L100.0100 #### [facility] [address] [place], [address] Eosinophils/100 WBC (Bld) 2.7 % Normal 0-5 [facility] Comment on above: Performed By: #### L 501.9100, L500.4050, L100.0100 #### [facility] [address] [place], [address] Erythrocyte distribution width (RBC) [Ratio] 12.4 % Normal 11.6-14.6 [facility] Comment on above: Performed By: #### L 501.9100, L500.4050, L100.0100 #### [facility] [address] [place], [address] Hematocrit (Bld) [Volume fraction] 47.4 % Normal 40-54 [facility] Comment on above: Performed By: #### L 501.9100, L500.4050, L100.0100 #### [facility] [address] [place], [address] Hemoglobin (Bld) [Mass/Vol] 16.2 g/dL Normal 13.0-16.5 [facility] Comment on above: Performed By: #### L 501.9100, L500.4050, L100.0100 #### [facility] [address] [place], [address] IG% 0.300 Normal 0.0-0.9 [facility] Comment on above: Result Comment: IG% - Immature Granulocytes (promyelocytes, myelocytes and metamyelocytes) > 1% indicates that a LEFT SHIFT is Present. Performed By: #### L 501.9100, L500.4050, L100.0100 #### [facility] [address] [place] [place], [address] Lymphocytes/100 WBC (Bld) 19.0 % Normal 19-41 [facility] Comment on above: Performed By: #### L 501.9100, L500.4050, L100.0100 #### [facility] [address] [place], [address] MCH (RBC) [Entitic mass] 31.5 pg Normal 27.0-32.0 [facility] Comment on above: Performed By: #### L 501.9100, L500.4050, L100.0100 #### [facility] [address] [place], [address] MCHC (RBC) [Mass/Vol] 34.2 g/dL Normal 32-36 [facility] Comment on above: Performed By: #### L 501.9100, L500.4050, L100.0100 #### [facility] [address] [place], [address] MCV (RBC) [Entitic vol] 92.2 fL Normal 80-94 [facility] Comment on above: Performed By: #### L 501.9100, L500.4050, L100.0100 #### [facility] [address] [place] [place], [address] Monocytes/100 WBC (Bld) 8.7 % Normal 0-10 [facility] Comment on above: Performed By: #### L 501.9100, L500.4050, L100.0100 #### [facility] [address] [place], [address] Neutrophils/100 WBC (Bld) 68.9 % Normal 47-70 [facility] Comment on above: Performed By: #### L 501.9100, L500.4050, L100.0100 #### [facility] [address] [place], [address] Nucleated RBC (Bld) [#/Vol] 0 10*3/uL Normal 0-5 [facility] Comment on above: Performed By: #### L 501.9100, L500.4050, L100.0100 #### [facility] [address] [place], [address] Platelet mean volume (Bld) [Entitic vol] 10.1 fL Normal 6.2-12.0 [facility] Comment on above: Performed By: #### L 501.9100, L500.4050, L100.0100 #### [facility] [address] [place], [address] Platelets (Bld) [#/Vol] 275 10*3/uL Normal 150-450 [facility] Comment on above: Performed By: #### L 501.9100, L500.4050, L100.0100 #### [facility] [address] [place], [address] RBC (Bld) [#/Vol] 5.14 10*6/uL Normal 4.6-6.2 [facility] Comment on above: Performed By: #### L 501.9100, L500.4050, L100.0100 #### [facility] [address] [place], [address] RDW SD 42.5 fl Normal 35.1-43.9 [facility] Comment on above: Performed By: #### L 501.9100, L500.4050, L100.0100 #### [facility] [address] [place], [address] WBC (Bld) [#/Vol] 11.5 10*3/uL High 4.4-11.0 [facility] Comment on above: Performed By: #### L 501.9100, L500.4050, L100.0100 #### [facility] [address] [place], [address] Comprehensive Metabolic Prof ilon 08-18-2021 Albumin [Mass/Vol] 3.6 g/dL Normal 3.2-5.0 [facility] Comment on above: Performed By: #### L 501.9100, L500.4050, L100.0100 #### [facility] [address] [place], [address] Albumin/Globulin [Mass ratio] 1.0 {ratio} Normal 0.9-2.4 [facility] Comment on above: Performed By: #### L 501.9100, L500.4050, L100.0100 #### [facility] [address] [place], [address] ALK P 81 U/L Normal 45-117 [facility] Comment on above: Performed By: #### L 501.9100, L500.4050, L100.0100 #### [facility] [address] [place], [address] ALT [Catalytic activity/Vol] 23 U/L Normal 16-61 [facility] Comment on above: Performed By: #### L 501.9100, L500.4050, L100.0100 #### [facility] [address] [place], [address] AST [Catalytic activity/Vol] 13 U/L Low 15-37 [facility] Comment on above: Performed By: #### L 501.9100, L500.4050, L100.0100 #### [facility] [address] [place], [address] Bilirubin [Mass/Vol] 0.40 mg/dL Normal 0.20-1.00 [facility] Comment on above: Result Comment: For patients on eltrombopag therapy, use of Dimension [place] TBIL is not recommended. Performed By: #### L 501.9100, L500.4050, L100.0100 #### [facility] [address] [place], [address] BUN/CRE 15.5 RATIO Normal 10-20 [facility] Comment on above: Performed By: #### L 501.9100, L500.4050, L100.0100 #### [facility] [address] [place], [address] CA,Total 8.5 mg/dL Normal 8.5-10.1 [facility] Comment on above: Performed By: #### L 501.9100, L500.4050, L100.0100 #### [facility] [address] [place], [address] Chloride [Moles/Vol] 108 mmol/L High 98-107 [facility] Comment on above: Performed By: #### L 501.9100, L500.4050, L100.0100 #### [facility] [address] [place], [address] CO2 [Moles/Vol] 30.0 mmol/L Normal 21.0-32.0 [facility] Comment on above: Performed By: #### L 501.9100, L500.4050, L100.0100 #### [facility] [address] [place], [address] Creatinine [Mass/Vol] 1.03 mg/dL Normal 0.70-1.30 [facility] Comment on above: Result Comment: The validity of the calculated GFR GFRAA in patients over 70 years has not been determined. Clinical correlation is essential. Performed By: #### L 501.9100, L500.4050, L100.0100 #### [facility] [address] [place], [address] ECRCL 108.75 ml/min Normal [facility] Comment on above: Performed By: #### L 501.9100, L500.4050, L100.0100 #### [facility] [address] [place], [address] EST GFR - AA 104 mL/min Normal >60 [facility] Comment on above: Result Comment: Afri can [facility] GFR Calc Performed By: #### L 501.9100, L500.4050, L100.0100 #### [facility] [address] [place], [address] GAP 1 Low 5-15 [facility] Comment on above: Performed By: #### L 501.9100, L500.4050, L100.0100 #### [facility] [address] [place], [address] GFR/1.73 sq M.predicted among non-blacks MDRD (S/P/Bld) [Vol rate/Area] 86 mL/min/{1.73_m2} Normal >60 [facility] Comment on above: Result Comment: Non- GFR Calc Performed By: #### L 501.9100, L500.4050, L100.0100 #### [facility] [address] [place], [address] Globulin (S) [Mass/Vol] 3.5 g/dL Normal 2.2-4.2 [facility] Comment on above: Performed By: #### L 501.9100, L500.4050, L100.0100 #### [facility] [address] [place], [address] Glucose [Mass/Vol] 149 mg/dL High 74-106 [facility] Comment on above: Result Comment: Fast ing Glucose result greater than or equal to 126 mg/dL suggests DIABETES MELLITUS per A.D.A. criteria. Performed By: #### L 501.9100, L500.4050, L100.0100 #### [facility] [address] [place], [address] Potassium [Moles/Vol] 4.2 mmol/L Normal 3.5-5.1 [facility] Comment on above: Performed By: #### L 501.9100, L500.4050, L100.0100 #### [facility] [address] [place], [address] Sodium [Moles/Vol] 139 mmol/L Normal 136-145 [facility] Comment on above: Performed By: #### L 501.9100, L500.4050, L100.0100 #### [facility] [address] [place], [address] T PROT 7.1 g/dL Normal 6.4-8.2 [facility] Comment on above: Performed By: #### L 501.9100, L500.4050, L100.0100 #### [facility] [address] [place], [address] Urea nitrogen [Mass/Vol] 16 mg/dL Normal 7-18 [facility] Comment on above: Performed By: #### L 501.9100, L500.4050, L100.0100 #### [facility] [address] [place], [address] Determination of erythrocyte mean corpuscular volume (MCV)on 08-18-2021 MCV (RBC) [Entitic vol] 92.2 fL 80-94 [facility] Work Phone: Emergency Department Summary on 08-18-2021 Emergency Department Summary [facility] Medical Records Department [address] [place] [address] Emergency Department Summary 08/18/21 MR#: [id number] Acct: [id number] Name: RADHA HOUGH Rep #: [id number] : 1985 35 From: Rosalee Ricks DO PCP: Care Physician,No Primary Status:ADM IN Location: MS3 PS012-9 HPI History of Present Illness Chief Complaint: Substance Abuse Detail of Chief Complaint: Requesting detox from fentanyl and heroin Informant: patient Narrative Narrative: Patient presents to the emergency department requesting detox from heroin and fentanyl. Patient states that he last used 11 PM last night. Currently not having much in the way of withdrawal symptoms. Patient usually uses up to half a gram of either fentanyl or heroin daily. He typically snorts it. He does not inject it. He denies recent illness. Patient thinks he last went through detox about 2 months ago. Patient otherwise has no complaints currently. [facility] Medical History (Updated 08/18/21 @ 05:[address] Rosalee Ricks DO) Arthritis Chronic pain Migraines Smoker Substance abuse Home Medications NK 05/28/21 [History Last Taken Unknown] Allergy/AdvReac Type Severity Reaction Status Date / Time acetaminophen [From [place]] AdvReac Upset Verified 08/18/21 05:29 Stomach hydrocodone bitartrate AdvReac Upset Verified 08/18/21 05:29 [From [place]] Stomach Family History Other Opiate addiction Surgical History H/O eye surgery History of hernia surgery Social History household members: none Smoking Status: Current every day smoker tobacco type: cigarettes quit status: considering quitting alcohol intake: current alcohol intake frequency: holidays/special occasions only substance use type: marijuana and heroin ROS ROS ED ROS Narrative Requesting detox from opiates Constitutional Constitutional ED: Reports systems reviewed and no addt'l complaints, except as documented; Denies body ache(s), change in weight or chills Eyes Eyes: Denies acute decrease in peripheral vision, change in vision, double vision or loss of vision ENT ENT ED: Reports none; Denies ear pain, lip swelling, loss taste/smell, neck pain, otalgia or sore throat Cardiovascular Cardiovascular: Reports none; Denies abdominal pain, chest pain with activity, leg edema, lightheadedness, palpitations, rapid heart rate or syncope Respiratory/Chest Respiratory/Chest: Reports none; Denies change in mental status, dry cough, dyspnea, hemoptysis, shortness of breath at rest or shortness of breath with exertion Gastrointestinal Gastrointestinal: Reports none; Denies abdominal pain, change in stool character, diarrhea, hematemesis, hematochezia, melena, rectal bleeding or vomiting Genitourinary Genitourinary ED: Reports none; Denies abdominal discomfort, anuria, dysuria, genital pain or polyuria Musculoskeletal Musculoskeletal: Reports none; Denies arthralgias, back pain, difficulty walking, extremity pain, muscle weakness or myalgias Integumentary Reports none; Denies abscess or rash Neurologic Neurologic: Reports none; Denies abnormal gait, confusion, focal weakness, frequent falls, headache(s), loss of vision, numbness, paresthesias, radicular pain, vertigo or weakness Psychiatric Psychiatric: Reports systems reviewed and no addt'l complaints, except as documented and none; Denies behavioral changes, confusion, difficulty concentrating, hallucinations, suicidal ideation, tactile hallucinations or visual hallucinations Endocrine Endocrinology: Denies none, cold intolerance, excessive sweating, fatigue or heat intolerance Hematologic/Lymphatic Hematologic/Lymphatic: Reports none; Denies anemia, easy bleeding or easy bruising Allergic/Immunologic Allergic/Immunologic ED: Denies as per HPI, none, lip swelling, mouth swelling, throat swelling, tongue swelling or hives EXAM Physical Exam Const Vital Signs: 08/18/21 05:26 Temperature 98.4 F Temperature Source Oral Pulse Rate 58 L Respiratory Rate 16 Blood Pressure 124/69 H Blood Pressure Mean 87 Pulse Ox 100 Oxygen Delivery Method Room Air Positive well nourished and well developed General Appearance ED: well developed and NAD HEENT Reports TM's clear and moist mucous membranes normocephalic and atraumatic; Negative for trauma or tenderness Tympanic Membrane ED: Yes TM's clear Eyes PERRL and EOMs intact bilaterally General Eye ED: Negative for pale conjunctiva or scleral icterus Neck no lymphadenopathy, supple and no JVD General: Negative for tenderness Chest Wall inspection of chest normal and palpation of chest normal Chest: Negative for tenderness Resp (more content not included)... Normal [facility] H&P Exam - Hospitalist [facility] Medical Records Department [address] [facility] [place] [address] H P Exam - Hospitalist 08/18/21 0551 MR#: [id number] Acct: [id number] Name: RADHA HOUGH Rep #: [id number] : 1985 35 From: Lorenza Ordaz MD PCP: Care Physician,No Primary Status:ADM IN Location: NV3 [id number] HPI - General General Date of Admission: 08/18/21 Date of Service: 08/18/21 Chief Complaint: Acute Opiate withdrawal HPI Narrative The patient is a 35 y/o M w/ PMHx: Migraines, Tobacco use, Opiate abuse (Heroine, Fentanyl both snorted, usually 1/2 gm daily) who presents to the [facility] ED on 08/18/21 w/ noted acute opiate withdrawal onset starting early AM on day of presentation following last dose snorted the evening prior at 11 pm with abdominal pain/cramping, generalized body aches, fatigue, restlessness. Patient interested in attaining clean status and has been through detox 3 previous times last noted 05/2021 and notes he was clean x 2 months but his father and he spiraled down. He had been employed prior to his current resumption of usage. In the ED included T 98.4, heart rate 58, BP 124/69, respiratory rate 16, and a percent on room air, CBC with WC 11.5, hemoglobin 16.2, platelet 275 with left shift, CMP with chloride 108, glucose 149 otherwise not marked appearing, ethyl alcohol pending, UDS pending. [facility] Medical History (Updated 08/18/21 @ 05:[address] Rosalee Ricks, ) Arthritis Chronic pain Migraines Smoker Substance abuse Home Medications NK 05/28/21 [History Last Taken Unknown] Allergy/AdvReac Type Severity Reaction Status Date / Time acetaminophen [From [place]] AdvReac Upset Verified 08/18/21 05:29 Stomach hydrocodone bitartrate AdvReac Upset Verified 08/18/21 05:29 [From [place]] Stomach Family History (Updated 08/18/21 @ 06:[address] Lorenza Ordaz MD) Mother Lupus Other Opiate addiction other (Patient states he does not know any of his paternal family history.) Surgical History H/O eye surgery History of hernia surgery Social History (Updated 08/18/21 @ 06:[address] Lorenza Ordaz MD) household members: other details: Patient currently living with his mother. Smoking Status: Current every day smoker tobacco type: cigarettes Smoking packs per day: 1 Smoking cigarettes per day: 20.0 Years smoked: 18 Smoking pack-years: 18.00 quit status: considering quitting alcohol intake: current alcohol intake frequency: holidays/special occasions only substance use type: marijuana, heroin and opiates ROS ROS Narrative Admission Review of Systems: CONSTITUTIONAL: No weight loss, fever, chills, + weakness or fatigue. HEENT: Eyes: No visual loss, blurred vision, double vision or yellow sclerae. Ears, Nose, Throat: No hearing loss, sneezing, congestion, runny nose or sore throat. SKIN: No rash or itching, lesions, wounds. CARDIOVASCULAR: No chest pain, chest pressure or chest discomfort, palpitations, edema, orthopnea, syncopal events. RESPIRATORY: No shortness of breath, cough or sputum, wheezing, hemoptysis. GASTROINTESTINAL: + Anorexia, nausea, mild abdominal cramping, No vomiting, diarrhea, melena, BRBPR. GENITOURINARY: No dysuria, frequency, urgency or retention. NEUROLOGICAL: + Restless, fatigued, no headache, dizziness, syncope, paralysis, ataxia, numbness or tingling in the extremities, focal weakness, change in bowel or bladder control, seizure. MUSCULOSKELETAL: + muscle, back pain, joint pain or stiffness. HEMATOLOGIC: No anemia, bleeding or bruising. LYMPHATICS: No enlarged nodes. No history of splenectomy. PSYCHIATRIC: + depression or anxiety. ENDOCRINOLOGIC: + reports of sweating, cold or heat intolerance. No polyuria or polydipsia. ALLERGIES: No history of asthma, hives, eczema or rhinitis. Vital Signs Vital Signs Vital Signs: 08/18/21 05:26 Temperature 98.4 F Temperature Source Oral Pulse Rate 58 L Respiratory Rate 16 Blood Pressure 124/69 H Blood Pressure Mean 87 Pulse Ox 100 Oxygen Delivery Method Room Air Weight Weight: 172 lb 9.951 oz Body Mass Index (BMI) 22.7 Physical Exam Narrative Physical Examination: General: Awake, alert, oriented x 3 and cooperative, seated upright in the ED bed, fatigued, restless. Skin: Normal color, normal turgor, no icterus, no cyanosis. HEENT: AT/NC, EOMI, PERRLA, dry MM, no carotid bruits or JVD noted. Lungs: Diminished, > bases, appropriate effort, no rales, ronchi or wheezing. Heart: Bradycardic with regular rhythm; no gallop, rub audible. Abdomen: Soft, NTTP, ND, hyperactive BS, no HSM. Extremities: No cyanosis, clubbing, or edema. Neurological: Patient awake, alert, oriented x 3, cognitive function intact; pupils equally reactive to light and accommodation, cranial nerves II-XII raimundo (more content not included)... Normal [facility] HIV - WCHon 08-18-2021 HIV Non-Reactive Normal Nonreactive [facility] Comment on above: Performed By: #### L 3000.0800, L3890.6005 ####[facility] [address] [place], [address] HIV 1 and HIV-2 antibody ass ay with HIV-1 p24 antigen detectionon 08-18-2021 HIV 1+2 Ab+HIV1 p24 Ag IA Ql Non-Reactive Nonreactive [facility] Work Phone: Hematocrit Auto (Bld) [Volum e fraction]on 08-18-2021 Hematocrit (Bld) [Volume fraction] 47.4 % 40-54 [facility] Work Phone: Hemoglobin A1con 08-18-2021 HbA1c (Bld) [Mass fraction] 5.9 % High 3.8-5.6 [facility] Comment on above: Order Comment: Comme nts: add to ED labs Result Comment: Norm al < 5.7 % Prediabetic 5.7 - 6.4 % Diabetic >or= 6.5 % Please note range changes. Performed By: #### L 501.9985 #### [facility] [address] [place], [address] Laboratory - Chemistry and C hemistry - challengeon 08-18-2021 ALP [Catalytic activity/Vol] 81 U/L 45-117 [facility] Work Phone: ALT [Catalytic activity/Vol] 23 U/L 16-61 [facility] Work Phone: [phone] CO2 [Moles/Vol] 30.0 mmol/L 21.0-32.0 [facility] Work Phone: [phone] Globulin (S) [Mass/Vol] 3.5 g/dL 2.2-4.2 [facility] Work Phone: [phone] Urea nitrogen/Creatinine [Mass ratio] 15.5 mg/mg 10-20 [facility] Work Phone: [phone] Laboratory - Drug toxicology on 08-18-2021 Amphetamines Ql (U) Negative [facility] Work Phone: [phone] Benzodiazepines Ql (U) Negative [facility] Work Phone: [phone] Cannabinoids Screen Ql (U) Positive [facility] Work Phone: [phone] Cocaine Ql (U) Negative [facility] Work Phone: [phone] Opiates Ql (U) Negative [facility] Work Phone: [phone] Laboratory - Hematology and Cell countson 08-18-2021 Erythrocyte distribution width (RBC) [Entitic vol] 42.5 fL 35.1-43.9 [facility] Work Phone: [phone] Erythrocyte distribution width (RBC) [Ratio] 12.4 % 11.6-14.6 [facility] Work Phone: [phone] Immature granulocytes/100 WBC (Bld) 0.300 % 0.0-0.9 [facility] Work Phone: [phone] Comment on above: IG% - Immature Granu locytes (promyelocytes, myelocytes and metamyelocytes) > 1% indicates that a LEFT SHIFT is Present. MCH (RBC) [Entitic mass] 31.5 pg 27.0-32.0 [facility] Work Phone: Nucleated RBC/100 WBC (Bld) [Ratio] 0 % 0-5 [facility] Work Phone: [phone] MCHC Auto (RBC) [Mass/Vol]on 08-18-2021 MCHC (RBC) [Mass/Vol] 34.2 g/dL 32-36 [facility] Work Phone: No Panel Informationon 08-18 MDMA (Ecstasy) Screen Negative [facility] Work Phone: Urine Barbiturates Screen Negative [facility] Work Phone: [phone] Urine Drug Screen Comment [facility] Work Phone: Comment on above: CONFIRMATORY TESTING FOR ALL POSITIVE URINE DRUG SCREENRESULTS WILL ONLY BE SENT OUT UPON PHYSICIAN ORDER. VISTA Urine Drug Screen methods provide only preliminaryanalytical test results. A more specific alternate chemicalmethod must be used in order to obtain a confirmedanalytical result. Gas chromatography/mass spectrometery(GC/MS) is the preferred confirmatory method. Clinicalconsideration and professional judgement should be appliedto any drug of abuse test result, particularly whenpreliminary positive results are used. URINE TCA TESTING MUST BE ORDERED SEPARATELY. USE TESTMNEMONIC: [facility] Urine Methadone Screen Negative [facility] Work Phone: [phone] Estimated Creatinine Clearance Calc 108.75 ml/min [facility] Work Phone: [phone] Estimated GFR (MDRD) Amer 104 mL/min >60 [facility] Work Phone: [phone] Comment on above: GFR Calc Estimated GFR (MDRD) Non-Af Amer 86 mL/min >60 [facility] Work Phone: [phone] Comment on above: Non- GFR Calc Ethyl Alcohol Level 3.0 mg/dL [facility] Work Phone: [phone] Comment on above: The serum:whole bloo d ethanol ratio is approximately 1.14and varies slightly with hematocrit. Medical Alcohol reference interval and critical value innon-tolerant individuals; 50 - 100 Impairment 100 Intoxication 100 - 250 Severe Poisoning 250 - 400 Deep/possible fatal coma Platelets bldon 08-18-2021 Platelets (Bld) [#/Vol] 275 10*3/uL 150-450 [facility] Work Phone: [phone] Serum or plasma albumin gaby urement (mass/volume)on 08-18-2021 Albumin [Mass/Vol] 3.6 g/dL 3.2-5.0 [facility] Work Phone: Serum or plasma albumin/glob ulin mass ratioon 08-18-2021 Albumin/Globulin [Mass ratio] 1.0 {ratio} 0.9-2.4 [facility] Work Phone: Serum or plasma calcium gaby urement (mass/volume)on 08-18-2021 Calcium [Mass/Vol] 8.5 mg/dL 8.5-10.1 [facility] Work Phone: Serum or plasma creatinine m easurement (mass/volume)on 08-18-2021 Creatinine [Mass/Vol] 1.03 mg/dL 0.70-1.30 [facility] Work Phone: Comment on above: The validity of the calculated GFR & GFRAA in patients over 70 years has not been determined. Clinical correlation is essential. Serum or plasma urea nitroge n measurement (mass/volume)on 08-18-2021 Urea nitrogen [Mass/Vol] 16 mg/dL 7-18 [facility] Work Phone: Thin prep Papanicolaou smear with manual screeningon 08-18-2021 Thin prep Papanicolaou smear with manual screening 13 U/L 15-37 [facility] Work Phone: Thin prep Papanicolaou smear with manual screening 1 5-15 [facility] Work Phone: Urine Drug Screen (VISTA)on 08-18-2021 AMPHETAMINES Negative Normal <1000 ng/mL [facility] Comment on above: Performed By: #### L 505.5000 #### [facility] [address] [place], [address] BARBITIURATES Negative Normal < 200 ng/mL [facility] Comment on above: Performed By: #### L 505.5000 #### [facility] [address] [place], [address] BENZODIAZIPINE Negative Normal < 200 ng/mL [facility] Comment on above: Performed By: #### L 505.5000 #### [facility] [address] [place], [address] COCAINE Negative Normal < 300 ng/mL [facility] Comment on above: Performed By: #### L 505.5000 #### [facility] [address] [place], [address] ECSTACY Negative Normal < 500 ng/mL [facility] Comment on above: Performed By: #### L 505.5000 #### [facility] [address] [place], [address] METHADONE Negative Normal < 300 ng/mL [facility] Comment on above: Performed By: #### L 505.5000 #### [facility] [address] [place], [address] OPIATES Negative Normal < 300 ng/mL [facility] Comment on above: Performed By: #### L 505.5000 #### [facility] [address] [place], [address] PCP Negative Normal < 25 ng/mL [facility] Comment on above: Performed By: #### L 505.5000 #### [facility] [address] [place], [address] THC Positive Abnormal < 50 ng/mL [facility] Comment on above: Performed By: #### L 505.5000 #### [facility] [address] [place], [address] VISTA UDS PH 6 Normal [facility] Comment on above: Performed By: #### L 505.5000 #### [facility] [address] [place], [address] Urine phencyclidine (PCP) de tectionon 08-18-2021 Phencyclidine Ql (U) Negative [facility] Work Phone: Whole blood hemoglobin A1c/t otal hemoglobin ratio (mass fraction)on 08-18-2021 HbA1c (Bld) [Mass fraction] 5.9 % 3.8-5.6 [facility] Work Phone: Comment on above: Normal < 5.7 % Predi abetic 5.7 - 6.4 % Diabetic >or= 6.5 % Please note range changes. Discharge Instructionon 05-12 Discharge Instruction [facility] Medical Records Department [address] [place] [address] Instructions for Home/Discharge Instructions 05/30/21 1204 MR#: [id number] Acct: [id number] Name: RADHA HOUGH Rep #: [id number] : 1985 35 From: Alex Norman MD PCP: Aravind Physician,No Primary Status:ADM IN Discharge Instructions Diet Discharge Diet: No restrictions Activity Discharge Activity: Return to Normal Activity Dressing / Incision Call your doctor if you observe: Fever of 101 or Higher, Shortness of breath, Dizziness, Fainting spells, Swelling in the ankles, Chest pain and Increased palpitations (irregular heartbeat) Follow Up Care Test Results: Test results from this visit will be discussed in further detail at your follow-up appointment, if applicable. Discharge Plan Admission Admit Date/Time: 05/28/21 10:29 Attending Provider: Alex Norman Primary Care Provider: Care Physician,Nirmala Primary Discharge Orders/Prescriptions Prescriptions: No Action NK RF: 0 Referrals / Follow Up: Care Physician,No Primary [Primary Care Provider] - Disposition Disposition (needs filled in before D/C Order can be placed): Home, Self Care 05/30/21 1206 Alex Norman MD CC: No Primary Care Physician Signed Normal [facility] Absolute lymphocyte counton 05-28-2021 Lymphocytes Auto (Unsp spec) [#/Vol] 1.73 10*3/uL 0.83-4.51 [facility] Work Phone: Alcohol, Blood (Medical)-Ser umon 05-28-2021 SERUM ETOH < 3.0 Normal [facility] Comment on above: Result Comment: The serum:whole blood ethanol ratio is approximately 1.14 and varies slightly with hematocrit. Medical Alcohol reference interval and critical value in non-tolerant individuals; 50 - 100 Impairment 100 Intoxication 100 - 250 Severe Poisoning 250 - 400 Deep/possible fatal coma Performed By: #### L 505.5000 #### [facility] [address] [place], [address] Amorphous sediment detection in urine sediment by light microscopyon 05-28-2021 Amorphous sediment LM Ql (Urine sed) 3+ [facility] Work Phone: Basophil percentageon 2021 Basophils/100 WBC (Bld) 0.8 % 0-1 [facility] Work Phone: Bilirubin [Mass/Vol] 0.30 mg/dL 0.20-1.00 [facility] Work Phone: Comment on above: For patients on eltr ombopag therapy, use of Dimension [place] TBIL is not recommended. Chloride [Moles/Vol] 106 mmol/L 98-107 [facility] Work Phone: Eosinophils/100 WBC (Bld) 2.9 % 0-5 [facility] Work Phone: Glucose [Mass/Vol] 121 mg/dL 74-106 [facility] Work Phone: Comment on above: Fasting Glucose resu lt from 100 to 125 mg/dL suggests IMPAIRED HOMEOSTASIS per A.D.A. criteria. Neutrophils (Bld) [#/Vol] 7.9 10*3/uL 2.0-7.7 [facility] Work Phone: Neutrophils/100 WBC (Bld) 70.4 % 47-70 [facility] Work Phone: Potassium [Moles/Vol] 4.1 mmol/L 3.5-5.1 [facility] Work Phone: Protein [Mass/Vol] 7.0 g/dL 6.4-8.2 [facility] Work Phone: Sodium [Moles/Vol] 140 mmol/L 136-145 [facility] Work Phone: WBC (Bld) [#/Vol] 11.2 10*3/uL 4.4-11.0 [facility] Work Phone: Basophil percentage 0 SEEN /[facility] Work Phone: Bilirubin Test strip Ql (U)o n 05-28-2021 Bilirubin Ql (U) Negative Negative [facility] Work Phone: Blood erythrocytes count (nu mber/volume)on 05-28-2021 RBC (Bld) [#/Vol] 4.76 10*6/uL 4.6-6.2 [facility] Work Phone: Blood hemoglobin measurement (mass/volume)on 05-28-2021 Hemoglobin (Bld) [Mass/Vol] 15.1 g/dL 13.0-16.5 [facility] Work Phone: Blood lymphocytes/100 leukoc yteson 05-28-2021 Lymphocytes/100 WBC (Bld) 15.4 % 19-41 [facility] Work Phone: Blood monocytes/100 leukocyt eson 05-28-2021 Monocytes/100 WBC (Bld) 10.1 % 0-10 [facility] Work Phone: Blood platelet mean volumeon 05-28-2021 Platelet mean volume (Bld) [Entitic vol] 9.1 fL 6.2-12.0 [facility] Work Phone: CBC W/Diff, Automatedon 05-12 Absolute Lymph 1.73 X10 3/uL Normal 0.83-4.51 [facility] Comment on above: Performed By: #### L 505.5000 #### [facility] [address] [place], [address] Absolute Neut 7.9 X10 3/uL High 2.0-7.7 [facility] Comment on above: Performed By: #### L 505.5000 #### [facility] [address] [place], [address] Basophils/100 WBC (Bld) 0.8 % Normal 0-1 [facility] Comment on above: Performed By: #### L 505.5000 #### [facility] [address] [place], [address] Eosinophils/100 WBC (Bld) 2.9 % Normal 0-5 [facility] Comment on above: Performed By: #### L 505.5000 #### [facility] [address] [place], [address] Erythrocyte distribution width (RBC) [Ratio] 13.6 % Normal 11.6-14.6 [facility] Comment on above: Performed By: #### L 505.5000 #### [facility] [address] [place], [address] Hematocrit (Bld) [Volume fraction] 44.2 % Normal 40-54 [facility] Comment on above: Performed By: #### L 505.5000 #### [facility] [address] [place], [address] Hemoglobin (Bld) [Mass/Vol] 15.1 g/dL Normal 13.0-16.5 [facility] Comment on above: Performed By: #### L 505.5000 #### [facility] [address] [place], [address] IG% 0.400 Normal 0.0-0.9 [facility] Comment on above: Result Comment: IG% - Immature Granulocytes (promyelocytes, myelocytes and metamyelocytes) > 1% indicates that a LEFT SHIFT is Present. Performed By: #### L 505.5000 #### [facility] [address] [place], [address] Lymphocytes/100 WBC (Bld) 15.4 % Low 19-41 [facility] Comment on above: Performed By: #### L 505.5000 #### [facility] [address] [place], [address] MCH (RBC) [Entitic mass] 31.7 pg Normal 27.0-32.0 [facility] Comment on above: Performed By: #### L 505.5000 #### [facility] [address] [place] [place], [address] MCHC (RBC) [Mass/Vol] 34.2 g/dL Normal 32-36 [facility] Comment on above: Performed By: #### L 505.5000 #### [facility] [address] [place], [address] MCV (RBC) [Entitic vol] 92.9 fL Normal 80-94 [facility] Comment on above: Performed By: #### L 505.5000 #### [facility] [address] [place], [address] Monocytes/100 WBC (Bld) 10.1 % High 0-10 [facility] Comment on above: Performed By: #### L 505.5000 #### [facility] [address] [place], [address] Neutrophils/100 WBC (Bld) 70.4 % High 47-70 [facility] Comment on above: Performed By: #### L 505.5000 #### [facility] [address] [place], [address] Nucleated RBC (Bld) [#/Vol] 0 10*3/uL Normal 0-5 [facility] Comment on above: Performed By: #### L 505.5000 #### [facility] [address] [place], [address] Platelet mean volume (Bld) [Entitic vol] 9.1 fL Normal 6.2-12.0 [facility] Comment on above: Performed By: #### L 505.5000 #### [facility] [address] [place], [address] Platelets (Bld) [#/Vol] 366 10*3/uL Normal 150-450 [facility] Comment on above: Performed By: #### L 505.5000 #### [facility] [address] [place], [address] RBC (Bld) [#/Vol] 4.76 10*6/uL Normal 4.6-6.2 [facility] Comment on above: Performed By: #### L 505.5000 #### [facility] [address] [place], [address] RDW SD 46.5 fl High 35.1-43.9 [facility] Comment on above: Performed By: #### L 505.5000 #### [facility] [address] [place], [address] WBC (Bld) [#/Vol] 11.2 10*3/uL High 4.4-11.0 [facility] Comment on above: Performed By: #### L 505.5000 #### [facility] [address] [place], [address] Comprehensive Metabolic Prof [facility] 05-28-2021 Albumin [Mass/Vol] 3.6 g/dL Normal 3.2-5.0 [facility] Comment on above: Performed By: #### L 505.5000 #### [facility] [address] [place], [address] Albumin/Globulin [Mass ratio] 1.1 {ratio} Normal 0.9-2.4 [facility] Comment on above: Performed By: #### L 505.5000 #### [facility] [address] [place], [address] ALK P 65 U/L Normal 45-117 [facility] Comment on above: Performed By: #### L 505.5000 #### [facility] [address] [place], [address] ALT [Catalytic activity/Vol] 24 U/L Normal 16-61 [facility] Comment on above: Performed By: #### L 505.5000 #### [facility] [address] [place], [address] AST [Catalytic activity/Vol] 11 U/L Low 15-37 [facility] Comment on above: Performed By: #### L 505.5000 #### [facility] [address] [place], [address] Bilirubin [Mass/Vol] 0.30 mg/dL Normal 0.20-1.00 [facility] Comment on above: Result Comment: For patients on eltrombopag therapy, use of Dimension [place] TBIL is not recommended. Performed By: #### L 505.5000 #### [facility] [address] [place], [address] BUN/CRE 18.7 RATIO Normal 10-20 [facility] Comment on above: Performed By: #### L 505.5000 #### [facility] [address] [place], [address] CA,Total 9.0 mg/dL Normal 8.5-10.1 [facility] Comment on above: Performed By: #### L 505.5000 #### [facility] [address] [place], [address] Chloride [Moles/Vol] 106 mmol/L Normal 98-107 [facility] Comment on above: Performed By: #### L 505.5000 #### [facility] [address] [place], [address] CO2 [Moles/Vol] 29.0 mmol/L Normal 21.0-32.0 [facility] Comment on above: Performed By: #### L 505.5000 #### [facility] [address] [place], [address] Creatinine [Mass/Vol] 0.96 mg/dL Normal 0.70-1.30 [facility] Comment on above: Result Comment: The validity of the calculated GFR GFRAA in patients over 70 years has not been determined. Clinical correlation is essential. Performed By: #### L 505.5000 #### [facility] [address] [place], [address] ECRCL 111.53 ml/min Normal [facility] Comment on above: Performed By: #### L 505.5000 #### [facility] [address] [place], [address] EST GFR - AA 112 mL/min Normal >60 [facility] Comment on above: Result Comment: Afri can [facility] GFR Calc Performed By: #### L 505.5000 #### [facility] [address] [place], [address] GAP 5 Normal 5-15 [facility] Comment on above: Performed By: #### L 505.5000 #### [facility] [address] [place], [address] GFR/1.73 sq M.predicted among non-blacks MDRD (S/P/Bld) [Vol rate/Area] 93 mL/min/{1.73_m2} Normal >60 [facility] Comment on above: Result Comment: Non- GFR Calc Performed By: #### L 505.5000 #### [facility] [address] [place], [address] Globulin (S) [Mass/Vol] 3.4 g/dL Normal 2.2-4.2 [facility] Comment on above: Performed By: #### L 505.5000 #### [facility] [address] [place], [address] Glucose [Mass/Vol] 121 mg/dL High 74-106 [facility] Comment on above: Result Comment: Fast ing Glucose result from 100 to 125 mg/dL suggests IMPAIRED HOMEOSTASIS per A.D.A. criteria. Performed By: #### L 505.5000 #### [facility] [address] [place], [address] Potassium [Moles/Vol] 4.1 mmol/L Normal 3.5-5.1 [facility] Comment on above: Performed By: #### L 505.5000 #### [facility] [address] [place], [address] Sodium [Moles/Vol] 140 mmol/L Normal 136-145 [facility] Comment on above: Performed By: #### L 505.5000 #### [facility] [address] [place], [address] T PROT 7.0 g/dL Normal 6.4-8.2 [facility] Comment on above: Performed By: #### L 505.5000 #### [facility] [address] [place], [address] Urea nitrogen [Mass/Vol] 18 mg/dL Normal 7-18 [facility] Comment on above: Performed By: #### L 505.5000 #### [facility] [address] [place], [address] Determination of erythrocyte mean corpuscular volume (MCV)on 05-28-2021 MCV (RBC) [Entitic vol] 92.9 fL 80-94 [facility] Work Phone: Emergency Department Summary on 05-28-2021 Emergency Department Summary [facility] Medical Records Department [address] [place] [address] Emergency Department Summary 05/28/21 MR#: [id number] Acct: [id number] Name: RADHA HOUGH Rep #: [id number] : 1985 35 From: Clemencia Terry MD PCP: Care Physician,No Primary Status:ADM IN Location: [facility] NK725-3 HPI History of Present Illness Chief Complaint: Substance Abuse Informant: patient Onset/Context/Timing Onset: Weeks Narrative Narrative: Patient presents requesting detox from heroin. Patient has been through a detox program here in the past. He states after his last admission in March he did well for a couple months. His father was admitted to the hospital and from COVID earlier this month that caused him to relapse. He has been snorting heroin daily for the last 2 weeks. Patient denies any other drug use. He will drink alcohol socially. Last alcohol consumption was May 12. [facility] Medical History Smoker Substance abuse Home Medications NK 05/28/21 [History Last Taken Unknown] Allergy/AdvReac Type Severity Reaction Status Date / Time acetaminophen [From [place]] AdvReac Upset Verified 05/28/21 08:42 Stomach hydrocodone bitartrate AdvReac Upset Verified 05/28/21 08:42 [From [place]] Stomach Family History Other Opiate addiction Surgical History H/O eye surgery History of hernia surgery Social History household members: none Smoking Status: Former smoker quit status: considering quitting alcohol intake: current alcohol intake frequency: holidays/special occasions only substance use type: marijuana and heroin ROS ROS ED Constitutional Constitutional ED: Denies chills or fever(s) Eyes Eyes: Denies change in vision ENT ENT ED: Denies sore throat Cardiovascular Cardiovascular: Denies chest pain Respiratory/Chest Respiratory/Chest: Denies cough or dyspnea Gastrointestinal Gastrointestinal: Denies abdominal pain, diarrhea, nausea or vomiting Genitourinary Genitourinary ED: Denies dysuria Musculoskeletal Musculoskeletal: Denies back pain Integumentary Denies rash Neurologic Neurologic: Denies headache(s) or weakness Psychiatric Psychiatric: Reports anxiety; Denies depression Allergic/Immunologic Allergic/Immunologic ED: Denies urticaria EXAM Physical Exam Const Vital Signs: 05/28/21 08:41 05/28/21 09:47 Temperature 96.6 F L Temperature Source Temporal Pulse Rate 71 84 Respiratory Rate 18 17 Blood Pressure 148/82 H 138/77 H Blood Pressure Mean 104 97 Pulse Ox 94 98 Oxygen Delivery Method Room Air Room Air Positive well nourished and well developed General Appearance ED: well developed HEENT Reports normocephalic and head/scalp atraumatic Eyes PERRL and EOMs intact bilaterally Neck supple Chest Wall inspection of chest normal and palpation of chest normal Resp normal respiratory effort and clear to auscultation bilaterally Cardio regular rate and regular rhythm GI normal to inspection, nondistended, normoactive bowel sounds Palpation: soft Back/Spine no CVA tenderness Extremity normal to inspection Neuro oriented x3 and no sensory deficits noted Sensorium / Orientation: alert Motor Exam: strength 5/5 throughout Psych mental status grossly normal Skin no rashes or lesions noted MDM MDM MDM Narrative Medical decision making narrative: Lab work for addiction medicine obtained Lab Data Attestation: I reviewed the patient's lab results. Labs: Laboratory Results - last 24 hr 05/28/21 05/28/21 05/28/21 08:54 08:54 09:10 WBC 11.2 H RBC 4.76 Hgb 15.1 Hct 44.2 MCV 92.9 MCH 31.7 MCHC 34.2 RDW Std Deviation 46.5 H RDW Coeff of Brianna 13.6 Plt Count 366 MPV 9.1 Immature Gran % (Auto) 0.400 Neut % (Auto) 70.4 H Lymph % (Auto) 15.4 L Mclean % (Auto) 10.1 H Eos % (Auto) 2.9 Baso % (Auto) 0.8 Absolute Neuts (auto) 7.9 H Absolute Lymphs (auto) 1.73 Nucleated RBC % 0 Sodium Potassium Chloride Carbon Dioxide Anion Gap BUN Creatinine Estim Creat Clear Calc Est GFR (MDRD) Af Amer Est GFR (MDRD) Non-Af BUN/Creatinine Ratio Glucose Calcium Total Bilirubin AST ALT Alkaline Phosphatase Total Protein Albumin Globulin Albumin/Globulin Ratio Urine Color Yellow Urine Clarity Sl. Cloudy Urine pH 7.0 Ur Specific [place] 1.010 Urine Protein Negative Urine Glucose (UA) Normal Urine Ketones Negative Urine Occult Blood Negative Urine Nitrite Negative Urine Bilirubin Negat (more content not included)... Normal [facility] H AND P Exam - Hospitaliston 05-28-2021 H&P Exam - Hospitalist [facility] Medical Records Department [address] [place] [address] H P Exam - Hospitalist 05/28/21 1032 MR#: [id number] Acct: [id number] Name: RADHA HOUGH Rep #: [id number] : 1985 35 From: Alxe Norman MD PCP: Care Physician,No Primary Status:ADM IN Location: MS3 [id number] HPI - General General Date of Admission: 05/28/21 HPI Narrative RADHA HOUGH, is a 35 M who presents requesting opiate detox. He has been here in October and then again in March. He has been doing well except his father recently of COVID which she states what is what sent him over the edge and started using again. He has been using heroin for the last several weeks, denies any significant alcohol use. He snorts heroin and denies any IV drug use. [facility] Medical History (Updated 05/28/21 @ 11:42 by Azucena Ballard) Arthritis Chronic pain Migraines Smoker Substance abuse Home Medications NK 05/28/21 [History Last Taken Unknown] Allergy/AdvReac Type Severity Reaction Status Date / Time acetaminophen [From [place]] AdvReac Upset Verified 05/28/21 08:42 Stomach hydrocodone bitartrate AdvReac Upset Verified 05/28/21 08:42 [From [place]] Stomach Family History Other Opiate addiction Surgical History H/O eye surgery History of hernia surgery Social History household members: none Smoking Status: Current every day smoker tobacco type: cigarettes quit status: considering quitting alcohol intake: current alcohol intake frequency: holidays/special occasions only substance use type: marijuana and heroin ROS Constitutional Constitutional: Denies chills, fatigue, fever(s) or malaise Eyes Eyes: Denies blurry vision ENT HEENT: Denies headache(s) or nasal discharge Cardiovascular Cardiovascular: Denies chest pain, dyspnea on exertion or syncope Respiratory/Chest Respiratory/Chest: Denies cough, shortness of breath at rest or shortness of breath with exertion Gastrointestinal Gastrointestinal: Denies constipation, diarrhea, nausea or vomiting Genitourinary Genitourinary: Denies dysuria Neurologic Neurologic: Denies focal weakness, numbness or tremor(s) Psychiatric Psychiatric: Reports anxiety; Denies depression Vital Signs Vital Signs Vital Signs: 05/28/21 08:41 05/28/21 09:47 Temperature 96.6 F L Temperature Source Temporal Pulse Rate 71 84 Respiratory Rate 18 17 Blood Pressure 148/82 H 138/77 H Blood Pressure Mean 104 97 Pulse Ox 94 98 Oxygen Delivery Method Room Air Room Air Weight Weight: 165 lb Body Mass Index (BMI) 21.7 Physical Exam Const alert, oriented x3 and no apparent distress General Appearance: cooperative HEENT normocephalic and moist oral mucous membranes Eyes PERRL, EOMs intact bilaterally and conjunctivae normal Neck supple and no JVD Resp normal respiratory effort, no retractions, no use of accessory muscles and clear to auscultation julian aterally Auscultation: Negative for crackles, rales, rhonchi or wheezes Cardio regular rate, regular rhythm, S1 normal heart sound, S2 normal heart sound and no murmurs GI soft to palpation, non-tender and non-distended; Negative for hepatosplenomegaly Extremity no clubbing, cyanosis or edema Skin no rashes or lesions noted Neuro no focal motor deficits and no sensory deficits noted Psych affect normal Appearance: appropriate Results Lab / Micro Data Result Diagrams: 05/28/21 09:10 05/28/21 09:10 Labs: Laboratory Results - last 24 hr 05/28/21 08:54: Urine Opiates Screen NEGATIVE, Urine Methadone Screen NEGATIVE, Ur Barbiturates Screen NEGATIVE, Ur Phencyclidine Scrn NEGATIVE, Ur Amphetamines Screen NEGATIVE, U Methamphetamin- MDMA NEGATIVE, U Benzodiazepines Scrn NEGATIVE, Urine Cocaine Screen NEGATIVE, U Cannabinoids Screen NEGATIVE, Ur Drug Screen Comment 05/28/21 08:54: Urine Color Yellow, Urine Clarity Sl. Cloudy, Urine pH 7.0, Ur Specific [place] 1.010, Urine Protein Negative, Urine Glucose (UA) Normal, Urine Ketones Negative, Urine Occult Blood Negative, Urine Nitrite Negative, Urine Bilirubin Negative, Urine Urobilinogen Normal, Ur Leukocyte Esterase 25 H, Urine RBC 0 SEEN, Urine WBC 0 SEEN, Ur Squamous Epith Cells 0 SEEN, Amorphous Sediment 3+, Urine Bacteria 2+, Urine Mucus 0 SEEN 05/28/21 09:10: WBC 11.2 H, RBC 4.76, Hgb 15.1, Hct 44.2, MCV 92.9, MCH 31.7, MCHC 34.2, RDW Std Deviation 46.5 H, RDW Coeff of Brianna 13.6, Plt Count 366, MPV 9.1, Immature Gran % (Auto) 0.400, Neut % (Auto) 70.4 H, Lymph % (Auto) 15.4 L, Mclean % (Auto) 10.1 H, Eos % (Auto) 2.9, Baso % (Auto) 0.8, Absolute Neuts (auto) 7.9 H, Absolute Lymphs (aut (more content not included)... Normal [facility] Hematocrit Auto (Bld) [Volum e fraction]on 05-28-2021 Hematocrit (Bld) [Volume fraction] 44.2 % 40-54 [facility] Work Phone: Ketones Test strip Ql (U)on 05-28-2021 Ketones Ql (U) Negative Negative [facility] Work Phone: Laboratory - Chemistry and C hemistry - challengeon 05-28-2021 ALP [Catalytic activity/Vol] 65 U/L 45-117 [facility] Work Phone: ALT [Catalytic activity/Vol] 24 U/L 16-61 [facility] Work Phone: CO2 [Moles/Vol] 29.0 mmol/L 21.0-32.0 [facility] Work Phone: [phone] Globulin (S) [Mass/Vol] 3.4 g/dL 2.2-4.2 [facility] Work Phone: Urea nitrogen/Creatinine [Mass ratio] 18.7 mg/mg 10-20 [facility] Work Phone: [phone] Laboratory - Drug toxicology on 05-28-2021 Amphetamines Ql (U) Negative [facility] Work Phone: Benzodiazepines Ql (U) Negative [facility] Work Phone: [phone] Cannabinoids Screen Ql (U) Negative [facility] Work Phone: [phone] Cocaine Ql (U) Negative [facility] Work Phone: [phone] Opiates Ql (U) Negative [facility] Work Phone: [phone] Laboratory - Hematology and Cell countson 05-28-2021 Erythrocyte distribution width (RBC) [Entitic vol] 46.5 fL 35.1-43.9 [facility] Work Phone: [phone] Erythrocyte distribution width (RBC) [Ratio] 13.6 % 11.6-14.6 [facility] Work Phone: [phone] Immature granulocytes/100 WBC (Bld) 0.400 % 0.0-0.9 [facility] Work Phone: [phone] Comment on above: IG% - Immature Granu locytes (promyelocytes, myelocytes and metamyelocytes) > 1% indicates that a LEFT SHIFT is Present. MCH (RBC) [Entitic mass] 31.7 pg 27.0-32.0 [facility] Work Phone: [phone] Nucleated RBC/100 WBC (Bld) [Ratio] 0 % 0-5 [facility] Work Phone: [phone] MCHC Auto (RBC) [Mass/Vol]on 05-28-2021 MCHC (RBC) [Mass/Vol] 34.2 g/dL 32-36 [facility] Work Phone: [phone] Mucus LM Ql (Urine sed)on Mucus Ql (Urine sed) 0 SEEN /hpf [facility] Work Phone: [phone] Nitrite Test strip Ql (U)on 05-28-2021 Nitrite Ql (U) Negative Negative [facility] Work Phone: [phone] No Panel Informationon 05-28 Estimated Creatinine Clearance Calc 111.53 ml/min [facility] Work Phone: [phone] Estimated GFR (MDRD) Amer 112 mL/min >60 [facility] Work Phone: [phone] Comment on above: GFR Calc Estimated GFR (MDRD) Non-Af Amer 93 mL/min >60 [facility] Work Phone: [phone] Comment on above: Non- GFR Calc Ethyl Alcohol Level < 3.0 mg/dL [facility] Work Phone: Comment on above: The serum:whole bloo d ethanol ratio is approximately 1.14and varies slightly with hematocrit. Medical Alcohol reference interval and critical value innon-tolerant individuals; 50 - 100 Impairment 100 Intoxication 100 - 250 Severe Poisoning 250 - 400 Deep/possible fatal coma Urine Barbiturates Screen Negative [facility] Work Phone: [phone] Urine Drug Screen Comment [facility] Work Phone: Comment on above: CONFIRMATORY TESTING FOR ALL POSITIVE URINE DRUG SCREENRESULTS WILL ONLY BE SENT OUT UPON PHYSICIAN ORDER. VISTA Urine Drug Screen methods provide only preliminaryanalytical test results. A more specific alternate chemicalmethod must be used in order to obtain a confirmedanalytical result. Gas chromatography/mass spectrometery(GC/MS) is the preferred confirmatory method. Clinicalconsideration and professional judgement should be appliedto any drug of abuse test result, particularly whenpreliminary positive results are used. URINE TCA TESTING MUST BE ORDERED SEPARATELY. USE TESTMNEMONIC: UTCA Urine Methadone Screen Negative [facility] Work Phone: [phone] Urine Methamphetamine-MDM A Screen Negative [facility] Work Phone: [phone] Platelets bldon 05-28-2021 Platelets (Bld) [#/Vol] 366 10*3/uL 150-450 [facility] Work Phone: [phone] Protein Test strip Ql (U)on 05-28-2021 Protein Ql (U) Negative Negative [facility] Work Phone: [phone] Serum or plasma albumin gaby urement (mass/volume)on 05-28-2021 Albumin [Mass/Vol] 3.6 g/dL 3.2-5.0 [facility] Work Phone: [phone] Serum or plasma albumin/glob ulin mass ratioon 05-28-2021 Albumin/Globulin [Mass ratio] 1.1 {ratio} 0.9-2.4 [facility] Work Phone: [phone] Serum or plasma calcium gaby urement (mass/volume)on 05-28-2021 Calcium [Mass/Vol] 9.0 mg/dL 8.5-10.1 [facility] Work Phone: Serum or plasma creatinine m easurement (mass/volume)on 05-28-2021 Creatinine [Mass/Vol] 0.96 mg/dL 0.70-1.30 [facility] Work Phone: Comment on above: The validity of the calculated GFR & GFRAA in patients over 70 years has not been determined. Clinical correlation is essential. Serum or plasma urea nitroge n measurement (mass/volume)on 05-28-2021 Urea nitrogen [Mass/Vol] 18 mg/dL 7-18 [facility] Work Phone: Squamous epithelial cells de tection in urine sediment by light microscopyon 05-28-2021 Epithelial cells.squamous LM Ql (Urine sed) 0 SEEN /hpf [facility] Work Phone: Thin prep Papanicolaou smear with manual screeningon 05-28-2021 Thin prep Papanicolaou smear with manual screening 11 U/L 15-37 [facility] Work Phone: Thin prep Papanicolaou smear with manual screening 5 5-15 [facility] Work Phone: Urinalysis, Completeon 05-28 AMORPHOUS 3+ Normal [facility] Comment on above: Order Comment: RACHNA CTOR TO SPECIFY Performed By: #### L 501.9100, L500.4050, L100.0100 #### [facility] Laboratory [address] [place], [address] BACTERIA 2+ /hpf Normal None Seen [facility] Comment on above: Order Comment: RACHNA CTOR TO SPECIFY Performed By: #### L 501.9100, L500.4050, L100.0100 #### [facility] [address] [place], [address] EPI,SQUAMOUS 0 SEEN Normal 0-5 [facility] Comment on above: Order Comment: RACHNA CTOR TO SPECIFY Performed By: #### L 501.9100, L500.4050, L100.0100 #### [facility] [address] [place], [address] Mucus Ql (Urine sed) 0 SEEN Normal [facility] Comment on above: Order Comment: COLLE CTOR TO SPECIFY Performed By: #### L 501.9100, L500.4050, L100.0100 #### [facility] [address] [place], [address] RBC 0 SEEN Normal 0-5 [facility] Comment on above: Order Comment: COLLE CTOR TO SPECIFY Performed By: #### L 501.9100, L500.4050, L100.0100 #### [facility] [address] [place], [address] WBC 0 SEEN Normal 0-5 [facility] Comment on above: Order Comment: COLLE CTOR TO SPECIFY Performed By: #### L 501.9100, L500.4050, L100.0100 #### [facility] [address] [place], [address] Urine Drug Screen (VISTA)on 05-28-2021 AMPHETAMINES Negative Normal <1000 ng/mL [facility] Comment on above: Performed By: #### L 505.5000 #### [facility] [address] [place], [address] BARBITIURATES Negative Normal < 200 ng/mL [facility] Comment on above: Performed By: #### L 505.5000 #### [facility] [address] [place], [address] BENZODIAZIPINE Negative Normal < 200 ng/mL [facility] Comment on above: Performed By: #### L 505.5000 #### [facility] [address] [place], [address] COCAINE Negative Normal < 300 ng/mL [facility] Comment on above: Performed By: #### L 505.5000 #### [facility] Laboratory [facility] [place], [address] ECSTACY Negative Normal < 500 ng/mL [facility] Comment on above: Performed By: #### L 505.5000 #### [facility] [address] [place], [address] METHADONE Negative Normal < 300 ng/mL [facility] Comment on above: Performed By: #### L 505.5000 #### [facility] [address] [place], [address] OPIATES Negative Normal < 300 ng/mL [facility] Comment on above: Performed By: #### L 505.5000 #### [facility] [address] [place], [address] PCP Negative Normal < 25 ng/mL [facility] Comment on above: Performed By: #### L 505.5000 #### [facility] [address] [place], [address] THC Negative Normal < 50 ng/mL [facility] Comment on above: Performed By: #### L 505.5000 #### [facility] [address] [place], [address] VISTA UDS PH 5 Normal [facility] Comment on above: Performed By: #### L 505.5000 #### [facility] [address] [place], [address] Urine blood detectionon 05-12 RBC Ql (U) Negative Negative [facility] Work Phone: [phone] RBC Ql (U) 0 SEEN /hpf [facility] Work Phone: [phone] Urine clarityon 05-28-2021 Clarity (U) Sl. Cloudy Clear [facility] Work Phone: Urine color determinationon 05-28-2021 Color (U) Yellow Yellow [facility] Work Phone: Urine glucose detectionon Glucose Ql (U) Normal mg/dl Normal [facility] Work Phone: Urine leukocyte esterase det ection by dipstickon 05-28-2021 Leukocyte esterase Test strip Ql (U) 25 /ul Negative [facility] Work Phone: Urine pHon 05-28-2021 pH (U) 7.0 [pH] [facility] Work Phone: Urine phencyclidine (PCP) de tectionon 05-28-2021 Phencyclidine Ql (U) Negative [facility] Work Phone: Urine sediment bacteria coun t by microscopy (number/high power field)on 05-28-2021 Bacteria LM.HPF (Urine sed) [#/Area] 2 /[HPF] None Seen [facility] Work Phone: Urine specific gravity measu rementon 05-28-2021 Specific gravity (U) [Rel density] 1.010 [facility] Work Phone: Urobilinogen Auto test strip Ql (U)on 05-28-2021 Urobilinogen Ql (U) Normal mg/dl Normal [facility] Work Phone: CBC W/Diff, Automatedon PATH REV Reviewed Normal [facility] Comment on above: Performed By: #### L 505.5000 #### [facility] [address] [place] [address]. [place], [address] Absolute lymphocyte counton 05-13-2021 Lymphocytes Auto (Unsp spec) [#/Vol] 1.49 10*3/uL 0.83-4.51 [facility] Work Phone: Basophil percentageon 2021 Basophils/100 WBC (Bld) 0.3 % 0-1 [facility] Work Phone: Bilirubin [Mass/Vol] 0.30 mg/dL 0.20-1.00 [facility] Work Phone: Comment on above: For patients on eltr ombopag therapy, use of Dimension [place] TBIL is not recommended. Chloride [Moles/Vol] 109 mmol/L 98-107 [facility] Work Phone: Eosinophils/100 WBC (Bld) 0.8 % 0-5 [facility] Work Phone: Glucose [Mass/Vol] 114 mg/dL 74-106 [facility] Work Phone: Comment on above: Fasting Glucose resu lt from 100 to 125 mg/dL suggests IMPAIRED HOMEOSTASIS per A.D.A. criteria.Please note revised GLUCOSE reference range effective 2017. Neutrophils (Bld) [#/Vol] 20.9 10*3/uL 2.0-7.7 [facility] Work Phone: Neutrophils/100 WBC (Bld) 84.7 % 47-70 [facility] Work Phone: [phone] Potassium [Moles/Vol] 4.3 mmol/L 3.5-5.1 [facility] Work Phone: [phone] Protein [Mass/Vol] 6.2 g/dL 6.4-8.2 [facility] Work Phone: Sodium [Moles/Vol] 141 mmol/L 136-145 [facility] Work Phone: WBC (Bld) [#/Vol] 24.7 10*3/uL 4.4-11.0 [facility] Work Phone: [phone] Blood erythrocytes count (nu mber/volume)on 05-13-2021 RBC (Bld) [#/Vol] 4.47 10*6/uL 4.6-6.2 [facility] Work Phone: Blood hemoglobin measurement (mass/volume)on 05-13-2021 Hemoglobin (Bld) [Mass/Vol] 14.0 g/dL 13.0-16.5 [facility] Work Phone: Blood lymphocytes/100 leukoc yteson 05-13-2021 Lymphocytes/100 WBC (Bld) 6.0 % 19-41 [facility] Work Phone: Blood manual differential co mment interpretation (narrative result)on 05-13-2021 Manual differential comment Phil (Bld) [Interp] SCANNED [facility] Work Phone: Comment on above: ELEVATED LEUKOCYTES NOTED Blood monocytes/100 leukocyt eson 05-13-2021 Monocytes/100 WBC (Bld) 7.4 % 0-10 [facility] Work Phone: Blood platelet adequacy dete ction by light microscopyon 05-13-2021 Platelets LM Ql (Bld) ADEQUATE ADEQ [facility] Work Phone: Blood platelet mean volumeon 05-13-2021 Platelet mean volume (Bld) [Entitic vol] 8.8 fL 6.2-12.0 [facility] Work Phone: Comprehensive Metabolic Prof ilon 05-13-2021 Albumin [Mass/Vol] 3.2 g/dL Normal 3.2-5.0 [facility] Comment on above: Performed By: #### L 505.5000 #### [facility] [address] [place], [address] Albumin/Globulin [Mass ratio] 1.1 {ratio} Normal 0.9-2.4 [facility] Comment on above: Performed By: #### L 505.5000 #### [facility] [address] [place], [address] ALK P 72 U/L Normal 45-117 [facility] Comment on above: Performed By: #### L 505.5000 #### [facility] [address] [place], [address] ALT [Catalytic activity/Vol] 25 U/L Normal 16-61 [facility] Comment on above: Performed By: #### L 505.5000 #### [facility] [address] [place], [address] AST [Catalytic activity/Vol] 16 U/L Normal 15-37 [facility] Comment on above: Performed By: #### L 505.5000 #### [facility] [address] [place], [address] Bilirubin [Mass/Vol] 0.30 mg/dL Normal 0.20-1.00 [facility] Comment on above: Result Comment: For patients on eltrombopag therapy, use of Dimension [place] TBIL is not recommended. Performed By: #### L 505.5000 #### [facility] [address] [place], [address] BUN/CRE 19.7 RATIO Normal 10-20 [facility] Comment on above: Performed By: #### L 505.5000 #### [facility] [address] [place], [address] CA,Total 8.2 mg/dL Low 8.5-10.1 [facility] Comment on above: Performed By: #### L 505.5000 #### [facility] [address] [place], [address] Chloride [Moles/Vol] 109 mmol/L High 98-107 [facility] Comment on above: Performed By: #### L 505.5000 #### [facility] [address] [place], [address] CO2 [Moles/Vol] 27.0 mmol/L Normal 21.0-32.0 [facility] Comment on above: Performed By: #### L 505.5000 #### [facility] [address] [place], [address] Creatinine [Mass/Vol] 1.22 mg/dL Normal 0.70-1.30 [facility] Comment on above: Result Comment: The validity of the calculated GFR GFRAA in patients over 70 years has not been determined. Clinical correlation is essential. Performed By: #### L 505.5000 #### [facility] [address] [place], [address] ECRCL 93.08 ml/min Normal [facility] Comment on above: Performed By: #### L 505.5000 #### [facility] [address] [place], [address] EST GFR - AA 86 mL/min Normal >60 [facility] Comment on above: Result Comment: Afri can [facility] GFR Calc Performed By: #### L 505.5000 #### [facility] [address] [place], [address] GAP 5 Normal 5-15 [facility] Comment on above: Performed By: #### L 505.5000 #### [facility] [address] [place], [address] GFR/1.73 sq M.predicted among non-blacks MDRD (S/P/Bld) [Vol rate/Area] 71 mL/min/{1.73_m2} Normal >60 [facility] Comment on above: Result Comment: Non- GFR Calc Performed By: #### L 505.5000 #### [facility] [address] [place], [address] Globulin (S) [Mass/Vol] 3.0 g/dL Normal 2.2-4.2 [facility] Comment on above: Performed By: #### L 505.5000 #### [facility] [address] [place], [address] Glucose [Mass/Vol] 114 mg/dL High 74-106 [facility] Comment on above: Result Comment: Fast ing Glucose result from 100 to 125 mg/dL suggests IMPAIRED HOMEOSTASIS per A.D.A. criteria. Please note revised GLUCOSE reference range effective 2017. Performed By: #### L 505.5000 #### [facility] [address] [place], [address] Potassium [Moles/Vol] 4.3 mmol/L Normal 3.5-5.1 [facility] Comment on above: Performed By: #### L 505.5000 #### [facility] [address] [place], [place], [address] Sodium [Moles/Vol] 141 mmol/L Normal 136-145 [facility] Comment on above: Performed By: #### L 505.5000 #### [facility] [address] [place], [place], [address] T PROT 6.2 g/dL Low 6.4-8.2 [facility] Comment on above: Performed By: #### L 505.5000 #### [facility] [address] [place], [place], [id number] Urea nitrogen [Mass/Vol] 24 mg/dL High 7-18 [facility] Comment on above: Performed By: #### L 505.5000 #### [facility] [address] [place], [place], [id number] Determination of erythrocyte mean corpuscular volume (MCV)on 05-13-2021 MCV (RBC) [Entitic vol] 93.3 fL 80-94 [facility] Work Phone: Emergency Department Summary on 05-13-2021 Emergency Department Summary [facility] [address] [address] [address] Emergency Department Summary 05/13/21 MR#: [id number] Acct: [id number] Name: RADHA HOUGH Rep #: [id number] : 1985 35 From: Anjum Méndez DO PCP: Care Physician,No Primary Status:DEP ER Location: ED HPI History of Present Illness Chief Complaint: Substance Abuse Informant: patient Onset/Context/Timing Onset: Today Context: Sudden Onset Timing: Continuous Quality: Loss of consciousness Location: Generalized Relieved by: Narcan Associated Symptoms Associated Symptoms: Positive for change in mental status; Negative for vomiting*, fever*, rash*, seizure, tremor, palpatations, suicidal ideation and homicidal ideation Prehospital Treatment: Naloxone Narrative Narrative: Patient presents after relapsing on heroin. Patient states he used heroin today. Patient states he has a history of heroin abuse but has been clean for the past 2-1/2 months. Patient states his father was admitted to the hospital yesterday for COVID-19 and the stress of that caused him to relapse. EMS administered Narcan and he became more awake and alert. Patient is unsure how much he used today. Patient states he snorts heroin. Patient denies any IV drug use. [facility] Medical History No significant pertinent medical history Smoker Substance abuse Allergy/AdvReac Type Severity Reaction Status Date / Time acetaminophen [From [place]] AdvReac Upset Verified 02/15/21 00:30 Stomach hydrocodone bitartrate AdvReac Upset Verified 02/15/21 00:30 [From [place]] Stomach Family History Other Opiate addiction Surgical History H/O eye surgery History of hernia surgery Social History household members: none Smoking Status: Former smoker quit status: considering quitting alcohol intake: current alcohol intake frequency: holidays/special occasions only substance use type: marijuana and heroin ROS ROS ED Constitutional Constitutional ED: Denies chills or fever(s) Eyes Eyes: Denies blurry vision or change in vision ENT ENT ED: Denies rhinorrhea or sore throat Cardiovascular Cardiovascular: Denies chest pain or palpitations Respiratory/Chest Respiratory/Chest: Denies cough or dyspnea Gastrointestinal Gastrointestinal: Denies nausea or vomiting Genitourinary Genitourinary ED: Denies dysuria or hematuria Musculoskeletal Musculoskeletal: Reports neck pain; Denies back pain Integumentary Denies abscess or rash Neurologic Neurologic: Denies headache(s) or weakness Allergic/Immunologic Allergic/Immunologic ED: Denies mouth swelling or urticaria EXAM Physical Exam Const Vital Signs: 05/13/21 09:04 05/13/21 10:02 Temperature 97.0 F L Temperature Source Temporal Pulse Rate 89 80 Respiratory Rate 16 13 Blood Pressure 132/85 H 112/75 Blood Pressure Mean 100 87 Pulse Ox 100 99 Oxygen Delivery Method Room Air Room Air Positive well nourished and well developed General Appearance ED: well developed HEENT Reports moist mucous membranes Neck supple and no JVD Resp normal respiratory effort and clear to auscultation bilaterally Cardio regular rate, regular rhythm and no murmurs GI normal to inspection, nondistended, normoactive bowel sounds and non-tender Palpation: soft Extremity normal to inspection General Extremety ED: Negative for edema or tenderness General Extremity: Negative for edema Neuro oriented x3, CN's II-XII intact bilaterally and no sensory deficits noted Sensorium / Orientation: alert Motor Exam: strength 5/5 throughout Psych mental status grossly normal Skin no rashes or lesions noted MDM MDM MDM Narrative Medical decision making narrative: CBC shows a leukocytosis of 24.7. This is most likely from the overdose. Comprehensive metabolic profile was obtained and was essentially within normal limits. Patient was observed in the emergency department for 2 hours. Patient is feeling better on reevaluation. Patient had no further signs of opiate overdose. Patient was instructed to follow-up with his current outpatient substance abuse rehabilitation program. Patient was instructed to return if worse in any way. Patient understands and is agreeable with the plan. All questions were answered. Lab Data Attestation: I reviewed the patient's lab results. Labs: Laboratory Results - last 24 hr 05/13/21 05/13/21 10:05 10:05 WBC 24.7 H RBC 4.47 L Hgb 14.0 Hct 41.7 MCV 93.3 MCH 31.3 MCHC 33.6 RDW Std Deviation 45.7 H RDW Coeff of Brianna 13.3 Plt Count 326 MPV 8.8 Im (more content not included)... Normal [facility] Hematocrit Auto (Bld) [Volum e fraction]on 05-13-2021 Hematocrit (Bld) [Volume fraction] 41.7 % 40-54 [facility] Work Phone: Laboratory - Chemistry and C hemistry - challengeon 05-13-2021 ALP [Catalytic activity/Vol] 72 U/L 45-117 [facility] Work Phone: ALT [Catalytic activity/Vol] 25 U/L 16-61 [facility] Work Phone: CO2 [Moles/Vol] 27.0 mmol/L 21.0-32.0 [facility] Work Phone: Globulin (S) [Mass/Vol] 3.0 g/dL 2.2-4.2 [facility] Work Phone: [phone] Urea nitrogen/Creatinine [Mass ratio] 19.7 mg/mg 10-20 [facility] Work Phone: [phone] Laboratory - Hematology and Cell countson 05-13-2021 Erythrocyte distribution width (RBC) [Entitic vol] 45.7 fL 35.1-43.9 [facility] Work Phone: [phone] Erythrocyte distribution width (RBC) [Ratio] 13.3 % 11.6-14.6 [facility] Work Phone: [phone] Immature granulocytes/100 WBC (Bld) 0.800 % 0.0-0.9 [facility] Work Phone: [phone] Comment on above: IG% - Immature Granu locytes (promyelocytes, myelocytes and metamyelocytes) > 1% indicates that a LEFT SHIFT is Present. MCH (RBC) [Entitic mass] 31.3 pg 27.0-32.0 [facility] Work Phone: [phone] Nucleated RBC/100 WBC (Bld) [Ratio] 0 % 0-5 [facility] Work Phone: [phone] MCHC Auto (RBC) [Mass/Vol]on 05-13-2021 MCHC (RBC) [Mass/Vol] 33.6 g/dL 32-36 [facility] Work Phone: No Panel Informationon 05-13 Estimated Creatinine Clearance Calc 93.08 ml/min [facility] Work Phone: [phone] Estimated GFR (MDRD) Amer 86 mL/min >60 [facility] Work Phone: [phone] Comment on above: GFR Calc Estimated GFR (MDRD) Non-Af Amer 71 mL/min >60 [facility] Work Phone: [phone] Comment on above: Non- GFR Calc Platelets bldon 05-13-2021 Platelets (Bld) [#/Vol] 326 10*3/uL 150-450 [facility] Work Phone: [phone] RBC morphologyon 05-13-2021 RBC morphology finding Nom (Bld) NORM C+C NORMAL NORM C&C [facility] Work Phone: Review by pathologiston Pathologist review Phil (Unsp spec) [Interp] Reviewed [facility] Work Phone: Comment on above: Previous reported re sult: Kate sheets Edited by: MARIANELA on 05/14/21:1400Neutrophilic leukocytosis.Clinical correlation necessary.Dell Allen M.D. 05/14/21 AMENDED REPORT 05/14/21 1400 PATH REV previously reported as: Kate kortney Serum or plasma albumin gbay urement (mass/volume)on 05-13-2021 Albumin [Mass/Vol] 3.2 g/dL 3.2-5.0 [facility] Work Phone: Serum or plasma albumin/glob ulin mass ratioon 05-13-2021 Albumin/Globulin [Mass ratio] 1.1 {ratio} 0.9-2.4 [facility] Work Phone: Serum or plasma calcium gaby urement (mass/volume)on 05-13-2021 Calcium [Mass/Vol] 8.2 mg/dL 8.5-10.1 [facility] Work Phone: Serum or plasma creatinine m easurement (mass/volume)on 05-13-2021 Creatinine [Mass/Vol] 1.22 mg/dL 0.70-1.30 [facility] Work Phone: Comment on above: The validity of the calculated GFR & GFRAA in patients over 70 years has not been determined. Clinical correlation is essential. Serum or plasma urea nitroge n measurement (mass/volume)on 05-13-2021 Urea nitrogen [Mass/Vol] 24 mg/dL 7-18 [facility] Work Phone: Thin prep Papanicolaou smear with manual screeningon 05-13-2021 Thin prep Papanicolaou smear with manual screening 16 U/L 15-37 [facility] Work Phone: Thin prep Papanicolaou smear with manual screening 5 5-15 [facility] Work Phone: Discharge Instructionon 03-12 Discharge Instruction [facility] Medical Records Department [address] [place] [address] Instructions for Home/Discharge Instructions 03/29/21 1039 MR#: [id number] Acct: [id number] Name: RADHA HOUGH Rep #: [id number] : 1985 35 From: Anjum Hoffman DO PCP: Care Physician,No Primary Status:ADM IN Discharge Instructions Diet Discharge Diet: No restrictions Activity Discharge Activity: Return to Normal Activity Return to work on:: 03/30/21 Follow Up Care Please Follow Up With: [facility] When: 03/30/2021 at 11:30 Test Results: Test results from this visit will be discussed in further detail at your follow-up appointment, if applicable. Discharge Plan Admission Admit Date/Time: 03/26/21 06:54 Primary Reason for Your Visit: Opiate Withdrawal Attending Provider: Anjum Hoffman Primary Care Provider: Care Physician,No Primary Discharge Orders/Prescriptions Prescriptions: Discontinued cephalexin [cephalexin] 500 MG capsule 500 mg PO Q6 Qty: 40 RF: 0 Referrals / Follow Up: Care Physician,No Primary [Primary Care Provider] - Disposition Disposition (needs filled in before D/C Order can be placed): Home, Self Care 03/29/21 1042 Anjum Hoffman DO CC: No Primary Care Physician Signed Normal [facility] Alcohol, Blood (Medical)-Ser umon 03-26-2021 SERUM ETOH < 3.0 Normal [facility] Comment on above: Result Comment: The serum:whole blood ethanol ratio is approximately 1.14 and varies slightly with hematocrit. Medical Alcohol reference interval and critical value in non-tolerant individuals; 50 - 100 Impairment 100 Intoxication 100 - 250 Severe Poisoning 250 - 400 Deep/possible fatal coma Performed By: #### L 100.0100, L500.4050, L501.9100 ####[facility] [address] [place], [address] CBC W/Diff, Automatedon 03-12 Absolute Lymph 2.28 X10 3/uL Normal 0.83-4.51 [facility] Comment on above: Performed By: #### L 100.0100, L500.4050, L501.9100 #### [facility] [address] [place], [address] Absolute Neut 7.2 X10 3/uL Normal 2.0-7.7 [facility] Comment on above: Performed By: #### L 100.0100, L500.4050, L501.9100 #### [facility] [address] [place], [address] Basophils/100 WBC (Bld) 0.4 % Normal 0-1 [facility] Comment on above: Performed By: #### L 100.0100, L500.4050, L501.9100 #### [facility] [address] [place], [address] Eosinophils/100 WBC (Bld) 2.8 % Normal 0-5 [facility] Comment on above: Performed By: #### L 100.0100, L500.4050, L501.9100 #### [facility] [address] [place], [address] Erythrocyte distribution width (RBC) [Ratio] 13.0 % Normal 11.6-14.6 [facility] Comment on above: Performed By: #### L 100.0100, L500.4050, L501.9100 #### [facility] [address] [place], [address] Hematocrit (Bld) [Volume fraction] 44.9 % Normal 40-54 [facility] Comment on above: Performed By: #### L 100.0100, L500.4050, L501.9100 #### [facility] [address] [place], [address] Hemoglobin (Bld) [Mass/Vol] 14.9 g/dL Normal 13.0-16.5 [facility] Comment on above: Performed By: #### L 100.0100, L500.4050, L501.9100 #### [facility] [address] [place], [address] IG% 0.500 Normal 0.0-0.9 [facility] Comment on above: Result Comment: IG% - Immature Granulocytes (promyelocytes, myelocytes and metamyelocytes) > 1% indicates that a LEFT SHIFT is Present. Performed By: #### L 100.0100, L500.4050, L501.9100 #### [facility] [address] [place], [address] Lymphocytes/100 WBC (Bld) 20.3 % Normal 19-41 [facility] Comment on above: Performed By: #### L 100.0100, L500.4050, L501.9100 #### [facility] [address] [place], [address] MCH (RBC) [Entitic mass] 31.9 pg Normal 27.0-32.0 [facility] Comment on above: Performed By: #### L 100.0100, L500.4050, L501.9100 #### [facility] [address] [place], [address] MCHC (RBC) [Mass/Vol] 33.2 g/dL Normal 32-36 [facility] Comment on above: Performed By: #### L 100.0100, L500.4050, L501.9100 #### [facility] [address] [place], [address] MCV (RBC) [Entitic vol] 96.1 fL High 80-94 [facility] Comment on above: Performed By: #### L 100.0100, L500.4050, L501.9100 #### [facility] [address] [place], [address] Monocytes/100 WBC (Bld) 11.9 % High 0-10 [facility] Comment on above: Performed By: #### L 100.0100, L500.4050, L501.9100 #### [facility] [address] [place], [address] Neutrophils/100 WBC (Bld) 64.1 % Normal 47-70 [facility] Comment on above: Performed By: #### L 100.0100, L500.4050, L501.9100 #### [facility] [address] [place], [address] Nucleated RBC (Bld) [#/Vol] 0 10*3/uL Normal 0-5 [facility] Comment on above: Performed By: #### L 100.0100, L500.4050, L501.9100 #### [facility] [address] [place], [address] Platelet mean volume (Bld) [Entitic vol] 9.4 fL Normal 6.2-12.0 [facility] Comment on above: Performed By: #### L 100.0100, L500.4050, L501.9100 #### [facility] [address] [place], [address] Platelets (Bld) [#/Vol] 334 10*3/uL Normal 150-450 [facility] Comment on above: Performed By: #### L 100.0100, L500.4050, L501.9100 #### [facility] [address] [place], [address] RBC (Bld) [#/Vol] 4.67 10*6/uL Normal 4.6-6.2 [facility] Comment on above: Performed By: #### L 100.0100, L500.4050, L501.9100 #### [facility] [address] [place], [address] RDW SD 45.7 fl High 35.1-43.9 [facility] Comment on above: Performed By: #### L 100.0100, L500.4050, L501.9100 #### [facility] [address] [place], [address] WBC (Bld) [#/Vol] 11.2 10*3/uL High 4.4-11.0 [facility] Comment on above: Performed By: #### L 100.0100, L500.4050, L501.9100 #### [facility] [address] [place], [address] Comprehensive Metabolic Prof ilon 03-26-2021 Albumin [Mass/Vol] 3.4 g/dL Normal 3.2-5.0 [facility] Comment on above: Performed By: #### L 100.0100, L500.4050, L501.9100 ####[facility] [address] [place], [address] Albumin/Globulin [Mass ratio] 1.1 {ratio} Normal 0.9-2.4 [facility] Comment on above: Performed By: #### L 100.0100, L500.4050, L501.9100 ####[facility] [address] [place], [address] ALK P 73 U/L Normal 45-117 [facility] Comment on above: Performed By: #### L 100.0100, L500.4050, L501.9100 ####[facility] [address] [place], [address] ALT [Catalytic activity/Vol] 29 U/L Normal 16-61 [facility] Comment on above: Performed By: #### L 100.0100, L500.4050, L501.9100 ####[facility] [address] [place], [address] AST [Catalytic activity/Vol] 16 U/L Normal 15-37 [facility] Comment on above: Performed By: #### L 100.0100, L500.4050, L501.9100 ####[facility] [address] [place], [address] Bilirubin [Mass/Vol] 0.20 mg/dL Normal 0.20-1.00 [facility] Comment on above: Result Comment: For patients on eltrombopag therapy, use of Dimension [place] TBIL is not recommended. Performed By: #### L 100.0100, L500.4050, L501.9100 ####[facility] [address] [place], [address] BUN/CRE 18.0 RATIO Normal 10-20 [facility] Comment on above: Performed By: #### L 100.0100, L500.4050, L501.9100 ####[facility] [address] [place], [address] CA,Total 8.1 mg/dL Low 8.5-10.1 [facility] Comment on above: Performed By: #### L 100.0100, L500.4050, L501.9100 ####[facility] [address] [place], [address] Chloride [Moles/Vol] 110 mmol/L High 98-107 [facility] Comment on above: Performed By: #### L 100.0100, L500.4050, L501.9100 ####[facility] [address] [place], [address] CO2 [Moles/Vol] 27.0 mmol/L Normal 21.0-32.0 [facility] Comment on above: Performed By: #### L 100.0100, L500.4050, L501.9100 ####[facility] [address] [place], [address] Creatinine [Mass/Vol] 1.11 mg/dL Normal 0.70-1.30 [facility] Comment on above: Result Comment: The validity of the calculated GFR GFRAA in patients over 70 years has not been determined. Clinical correlation is essential. Performed By: #### L 100.0100, L500.4050, L501.9100 ####[facility] [address] [place], [address] ECRCL 102.97 ml/min Normal [facility] Comment on above: Performed By: #### L 100.0100, L500.4050, L501.9100 ####[facility] [address] [place], [address] EST GFR - AA 96 mL/min Normal >60 [facility] Comment on above: Result Comment: Afri can [facility] GFR Calc Performed By: #### L 100.0100, L500.4050, L501.9100 ####[facility] [address] [place], [address] GAP 5 Normal 5-15 [facility] Comment on above: Performed By: #### L 100.0100, L500.4050, L501.9100 ####[facility] [address] [place], [address] GFR/1.73 sq M.predicted among non-blacks MDRD (S/P/Bld) [Vol rate/Area] 79 mL/min/{1.73_m2} Normal >60 [facility] Comment on above: Result Comment: Non- GFR Calc Performed By: #### L 100.0100, L500.4050, L501.9100 ####[facility] [address] [place], [address] Globulin (S) [Mass/Vol] 3.2 g/dL Normal 2.2-4.2 [facility] Comment on above: Performed By: #### L 100.0100, L500.4050, L501.9100 ####[facility] [address] [place], [address] Glucose [Mass/Vol] 89 mg/dL Normal 74-106 [facility] Comment on above: Result Comment: Taylor osborne note revised GLUCOSE reference range effective 2017. Performed By: #### L 100.0100, L500.4050, L501.9100 ####[facility] [address] [place], [address] Potassium [Moles/Vol] 3.5 mmol/L Normal 3.5-5.1 [facility] Comment on above: Performed By: #### L 100.0100, L500.4050, L501.9100 ####[facility] [address] [place], [address] Sodium [Moles/Vol] 142 mmol/L Normal 136-145 [facility] Comment on above: Performed By: #### L 100.0100, L500.4050, L501.9100 ####[facility] [address] [place], [address] T PROT 6.6 g/dL Normal 6.4-8.2 [facility] Comment on above: Performed By: #### L 100.0100, L500.4050, L501.9100 ####[facility] [address] [place], [address] Urea nitrogen [Mass/Vol] 20 mg/dL High 7-18 [facility] [facility] Comment on above: Performed By: #### L 100.0100, L500.4050, L501.9100 ####[facility] [address] [place], [address] Emergency Department Summary on 03-26-2021 Emergency Department Summary [facility] Medical Records Department [address] [place] [address] Emergency Department Summary 03/26/21 MR#: [id number] Acct: [id number] Name: RADHA HOUGH Rep #: [id number] : 1985 35 From: Rosalee Ricks DO PCP: Care Physician,No Primary Status:ADM IN Location: [facility] MC323-5 HPI History of Present Illness Chief Complaint: Substance Abuse Detail of Chief Complaint: Requesting detox from opiates Informant: patient Narrative Narrative: Patient presents to the emergency department requesting detox from opiates. Patient last used heroin around 7 PM last evening. Patient uses daily. Patient last went through a detox program in September of this year. Patient denies alcohol use. He does admit to marijuana use. He complains of some mild nausea and feeling shaky and agitated. Patient denies recent illness. Denies feeling suicidal or homicidal. [facility] Medical History Smoker Substance abuse Home Medications cephalexin 500 mg PO Q6 #40 capsule 02/15/21 [Rx Last Taken Unknown] Allergy/AdvReac Type Severity Reaction Status Date / Time acetaminophen [From [place]] AdvReac Upset Verified 02/15/21 00:30 Stomach hydrocodone bitartrate AdvReac Upset Verified 02/15/21 00:30 [From [place]] Stomach Family History Other Opiate addiction Surgical History H/O eye surgery History of hernia surgery Social History household members: none Smoking Status: Former smoker quit status: considering quitting alcohol intake: current alcohol intake frequency: holidays/special occasions only substance use type: marijuana and heroin ROS ROS ED Constitutional Constitutional ED: Reports systems reviewed and no addt'l complaints, except as documented; Denies body ache(s), change in weight or chills Eyes Eyes: Denies acute decrease in peripheral vision, change in vision, double vision or loss of vision ENT ENT ED: Reports none; Denies ear pain, lip swelling, loss taste/smell, neck pain, otalgia or sore throat Cardiovascular Cardiovascular: Reports none; Denies abdominal pain, chest pain with activity, leg edema, lightheadedness, palpitations, rapid heart rate or syncope Respiratory/Chest Respiratory/Chest: Reports none; Denies change in mental status, dry cough, dyspnea, hemoptysis, shortness of breath at rest or shortness of breath with exertion Gastrointestinal Gastrointestinal: Reports none and nausea; Denies abdominal pain, change in stool character, diarrhea, hematemesis, hematochezia, melena, rectal bleeding or vomiting Genitourinary Genitourinary ED: Reports none; Denies abdominal discomfort, anuria, dysuria, genital pain or polyuria Musculoskeletal Musculoskeletal: Reports none; Denies arthralgias, back pain, difficulty walking, extremity pain, muscle weakness or myalgias Integumentary Reports none; Denies abscess or rash Neurologic Neurologic: Reports none and other Details: Shaky and jittery ; Denies abnormal gait, confusion, focal weakness, frequent falls, headache(s), loss of vision, numbness, paresthesias, radicular pain, vertigo or weakness Psychiatric Psychiatric: Reports systems reviewed and no addt'l complaints, except as documented and none; Denies behavioral changes, confusion, difficulty concentrating, hallucinations, suicidal ideation, tactile hallucinations or visual hallucinations Endocrine Endocrinology: Denies none, cold intolerance, excessive sweating, fatigue or heat intolerance Hematologic/Lymphatic Hematologic/Lymphatic: Reports none; Denies anemia, easy bleeding or easy bruising Allergic/Immunologic Allergic/Immunologic ED: Denies as per HPI, none, lip swelling, mouth swelling, throat swelling, tongue swelling or hives EXAM Physical Exam Const Vital Signs: 03/26/21 05:25 03/26/21 05:27 Temperature 98.2 F Temperature Source Temporal Pulse Rate 74 Respiratory Rate 19 H Blood Pressure 139/75 H 134/96 H Blood Pressure Mean 96 108 Pulse Ox 96 Oxygen Delivery Method Room Air Positive well nourished and well developed General Appearance ED: well developed and NAD HEENT Reports TM's clear and moist mucous membranes normocephalic and atraumatic; Negative for trauma or tenderness Tympanic Membrane ED: Yes TM's clear Eyes PERRL and EOMs intact bilaterally General Eye ED: Negative for pale conjunctiva or scleral icterus Neck no lymphadenopathy, supple and no JVD General: Negative for tenderness Chest Wall inspection of chest normal and palpation of chest normal Chest: Negative for tenderness Resp normal respiratory effort and clear to auscultation bilaterally Effort an (more content not included)... Normal [facility] H AND P Exam - [facility] 03-26-2021 H&P Exam - Hospitalist [facility] Medical Records Department [address] [place] [address] H P Exam - Hospitalist 03/26/21 08 MR#: [id number] Acct: [id number] Name: RADHA HOUGH Rep #: [id number] : 1985 35 From: Daniel Medel DO PCP: Care Physician,No Primary Status:ADM IN Location: [facility] [facility] [id number] HPI - General General Date of Admission: 03/26/21 Date of Service: 03/26/21 Chief Complaint: Opiate addiction HPI Narrative RADHA HOUGH, is a 35 M who presents to the emergency room at [facility] requesting services for detox for heroin. Patient states that he does not inject intravenously, he snorts it. Patient denies any alcohol use or methamphetamine use, he does admit to marijuana usage. Patient was last here in October for detox services, he states he signed out AMA because he was having personal problems at that time. Patient complains of feeling jittery and nervous today, he states he wants to detox in order to keep his job at [employer]. Patient states that he has a boss that understands him and his encouraged him to detox. Labs in the emergency room were remarkable for BUN of 20, patient's white blood cell count was slightly elevated, patient's urine opiate screen was negative, his urine cannabinoids screen was positive. Ethyl alcohol is below 3. Patient will be admitted to [place] [address] for acute opioid withdrawal, orders will be entered using the opiate withdrawal order set, he will be seen by addiction director of social media marketing. [facility] Medical History Smoker Substance abuse Home Medications cephalexin 500 mg PO Q6 #40 capsule 02/15/21 [Rx Last Taken Unknown] Allergy/AdvReac Type Severity Reaction Status Date / Time acetaminophen [From [place]] AdvReac Upset Verified 02/15/21 00:30 Stomach hydrocodone bitartrate AdvReac Upset Verified 02/15/21 00:30 [From [place]] Stomach Family History Other Opiate addiction Surgical History H/O eye surgery History of hernia surgery Social History household members: none Smoking Status: Former smoker quit status: considering quitting alcohol intake: current alcohol intake frequency: holidays/special occasions only substance use type: marijuana and heroin ROS Constitutional Constitutional: Denies anorexia, change in weight, chills, fatigue, fever(s), night sweats or weakness Eyes Eyes: Denies blurry vision, change in vision, discharge from eye(s) or eye pain Cardiovascular Cardiovascular: Denies chest pain, claudication, edema or palpitations Respiratory/Chest Respiratory/Chest: Denies cough, hemoptysis, shortness of breath at rest or shortness of breath with exertion Gastrointestinal Gastrointestinal: Reports nausea; Denies abdominal pain, constipation, diarrhea, hematemesis, hematochezia, melena or vomiting Genitourinary Genitourinary: Denies dysuria, hematuria, urinary frequency, urinary hesitancy, urinary incontinence or urinary urgency Musculoskeletal Musculoskeletal: Denies back pain, joint pain, joint stiffness, joint swelling, myalgias or neck pain Neurologic Neurologic: Denies abnormal gait, abnormal speech, dizziness, focal weakness, headache(s), loss of vision, numbness, other visual disturbances, paresthesias, syncope or tingling Psychiatric Psychiatric: Reports anxiety and other Details: Patient states he feels nervous and jittery ; Denies cognitive impairment, depression, irritability, mood swings or suicidal ideation Endocrine Endocrinology: Denies change in body appearance, cold intolerance, excessive sweating, heat intolerance, polydipsia or polyuria Hematologic/Lymphatic Hematologic/Lymphatic: Denies none, anemia, easy bleeding, easy bruising or lymphadenopathy Allergic/Immunologic Allergic/Immunologic: Denies rhinitis, urticaria, eczemia or asthma Vital Signs Vital Signs Vital Signs: 03/26/21 05:25 03/26/21 05:27 03/26/21 07:55 Temperature 98.2 F 97.6 F L Temperature Source Temporal Temporal Pulse Rate 74 89 Respiratory Rate 19 H 18 Blood Pressure 139/75 H 134/96 H 135/90 H Blood Pressure Mean 96 108 105 Pulse Ox 96 97 Oxygen Delivery Method Room Air Room Air Weight Weight: 85.5 kg Body Mass Index (BMI) 24.8 Physical Exam Const alert, oriented x3 and no apparent distress Constitutional Narrative: Patient appears slightly nervous General Appearance: cooperative, well kempt and well developed Orientation / Consciousness: awake, oriented to person, oriented to place and oriented to time HEENT normocephalic and moist oral mucous membranes Eyes PERRL, EOMs intact bilaterally and conjunctivae normal Nec (more content not included)... Normal [facility] Urine Drug Screen (VISTA)on 03-26-2021 AMPHETAMINES Negative Normal <1000 ng/mL [facility] Comment on above: Order Comment: [facility] [place] [facility] [place] Performed By: #### L 505.5000 #### [facility] Laboratory [address] [place] [address] BARBITIURATES Negative Normal < 200 ng/mL [facility] Comment on above: Order Comment: [place] [place] [facility] [place] Performed By: #### L 505.5000 #### [facility] [address] [place] [address] BENZODIAZIPINE Negative Normal < 200 ng/mL [facility] Comment on above: Order Comment: [facility] [place] [facility] [place] Performed By: #### L 505.5000 #### [facility] [address] [place] [address] COCAINE Negative Normal < 300 ng/mL [facility] Comment on above: Order Comment: [facility] [place] [facility] [place] Performed By: #### L 505.5000 #### [facility] [address] [place], [place], [facility] ECSTACY Negative Normal < 500 ng/mL [facility] Comment on above: Order Comment: [place] [place] [facility] [place] Performed By: #### L 505.5000 #### [facility] [address] [place] [address] METHADONE Negative Normal < 300 ng/mL [facility] Comment on above: Order Comment: [facility] [place] [facility] [place] Performed By: #### L 505.5000 #### [facility] [address] [place] [place], [address] OPIATES Negative Normal < 300 ng/mL [facility] Comment on above: Order Comment: [place] [facility] [place] Performed By: #### L 505.5000 #### [facility] [address] [place], [place], [id number] PCP Negative Normal < 25 ng/mL [facility] Comment on above: Order Comment: [place] [place] [facility] [place] Performed By: #### L 505.5000 #### [facility] [address] [place], [place], [id number] THC Positive Abnormal < 50 ng/mL [facility] Comment on above: Order Comment: [place] [place] [facility] [place] Performed By: #### L 505.5000 #### [facility] [address] [place], [place], [id number] VISTA UDS PH 5 Normal [facility] Comment on above: Order Comment: [place] [place] [facility] [place] Performed By: #### L 505.5000 #### [facility] [address] [place], [place], [address] Emergency Department Summary on 02-15-2021 Emergency Department Summary [facility] Medical Records Department [address] [place] [address] Emergency Department Summary 02/15/21 MR#: [id number] Acct: [id number] Name: RADHA HOUGH Rep #: [id number] : 1985 35 From: Rosalee Ricks DO PCP: Care Physician,No Primary Status:DEP ER Location: ED HPI History of Present Illness Chief Complaint: Upper Extremity Injury Detail of Chief Complaint: Injury to right hand that occurred yesterday Informant: patient Narrative Narrative: Patient presents to the emergency department with an injury to the right hand occurred yesterday. Patient states that he accidentally bumped it against the door jam. Patient initially did not think much of it and continue to work. Today he was at work and noted that he had increased pain and swelling and comes in for evaluation. Patient is right-hand dominant. Patient is up-to-date on tetanus. [facility] Medical History Smoker Substance abuse Home Medications cephalexin 500 mg PO Q6 #40 capsule 02/15/21 [Rx Last Taken Unknown] Allergy/AdvReac Type Severity Reaction Status Date / Time acetaminophen [From [place]] AdvReac Upset Verified 02/15/21 00:30 Stomach hydrocodone bitartrate AdvReac Upset Verified 02/15/21 00:30 [From [place]] Stomach Family History Other Opiate addiction Surgical History H/O eye surgery History of hernia surgery Social History household members: none Smoking Status: Former smoker quit status: considering quitting alcohol intake: current alcohol intake frequency: holidays/special occasions only substance use type: marijuana and heroin ROS ROS ED Constitutional Constitutional ED: Reports systems reviewed and no addt'l complaints, except as documented; Denies body ache(s), change in weight or chills Eyes Eyes: Denies acute decrease in peripheral vision, change in vision, double vision or loss of vision ENT ENT ED: Reports none; Denies ear pain, lip swelling, loss taste/smell, neck pain, otalgia or sore throat Cardiovascular Cardiovascular: Reports none; Denies abdominal pain, chest pain with activity, leg edema, lightheadedness, palpitations, rapid heart rate or syncope Respiratory/Chest Respiratory/Chest: Reports none; Denies change in mental status, dry cough, dyspnea, hemoptysis, shortness of breath at rest or shortness of breath with exertion Gastrointestinal Gastrointestinal: Reports none; Denies abdominal pain, change in stool character, diarrhea, hematemesis, hematochezia, melena, rectal bleeding or vomiting Genitourinary Genitourinary ED: Reports none; Denies abdominal discomfort, anuria, dysuria, genital pain or polyuria Musculoskeletal Musculoskeletal: Reports none and other Details: Right hand pain/injury ; Denies arthralgias, back pain, difficulty walking, extremity pain, muscle weakness or myalgias Integumentary Reports none; Denies abscess or rash Neurologic Neurologic: Reports none; Denies abnormal gait, confusion, focal weakness, frequent falls, headache(s), loss of vision, numbness, paresthesias, radicular pain, vertigo or weakness Psychiatric Psychiatric: Reports systems reviewed and no addt'l complaints, except as documented and none; Denies behavioral changes, confusion, difficulty concentrating, hallucinations, suicidal ideation, tactile hallucinations or visual hallucinations Endocrine Endocrinology: Denies none, cold intolerance, excessive sweating, fatigue or heat intolerance Hematologic/Lymphatic Hematologic/Lymphatic: Reports none; Denies anemia, easy bleeding or easy bruising Allergic/Immunologic Allergic/Immunologic ED: Denies as per HPI, none, lip swelling, mouth swelling, throat swelling, tongue swelling or hives EXAM Physical Exam Const Vital Signs: 02/15/21 00:30 Temperature 97.4 F L Temperature Source Temporal Pulse Rate 69 Respiratory Rate 15 Blood Pressure 126/73 H Blood Pressure Mean 90 Pulse Ox 98 Oxygen Delivery Method Room Air Positive well nourished and well developed General Appearance ED: well developed and NAD HEENT Reports TM's clear and moist mucous membranes normocephalic and atraumatic; Negative for trauma or tenderness Tympanic Membrane ED: Yes TM's clear Eyes PERRL and EOMs intact bilaterally General Eye ED: Negative for pale conjunctiva or scleral icterus Neck no lymphadenopathy, supple and no JVD General: Negative for tenderness Chest Wall inspection of chest normal and palpation of chest normal Chest: Negative for tenderness Resp normal respiratory effort and clear to auscultation bilaterally Effort and Inspection: Negative for respi (more content not included)... Normal [facility] Hand Min 3 Viewson 1 Hand Min 3 Views [facility] Imaging Services [address] [place] [address] Hand Min 3 Views MR#: [id number] Acct: [id number] Name: RADHA HOUGH Rep #: [id number] : 1985 M 35 From: Nae Teran MD PCP: Care Physician,No Primary Status: REG ER Study: Hand Min 3 Views Date of Exam: 02/15/21 Exam# [id number] Ordering Dr: Rosalee Ricks DO STUDY: X-RAY - RIGHT HAND REASON FOR EXAM: Male, 35 years old. injury TECHNIQUE: 3 view(s) of the hand. COMPARISON: None. FINDINGS: Normal radiocarpal articulation. Normal distal radioulnar joint. Normal visualized carpal bones. Normal carpal articulations Normal carpometacarpal articulation of the thumb. Normal second through fifth carpometacarpal joints. Normal metacarpi. Normal metacarpophalangeal joint of the thumb. Normal interphalangeal joint of the thumb. Normal proximal and distal phalanges of the thumb. Normal metacarpophalangeal joints of the second through fifth fingers. Normal proximal and distal interphalangeal joints of the second through fifth fingers. Normal phalanges of the second through fifth fingers. The soft tissue structures are unremarkable. RAD/Hand Min 3 Views IMPRESSION: Normal x-ray examination of the hand. Electronically Signed: Nae Teran MD at 1:15 EDT , Service support , CC: Dr. Rosalee Ricks, DO; No Primary Care Physician Hollow Handle Knife Assembler: Signed Normal [facility] 12 Lead EKGon 01-28-2021 12 Lead EKG [facility] Cardiovascular Services [address] [place] [address] 12 Lead EKG 01/28/21 1649 MR#: [id number] Acct: [id number] Name: RADHA HOUGH Rep #: [id number] : 1985 35 From: Dashawn Somers MD Attending Dr: Status: DEP ER Ordering Dr: Miguel Higuera MD Date: 01/28/21 Location: ED Sex: M C Admitted: Test Reason : CP Blood Pressure : / mmHG Vent. Rate : 057 BPM Atrial Rate : 057 BPM P-R Int : 148 ms QRS Dur : 088 ms QT Int : 402 ms P-R-T Axes : 026 063 048 degrees QTc Int : 391 ms Sinus bradycardia Otherwise normal ECG Confirmed by YONIS HAYNES, DASHAWN ([id number]), graphic editor JAMAAL FOX ([id number]) on 02/05/2021 1:45:15 PM Referred By: PAULA/WRIGH Confirmed By:DASHAWN SOMERS MD 02/05/21 1345 Date Dashawn Somers MD CC: Dr. Miguel Higuera MD; No Primary Care Physician Signed Normal [facility] Basic Metabolic Profile (BMP )on 01-28-2021 BUN/CRE 14.0 RATIO Normal -20 [facility] Comment on above: Order Comment: Comme nts: Specimen #1 Performed By: #### L 501.9100, L500.4050, L100.0100 #### [facility] [address] [place] [place], [address] CA,Total 8.8 mg/dL Normal 8.5-10.1 [facility] Comment on above: Order Comment: Comme nts: Specimen #1 Performed By: #### L 501.9100, L500.4050, L100.0100 #### [facility] [address] [place], [address] Chloride [Moles/Vol] 106 mmol/L Normal 98-107 [facility] Comment on above: Order Comment: Comme nts: Specimen #1 Performed By: #### L 501.9100, L500.4050, L100.0100 #### [facility] [address] [place], [address] CO2 [Moles/Vol] 29.0 mmol/L Normal 21.0-32.0 [facility] Comment on above: Order Comment: Comme nts: Specimen #1 Performed By: #### L 501.9100, L500.4050, L100.0100 #### [facility] [address] [place], [address] Creatinine [Mass/Vol] 1.00 mg/dL Normal 0.70-1.30 [facility] Comment on above: Order Comment: Comme nts: Specimen #1 Result Comment: The validity of the calculated GFR GFRAA in patients over 70 years has not been determined. Clinical correlation is essential. Performed By: #### L 501.9100, L500.4050, L100.0100 #### [facility] [address] [place], [address] ECRCL 114.30 ml/min Normal [facility] Comment on above: Order Comment: Comme nts: Specimen #1 Performed By: #### L 501.9100, L500.4050, L100.0100 #### [facility] [address] [place], [address] EST GFR - AA 108 mL/min Normal >60 [facility] Comment on above: Order Comment: Comme nts: Specimen #1 Result Comment: Afri can [facility] GFR Calc Performed By: #### L 501.9100, L500.4050, L100.0100 #### [facility] [address] [place], [address] GAP 3 Low 5-15 [facility] Comment on above: Order Comment: Comme nts: Specimen #1 Performed By: #### L 501.9100, L500.4050, L100.0100 #### [facility] [address] [place], [address] GFR/1.73 sq M.predicted among non-blacks MDRD (S/P/Bld) [Vol rate/Area] 89 mL/min/{1.73_m2} Normal >60 [facility] Comment on above: Order Comment: Comme nts: Specimen #1 Result Comment: Non- GFR Calc Performed By: #### L 501.9100, L500.4050, L100.0100 #### [facility] [address] [place], [address] Glucose [Mass/Vol] 89 mg/dL Normal 74-106 [facility] Comment on above: Order Comment: Comme nts: Specimen #1 Result Comment: Taylor osborne note revised GLUCOSE reference range effective 2017. Performed By: #### L 501.9100, L500.4050, L100.0100 #### [facility] [address] [place], [address] Potassium [Moles/Vol] 3.9 mmol/L Normal 3.5-5.1 [facility] Comment on above: Order Comment: Comme nts: Specimen #1 Performed By: #### L 501.9100, L500.4050, L100.0100 #### [facility] [address] [place], [address] Sodium [Moles/Vol] 138 mmol/L Normal 136-145 [facility] Comment on above: Order Comment: Comme nts: Specimen #1 Performed By: #### L 501.9100, L500.4050, L100.0100 #### [facility] [address] [place], [address] Urea nitrogen [Mass/Vol] 14 mg/dL Normal 7-18 [facility] Comment on above: Order Comment: Comme nts: Specimen #1 Performed By: #### L 501.9100, L500.4050, L100.0100 #### [facility] [address] [place], [address] CBC W/Diff, Automatedon 09- Absolute Lymph 1.61 X10 3/uL Normal 0.83-4.51 [facility] Comment on above: Performed By: #### L 501.9100, L500.4050, L100.0100 #### [facility] [address] [place], [address] Absolute Neut 6.2 X10 3/uL Normal 2.0-7.7 [facility] Comment on above: Performed By: #### L 501.9100, L500.4050, L100.0100 #### [facility] [address] [place] [place], [address] Basophils/100 WBC (Bld) 0.3 % Normal 0-1 [facility] Comment on above: Performed By: #### L 501.9100, L500.4050, L100.0100 #### [facility] [address] [place], [address] Eosinophils/100 WBC (Bld) 2.2 % Normal 0-5 [facility] Comment on above: Performed By: #### L 501.9100, L500.4050, L100.0100 #### [facility] [address] [place], [address] Erythrocyte distribution width (RBC) [Ratio] 13.4 % Normal 11.6-14.6 [facility] Comment on above: Performed By: #### L 501.9100, L500.4050, L100.0100 #### [facility] [address] [place], [address] Hematocrit (Bld) [Volume fraction] 44.7 % Normal 40-54 [facility] Comment on above: Performed By: #### L 501.9100, L500.4050, L100.0100 #### [facility] [address] [place], [address] Hemoglobin (Bld) [Mass/Vol] 14.4 g/dL Normal 13.0-16.5 [facility] Comment on above: Performed By: #### L 501.9100, L500.4050, L100.0100 #### [facility] [address] [place], [address] IG% 0.200 Normal 0.0-0.9 [facility] Comment on above: Result Comment: IG% - Immature Granulocytes (promyelocytes, myelocytes and metamyelocytes) > 1% indicates that a LEFT SHIFT is Present. Performed By: #### L 501.9100, L500.4050, L100.0100 #### [facility] [address] [place], [address] Lymphocytes/100 WBC (Bld) 18.0 % Low 19-41 [facility] Comment on above: Performed By: #### L 501.9100, L500.4050, L100.0100 #### [facility] [address] [place], [address] MCH (RBC) [Entitic mass] 31.6 pg Normal 27.0-32.0 [facility] Comment on above: Performed By: #### L 501.9100, L500.4050, L100.0100 #### [facility] [address] [place], [address] MCHC (RBC) [Mass/Vol] 32.2 g/dL Normal 32-36 [facility] Comment on above: Performed By: #### L 501.9100, L500.4050, L100.0100 #### [facility] [address] [place], [address] MCV (RBC) [Entitic vol] 98.2 fL High 80-94 [facility] Comment on above: Performed By: #### L 501.9100, L500.4050, L100.0100 #### [facility] [address] [place], [address] Monocytes/100 WBC (Bld) 10.4 % High 0-10 [facility] Comment on above: Performed By: #### L 501.9100, L500.4050, L100.0100 #### [facility] [address] [place], [address] Neutrophils/100 WBC (Bld) 68.9 % Normal 47-70 [facility] Comment on above: Performed By: #### L 501.9100, L500.4050, L100.0100 #### [facility] [address] [place], [address] Nucleated RBC (Bld) [#/Vol] 0 10*3/uL Normal 0-5 [facility] Comment on above: Performed By: #### L 501.9100, L500.4050, L100.0100 #### [facility] [address] [place], [address] Platelet mean volume (Bld) [Entitic vol] 9.3 fL Normal 6.2-12.0 [facility] Comment on above: Performed By: #### L 501.9100, L500.4050, L100.0100 #### [facility] [address] [place], [address] Platelets (Bld) [#/Vol] 300 10*3/uL Normal 150-450 [facility] Comment on above: Performed By: #### L 501.9100, L500.4050, L100.0100 #### [facility] [address] [place], [address] RBC (Bld) [#/Vol] 4.55 10*6/uL Low 4.6-6.2 [facility] Comment on above: Performed By: #### L 501.9100, L500.4050, L100.0100 #### [facility] [address] [place], [address] RDW SD 48.8 fl High 35.1-43.9 [facility] Comment on above: Performed By: #### L 501.9100, L500.4050, L100.0100 #### [facility] [address] [place], [address] WBC (Bld) [#/Vol] 8.9 10*3/uL Normal 4.4-11.0 [facility] Comment on above: Performed By: #### L 501.9100, L500.4050, L100.0100 #### [facility] [address] [place], [address] Chest 1 View (Portable)on Chest 1 View (Portable) [facility] Imaging Services [address] [place] [address] Chest 1 View (Portable) MR#: [id number] Acct: [id number] Name: RADHA HOUGH Rep #: [id number] : 1985 M 35 From: Esequiel Pina PCP: Care Physician,No Primary Status: DEP ER Study: Chest 1 View (Portable) Date of Exam: 01/28/21 Exam# [id number] Ordering Dr: Miguel Higuera MD STUDY: X-RAY CHEST REASON FOR EXAM: Male, 35 years old. chest pain difficulty taking deep breaths TECHNIQUE: Frontal portable view of the chest COMPARISON: 14 March 2017 FINDINGS: The lungs are clear and expanded. There is no demonstrated pleural abnormality. Normal size heart. Normal mediastinum and wily. Normal visualized pulmonary arteries. Normal visualized aortic arch and descending thoracic aorta. Normal visualized thoracic spine. Normal visualized ribs, clavicles, and shoulders. There is no demonstrated abnormality of the visualized soft tissue structures of the upper abdomen. RAD/Chest 1 View (Portable) IMPRESSION: Normal x-ray examination of the chest. Electronically Signed: Esequiel Chappell MD at 19:46 EDT Tel , Service support , CC: Dr. Miguel Higuera MD; No Primary Care Physician Hollow Handle Knife Assembler: Signed Normal [facility] D-Dimer Quantitative (DVT/PE )on 01-28-2021 D-DIMER QUANT 0.40 FEU/ug/m Normal 0.27-0.49 [facility] Comment on above: Result Comment: NORM AL D-Dimer level (<0.50) indicates no DVT or PE. Performed By: #### L 501.9100, L500.4050, L100.0100 #### [facility] [address] [place], [address] Emergency Department Summary on 01-28-2021 Emergency Department Summary [facility] Medical Records Department [address] [place] [address] Emergency Department Summary 01/28/21 MR#: [id number] Acct: [id number] Name: RADHA HOUGH Rep #: [id number] : 1985 35 From: Miguel Higuera MD PCP: Care Physician,No Primary Status:REG ER Location: ED HPI History of Present Illness Chief Complaint: Chest Pain Informant: patient Onset/Context/Timing Onset: Yesterday Activity at onset: gradual Timing: Intermittent Quality: Positive for Aching Location: Right Parasternal and Left Parasternal Current Severity: Gone Maximum Severity: Mild Worsened By: Breathing Relieved By: Remaining Still Associated Symptoms: Negative for Nausea, Vomiting, Diaphoresis, Dyspnea, Cough, Fever, Lightheadedness, Acid Reflux and Palpitations Narrative Prior Similar Symptoms: No Recent Illness/Hospitalization: No CVD Risk Factors: Positive for Smoking; Negative for Hypertension, Diabetes, Hypercholesterolemia and Family History 1' PE Risk Factors: Negative for Recent Travel/Surgery, Recent Immobilization, Prior DVT or PE, Cancer and OCP + Smoking + >/=35 TAD Risk Factors: Negative for Marfan's Syndrome, Hypertension and Family History PFSH PFSH Medical History Smoker Substance abuse Home Medications NK 01/28/21 [History Last Taken Unknown] Allergy/AdvReac Type Severity Reaction Status Date / Time acetaminophen [From [place]] AdvReac Upset Verified 01/28/21 16:40 Stomach hydrocodone bitartrate AdvReac Upset Verified 01/28/21 16:40 [From [place]] Stomach Family History Other Opiate addiction Surgical History H/O eye surgery History of hernia surgery Social History household members: none Smoking Status: Former smoker quit status: considering quitting alcohol intake: current alcohol intake frequency: holidays/special occasions only substance use type: marijuana and heroin ROS ROS ED Review of Systems ROS Unobtainable: Denies due to encephalopathy Constitutional Constitutional ED: Denies chills, fever(s) or subjective Eyes Eyes: Denies none or change in vision ENT ENT ED: Denies ear pain, rhinorrhea or sore throat Cardiovascular Cardiovascular: Reports as per HPI and chest pain; Denies palpitations or racing heartbeat Respiratory/Chest Respiratory/Chest: Denies cough or dyspnea Gastrointestinal Gastrointestinal: Denies abdominal pain, diarrhea, nausea or vomiting Genitourinary Genitourinary ED: Denies dysuria or hematuria Musculoskeletal Musculoskeletal: Denies myalgias Integumentary Denies rash Neurologic Neurologic: Denies headache(s) Psychiatric Psychiatric: Denies depression Endocrine Endocrinology: Denies polyuria Hematologic/Lymphatic Hematologic/Lymphatic: Denies easy bruising Allergic/Immunologic Allergic/Immunologic ED: Denies urticaria EXAM Physical Exam Narrative Exam Narrative: 35-year-old male no acute distress. Vital signs stable afebrile. Pulse ox 100% on room air no signs hypoxia. Exam normal. No reproducible chest wall pain. Lungs clear to auscultation. Heart regular rate and rhythm. Abdomen soft nontender. Moving all 4 extremities. Calves are nontender without edema or cords. Const Vital Signs: 01/28/21 16:40 01/28/21 17:58 01/28/21 18:00 Temperature 98.0 F Temperature Source Temporal Pulse Rate 66 50 L Respiratory Rate 16 14 Respiratory Effort Normal Blood Pressure 117/72 Blood Pressure Mean 87 Pulse Ox 100 99 Oxygen Delivery Method Room Air Room Air 01/28/21 18:01 01/28/21 18:03 Temperature Temperature Source Pulse Rate Respiratory Rate Respiratory Effort Blood Pressure 113/64 Blood Pressure Mean 80 Pulse Ox Oxygen Delivery Method Room Air Positive well nourished and well developed; Negative for obese, cachectic, contractures or unkempt General Appearance ED: well developed and NAD; Negative for unkempt, cachectic, contractures or pallor Nutritional Appearance: Negative for cachectic or obese HEENT Reports moist mucous membranes normocephalic and atraumatic; Negative for trauma or tenderness Eyes PERRL and EOMs intact bilaterally Neck no lymphadenopathy, supple and no JVD General: tenderness Chest Wall inspection of chest normal and palpation of chest normal Chest: Negative for tenderness Resp normal respiratory effort and clear to auscultation bilaterally Effort and Inspection: respiratory distress Auscultation: Negative for rales, rhonchi or wheezes Cardio regular rate, regular rhythm, S1 normal heart sound, S2 normal heart sound and no murmurs Rate: Negat (more content not included)... Normal [facility] L501.4020on 01-28-2021 TROPONIN-I HS 5 pg/mL Normal 3.0-78.0 [facility] Comment on above: Order Comment: Comme nts: Specimen #1 Result Comment: Plea se Note: New Test Units and Gender Specific Reference Ranges. For more information see Policy Stat Procedure [place] High Sensitivity Troponin (TNIH) and attachments. Performed By: #### L 501.9100, L500.4050, L100.0100 #### [facility] [address] [facility] [place], [address] Ankle min 3 Viewson 11-25-19 21 Ankle min 3 Views [facility] Imaging Services [address] [place] [address] Ankle min 3 Views MR#: [id number] Acct: [id number] Name: RADHA HOUGH Rep #: [id number] : 1985 M 35 From: Ashish Chester MD PCP: Care Physician,No Primary Status: [facility] ER Study: Ankle min 3 Views Date of Exam: 11/24/20 Exam# [id number] Ordering Dr: Nathaniel Claudio MD STUDY: X-RAY - LEFT ANKLE REASON FOR EXAM: Male, 35 years old. Injury/Pain TECHNIQUE: 3 view(s) of the ankle. COMPARISON: None. FINDINGS: Normal visualized distal tibia and fibula. Normal medial and lateral malleoli. Normal tibiotalar articulation and ankle mortise. Normal visualized talus and calcaneus. The visualized subtalar, talonavicular, calcaneocuboid and tarsal articulations are normal. Soft tissue swelling more so along the lateral malleolus. No radiopaque foreign body identified. RAD/Ankle min 3 Views IMPRESSION: Soft tissue swelling more so along the lateral malleolus. No acute fracture identified. Electronically Signed: Ashish [place] MD at 6:02 EDT Tel , Service support , CC: Dr. Nathaniel Claudio MD; No Primary Care Physician Hollow Handle Knife Assembler: Signed Normal [facility] Emergency Department Summary on 11-24-2020 Emergency Department Summary [facility] Medical Records Department [address] [place] [address] Emergency Department Summary 11/24/20 MR#: [id number] Acct: [id number] Name: RADHA HOUGH Rep #: [id number] : 1985 35 From: Nathaniel Claudio MD PCP: Care Physician,No Primary Status:REG ER Location: ED HPI History of Present Illness Chief Complaint: Lower Extremity Injury Informant: patient Occured/Mechanism Comment: Plantar inversion mechanism injury going down steps Onset/Context/Timing Context: Sudden Onset Timing: Continuous Quality of Pain: Aching and Throbbing Current Severity: Mild Maximum Severity: Moderate Worsened by: Weight bearing Relieved by: Nothing Associated Symptoms Associated Symptoms: Negative for Parasthesia, Weakness and Loss of Funtion Narrative Narrative: Patient is a 35-year-old male who was working on his wet steps. He slipped. He states he felt a pop. He complains of pain laterally. He denies prior fracture. He denies paresthesia, anesthesia motors. He has no other complaints. Tetanus Immunization: 5-10 years Prior similar symptoms: No Recent Illness/Hospitalization: No [facility] Medical History Smoker Substance abuse Home Medications naproxen 500 mg PO BID #14 tab 11/24/20 [Rx Last Taken Unknown] Allergy/AdvReac Type Severity Reaction Status Date / Time acetaminophen [From [place]] AdvReac Upset Verified 11/24/20 05:06 Stomach hydrocodone bitartrate AdvReac Upset Verified 11/24/20 05:06 [From [place]] Stomach Family History Other Opiate addiction Surgical History H/O eye surgery History of hernia surgery Social History (Updated 11/24/20 @ 05:[address] Nathaniel Claudio MD) household members: none Smoking Status: Former smoker quit status: considering quitting alcohol intake: current alcohol intake frequency: holidays/special occasions only substance use type: marijuana and heroin ROS ROS ED Constitutional Constitutional ED: Denies chills, fever(s) or subjective Musculoskeletal Musculoskeletal: Reports other Details: Left ankle pain ; Denies arthralgias, back pain, myalgias or neck pain Integumentary Denies Abrasions Neurologic Neurologic: Denies paresthesias or weakness Hematologic/Lymphatic Hematologic/Lymphatic: Denies easy bleeding or easy bruising EXAM Physical Exam Const Vital Signs: 11/24/20 05:03 Temperature 97.0 F L Temperature Source Temporal Pulse Rate 77 Respiratory Rate 18 Blood Pressure 141/85 H Blood Pressure Mean 103 Pulse Ox 99 Oxygen Delivery Method Room Air Positive well nourished and well developed General Appearance ED: well developed HEENT normocephalic and atraumatic Eyes PERRL Eyes Narrative: Extract muscle intact. Sclerae anicteric. Neck full ROM Resp normal respiratory effort and clear to auscultation bilaterally Cardio regular rate, regular rhythm, S1 normal heart sound and no murmurs Extremity normal to inspection and full ROM Extremity Narrative: There is swelling with pain no patient posterior aspect of the left lateral malleolus. There is no pain the patient of the base of the fifth metatarsal. There is no lax with drawer testing. DP pulse and PT pulse are palpable. General Extremety ED: Yes weight-bearing difficulty; Negative for cyanosis or edema General Extremity: weight-bearing difficulty; Negative for cyanosis or edema Neuro oriented x3, CN's II-XII intact bilaterally and no sensory deficits noted Sensorium / Orientation: alert Motor Exam: strength 5/5 throughout Psych mental status grossly normal Skin Lesions: no lesions Rashes: no rashes MDM MDM MDM Narrative Medical decision making narrative: X-ray was obtained to determine if this represents a fracture versus sprain Radiography X-Ray: Read by ED Physician (Three-view x-ray of the ankle reveal soft tissue swelling over the lateral malleolus. There is no fracture, subluxation or dislocation. There is no asymmetry of the mortise. This was interpreted by me at 0537) Discharge Plan Triage Chief Complaint: Lower Extremity Injury ED Provider: Natahniel Claudio Dx/Rx/DC Orders Clinical Impression: Left ankle sprain Instructions: ED Ankle Sprain (Adult) Prescriptions: New naproxen 500 MG tablet 500 mg PO BID Qty: 14 RF: 0 Primary Care Provider: Care Physician,No Primary Referrals: Care Physician,No Primary [Primary Care Provider] - Doctor,Your [STAFF PHYSICIAN] - 10-14 Days if not better Activity Restrictions/Additional Instructions: 1. Wear air splint/cast while awake 2. May remove air splint/cast when you go to bed 3. Apply ice 8 times a day for the next 5 to 7 days 4. Draw (more content not included)... Normal [facility] Basic Metabolic Profile (BMP )on 11-03-2020 BUN Normal 7-18 [facility] Comment on above: Result Comment: Canc elled via OM: Order cancelled - Patient discharged Performed By: #### L 100.0100, L500.2500 ####[facility] [address] [place], [address] BUN/CRE Normal 10-20 [facility] Comment on above: Result Comment: Canc elled via OM: Order cancelled - Patient discharged Performed By: #### L 100.0100, L500.2500 ####[facility] [address] [place], [address] CA,Total Normal 8.5-10.1 [facility] Comment on above: Result Comment: Canc elled via OM: Order cancelled - Patient discharged Performed By: #### L 100.0100, L500.2500 ####[facility] [address] [place], [address] CL Normal 98-107 [facility] Comment on above: Result Comment: Canc elled via OM: Order cancelled - Patient discharged Performed By: #### L 100.0100, L500.2500 ####[facility] [address] [place], [address] CO2 Normal 21.0-32.0 [facility] Comment on above: Result Comment: Canc elled via OM: Order cancelled - Patient discharged Performed By: #### L 100.0100, L500.2500 ####[facility] [address] [place], [address] CREAT,SERUM Normal 0.70-1.30 [facility] Comment on above: Result Comment: Canc elled via OM: Order cancelled - Patient discharged Performed By: #### L 100.0100, L500.2500 ####[facility] [address] [place], [address] EST GFR Normal >60 [facility] Comment on above: Result Comment: Canc elled via OM: Order cancelled - Patient discharged Performed By: #### L 100.0100, L500.2500 ####[facility] [address] [place], [address] EST GFR - AA Normal >60 [facility] Comment on above: Result Comment: Canc elled via OM: Order cancelled - Patient discharged Performed By: #### L 100.0100, L500.2500 ####[facility] [address] [place], [address] GAP Normal 5-15 [facility] Comment on above: Result Comment: Canc elled via OM: Order cancelled - Patient discharged Performed By: #### L 100.0100, L500.2500 ####[facility] [address] [place], [address] GLU Normal 74-106 [facility] Comment on above: Result Comment: Canc elled via OM: Order cancelled - Patient discharged Performed By: #### L 100.0100, L500.2500 ####[facility] [address] [place], [address] Potassium Normal 3.5-5.1 [facility] Comment on above: Result Comment: Canc elled via OM: Order cancelled - Patient discharged Performed By: #### L 100.0100, L500.2500 ####[facility] [address] [place], [address] Basic Metabolic Profile (BMP) Normal 136-145 [facility] Comment on above: Result Comment: Canc elled via OM: Order cancelled - Patient discharged Performed By: #### L 100.0100, L500.2500 ####[facility] [address] [place], [address] CBC W/Diff, Automatedon 06-2 Absolute Neut Normal 2.0-7.7 [facility] Comment on above: Result Comment: Canc elled via OM: Order cancelled - Patient discharged Performed By: #### L 100.0100, L500.2500 ####[facility] [address] [place], [address] HCT Normal 40-54 [facility] Comment on above: Result Comment: Canc elled via OM: Order cancelled - Patient discharged Performed By: #### L 100.0100, L500.2500 ####[facility] [address] [place], [address] HGB Normal 13.0-16.5 [facility] Comment on above: Result Comment: Canc elled via OM: Order cancelled - Patient discharged Performed By: #### L 100.0100, L500.2500 ####[facility] [address] [place], [address] MCH Normal 27.0-32.0 [facility] Comment on above: Result Comment: Canc elled via OM: Order cancelled - Patient discharged Performed By: #### L 100.0100, L500.2500 ####[facility] [address] [place], [address] MCHC Normal 32-36 [facility] Comment on above: Result Comment: Canc elled via OM: Order cancelled - Patient discharged Performed By: #### L 100.0100, L500.2500 ####[facility] [address] [place], [address] MCV Normal 80-94 [facility] Comment on above: Result Comment: Canc elled via OM: Order cancelled - Patient discharged Performed By: #### L 100.0100, L500.2500 ####[facility] [address] [place], [address] NEUT% Normal 47-70 [facility] Comment on above: Result Comment: Canc elled via OM: Order cancelled - Patient discharged Performed By: #### L 100.0100, L500.2500 ####[facility] [address] [place], [address] PLT Normal 150-450 [facility] Comment on above: Result Comment: Canc elled via OM: Order cancelled - Patient discharged Performed By: #### L 100.0100, L500.2500 ####[facility] [address] [place], [address] RBC Normal 4.6-6.2 [facility] Comment on above: Result Comment: Canc elled via OM: Order cancelled - Patient discharged Performed By: #### L 100.0100, L500.2500 ####[facility] [address] [place], [address] RDW CV Normal 11.6-14.6 [facility] Comment on above: Result Comment: Canc elled via OM: Order cancelled - Patient discharged Performed By: #### L 100.0100, L500.2500 ####[facility] [address] [place], [address] RDW SD Normal 35.1-43.9 [facility] Comment on above: Result Comment: Canc elled via OM: Order cancelled - Patient discharged Performed By: #### L 100.0100, L500.2500 ####[facility] [address] [place], [address] WBC Normal 4.4-11.0 [facility] Comment on above: Result Comment: Canc elled via OM: Order cancelled - Patient discharged Performed By: #### L 100.0100, L500.2500 ####[facility] [address] [place], [address] Basic Metabolic Profile (BMP )on 11-02-2020 BUN Normal 7-18 [facility] Comment on above: Result Comment: Canc elled via OM: MD Ordered Performed By: #### L 505.5000 #### [facility] [address] [place], [address] BUN/CRE Normal 10-20 [facility] Comment on above: Result Comment: Canc elled via OM: MD Ordered Performed By: #### L 505.5000 #### [facility] [address] [place], [address] CA,Total Normal 8.5-10.1 [facility] Comment on above: Result Comment: Canc elled via OM: MD Ordered Performed By: #### L 505.5000 #### [facility] [address] [place], [address] CL Normal 98-107 [facility] Comment on above: Result Comment: Canc elled via OM: MD Ordered Performed By: #### L 505.5000 #### [facility] [address] [place], [address] CO2 Normal 21.0-32.0 [facility] Comment on above: Result Comment: Canc elled via OM: MD Ordered Performed By: #### L 505.5000 #### [facility] [address] [place], [address] CREAT,SERUM Normal 0.70-1.30 [facility] Comment on above: Result Comment: Canc elled via OM: MD Ordered Performed By: #### L 505.5000 #### [facility] [address] [place], [address] EST GFR Normal >60 [facility] Comment on above: Result Comment: Canc elled via OM: MD Ordered Performed By: #### L 505.5000 #### [facility] [address] [place], [address] EST GFR - AA Normal >60 [facility] Comment on above: Result Comment: Canc elled via OM: MD Ordered Performed By: #### L 505.5000 #### [facility] [address] [place], [address] GAP Normal 5-15 [facility] Comment on above: Result Comment: Canc elled via OM: MD Ordered Performed By: #### L 505.5000 #### [facility] [address] [place], [address] GLU Normal 74-106 [facility] Comment on above: Result Comment: Canc elled via OM: MD Ordered Performed By: #### L 505.5000 #### [facility] [address] [place], [address] Potassium Normal 3.5-5.1 [facility] Comment on above: Result Comment: Canc elled via OM: MD Ordered Performed By: #### L 505.5000 #### [facility] [address] [place], [address] Basic Metabolic Profile (BMP) Normal 136-145 [facility] Comment on above: Result Comment: Canc elled via OM: MD Ordered Performed By: #### L 505.5000 #### [facility] [address] [place], [address] CBC W/Diff, Automatedon 06-2 Absolute Neut Normal 2.0-7.7 [facility] Comment on above: Result Comment: Canc elled via OM: MD Ordered Performed By: #### L 501.9100, L500.4050, L100.0100 #### [facility] [address] [place], [address] HCT Normal 40-54 [facility] Comment on above: Result Comment: Canc elled via OM: MD Ordered Performed By: #### L 501.9100, L500.4050, L100.0100 #### [facility] [address] [place], [address] HGB Normal 13.0-16.5 [facility] Comment on above: Result Comment: Canc elled via OM: MD Ordered Performed By: #### L 501.9100, L500.4050, L100.0100 #### [facility] [address] [place], [address] MCH Normal 27.0-32.0 [facility] Comment on above: Result Comment: Canc elled via OM: MD Ordered Performed By: #### L 501.9100, L500.4050, L100.0100 #### [facility] [address] [place], [address] MCHC Normal 32-36 [facility] Comment on above: Result Comment: Canc elled via OM: MD Ordered Performed By: #### L 501.9100, L500.4050, L100.0100 #### [facility] [address] [place], [address] MCV Normal 80-94 [facility] Comment on above: Result Comment: Canc elled via OM: MD Ordered Performed By: #### L 501.9100, L500.4050, L100.0100 #### [facility] [address] [place], [address] NEUT% Normal 47-70 [facility] Comment on above: Result Comment: Canc elled via OM: MD Ordered Performed By: #### L 501.9100, L500.4050, L100.0100 #### [facility] [address] [place], [address] PLT Normal 150-450 [facility] Comment on above: Result Comment: Canc elled via OM: MD Ordered Performed By: #### L 501.9100, L500.4050, L100.0100 #### [facility] [address] [place], [address] RBC Normal 4.6-6.2 [facility] Comment on above: Result Comment: Canc elled via OM: MD Ordered Performed By: #### L 501.9100, L500.4050, L100.0100 #### [facility] [address] [place], [address] RDW CV Normal 11.6-14.6 [facility] Comment on above: Result Comment: Canc elled via OM: MD Ordered Performed By: #### L 501.9100, L500.4050, L100.0100 #### [facility] [address] [place], [address] RDW SD Normal 35.1-43.9 [facility] Comment on above: Result Comment: Canc elled via OM: MD Ordered Performed By: #### L 501.9100, L500.4050, L100.0100 #### [facility] [address] [place], [address] WBC Normal 4.4-11.0 [facility] Comment on above: Result Comment: Canc elled via OM: MD Ordered Performed By: #### L 501.9100, L500.4050, L100.0100 #### [facility] [address] [place], [address] Alcohol, Blood (Medical)-Ser umon 11-01-2020 SERUM ETOH < 3.0 Normal [facility] Comment on above: Order Comment: RESUL T(S) PREVIOUSLY REPORTED ON MANUAL REQUISITION DURINGDOWNTIME. Result Comment: The serum:whole blood ethanol ratio is approximately 1.14 and varies slightly with hematocrit. Medical Alcohol reference interval and critical value in non-tolerant individuals; 50 - 100 Impairment 100 Intoxication 100 - 250 Severe Poisoning 250 - 400 Deep/possible fatal coma Performed By: #### L 501.9100, L505.5000, L500.4050, L100.0100 ####[facility] [address] [facility] [place], [address] CBC W/Diff, Automatedon 10-11 Absolute Lymph 3.55 X10 3/uL Normal 0.83-4.51 [facility] Comment on above: Order Comment: RESUL T(S) PREVIOUSLY REPORTED ON MANUAL REQUISITION DURINGDOWNTIME. Performed By: #### L 501.9100, L505.5000, L500.4050, L100.0100 ####[facility] [address] [facility] [place], [address] Absolute Neut 6.2 X10 3/uL Normal 2.0-7.7 [facility] Comment on above: Order Comment: RESUL T(S) PREVIOUSLY REPORTED ON MANUAL REQUISITION DURINGDOWNTIME. Performed By: #### L 501.9100, L505.5000, L500.4050, L100.0100 ####[facility] [address] [place], [address] IG% 0.400 Normal 0.0-0.9 [facility] Comment on above: Order Comment: RESUL T(S) PREVIOUSLY REPORTED ON MANUAL REQUISITION DURINGDOWNTIME. Result Comment: IG% - Immature Granulocytes (promyelocytes, myelocytes and metamyelocytes) > 1% indicates that a LEFT SHIFT is Present. Performed By: #### L 501.9100, L505.5000, L500.4050, L100.0100 ####[facility] [address] [place], [address] Basophils/100 WBC (Bld) 3.6 % High 0-1 [facility] Comment on above: Order Comment: RESUL T(S) PREVIOUSLY REPORTED ON MANUAL REQUISITION DURINGDOWNTIME. Performed By: #### L 501.9100, L505.5000, L500.4050, L100.0100 ####[facility] [address] [place], [address] Eosinophils/100 WBC (Bld) 0.5 % Normal 0-5 [facility] Comment on above: Order Comment: RESUL T(S) PREVIOUSLY REPORTED ON MANUAL REQUISITION DURINGDOWNTIME. Performed By: #### L 501.9100, L505.5000, L500.4050, L100.0100 ####[facility] [address] [place], [address] Erythrocyte distribution width (RBC) [Ratio] 13.2 % Normal 11.6-14.6 [facility] Comment on above: Order Comment: RESUL T(S) PREVIOUSLY REPORTED ON MANUAL REQUISITION DURINGDOWNTIME. Performed By: #### L 501.9100, L505.5000, L500.4050, L100.0100 ####[facility] [address] [place], [address] Hematocrit (Bld) [Volume fraction] 48.1 % Normal 40-54 [facility] Comment on above: Order Comment: RESUL T(S) PREVIOUSLY REPORTED ON MANUAL REQUISITION DURINGDOWNTIME. Performed By: #### L 501.9100, L505.5000, L500.4050, L100.0100 ####[facility] [address] [place], [address] Hemoglobin (Bld) [Mass/Vol] 15.9 g/dL Normal 13.0-16.5 [facility] Comment on above: Order Comment: RESUL T(S) PREVIOUSLY REPORTED ON MANUAL REQUISITION DURINGDOWNTIME. Performed By: #### L 501.9100, L505.5000, L500.4050, L100.0100 ####[facility] [address] [place], [address] Lymphocytes/100 WBC (Bld) 30.3 % Normal 19-41 [facility] Comment on above: Order Comment: RESUL T(S) PREVIOUSLY REPORTED ON MANUAL REQUISITION DURINGDOWNTIME. Performed By: #### L 501.9100, L505.5000, L500.4050, L100.0100 ####[facility] [address] [place], [address] MCH (RBC) [Entitic mass] 31.1 pg Normal 27.0-32.0 [facility] Comment on above: Order Comment: RESUL T(S) PREVIOUSLY REPORTED ON MANUAL REQUISITION DURINGDOWNTIME. Performed By: #### L 501.9100, L505.5000, L500.4050, L100.0100 ####[facility] [address] [place], [address] MCHC (RBC) [Mass/Vol] 33.1 g/dL Normal 32-36 [facility] Comment on above: Order Comment: RESUL T(S) PREVIOUSLY REPORTED ON MANUAL REQUISITION DURINGDOWNTIME. Performed By: #### L 501.9100, L505.5000, L500.4050, L100.0100 ####[facility] [address] [place], [address] MCV (RBC) [Entitic vol] 93.9 fL Normal 80-94 [facility] Comment on above: Order Comment: RESUL T(S) PREVIOUSLY REPORTED ON MANUAL REQUISITION DURINGDOWNTIME. Performed By: #### L 501.9100, L505.5000, L500.4050, L100.0100 ####[facility] [address] [place], [address] Monocytes/100 WBC (Bld) 12.1 % High 0-10 [facility] Comment on above: Order Comment: RESUL T(S) PREVIOUSLY REPORTED ON MANUAL REQUISITION DURINGDOWNTIME. Performed By: #### L 501.9100, L505.5000, L500.4050, L100.0100 ####[facility] [address] [place], [address] Neutrophils/100 WBC (Bld) 53.1 % Normal 47-70 [facility] Comment on above: Order Comment: RESUL T(S) PREVIOUSLY REPORTED ON MANUAL REQUISITION DURINGDOWNTIME. Performed By: #### L 501.9100, L505.5000, L500.4050, L100.0100 ####[facility] [address] [place], [address] Platelet mean volume (Bld) [Entitic vol] 9.1 fL Normal 6.2-12.0 [facility] Comment on above: Order Comment: RESUL T(S) PREVIOUSLY REPORTED ON MANUAL REQUISITION DURINGDOWNTIME. Performed By: #### L 501.9100, L505.5000, L500.4050, L100.0100 ####[facility] [address] [place], [address] Platelets (Bld) [#/Vol] 349 10*3/uL Normal 150-450 [facility] Comment on above: Order Comment: RESUL T(S) PREVIOUSLY REPORTED ON MANUAL REQUISITION DURINGDOWNTIME. Performed By: #### L 501.9100, L505.5000, L500.4050, L100.0100 ####[facility] [address] [place], [address] RBC (Bld) [#/Vol] 5.12 10*6/uL Normal 4.6-6.2 [facility] Comment on above: Order Comment: RESUL T(S) PREVIOUSLY REPORTED ON MANUAL REQUISITION DURINGDOWNTIME. Performed By: #### L 501.9100, L505.5000, L500.4050, L100.0100 ####[facility] [address] [place], [address] RDW SD 45.9 fl High 35.1-43.9 [facility] Comment on above: Order Comment: RESUL T(S) PREVIOUSLY REPORTED ON MANUAL REQUISITION DURINGDOWNTIME. Performed By: #### L 501.9100, L505.5000, L500.4050, L100.0100 ####[facility] [address] [place], [address] WBC (Bld) [#/Vol] 11.7 10*3/uL High 4.4-11.0 [facility] Comment on above: Order Comment: RESUL T(S) PREVIOUSLY REPORTED ON MANUAL REQUISITION DURINGDOWNTIME. Performed By: #### L 501.9100, L505.5000, L500.4050, L100.0100 ####[facility] [address] [place], [address] Comprehensive Metabolic Prof ilon 11-01-2020 BUN/CRE 12.4 RATIO Normal 10-20 [facility] Comment on above: Order Comment: RESUL T(S) PREVIOUSLY REPORTED ON MANUAL REQUISITION DURINGDOWNTIME. Performed By: #### L 501.9100, L505.5000, L500.4050, L100.0100 ####[facility] [address] [place], [address] CA,Total 8.8 mg/dL Normal 8.5-10.1 [facility] Comment on above: Order Comment: RESUL T(S) PREVIOUSLY REPORTED ON MANUAL REQUISITION DURINGDOWNTIME. Performed By: #### L 501.9100, L505.5000, L500.4050, L100.0100 ####[facility] [address] [place], [address] Chloride [Moles/Vol] 106 mmol/L Normal 98-107 [facility] Comment on above: Order Comment: RESUL T(S) PREVIOUSLY REPORTED ON MANUAL REQUISITION DURINGDOWNTIME. Performed By: #### L 501.9100, L505.5000, L500.4050, L100.0100 ####[facility] [address] [place], [address] CO2 [Moles/Vol] 31.0 mmol/L Normal 21.0-32.0 [facility] Comment on above: Order Comment: RESUL T(S) PREVIOUSLY REPORTED ON MANUAL REQUISITION DURINGDOWNTIME. Performed By: #### L 501.9100, L505.5000, L500.4050, L100.0100 ####[facility] [address] [place], [address] Creatinine [Mass/Vol] 1.05 mg/dL Normal 0.70-1.30 [facility] Comment on above: Order Comment: RESUL T(S) PREVIOUSLY REPORTED ON MANUAL REQUISITION DURINGDOWNTIME. Result Comment: The validity of the calculated GFR GFRAA in patients over 70 years has not been determined. Clinical correlation is essential. Performed By: #### L 501.9100, L505.5000, L500.4050, L100.0100 ####[facility] [address] [place], [address] EST GFR - AA 102 mL/min Normal >60 [facility] Comment on above: Order Comment: RESUL T(S) PREVIOUSLY REPORTED ON MANUAL REQUISITION DURINGDOWNTIME. Performed By: #### L 501.9100, L505.5000, L500.4050, L100.0100 ####[facility] [address] [place], [address] GAP 5 Normal 5-15 [facility] Comment on above: Order Comment: RESUL T(S) PREVIOUSLY REPORTED ON MANUAL REQUISITION DURINGDOWNTIME. Performed By: #### L 501.9100, L505.5000, L500.4050, L100.0100 ####[facility] [address] [place], [address] GFR/1.73 sq M.predicted among non-blacks MDRD (S/P/Bld) [Vol rate/Area] 84 mL/min/{1.73_m2} Normal >60 [facility] Comment on above: Order Comment: RESUL T(S) PREVIOUSLY REPORTED ON MANUAL REQUISITION DURINGDOWNTIME. Performed By: #### L 501.9100, L505.5000, L500.4050, L100.0100 ####[facility] [address] [place], [address] Glucose [Mass/Vol] 79 mg/dL Normal 74-106 [facility] Comment on above: Order Comment: RESUL T(S) PREVIOUSLY REPORTED ON MANUAL REQUISITION DURINGDOWNTIME. Result Comment: Taylor osborne note revised GLUCOSE reference range effective 2017. Performed By: #### L 501.9100, L505.5000, L500.4050, L100.0100 ####[facility] [address] [place], [address] Potassium [Moles/Vol] 3.4 mmol/L Low 3.5-5.1 [facility] Comment on above: Order Comment: RESUL T(S) PREVIOUSLY REPORTED ON MANUAL REQUISITION DURINGDOWNTIME. Performed By: #### L 501.9100, L505.5000, L500.4050, L100.0100 ####[facility] [address] [place], [address] Sodium [Moles/Vol] 142 mmol/L Normal 136-145 [facility] Comment on above: Order Comment: RESUL T(S) PREVIOUSLY REPORTED ON MANUAL REQUISITION DURINGDOWNTIME. Performed By: #### L 501.9100, L505.5000, L500.4050, L100.0100 ####[facility] [address] [place], [address] Urea nitrogen [Mass/Vol] 13 mg/dL Normal 7-18 [facility] Comment on above: Order Comment: RESUL T(S) PREVIOUSLY REPORTED ON MANUAL REQUISITION DURINGDOWNTIME. Performed By: #### L 501.9100, L505.5000, L500.4050, L100.0100 ####[facility] [address] [place], [address] Emergency Department Summary on 11-01-2020 Emergency Department Summary [facility] Medical Records Department [address] [place] [address] Emergency Department Summary 11/01/20 MR#: [id number] Acct: [id number] Name: RADHA HOUGH Rep #: [id number] : 1985 35 From: [place] Ramirez DO PCP: Care Physician, No Primary Status:REG ER Location: ED HPI History of Present Illness Informant: patient Narrative Narrative: 35-year-old male presents to the emergency department with his brother and they would both like detox from heroin. He states he last used around 10 hours prior to arrival. He states he last detox about 1-1/2 months ago. He did not follow-up with the program. He states that he relapsed very quickly after discharge because his brother who is also an addict lives with him. He states that his addiction is affecting his work and he needs to get clean. [facility] Medical History (Updated 11/01/20 @ 04:[address] Berlin Ramirez DO) Smoker Substance abuse Home Medications NK 05/13/20 [History Last Taken Unknown] Allergy/AdvReac Type Severity Reaction Status Date / Time acetaminophen [From [place]] AdvReac Upset Verified 09/18/20 16:47 Stomach hydrocodone bitartrate AdvReac Upset Verified 09/18/20 16:47 [From [place]] Stomach Surgical History (Updated 11/01/20 @ 04:[address] [place] Ramirez DO) H/O eye surgery History of hernia surgery Social History Smoking Status: Current every day smoker quit status: considering quitting substance use type: marijuana and heroin ROS ROS ED Constitutional Constitutional ED: Denies chills or weight loss Eyes Eyes: Denies change in vision or diplopia ENT ENT ED: Denies ear pain, rhinorrhea or sore throat Cardiovascular Cardiovascular: Denies chest pain, orthopnea, palpitations or racing heartbeat Respiratory/Chest Respiratory/Chest: Denies cough, dyspnea or orthopnea Gastrointestinal Gastrointestinal: Denies abdominal pain, diarrhea, nausea or vomiting Genitourinary Genitourinary ED: Denies dysuria, hematuria or urinary frequency Musculoskeletal Musculoskeletal: Reports myalgias; Denies arthralgias Integumentary Denies abscess or rash Neurologic Neurologic: Denies headache(s) or weakness Psychiatric Psychiatric: Denies anxiety, depression, suicidal ideation or suicidal thoughts Endocrine Endocrinology: Denies polydipsia, polyphagia or polyuria Allergic/Immunologic Allergic/Immunologic ED: Denies mouth swelling, tongue swelling or urticaria EXAM Physical Exam Const Positive well nourished and well developed General Appearance ED: well developed HEENT Reports normocephalic, head/scalp atraumatic and moist mucous membranes Eyes PERRL and EOMs intact bilaterally Neck no lymphadenopathy, supple and no JVD Resp normal respiratory effort and clear to auscultation bilaterally Cardio regular rate, regular rhythm and no murmurs GI normal to inspection, nondistended, normoactive bowel sounds and non-tender Palpation: soft Back/Spine no CVA tenderness and normal ROM Extremity normal to inspection General Extremety ED: Negative for edema General Extremity: Negative for edema Neuro oriented x3 and CN's II-XII intact bilaterally Sensorium / Orientation: alert Motor Exam: strength 5/5 throughout Psych mental status grossly normal Mood Affect: Negative for depressed or tearful Skin no rashes or lesions noted and no wounds MDM MDM MDM Narrative Medical decision making narrative: Screening labs were obtained. If the patient is amendable to the rules of the program I will speak with the hospitalist for admission. Lab Data Attestation: I reviewed the patient's lab results. Discharge Plan Dx/Rx/DC Orders Clinical Impression: Acute opioid withdrawal, Desire for detoxification Disposition Disposition: Acute Care Hospital [facility] What to do if you have Problems For any increased pain, shortness of breath, bleeding, nausea or vomiting, chest pain, or any unexpected problems, contact your Primary Care Provider. Call [facility] ([phone]) or report to the closest Emergency Room. Call 911 if necessary. 11/01/20517 Cosigner Signature (if applicable): CC: No [facility] Physician [facility]-01-2020 H&P Exam - Hospitalist [facility] Medical Records Department [address] [place] [address] H P Exam - Hospitalist 11/01/20 0542 MR#: [id number] Acct: [id number] Name: RADHA HOUGH Rep #: [id number] : 1985 35 From: Anjum Hoffman DO PCP: Care Physician, No Primary Status:ADM IN Location: [facility] SV127-6 HPI - General General Date of Admission: 11/01/20 Date of Service: 11/01/20 Chief Complaint: opiate withdrawal HPI Narrative RADHA HOUGH, is a 35 M who presents presents seeking treatment for opiate withdrawal. Patient was here in September and was involved in the opiate withdrawal program at that time and then followed up in the intensive outpatient's. Patient starting using about a week ago when he was trying to get his brother sober as well. Currently, the patient is undergoing abdominal cramps, restless legs and agitation. He is here in the hospital today with his brother who are both seeking treatment for opiate withdrawal. [facility] Medical History Smoker Substance abuse Home Medications NK 05/13/20 [History Last Taken Unknown] Allergy/AdvReac Type Severity Reaction Status Date / Time acetaminophen [From [place]] AdvReac Upset Verified 09/18/20 16:47 Stomach hydrocodone bitartrate AdvReac Upset Verified 09/18/20 16:47 [From [place]] Stomach Family History (Updated 11/01/20 @ 05:[address] Anjum Hoffman DO) Other Opiate addiction Surgical History H/O eye surgery History of hernia surgery Social History Smoking Status: Current every day smoker quit status: considering quitting substance use type: marijuana and heroin ROS ROS Narrative Patient denies any sick contacts. Denies any contact with anyone with COVID-19. Denies any fever or chills. All review of systems were negative except as mentioned above in the history of present illness and the other review of systems. Vital Signs Vital Signs Vital Signs: Weight Body Mass Index (BMI) 22.8 Physical Exam Const alert Constitutional Narrative: Up pacing in his room. Pleasant. Afebrile. General Appearance: cooperative HEENT normocephalic Resp normal respiratory effort, no use of accessory muscles and clear to auscultation bilaterally Cardio regular rate, regular rhythm, S1 normal heart sound and S2 normal heart sound GI normal to inspection, nondistended, normoactive bowel sounds, non-tender and non-distended Extremity normal to inspection Neuro Sensorium / Orientation: awake and alert Results Lab / Micro Data Attestation: I reviewed the patient's lab results. Result Diagrams: 11/01/20 03:45 11/01/20 03:45 Labs: Laboratory Results - last 24 hr 11/01/20 11/01/20 11/01/20 03:45 03:45 03:45 WBC 11.7 H RBC 5.12 Hgb 15.9 Hct 48.1 MCV 93.9 MCH 31.1 MCHC 33.1 RDW Std Deviation 45.9 H RDW Coeff of Brianna 13.2 Plt Count 349 MPV 9.1 Immature Gran % (Auto) 0.400 Neut % (Auto) 53.1 Lymph % (Auto) 30.3 Mclean % (Auto) 12.1 H Eos % (Auto) 0.5 Baso % (Auto) 3.6 H Absolute Neuts (auto) 6.2 Absolute Lymphs (auto) 3.55 Sodium 142 Potassium 3.4 L Chloride 106 Carbon Dioxide 31.0 Anion Gap 5 BUN 13 Creatinine 1.05 Est GFR (MDRD) Af Amer 102 Est GFR (MDRD) Non-Af 84 BUN/Creatinine Ratio 12.4 Glucose 79 Calcium 8.8 Total Bilirubin 0.30 AST 13 L ALT 20 Alkaline Phosphatase 78 Total Protein 6.9 Albumin 3.7 Globulin 3.2 Albumin/Globulin Ratio 1.2 Urine Opiates Screen POSITIVE H Urine Methadone Screen NEGATIVE Ur Barbiturates Screen NEGATIVE Ur Phencyclidine Scrn NEGATIVE Ur Amphetamines Screen NEGATIVE U Methamphetamin-MDMA NEGATIVE U Benzodiazepines Scrn NEGATIVE Urine Cocaine Screen NEGATIVE U Cannabinoids Screen POSITIVE H Ur Drug Screen Comment Ethyl Alcohol 11/01/20 03:45 WBC RBC Hgb Hct MCV MCH MCHC RDW Std Deviation RDW Coeff of Brianna Plt Count MPV Immature Gran % (Auto) Neut % (Auto) Lymph % (Auto) Mclean % (Auto) Eos % (Auto) Baso % (Auto) Absolute Neuts (auto) Absolute Lymphs (auto) Sodium Potassium Chloride Carbon Dioxide Anion Gap BUN Creatinine Est GFR (MDRD) Af Amer Est GFR (MDRD) Non-Af BUN/Creatinine Ratio Glucose Calcium Total Bilirubin AST ALT Alkaline Phosphatase Total Protein Albumin Globulin Albumin/Globulin Ratio Urine Opiates Screen Urine Methadone Screen Ur Barbiturates Screen Ur Phencyclidine Scrn Ur Amphetamines Screen U Methamphetamin-MDMA U Benzodiazepines Scrn (more content not included)... Normal [facility] Urine Drug Screen (VISTA)on 11-01-2020 VISTA UDS PH 5 Normal [facility] Comment on above: Order Comment: RESUL T(S) PREVIOUSLY REPORTED ON MANUAL REQUISITION DURINGDOWNTIME.U Performed By: #### L 501.9100, L505.5000, L500.4050, L100.0100 ####[facility] [address] [place], [address] AMPHETAMINES Negative Normal <1000 ng/mL [facility] Comment on above: Order Comment: RESUL T(S) PREVIOUSLY REPORTED ON MANUAL REQUISITION DURINGDOWNTIME.U Performed By: #### L 501.9100, L505.5000, L500.4050, L100.0100 ####[facility] [address] [place], [address] BARBITIURATES Negative Normal < 200 ng/mL [facility] Comment on above: Order Comment: RESUL T(S) PREVIOUSLY REPORTED ON MANUAL REQUISITION DURINGDOWNTIME.U Performed By: #### L 501.9100, L505.5000, L500.4050, L100.0100 ####[facility] [address] [place], [address] BENZODIAZIPINE Negative Normal < 200 ng/mL [facility] Comment on above: Order Comment: RESUL T(S) PREVIOUSLY REPORTED ON MANUAL REQUISITION DURINGDOWNTIME.U Performed By: #### L 501.9100, L505.5000, L500.4050, L100.0100 ####[facility] [address] [place], [address] COCAINE Negative Normal < 300 ng/mL [facility] Comment on above: Order Comment: RESUL T(S) PREVIOUSLY REPORTED ON MANUAL REQUISITION DURINGDOWNTIME.U Performed By: #### L 501.9100, L505.5000, L500.4050, L100.0100 ####[facility] [address] [place], [address] ECSTACY Negative Normal < 500 ng/mL [facility] Comment on above: Order Comment: RESUL T(S) PREVIOUSLY REPORTED ON MANUAL REQUISITION DURINGDOWNTIME.U Performed By: #### L 501.9100, L505.5000, L500.4050, L100.0100 ####[facility] [address] [place], [place], [phone] METHADONE Negative Normal < 300 ng/mL [facility] Comment on above: Order Comment: RESUL T(S) PREVIOUSLY REPORTED ON MANUAL REQUISITION DURINGDOWNTIME.U Performed By: #### L 501.9100, L505.5000, L500.4050, L100.0100 ####[facility] [address] [place], [address] OPIATES Positive Abnormal < 300 ng/mL [facility] Comment on above: Order Comment: RESUL T(S) PREVIOUSLY REPORTED ON MANUAL REQUISITION DURINGDOWNTIME.U Performed By: #### L 501.9100, L505.5000, L500.4050, L100.0100 ####[facility] [address] [place], [address] PCP Negative Normal < 25 ng/mL [facility] Comment on above: Order Comment: RESUL T(S) PREVIOUSLY REPORTED ON MANUAL REQUISITION DURINGDOWNTIME.U Performed By: #### L 501.9100, L505.5000, L500.4050, L100.0100 ####[facility] [address] [place], [address] THC Positive Abnormal < 50 ng/mL [facility] Comment on above: Order Comment: RESUL T(S) PREVIOUSLY REPORTED ON MANUAL REQUISITION DURINGDOWNTIME.U Performed By: #### L 501.9100, L505.5000, L500.4050, L100.0100 ####[facility] [address] [place], [address] Discharge Instructionon 09-09 Discharge Instruction [facility] Medical Records Department [address] [place] [address] Instructions for Home/Discharge Instructions 09/21/20 0818 MR#: [id number] Acct: [id number] Name: RADHA HOUGH Rep #: [id number] : 1985 35 From: Anjum Hoffman DO PCP: Care Physician, No Primary Status:ADM IN Discharge Instructions Diet Discharge Diet: No restrictions Activity Discharge Activity: Return to Normal Activity Follow Up Care Please Follow Up With: [facility] When: today Test Results: Test results from this visit will be discussed in further detail at your follow-up appointment, if applicable. Discharge Plan Admission Admit Date/Time: 09/18/20 17:08 Attending Provider: Anjum Hoffman Primary Care Provider: Care Physician,No Primary Discharge Orders/Prescriptions Prescriptions: No Action NK RF: 0 Referrals / Follow Up: Care Physician,No Primary [Primary Care Provider] - Disposition Disposition (needs filled in before D/C Order can be placed): Home, self care 09/21/20 08 Anjum Hoffman DO CC: No Primary Care Physician Signed Normal [facility] Progress Note - Hospitalisto n 09-20-2020 Progress Note - Hospitalist [facility] Medical Records Department [address] [place] [address] Progress Note - Hospitalist 09/20/20 1540 MR#: [id number] Acct: [id number] Name: RADHA HOUGH Rep #: [id number] : 1985 35 From: Anjum Hoffman DO PCP: Care Physician, No Primary Status:ADM IN Location: [facility]U [id number] Subjective Subjective Feels better. No new complaints. Objective Data Objective Data Vital Signs: Vital Signs Temp Pulse Resp BP Pulse Ox 36.6 C 58 L 14 132/66 H 97 09/20/20 09:25 09/20/20 09:25 09/20/20 09:25 09/20/20 09:25 09/20/20 09:25 Oxygen Delivery Method Room Air Weight: 78.2 kg Body Mass Index (BMI) 22.8 Intake Output: Intake and Output for Last 24 Hours 09/18/20 09/19/20 09/20/20 23:59 23:59 23:59 Intake Total 1739 960 / 960 Balance 1739 960 / 960 Lab / Micro Data Result Diagrams: 09/18/20 17:38 09/18/20 17:38 Physical Exam Const alert General Appearance: cooperative Exam Limitations: no limitations HEENT normocephalic and head/scalp atraumatic Eyes PERRL and EOMs intact bilaterally Neck supple, no JVD and thyroid normal General: trachea midline Lymph Lymphatic: no lymphadenopathy noted Resp normal respiratory effort, normal air movement and clear to auscultation bilaterally Cardio regular rate, regular rhythm, S1 normal heart sound and S2 normal heart sound GI normal to inspection, nondistended, normoactive bowel sounds, non-tender and non-distended Extremity normal capillary refill and no clubbing, cyanosis or edema Skin General Skin Exam: no breakdown and turgor normal Lesions: no lesions Rashes: no rashes Neuro CN's II-XII intact bilaterally Sensorium / Orientation: awake and alert Psych affect normal Appearance: appropriate Assessment Plan Assessment/Plan (1) Acute opioid withdrawal: (2) Desire for detoxification: PLAN: #1 acute opioid withdrawal: Patient has been snorting heroin and fentanyl, has been smoking marijuana occasionally. CBC, CMP, drug screen and alcohol level are pending. Plan: Admit to MedSurg floor, initiate opioid withdrawal protocol with tapering Subutex, as needed Catapres, Bentyl, Neurontin, Vistaril, methocarbamol, Zofran and trazodone, consult 180 program. #2 other chronic medical problems: Stable, continue current medications as above. Anticipate DC 09/21. Visit Charges Inpatient E M: 61747 Subs Hosp L1 09/20/20 4780 Cosigner Signature (if applicable): CC: Signed Normal [facility] Progress Note - Hospitalisto n 09-19-2020 Progress Note - Hospitalist [facility] Medical Records Department [address] [place] [address] Progress Note - Hospitalist 09/19/20 1646 MR#: [id number] Acct: [id number] Name: RADHA HOUGH Rep #: [id number] : 1985 35 From: Anjum Hoffman DO PCP: Care Physician, No Primary Status:ADM IN Location: [place] [address] Subjective Subjective Feels well. This is now his 3rd attempt at becoming sober. Fell back into using when his brother OD'd. Objective Data Objective Data Vital Signs: Vital Signs Temp Pulse Resp BP Pulse Ox 36.8 C 56 L 18 106/54 L 98 09/19/20 15:35 09/19/20 15:35 09/19/20 15:35 09/19/20 15:35 09/19/20 15:35 Oxygen Delivery Method Room Air Weight: 78.2 kg Body Mass Index (BMI) 22.8 Intake Output: Intake and Output for Last 24 Hours 09/17/20 09/18/20 09/19/20 23:59 23:59 23:59 Intake Total 1380 / 1380 Balance 1380 / 1380 Lab / Micro Data Result Diagrams: 09/18/20 17:38 09/18/20 17:38 Labs: Laboratory Results - last 24 hr 09/18/20 09/18/20 09/18/20 17:38 17:38 17:38 WBC 9.9 RBC 5.06 Hgb 15.8 Hct 47.5 MCV 93.9 MCH 31.2 MCHC 33.3 RDW Std Deviation 44.2 H RDW Coeff of Brianna 12.8 Plt Count 347 MPV 9.6 Immature Gran % (Auto) 0.500 Neut % (Auto) 70.4 H Lymph % (Auto) 16.6 L Mclean % (Auto) 9.6 Eos % (Auto) 2.5 Baso % (Auto) 0.4 Absolute Neuts (auto) 7.0 Absolute Lymphs (auto) 1.65 Nucleated RBC % 0 Sodium 139 Potassium 4.1 Chloride 107 Carbon Dioxide 27.0 Anion Gap 5 BUN 13 Creatinine 1.18 Estim Creat Clear Calc 96.62 Est GFR (MDRD) Af Amer 89 Est GFR (MDRD) Non-Af 74 BUN/Creatinine Ratio 11.0 Glucose 88 Calcium 8.9 Total Bilirubin 0.60 AST 9 L ALT 15 L Alkaline Phosphatase 74 Total Protein 7.1 Albumin 3.9 Globulin 3.2 Albumin/Globulin Ratio 1.2 Urine Opiates Screen Urine Methadone Screen Ur Barbiturates Screen Ur Phencyclidine Scrn Ur Amphetamines Screen U Methamphetamin-MDMA U Benzodiazepines Scrn Urine Cocaine Screen U Cannabinoids Screen Ur Drug Screen Comment Ethyl Alcohol Cancelled 09/18/20 09/18/20 18:05 19:25 WBC RBC Hgb Hct MCV MCH MCHC RDW Std Deviation RDW Coeff of Brianna Plt Count MPV Immature Gran % (Auto) Neut % (Auto) Lymph % (Auto) Mclean % (Auto) Eos % (Auto) Baso % (Auto) Absolute Neuts (auto) Absolute Lymphs (auto) Nucleated RBC % Sodium Potassium Chloride Carbon Dioxide Anion Gap BUN Creatinine Estim Creat Clear Calc Est GFR (MDRD) Af Amer Est GFR (MDRD) Non-Af BUN/Creatinine Ratio Glucose Calcium Total Bilirubin AST ALT Alkaline Phosphatase Total Protein Albumin Globulin Albumin/Globulin Ratio Urine Opiates Screen POSITIVE H Urine Methadone Screen NEGATIVE Ur Barbiturates Screen NEGATIVE Ur Phencyclidine Scrn NEGATIVE Ur Amphetamines Screen NEGATIVE U Methamphetamin-MDMA NEGATIVE U Benzodiazepines Scrn NEGATIVE Urine Cocaine Screen NEGATIVE U Cannabinoids Screen POSITIVE H Ur Drug Screen Comment Ethyl Alcohol 3.0 Physical Exam Const alert and oriented x3 Neuro Sensorium / Orientation: awake and alert Psych affect normal Assessment Plan Assessment/Plan (1) Acute opioid withdrawal: (2) Desire for detoxification: PLAN: #1 acute opioid withdrawal: Patient has been snorting heroin and fentanyl, has been smoking marijuana occasionally. CBC, CMP, drug screen and alcohol level are pending. Plan: Admit to MedSurg floor, initiate opioid withdrawal protocol with tapering Subutex, as needed Catapres, Bentyl, Neurontin, Vistaril, methocarbamol, Zofran and trazodone, consult 180 program. #2 other chronic medical problems: Stable, continue current medications as above. Greater than 25 minutes of which greater than 50% of the time was [facility] the [facility] follow up as outpt. Visit Charges Inpatient E M: 76194 Subs Hosp L2 09/19/20 1649 Cosigner Signature (if applicable): CC: Signed Normal [facility] Alcohol, Blood (Medical)-Ser umon 09-18-2020 SERUM ETOH 3.0 mg/dL Normal [facility] Comment on above: Order Comment: RONAK Castaneda PREVIOUS SPECIMEN REJECTED DUE TOWRONG TUBE DRAWN. 09/18/20 5737 Lilia Cano. Result Comment: The serum:whole blood ethanol ratio is approximately 1.14 and varies slightly with hematocrit. Medical Alcohol reference interval and critical value in non-tolerant individuals; 50 - 100 Impairment 100 Intoxication 100 - 250 Severe Poisoning 250 - 400 Deep/possible fatal coma Performed By: #### L 501.9100 ####[facility] [address] [place], [address] CBC W/Diff, Automatedon 09-09 Absolute Lymph 1.65 X10 3/uL Normal 0.83-4.51 [facility] Comment on above: Performed By: #### L 505.5000 #### [facility] [address] [place], [address] Absolute Neut 7.0 X10 3/uL Normal 2.0-7.7 [facility] Comment on above: Performed By: #### L 505.5000 #### [facility] [address] [place], [address] Basophils/100 WBC (Bld) 0.4 % Normal 0-1 [facility] Comment on above: Performed By: #### L 505.5000 #### [facility] [address] [place], [address] Eosinophils/100 WBC (Bld) 2.5 % Normal 0-5 [facility] Comment on above: Performed By: #### L 505.5000 #### [facility] [address] [place], [address] Erythrocyte distribution width (RBC) [Ratio] 12.8 % Normal 11.6-14.6 [facility] Comment on above: Performed By: #### L 505.5000 #### [facility] [address] [place], [address] Hematocrit (Bld) [Volume fraction] 47.5 % Normal 40-54 [facility] Comment on above: Performed By: #### L 505.5000 #### [facility] [address] [place], [address] Hemoglobin (Bld) [Mass/Vol] 15.8 g/dL Normal 13.0-16.5 [facility] Comment on above: Performed By: #### L 505.5000 #### [facility] [address] [place], [address] IG% 0.500 Normal 0.0-0.9 [facility] Comment on above: Result Comment: IG% - Immature Granulocytes (promyelocytes, myelocytes and metamyelocytes) > 1% indicates that a LEFT SHIFT is Present. Performed By: #### L 505.5000 #### [facility] [address] [place], [address] Lymphocytes/100 WBC (Bld) 16.6 % Low 19-41 [facility] Comment on above: Performed By: #### L 505.5000 #### [facility] [address] [place], [address] MCH (RBC) [Entitic mass] 31.2 pg Normal 27.0-32.0 [facility] Comment on above: Performed By: #### L 505.5000 #### [facility] [address] [place], [address] MCHC (RBC) [Mass/Vol] 33.3 g/dL Normal 32-36 [facility] Comment on above: Performed By: #### L 505.5000 #### [facility] [address] [place], [address] MCV (RBC) [Entitic vol] 93.9 fL Normal 80-94 [facility] Comment on above: Performed By: #### L 505.5000 #### [facility] [address] [place], [address] Monocytes/100 WBC (Bld) 9.6 % Normal 0-10 [facility] Comment on above: Performed By: #### L 505.5000 #### [facility] [address] [place], [address] Neutrophils/100 WBC (Bld) 70.4 % High 47-70 [facility] Comment on above: Performed By: #### L 505.5000 #### [facility] [address] [place], [address] Nucleated RBC (Bld) [#/Vol] 0 10*3/uL Normal 0-5 [facility] Comment on above: Performed By: #### L 505.5000 #### [facility] [address] [place], [address] Platelet mean volume (Bld) [Entitic vol] 9.6 fL Normal 6.2-12.0 [facility] Comment on above: Performed By: #### L 505.5000 #### [facility] [address] [place], [address] Platelets (Bld) [#/Vol] 347 10*3/uL Normal 150-450 [facility] Comment on above: Performed By: #### L 505.5000 #### [facility] [address] [place], [address] RBC (Bld) [#/Vol] 5.06 10*6/uL Normal 4.6-6.2 [facility] Comment on above: Performed By: #### L 505.5000 #### [facility] [address] [place], [address] RDW SD 44.2 fl High 35.1-43.9 [facility] Comment on above: Performed By: #### L 505.5000 #### [facility] [address] [place], [address] WBC (Bld) [#/Vol] 9.9 10*3/uL Normal 4.4-11.0 [facility] Comment on above: Performed By: #### L 505.5000 #### [facility] [address] [place], [address] Comprehensive Metabolic Prof ilon 09-18-2020 Albumin [Mass/Vol] 3.9 g/dL Normal 3.2-5.0 [facility] Comment on above: Performed By: #### L 501.9100, L500.4050, L100.0100 #### [facility] [address] [place], [address] Albumin/Globulin [Mass ratio] 1.2 {ratio} Normal 0.9-2.4 [facility] Comment on above: Performed By: #### L 501.9100, L500.4050, L100.0100 #### [facility] [address] [place], [address] ALK P 74 U/L Normal 45-117 [facility] Comment on above: Performed By: #### L 501.9100, L500.4050, L100.0100 #### [facility] [address] [place], [address] ALT [Catalytic activity/Vol] 15 U/L Low 16-61 [facility] Comment on above: Performed By: #### L 501.9100, L500.4050, L100.0100 #### [facility] [address] [place], [address] AST [Catalytic activity/Vol] 9 U/L Low 15-37 [facility] Comment on above: Performed By: #### L 501.9100, L500.4050, L100.0100 #### [facility] [address] [place], [address] Bilirubin [Mass/Vol] 0.60 mg/dL Normal 0.20-1.00 [facility] Comment on above: Result Comment: For patients on eltrombopag therapy, use of Dimension Powell TBIL is not recommended. Performed By: #### L 501.9100, L500.4050, L100.0100 #### [facility] [address] [place], [address] BUN/CRE 11.0 RATIO Normal 10-20 [facility] Comment on above: Performed By: #### L 501.9100, L500.4050, L100.0100 #### [facility] [address] [place], [address] CA,Total 8.9 mg/dL Normal 8.5-10.1 [facility] Comment on above: Performed By: #### L 501.9100, L500.4050, L100.0100 #### [facility] [address] [place], [address] Chloride [Moles/Vol] 107 mmol/L Normal 98-107 [facility] Comment on above: Performed By: #### L 501.9100, L500.4050, L100.0100 #### [facility] [address] [place], [address] CO2 [Moles/Vol] 27.0 mmol/L Normal 21.0-32.0 [facility] Comment on above: Performed By: #### L 501.9100, L500.4050, L100.0100 #### [facility] [address] [place], [address] Creatinine [Mass/Vol] 1.18 mg/dL Normal 0.70-1.30 [facility] Comment on above: Result Comment: The validity of the calculated GFR GFRAA in patients over 70 years has not been determined. Clinical correlation is essential. Performed By: #### L 501.9100, L500.4050, L100.0100 #### [facility] [address] [place], [address] ECRCL 96.62 ml/min Normal [facility] Comment on above: Performed By: #### L 501.9100, L500.4050, L100.0100 #### [facility] [address] [place], [address] EST GFR - AA 89 mL/min Normal >60 [facility] Comment on above: Result Comment: Afri can [facility] GFR Calc Performed By: #### L 501.9100, L500.4050, L100.0100 #### [facility] [address] [place], [address] GAP 5 Normal 5-15 [facility] Comment on above: Performed By: #### L 501.9100, L500.4050, L100.0100 #### [facility] [address] [place], [address] GFR/1.73 sq M.predicted among non-blacks MDRD (S/P/Bld) [Vol rate/Area] 74 mL/min/{1.73_m2} Normal >60 [facility] Comment on above: Result Comment: Non- GFR Calc Performed By: #### L 501.9100, L500.4050, L100.0100 #### [facility] [address] [place], [address] Globulin (S) [Mass/Vol] 3.2 g/dL Normal 2.2-4.2 [facility] Comment on above: Performed By: #### L 501.9100, L500.4050, L100.0100 #### [facility] [address] [place], [address] Glucose [Mass/Vol] 88 mg/dL Normal 74-106 [facility] Comment on above: Result Comment: Taylor osborne note revised GLUCOSE reference range effective 2017. Performed By: #### L 501.9100, L500.4050, L100.0100 #### [facility] [address] [place], [address] Potassium [Moles/Vol] 4.1 mmol/L Normal 3.5-5.1 [facility] Comment on above: Performed By: #### L 501.9100, L500.4050, L100.0100 #### [facility] [address] [place], [address] Sodium [Moles/Vol] 139 mmol/L Normal 136-145 [facility] Comment on above: Performed By: #### L 501.9100, L500.4050, L100.0100 #### [facility] [address] [place], [address] T PROT 7.1 g/dL Normal 6.4-8.2 [facility] Comment on above: Performed By: #### L 501.9100, L500.4050, L100.0100 #### [facility] [address] [place], [address] Urea nitrogen [Mass/Vol] 13 mg/dL Normal 7-18 [facility] Comment on above: Performed By: #### L 501.9100, L500.4050, L100.0100 #### [facility] [address] [place], [address] Emergency Department Summary on 09-18-2020 Emergency Department Summary [facility] Medical Records Department [address] [place] [address] Emergency Department Summary 09/18/20 MR#: [id number] Acct: [id number] Name: RADHA HOUGH Rep #: [id number] : 1985 35 From: Miguel Higuera MD PCP: Care Physician, No Primary Status:ADM IN Location: [place] [address] HPI History of Present Illness Chief Complaint: Substance Abuse Informant: patient Onset/Context/Timing Onset: Month(s) Timing: Continuous Current Severity: Mild Maximum Severity: Mild Associated Symptoms Associated Symptoms: Negative for vomiting*, diarrhea*, fever*, rash*, seizure and change in mental status Narrative Narrative: 35-year-old male history of heroin, fentanyl and marijuana abuse. Denies IV use. Patient states his last detox was around 4 months ago. Is requesting detox again today. He denies any recent illness. Prior similar symptoms: Yes Recent Illness/Hospitalization: No PFSH PFSH no medical history Home Medications NK 05/13/20 [History Last Taken Unknown] Allergy/AdvReac Type Severity Reaction Status Date / Time acetaminophen [From [place]] AdvReac Upset Verified 09/18/20 16:47 Stomach hydrocodone bitartrate AdvReac Upset Verified 09/18/20 16:47 [From [place]] Stomach Social History Smoking Status: Current every day smoker ROS ROS ED ROS Narrative Patient denies any recent illness. Denies nausea, vomiting, diarrhea or fever. No chest pain or shortness of breath. Review of Systems ROS Unobtainable: Denies due to encephalopathy Constitutional Constitutional ED: Denies fever(s) or sweats Eyes Eyes: Denies change in vision ENT ENT ED: Denies ear pain or sore throat Cardiovascular Cardiovascular: Denies chest pain, palpitations or racing heartbeat Respiratory/Chest Respiratory/Chest: Denies dyspnea or dyspnea on exertion Gastrointestinal Gastrointestinal: Denies abdominal pain, diarrhea, melena, nausea or vomiting Genitourinary Genitourinary ED: Denies dysuria or urinary frequency Musculoskeletal Musculoskeletal: Denies myalgias Integumentary Denies rash Neurologic Neurologic: Denies headache(s) Psychiatric Psychiatric: Denies depression Endocrine Endocrinology: Denies polyuria Hematologic/Lymphatic Hematologic/Lymphatic: Denies easy bruising Allergic/Immunologic Allergic/Immunologic ED: Denies urticaria EXAM Physical Exam Narrative Exam Narrative: Well-appearing male. No acute distress. Vital signs stable afebrile. HEENT exam unremarkable. Atraumatic. Moist weeks membranes. Neck nontender. No lymphadenopathy. Lungs clear to auscultation bilaterally. Heart regular rate and rhythm no murmur rate about 95. Abdomen soft nontender normal bowel sounds no peritoneal signs. Moving all 4 extremities. No obvious abscesses. Back nontender. Neurologically is awake and alert with no focal motor deficits. Const Vital Signs: 09/18/20 16:48 Temperature 97.0 F L Temperature Source Temporal Pulse Rate 106 H Respiratory Rate 16 Blood Pressure 124/77 H Blood Pressure Mean 92 Pulse Ox 96 Oxygen Delivery Method Room Air Positive well nourished and well developed General Appearance ED: well developed HEENT Reports moist mucous membranes atraumatic; Negative for trauma or tenderness Eyes PERRL and EOMs intact bilaterally Neck no lymphadenopathy, supple and no JVD Thyroid: Negative for tender Lymph Lymphatic: no lymphadenopathy noted Chest Wall inspection of chest normal Resp normal respiratory effort and clear to auscultation bilaterally Cardio regular rate, regular rhythm and no murmurs Rate: Negative for bradycardia GI soft to palpation, non-tender, non-distended and no masses Inspection: Negative for abdominal distention Back/Spine no CVA tenderness Extremity General Extremety ED: Negative for edema or tenderness General Extremity: Negative for edema Neuro oriented x3 Sensorium / Orientation: alert, oriented to person, oriented to place and oriented to time Psych mental status grossly normal Skin Rashes: no rashes MDM MDM MDM Narrative Medical decision making narrative: 35-year-old history of heroin abuse requesting detox. Exam unremarkable. Hospitalist on page for admission. Discharge Plan Triage Chief Complaint: Substance Abuse ED Provider: Miguel Higuera Dx/Rx/DC Orders Clinical Impression: Desire for detoxification Prescriptions: No Action NK RF: 0 Primary Care Provider: Care Physician,No Primary Referrals: Care Physician,No Primary [Primary Care Provider] - What to do if you have Problems For any increased pain, shortness of breath, bleeding, nausea or vomiting, chest pain, or any unexpected problems, contact your Primary Care Provider. Call [facility] (more content not included)... Normal [facility] Urine Drug Screen (VISTA)on 09-18-2020 AMPHETAMINES Negative Normal <1000 ng/mL [facility] Comment on above: Order Comment: UNK Performed By: #### L 505.5000 #### [facility] [address] [place], [address] BARBITIURATES Negative Normal < 200 ng/mL [facility] Comment on above: Order Comment: UNK Performed By: #### L 505.5000 #### [facility] [address] [place] [address] BENZODIAZIPINE Negative Normal < 200 ng/mL [facility] Comment on above: Order Comment: UNK Performed By: #### L 505.5000 #### [facility] [address] [place] [address] COCAINE Negative Normal < 300 ng/mL [facility] Comment on above: Order Comment: UNK Performed By: #### L 505.5000 #### [facility] [address] [place] [address] ECSTACY Negative Normal < 500 ng/mL [facility] Comment on above: Order Comment: UNK Performed By: #### L 505.5000 #### [facility] [place] [address] METHADONE Negative Normal < 300 ng/mL [facility] Comment on above: Order Comment: UNK Performed By: #### L 505.5000 #### [facility] [address] [place] [address] OPIATES Positive Abnormal < 300 ng/mL [facility] Comment on above: Order Comment: UNK Performed By: #### L 505.5000 #### [facility] [address] [place] [address] PCP Negative Normal < 25 ng/mL [facility] Comment on above: Order Comment: UNK Performed By: #### L 505.5000 #### [facility] [address] [place] [address] THC Positive Abnormal < 50 ng/mL [facility] Comment on above: Order Comment: UNK Performed By: #### L 505.5000 #### [facility] [address] [place] [address] VISTA UDS PH 5 Normal [facility] Comment on above: Order Comment: UNK Performed By: #### L 505.5000 #### [facility] [address] [place], [address] Vital Signs Date Time Vital Sign Value Performing Clinician Faci lity 08-19-2021 07:33-0400 SaO2% (BldA) [Mass fraction] 96 % No Primary Care Physician [facility] Work Phone: 08-19-2021 05:53-0400 Body temperature 97.9 [degF] No Primary Care Physician [facility] Work Phone: 08-19-2021 05:53-0400 Diastolic blood pressure 70 mm[Hg] No Primary Care Physician [facility] Work Phone: 08-19-2021 05:53-0400 Heart rate 70 /min No Primary Care Physician [facility] Work Phone: 08-19-2021 05:53-0400 Respiratory rate 14 /min No Primary Care Physician [facility] Work Phone: 08-19-2021 05:53-0400 Systolic blood pressure 109 mm[Hg] No Primary Care Physician [facility] Work Phone: 08-18-2021 06:51-0400 Body temperature 98.4 [degF] No Primary Care Physician [facility] Work Phone: 08-18-2021 06:51-0400 Diastolic blood pressure 68 mm[Hg] No Primary Care Physician [facility] Work Phone: 08-18-2021 06:51-0400 Heart rate 58 /min No Primary Care Physician [facility] Work Phone: 08-18-2021 06:51-0400 Respiratory rate 16 /min No Primary Care Physician [facility] Work Phone: 08-18-2021 06:51-0400 SaO2% (BldA) [Mass fraction] 100 % No Primary Care Physician [facility] Work Phone: 08-18-2021 06:51-0400 Systolic blood pressure 124 mm[Hg] No Primary Care Physician [facility] Work Phone: 08-18-2021 06:38-0400 Body height 185.42 cm No Primary Care Physician [facility] Work Phone: 08-18-2021 06:38-0400 Body mass index (BMI) [Ratio] 22.4 kg/m2 No Primary Care Physician [facility] Work Phone: 08-18-2021 06:38-0400 Body weight 77.3 kg No Primary Care Physician [facility] Work Phone: 05-30-2021 07:08-0500 Body temperature 98 [degF] No Primary Care Physician [facility] Work Phone: 05-30-2021 07:08-0500 Diastolic blood pressure 64 mm[Hg] No Primary Care Physician [facility] Work Phone: 05-30-2021 07:08-0500 Heart rate 67 /min No Primary Care Physician [facility] Work Phone: 05-30-2021 07:08-0500 Respiratory rate 14 /min No Primary Care Physician [facility] Work Phone: 05-30-2021 07:08-0500 SaO2% (BldA) [Mass fraction] 98 % No Primary Care Physician [facility] Work Phone: 05-30-2021 07:08-0500 Systolic blood pressure 104 mm[Hg] No Primary Care Physician [facility] Work Phone: 05-28-2021 14:52-0500 Body weight 78.74 kg No Primary Care Physician [facility] Work Phone: 05-28-2021 10:33-0500 Body mass index (BMI) [Ratio] 22.8 kg/m2 No Primary Care Physician [facility] Work Phone: 05-13-2021 10:26-0500 Diastolic blood pressure 88 mm[Hg] No Primary Care Physician [facility] Work Phone: 05-13-2021 10:26-0500 Heart rate 84 /min No Primary Care Physician [facility] Work Phone: 05-13-2021 10:26-0500 Respiratory rate 15 /min No Primary Care Physician [facility] Work Phone: 05-13-2021 10:26-0500 SaO2% (BldA) [Mass fraction] 97 % No Primary Care Physician [facility] Work Phone: 05-13-2021 10:26-0500 Systolic blood pressure 129 mm[Hg] No Primary Care Physician [facility] Work Phone: 05-13-2021 08:04-0500 Body mass index (BMI) [Ratio] 22.4 kg/m2 No Primary Care Physician [facility] Work Phone: 05-13-2021 08:04-0500 Body temperature 97 [degF] No Primary Care Physician [facility] Work Phone: 05-13-2021 08:04-0500 Body weight 79.37 kg No Primary Care Physician [facility] Work Phone: Encounters Encounter Date Encounter Type Care Provider Facility Start: 08-18-2021 End: 08-19-2021 Evaluation and management of inpatient No Primary Care Physician [facility] 3 Start: 05-30-2021 Non-patient / Non-visit No Flakita diaz Care Physician [facility] Start: 05-29-2021 Non-patient / Non-visit No Flakita diaz Care Physician [facility] Start: 05-28-2021 Non-patient / Non-visit No Flakita diaz Care Physician [facility] Start: 05-28-2021 End: 05-30-2021 Evaluation and management of inpatient No Primary Care Physician [facility] Start: 05-13-2021 End: 05-13-2021 Emergency department patient visit No Primary Care Physician [facility] Plan of Treatment Date Care Activity Detail Author Patient Education ED Opiate Abuse [facility] Work Phone: Patient referral [facility] Work Phone: Immunizations Immunization Date Immunization Notes Care Provider Dariel william 03-26-2021 influenza, seasonal, injectable No Primary Care Physician [facility] Work Phone: 04-24-2020 influenza, seasonal, injectable No Primary Care Physician [facility] Work Phone: Payers Date Payer Category Payer Unknown [employer] [id number] Self-pay [employer] [id number] Social History Date Type Detail Facility Start: 08-18-2021 End: 08-18-2021 Tobacco smoking status NHIS Unknown if ever smoked [facility] Work Phone: Start: 05-13-2020 None [facility] Work Phone: Start: 05-13-2020 Heroin;- [facility] Work Phone: Start: 05-13-2020 With Family [facility] Work Phone: Start: 09-18-2020 Cigarettes;Vapor [facility] Work Phone: Start: 1985 Sex Assigned At Male [facility] Work Phone: Functional Status Date Assessment Result Facility 08-19-2021 Functional status Ambulates;Up ad valerie [facility] Work Phone: 05-30-2021 Functional status Ambulates [facility] Work Phone: Mental Status Date Assessment Result Facility 08-19-2021 Cognitive function Voice/Name;To uch/Shaking;L ight Pain;Deep Pain [facility] Work Phone: 05-29-2021 Cognitive function Voice/Name [facility] Work Phone: Discharge summary note 08-19-2021 Note Date & Type Note Facility 08-19-2021 Note [facility] Medical Records Department [address] [place] [address] Discharge Summary 08/19/21 1529 MR#: [id number] Acct: [id number] Name: RADHA HOUGH Rep #: [id number] : 1985 35 From: Daniel Medel DO PCP: Care Physician,No Primary Status:DIS IN Location: [facility] [id number] Providers Date of Admission: 08/18/21 Date of Discharge: 08/19/21 Primary Care Physician: No Primary Care Phys Reason For Visit: ACUTE OPIATE WITHDRAWAL Diagnosis Discharge Diagnosis (1) Opiate abuse, continuous: Status: Acute Code(s): F11.10 - Opioid abuse, uncomplicated (2) Desire for detoxification: Status: Acute Plan: 1. Acute opiate withdrawal #2 opiate abuse #3 noncompliance with medical regimen Medications at Discharge Home Medications NK 05/28/21 Hospital Course Operations None Procedures None Summary of Care Provided Minutes Spent on Discharge: 31 Hospital Course: This 35-year-old white male was seen in the emergency room at [facility] requesting services for detox from heroin and fentanyl, he denies injecting the drug-he states he snorts it. Patient had a previous history of going through detox approximately 2 months prior. Patient had a tox screen performed in the ER, it was positive for cannabinoids, CBC showed a slightly elevated white blood cell count at 11.5, and chemistry profile was unremarkable. Patient was admitted to [place] [address], orders were entered using the opiate detox order set, patient had no untoward events during his hospitalization. He was seen in consultation by addiction director of social media marketing and initially agreed to go to an inpatient detox program locally. On 08/19/2021, patient was seen and examined: On examination he appeared in good health and spirits. Vital signs as documented. Skin warm and dry and without overt rashes. Neck without JVD, neck was supple, trachea midline, thyroid was normal. Lungs clear bilaterally, normal air movement was noted. Heart exam notable for regular rhythm, normal sounds and absence of murmurs, rubs or gallops. Abdomen unremarkable and without evidence of organomegaly, masses, or abdominal aortic enlargement. Bowel sounds are present, abdomen is not distended. Extremities nonedematous, no cyanosis was noted, no clubbing was noted. Neuro: Cranial nerves II through XII are grossly intact, no focal motor de ficits were noted, sensation to light touch and pinprick intact, motor exam 5/5 throughout. Psych: Patient is alert and oriented x3, he does not appear anxious or depressed, he does not appear agitat ed. On 08/19/2021, patient decided abruptly that he was not going to participate in a local inpatient detox program and requested released from the hospital, patient was discharged AMA, he appeared to be aware of the consequences of this decision, he was told that he would likely not be readmitted b ack to the hospital here for further services if he signed out AMA-he did so anyway. Weight / BMI Weight Weight: 77.3 kg Body Mass Index (BMI) 22.4 ABG / Lab / Microbiology Data Result Diagrams: 08/18/21 05:35 08/18/21 05:35 Meaningful Use Info Meaningful Use Diagnoses (Choose all that apply): None applicable Discharge Plan Admission Admit Date/Time: 08/18/21 05:57 Attending Provider: Daniel Medel Primary Care Provider: Care Physician,No Primary Discharge Orders/Prescriptions Prescriptions: No Action NK RF: 0 Referrals / Follow Up: Care Physician,No Primary [Primary Care Provider] - Disposition Disposition (needs filled in before D/C Order can be placed): Against Medical Advice Charges/Coding Visit Charges Inpatient E M: 15242 Disch Hosp 08/19/21 1535 Cosigner Signature (if applicable): CC: Dr. Daniel Medel, ; No Primary Care Physician Signed [facility] Discharge summary note 05-30-2021 Note Date & Type Note Facility 05-30-2021 Note [facility] Medical Records Department [address] [place] [address] Discharge Summary 05/30/21 1206 MR#: [id number] Acct: [id number] Name: RADHA HOUGH Rep #: [id number] : 1985 35 From: Alex Norman MD PCP: Care Physician,No Primary Status:ADM IN Location: [facility] [id number] Providers Date of Admission: 05/28/21 Primary Care Physician: Nirmala Primary Care Phys Reason For Visit: OPIATE DETOX Diagnosis Discharge Diagnosis (1) Desire for detoxification: Status: Acute Medications at Discharge Home Medications NK 05/28/21 Hospital Course Summary of Care Provided Minutes Spent on Discharge: 35 Hospital Course: Per HPI: RADHA HOUGH, is a 35 M who presents requesting opiate detox. He has been here in October and then again in March. He has been doing well except his father recently of COVID which she states what is what sent him over the edge and started using again. He has been using heroin for the last several weeks, denies any significant alcohol use. He snorts heroin and denies any IV drug use. Hospital Course: 1. Opiate withdrawal/nicotine abuse -Continue with the opiate withdrawal protocol -Continue with nicotine patch -We will have him meet with [facility] to set up outpatient management ??? He does not want to do residential treatment at this time 05/30/2021: He is receiving his second last dose of Subutex today but he states that he wants to get out of here so he can go to work at 3 PM. His last dose of Subutex would be at a little bit before midnight tonight so technically today is his last day of treatment however since his Cina scores have been 3 or less for the last 24 hours he is likely okay for discharge. His last 3 or 4 scores have been less than 1. I discussed with him the plan for discharge and expressed understanding risk and benefits to go home today. He will need to follow-up with outpatient rehab. Weight / BMI Weight Weight: 173 lb 9.6 oz Body Mass Index (BMI) 22.8 ABG / Lab / Microbiology Data Result Diagrams: 05/28/21 09:10 05/28/21 09:10 D/C Instructions Discharge Diet: No restrictions Call your doctor if you observe: Fever of 101 or Higher, Shortness of breath, Dizziness, Fainting spells, Swelling in the ankles, Chest pain and Increased palpitations (irregular heartbeat) Meaningful Use Info Meaningful Use Diagnoses (Choose all that apply): None applicable Discharge Plan Admission Admit Date/Time: 05/28/21 10:29 Attending Provider: Alex Norman Primary Care Provider: Aravind Physician,Nirmala Primary Discharge Orders/Prescriptions Prescriptions: No Action NK RF: 0 Referrals / Follow Up: Care Physician,No Primary [Primary Care Provider] - Disposition Disposition (needs filled in before D/C Order can be placed): Home, Self Care Charges/Coding Visit Charges Inpatient E M: 30004 Disch Hosp 05/30/21 1209 Cosigner Signature (if applicable): CC: Dr. Alex Norman MD; No Primary Care Physician Signed [facility] Discharge summary note 03-29-2021 Note Date & Type Note Facility 03-29-2021 Note [facility] Medical Records Department [address] [place] [address] Discharge Summary 03/29/21 1043 MR#: [id number] Acct: [id number] Name: RADHA HOUGH Rep #: [id number] : 1985 35 From: Anjum Hoffman DO PCP: Care Physician,No Primary Status:ADM IN Location: [place] [address] Providers Date of Admission: 03/26/21 Primary Care Physician: No Primary Care Phys Reason For Visit: DESIREFOR OPIOID DETOXIFICATION Diagnosis Discharge Diagnosis (1) Desire for detoxification: Status: Acute Hospital Course Operations None Procedures None Summary of Care Provided Minutes Spent on Discharge: 28 Hospital Course: 35-year-old male presents for treatment for acute opiate withdrawal. Patient uses heroin but does not inject it but snorts it. Patient was started on buprenorphine taper as well as other agents to help with other withdrawal associated complaints. His course was uncomplicated. Patient's plan is to follow-up with [facility] on 03/30. Physical Exam Const alert Resp normal respiratory effort, no retractions, no use of accessory muscles and clear to auscultation bilaterally Cardio regular rate, regular rhythm, S1 normal heart sound and S2 normal heart sound GI normal to inspection, nondistended, normoactive bowel sounds Neuro Sensorium / Orientation: awake Weight / BMI Weight Weight: 81.647 kg Body Mass Index (BMI) 23.7 ABG / Lab / Microbiology Data Result Diagrams: 03/26/21 05:45 03/26/21 05:45 D/C Instructions Discharge Diet: No restrictions Return to work on: 03/30/21 Please Follow Up With: [facility] When: 03/30/2021 at 11:30 Meaningful Use Info Meaningful Use Diagnoses (Choose all that apply): None applicable Discharge Plan Admission Admit Date/Time: 03/26/21 06:54 Primary Reason for Your Visit: Opiate Withdrawal Attending Provider: Anjum Hoffman Primary Care Provider: Care Physician,No Primary Discharge Orders/Prescriptions Prescriptions: Discontinued cephalexin [cephalexin] 500 MG capsule 500 mg PO Q6 Qty: 40 RF: 0 Referrals / Follow Up: Care Physician,No Primary [Primary Care Provider] - Disposition Disposition (needs filled in before D/C Order can be placed): Home, Self Care Charges/Coding Visit Charges Inpatient E M: 72305 Disch Hosp 03/29/21 1045 Cosigner Signature (if applicable): CC: Dr. Anjum Hoffman DO; No Primary Care Physician Signed [facility] Discharge summary note 09-21-2020 Note Date & Type Note Facility 09-21-2020 Note [facility] Records Department [address] [facility] [place] [address] Discharge Summary 09/21/20820 MR#: [id number] Acct: [id number] Name: RADHA HOUGH Rep #: [id number] : 1985 35 From: Anjum Hoffman DO PCP: Care Physician, No Primary Status:ADM IN Location: [place] [address] Providers Date of Admission: 09/18/20 Primary Care Physician: No Primary Care Phys Reason For Visit: ACUTE OPOID WITHDRAWAL Diagnosis Discharge Diagnosis (1) Acute opioid withdrawal: Status: Acute Code(s): F11.23 - Opioid dependence with withdrawal (2) Desire for detoxification: Status: Acute Medications at Discharge Home Medications NK 05/13/20 Hospital Course Operations None Procedures None Summary of Care Provided Hospital Course: Presents for acute opiate withdrawal. Patient was on buprenorphine as well as other agents help with other somatic complaints during the course of his hospitalization. His hospitalization was uncomplicated. Patient expresses strong motivation to stay sober as he has been sober in the past. Patient will be following up with [facility]. Physical Exam Const alert and no apparent distress Psych affect normal ABG / Lab / Microbiology Data Result Diagrams: 09/18/20 17:38 09/18/20 17:38 D/C Instructions Discharge Diet: No restrictions Discharge Activity: Return to Normal Activity Please Follow Up With: [facility] When: today Meaningful Use Info Meaningful Use Diagnoses (Choose all that apply): None applicable Discharge Plan Admission Admit Date/Time: 09/18/20 17:08 Attending Provider: Anjum Hoffman Primary Care Provider: Care Physician,No Primary Discharge Orders/Prescriptions Prescriptions: No Action NK RF: 0 Referrals / Follow Up: Care Physician,No Primary [Primary Care Provider] - Disposition Disposition (needs filled in before D/C Order can be placed): Home, self care Visit Charges Inpatient E M: 47331 Disch Hosp 09/21/20 0823 Cosigner Signature (if applicable): CC: No Primary Care Physician; Dr. Anjum Hoffman, DO Signed [facility] Clinical Note 09-18-2020 Note Date & Type Note Facility 09-18-2020 Note [facility] Medical Records Department [address] [place] [address] History Physical Exam 09/18/20 1720 MR#: [id number] Acct: [id number] Name: RADHA HOUGH Rep #: [id number] : 1985 35 From: Krysta ALONSO PCP: Care Physician, No Primary Status:ADM IN Location: [place] [address] Documented by User: GAVIN Tobin 09/18/20 17:38 HPI - General General Date of Admission: 09/18/20 HPI Narrative RADHA HOUGH, is a 35 M who presents for desire for detoxification from opioids. Patient states that he occasionally smokes marijuana, smokes half pack per day of cigarettes and uses 3 to 4 g daily of heroin. Patient reports that he was admitted approximately 4 months ago for the same thing however he had now has a job and they are supportive of him getting clean and staying clean. [facility] Home Medications NK 05/13/20 [History Last Taken Unknown] Allergy/AdvReac Type Severity Reaction Status Date / Time acetaminophen [From [place]] AdvReac Upset Verified 09/18/20 16:47 Stomach hydrocodone bitartrate AdvReac Upset Verified 09/18/20 16:47 [From [place]] Stomach Social History (Updated 09/18/20 @ 17:24 by KIMBERLY TobinC) Smoking Status: Current every day smoker quit status: considering quitting substance use type: marijuana and heroin ROS Constitutional Constitutional: Denies anorexia, chills, fatigue or fever(s) Cardiovascular Cardiovascular: Denies chest pain, edema or palpitations Respiratory/Chest Respiratory/Chest: Denies cough, hemoptysis or wheezing Gastrointestinal Gastrointestinal: Denies abdominal pain, constipation or diarrhea Genitourinary Genitourinary: Denies dysuria or hematuria Musculoskeletal Musculoskeletal: Denies back pain or extremity pain Integumentary Integumentary: Denies dry skin, rash or wounds Neurologic Neurologic: Denies abnormal gait, abnormal speech or confusion Psychiatric Psychiatric: Denies anxiety or depression Endocrine Endocrinology: Denies change in body appearance, cold intolerance or heat intolerance Hematologic/Lymphatic Hematologic/Lymphatic: Denies anemia, easy bleeding or easy bruising Vital Signs Vital Signs Vital Signs: 09/18/20 16:48 Temperature 97.0 F L Temperature Source Temporal Pulse Rate 106 H Respiratory Rate 16 Blood Pressure 124/77 H Blood Pressure Mean 92 Pulse Ox 96 Oxygen Delivery Method Room Air Physical Exam Const alert and oriented x3 General Appearance: cooperative HEENT normocephalic and head/scalp atraumatic Eyes PERRL and EOMs intact bilaterally Neck supple, no JVD and thyroid normal General: trachea midline Lymph Lymphatic: no lymphadenopathy noted Resp normal respiratory effort, normal air movement and clear to auscultation bilaterally Cardio regular rate, regular rhythm, S1 normal heart sound and S2 normal heart sound GI normal to inspection, nondistended, normoactive bowel sounds, soft to palpation and non-tender Extremity normal capillary refill and no clubbing, cyanosis or edema Skin General Skin Exam: no breakdown and turgor normal Lesions: no lesions Rashes: no rashes Neuro CN's II-XII intact bilaterally Psych thought process normal, cooperative and affect normal Appearance: appropriate Lab / Micro Data Result Diagrams: 09/18/20 17:38 09/18/20 17:38 Assessment Plan Assessment/Plan (1) Acute opioid withdrawal: (2) Desire for detoxification: (3) No significant pertinent medical history: PLAN: 1. Acute opioid withdrawal 2. Desire for detoxification -Admit to MedSurg -Opioid withdrawal protocol ordered including Suboxone and supportive medications -Will consult case management for 180 involvement 3. Nicotine abuse -Encouraged tobacco cessation - NicoDerm patch DVT Prophylaxis-not indicated This patient was seen by GAVIN Tobin under the supervision of Dr. Oneal. Documented by User: Dr. 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 [facility] Evaluation note Note Date & Type Note Facility Evaluation note Diagnosis Onset Date Desire for detoxification re solved Desire for detoxification ac otis Opiate abuse, continuous acu te [facility] Work Phone: Chief Complaint and Reason for Visit Chief Complaint O.D. narcan OPIATE DETOX OPIATE DETOX OPIATE DETOX OPIATE DETOX ACUTE OPIATE WITHDRAWAL Reason for Visit Desire for detoxific ation Desire for detoxification Opiate abuse, continuous Family History No Family History Records Found Relationship Condition Age at Onset Recorded Date/T dedra Not Specified Opioid dependence Unknown mother Lupus Unknown Advance Directives No Advanced Directives Records Found Advance Directive Response Recorded Date/ Time Living Will No August 18, 2021 6:41am Power of Purchasing Analyst No August 18 6:41am Summary Purpose Additional Source Comments Goals (unrecognized section and content) Goals may be documented in a n alternate section (unrecognized sect ion and content) No Status Records Found INFORMATION SOURCE (unrecogn ized section and content) DATE CREATED AUTHOR 09/09/2021 [facility] FOR RECORDS PERTAINING TO PATIENTS WHO ARE OR HAVE BEEN ENROLLED IN A CHEMICAL DEPENDENCY/SUBSTANCEABUSE PROGRAM, SOME INFORMATION MAY BE OMITTED. This clinical summary was aggregated from multiple sources. Caution should be exercised in using it in the provision of clinical care. This summary normalizes information from multiple sources, and as a consequence, information in this document may materially change the coding, format and clinical context of patient data. In addition, data may be omitted in some cases. CLINICAL DECISIONS SHOULD BE BASED ON THE PRIMARY CLINICAL RECORDS. [facility]. provides no warranty or guarantee of the accuracy or completeness of information in this document.
--- NOTE | 2024-10-22 06:41 | EDS_ITS ---
HPI History of Present Illness Chief Complaint: Rash Detail of Chief Complaint: Paretic blotchy scattered rash with excoriation without infection Informant: patient Onset/Context/Timing Onset: Yesterday Context: Sudden Onset Timing: Continuous Quality: Pruritic erythematous rash Location: Right thigh multiple areas, torso, and right upper extremity Current Severity: Mild Maximum Severity: Moderate Worsened by: Itching Relieved by: Nothing Associated Symptoms Associated Symptoms: No respiratory, cardiovascular or GI symptoms. Narrative Narrative: Patient is a 39-year-old male who presents with pruritic erythematous rash. He denies fever, chills night sweats. He denies respiratory or cardiac symptoms. He denies GI symptoms. He denies orthostatic symptoms. He has no other symptoms or complaints. He states it feels like insulation on his skin. Prior similar symptoms: No Recent Illness/Hospitalization: No PFSH PFS Medical History Desire for detoxification Arthritis Chronic pain Migraines Smoker Substance abuse Home Medications ?Medication ?Instructions ?Recorded ?Last Taken ?Type diphenhydramine HCl 25 mg capsule 25 mg PO TID #10 cap s 10/22/24 Unknown Rx (Benadryl) famotidine 20 mg tablet 20 mg PO BID #8 TABLETS 10/10 08/03 Unknown Rx prednisone 20 mg tablet 60 mg (3 x 20 mg) PO DAILY # 15 10/22/24 Unknown Rx TABLETS Allergy/AdvReac Type Severity Reaction Status Date / Time acetaminophen (From [place]) AdvReac Upset Verified 10/22/24 05:04 Stomach hydrocodone bitartrate (From AdvReac Upset Verified 10/22/24 05:04 [place]) Stomach Family History Mother Lupus Other Opiate addiction Surgical History History of hernia surgery H/O eye surgery Social History household members: other details: Patient currently living with his mother. Smoking Status: Current every day smoker tobacco type: e-cigarettes quit status: considering quitting alcohol intake: current alcohol intake frequency: holidays/special occasions only substance use type: marijuana, heroin and opiates ROS ROS ED Constitutional Constitutional ED: Denies chills, fever(s), subjective, sweats or weight loss Eyes Eyes: Denies blurry vision or change in vision ENT ENT ED: Denies ear pain, rhinorrhea or sore throat Cardiovascular Cardiovascular: Denies chest pain or palpitations Respiratory/Chest Respiratory/Chest: Denies dyspnea or dyspnea on exertion Gastrointestinal Gastrointestinal: Denies nausea or vomiting Musculoskeletal Musculoskeletal: Denies arthralgias or myalgias Integumentary Reports rash Hematologic/Lymphatic Hematologic/Lymphatic: Denies easy bruising Allergic/Immunologic Allergic/Immunologic ED: Denies mouth swelling, tongue swelling or urticaria EXAM Physical Exam Const Vital Signs: 10/22/24 05:04 10/22/24 05:10 Temperature 98.6 F Temperature Source Oral Pulse Rate 64 Respiratory Rate 16 Respiratory Effort Normal Non-Labored Respiratory Pattern Normal Blood Pressure 130/82 H Blood Pressure Mean 98 Pulse Ox 100 Oxygen Delivery Method Room Air Positive well nourished and well developed Constitutional Narrative: Patient's blood pressure is slightly elevated. General Appearance ED: well developed and NAD; Negative for pallor HEENT Reports moist mucous membranes HEENT Narrative: There are no mucosal lesions. Ears normal. Nares patent. Posterior pharynx is normal. Eyes PERRL and EOMs intact bilaterally General Eye ED: Negative for pale conjunctiva or scleral icterus Neck no lymphadenopathy, supple and no JVD Resp normal respiratory effort and clear to auscultation bilaterally Cardio regular rate, regular rhythm and no murmurs GI normal to inspection, nondistended, normoactive bowel sounds, non-tender, non- distended and no masses; Negative for hepatosplenomegaly Back/Spine no CVA tenderness Extremity Extremity Narrative: Blotchy blanching erythematous rash with areas of excoriation. Neuro oriented x3 and CN's II-XII intact bilaterally Sensorium / Orientation: alert Psych mental status grossly normal Skin No no rashes or lesions noted, No no wounds and skin turgor normal Skin Narrative: Rash previously described. General Skin Exam: elasticity normal; Negative for jaundice or pallor MDM MDM MDM Narrative Medical decision making narrative: Patient with pruritic erythematous blanching rash. This may be allergic type response. Could be atypical hives. There is no evidence infection. There is no lymphadenopathy axillary or inguinal. Suspect this is allergic of some type. Antigen is unknown. Patient was treated with H1 H2 michela. Rash improved and his itching resolved. Plan is to discharge to home with H1 and H2 michela and systemic steroids. Discharge Plan Triage Chief Complaint: Rash ED Provider: Nathaniel Claudio Dx/Rx/DC Orders Clinical Impression: Pruritic erythematous rash, Elevated blood-pressure reading without diagnosis of hypertension Instructions: ED Erythema, ED Hypertension, To Be Confirmed Prescriptions: New famotidine 20 mg tablet 20 mg PO BID Qty: 8 0RF prednisone 20 mg tablet 60 mg PO DAILY Qty: 15 0RF diphenhydramine HCl [Benadryl] 25 mg capsule 25 mg PO TID Qty: 10 0RF Primary Care Provider: Care Physician,No Primary Referrals: Care Physician,No Primary [Primary Care Provider] - Activity Restrictions/Additional Instructions: Follow-up with your primary care doctor. The name of your doctor will be on your insurance card issued to you by [employer]. Print Language: Yakut Disposition Disposition: Home, Self Care
[2024-10-22 06:56] VITALS: BP 121/74; PULSE 63; RESP 18; TEMP 36.9; O2SAT 97
== END 2024-10-22 06:59 | disposition home or self-care (01) ==
PROVIDERS: Emergency Provider Emergency Medicine; Visit Provider Emergency Medicine
DX: R21 Rash and other nonspecific skin eruption (principal); R03.0 Elevated blood-pressure reading, without diagnosis of hypertension; F17.290 Nicotine dependence, other tobacco product, uncomplicated
CPT/HCPCS: 96374; 96375; 99284; A4216